=== PATIENT | male | born 1950 | race Caucasian/White ===

== ENCOUNTER → 2017-09-22 13:01 | Outpatient (CLI) | payer BC, SELFPAY ==
--- NOTE | 2017-09-22 13:07 | DI.RAD.S_ITS ---
PROCEDURE: XR CHEST 2V INDICATIONS: short of breath TECHNIQUE: 2 views of the chest were acquired. COMPARISON: None. FINDINGS: Surgical changes and devices: None. Lungs and pleura: No pleural effusions or pneumothorax. Lungs are abnormal with increased radiodensity across the upper anterior chest on the lateral view, suggestive of a mass lesion in that area. Mediastinum: Mediastinal contours are abnormal with bulky adenopathy in the hilar regions bilaterally greater on the left than the right, increasing the radiodensity in that area and expanding the mediastinal contours. Lung volumes are large, no definite additional mass lesions found. No effusion seen. Heart size is normal. Bones and chest wall: No suspicious bony abnormalities. Soft tissues appear unremarkable. IMPRESSION: Malignant appearing mass and adenopathy involving the mediastinum predominantly in the perihilar area but also extending into the anterior upper lungs on the frontal and lateral projections. Malignancy is the presumed cause. Contrast-enhanced chest CT is recommended. Large lung volumes, COPD is presumed. There likely has been a long-standing smoking history. These findings were discussed in detail personally with the ordering health care provider. Given the certainty of underlying malignancy it may be warranted to obtain a full staging CT of the chest abdomen and pelvis which will also assist in guiding localization for biopsy. Dictated by: Shin Echeverria M.D. on 09/22/2017 at 13:47 Approved by: Shin Echeverria M.D. on 09/22/2017 at 13:57
[2017-09-22 13:31] LABS: Add Manual Diff / Slide Review NO; Basophils Percent Auto 0.2 % (0-2); Hematocrit 40.2 % (41-53); Hemoglobin 13.7 g/dL (13.5-17.5); Mean Corpuscular HGB Conc 34.2 % (30-36); Mean Corpuscular Hemoglobin 31.1 PG (26-34); Neutrophils Absolute Auto 3500 /uL (3000-5900); Neutrophils Percent Auto 65.8 % (50-75); Platelet Count 218 X10^3/uL (150-400); Red Blood Cell Count 4.42 X10^6/uL (4.5-5.9); Red Cell Distribution Width 15.3 % (11.6-14.8); White Blood Cell Count 5.4 X10^3/uL (4.5-11.0)
[2017-09-22 13:34] LABS: Alanine Aminotransferase 27 IU/L (21-72); Albumin 4.2 g/dL (3.5-5.0); Albumin Globulin Ratio 1.6 (1.0-2.8); Alkaline Phosphatase 61 U/L (38-126); Aspartate Aminotransferase 35 IU/L (17-59); BUN Creatinine Ratio 21.3 (6-22); Bilirubin Total 0.7 mg/dL (0.2-1.3); Blood Urea Nitrogen 17 mg/dL (9-20); Calcium 8.8 mg/dL (8.4-10.2); Carbon Dioxide 27 mmol/L (22-32); Chloride 104 mmol/L (98-107); Estimated Glomerular Filt Rate > 60.0 mL/min (>60); Globulin 2.7 g/dL (1.7-4.1); Glucose 89 mg/dL (80-110); HEMOLYSIS < 15 (0-50); Potassium 4.2 mmol/L (3.4-5.1); Sodium 140 mmol/L (137-145); Total Protein 6.9 g/dL (6.3-8.2)
[2017-09-22 13:35] LABS: Alanine Aminotransferase 32 IU/L (21-72); Albumin 4.1 g/dL (3.5-5.0); Albumin Globulin Ratio 1.5 (1.0-2.8); Alkaline Phosphatase 58 U/L (38-126); Aspartate Aminotransferase 38 IU/L (17-59); Bilirubin Total 0.7 mg/dL (0.2-1.3); Bilirubin Unconjugated 0.4 mg/dL (0.0-1.1); Globulin 2.8 g/dL (1.7-4.1); HEMOLYSIS 21 (0-50); Lipase 89 U/L (23-300); Total Protein 6.9 g/dL (6.3-8.2)
[2017-09-22 14:59] LABS: TSH w/ Reflex to FT4 0.32 uIU/mL (0.47-4.68)
[2017-09-22 15:31] LABS: Free T4, Direct Thyroxine 1.26 ng/dL (0.78-2.19)
[2017-09-26 15:30] LABS: Cancer (Carbohydrate) Ag 19-9 29 U/mL (< 34)
== END ==
PROVIDERS: Visit Provider Physician Assistant
DX: R63.4 Abnormal weight loss (principal); R06.02 Shortness of breath
CPT/HCPCS: 71046; 80053; 80076; 83690; 84439; 84443; 85025; 86301

== ENCOUNTER → 2017-09-25 07:59 | Outpatient (CLI) | payer BC, SELFPAY ==
--- NOTE | 2017-09-25 | DI.CT.S_ITS ---
PROCEDURE: CT CHEST W CON INDICATIONS: MASS IN CHEST TECHNIQUE: After the administration of intravenous contrast, 5 mm thick sections acquired from the pulmonary apices to the posterior costophrenic angles. 7 mm thick coronal and sagittal MIP reformats were acquired. For radiation dose reduction, the following was used: automated exposure control, adjustment of mA and/or kV according to patient size. COMPARISON: [facility], , XR CHEST 2V, 09/22/2017, 12:46. FINDINGS: Image quality: Excellent. Lungs and pleura: No acute air space opacities. No pleural effusions or pneumothorax. Central and peripheral airways are patent and normal in caliber. Mediastinum: A large soft tissue mass containing peripheral calcification and probable areas of necrosis is present in the superior mediastinum anteriorly. The mass is approximately 6 cm AP by 10 cm transverse. There is apparent tumor extension into the superior vena cava with tumor thrombus approximately 9.5 cm craniocaudal. Heart size is normal. No pericardial effusion. No hilar adenopathy by size criteria. Thoracic aorta and central pulmonary arteries are normal in size. Esophagus is normal in caliber. No hiatal hernia. Bones and chest wall: No suspicious bony lesions. No vertebral body compression fractures. No axillary or supraclavicular adenopathy by size criteria. Thyroid gland contains a solid 12 mm nodule in the posterior, inferior pole of the right lobe.. Abdomen: Visualized upper abdominal solid organs appear normal. Upper abdominal bowel loops are normal in caliber. Lobulated hypodensity in the anterior left lobe of liver is reidentified. IMPRESSION: 1. 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 The differential includes malignant thymoma, teratoma and thyroid cancer as well as lymphoma. 2. There is an apparent solid, vascular nodule in the right lobe of thyroid posteriorly. Thyroid ultrasound recommended for further evaluation. 3. No hilar adenopathy or pulmonary lesions. No pleural effusions. Central airway is not compromised. Dictated by: Kevin Wall M.D. on 09/25/2017 at 13:43 Approved by: Kevin Wall M.D. on 09/25/2017 at 13:57
--- NOTE | 2017-09-25 08:02 | DI.CT.S_ITS ---
PROCEDURE: CT ABDOMEN PELVIS W CON INDICATIONS: Mass on chest x ray. TECHNIQUE: After the administration of oral and intravenous contrast, 5 mm thick sections acquired from the diaphragms to the symphysis. 5 mm thick coronal and sagittal reformats were performed. For radiation dose reduction, the following was used: automated exposure control, adjustment of mA and/or kV according to patient size. COMPARISON: [facility], CR, XR CHEST 2V, 09/22/2017, 12:46. FINDINGS: Image quality: Excellent. ABDOMEN: Lung bases: Lung bases are clear. There are small bilateral pleural effusions, and determining. Heart size is normal. Distal esophagus appears normal. The suspected mass lesion in the superior mediastinum is not included on this exam. Solid organs: Liver is normal in size and enhancement. There is a 14 mm slightly lobulated subcapsular hypodensity in the left lobe of liver, series 2/images 15 and 16, internal attenuation 15. This is indeterminant but likely hepatic cyst or hemangioma. Gallbladder appears normal. Biliary system is non-dilated. Pancreas enhances normally. Spleen is normal in size and enhancement. No adrenal nodules. Kidneys are normal in size and enhancement, without hydronephrosis. There is a 2 mm nonobstructing calculus in the lower pole collecting system of the left kidney. Peritoneum and bowel: Stomach, small bowel, and colon loops are normal in caliber and wall thickness. Sigmoid diverticulosis without diverticulitis. No free fluid or air. Nodes and vessels: No retroperitoneal or mesenteric adenopathy. Aorta and inferior vena cava are normal in caliber. Miscellaneous: Small fat filled umbilical hernia. PELVIS: Genitourinary: Bladder wall thickness is normal. Prostate measures 3.8 x 5.3 cm. Miscellaneous: No inguinal hernias or adenopathy. Bones: No suspicious bony lesions. Disc spaces appear maintained however posterior annular bulging is evident at L3-4 and L4-5 No vertebral body compression fractures. Status post total left hip arthroplasty. IMPRESSION: 1. Small bilateral pleural effusions are indeterminant. Contrast enhanced CT chest is recommended as previously advised. 2. No evidence of adrenal nodules, lymphadenopathy or other evidence of primary or secondary malignancy. Small subcapsular defect in the left lobe liver anteriorly is nonspecific. 3. Left nephrolithiasis. 4. Colonic diverticulosis without diverticulitis. 5. Mild prostate enlargement. Dictated by: Kevin Wall M.D. on 09/25/2017 at 10:00 Approved by: Kevin Wall M.D. on 09/25/2017 at 10:21
== END ==
PROVIDERS: PCP Family Medicine; Visit Provider Physician Assistant
DX: R22.2 Localized swelling, mass and lump, trunk (principal); E04.1 Nontoxic single thyroid nodule; J90 Pleural effusion, not elsewhere classified; N20.0 Calculus of kidney; K57.90 Diverticulosis of intestine, part unspecified, without perforation or abscess without bleeding; N40.0 Benign prostatic hyperplasia without lower urinary tract symptoms
CPT/HCPCS: 71260; 74177; Q9967

== ENCOUNTER → 2017-09-26 10:53 | Outpatient (CLI) | payer SELFPAY ==
[2017-09-26 14:12] LABS: Lactate Dehydrogenase 596 U/L (313-618)
[2017-09-26 14:32] LABS: HCG Quantitative /Beta subunit < 2.39 mIU/mL (<2.39)
[2017-09-28 14:26] LABS: Alpha Fetoprotein 2.4 ng/mL (< 6.1)
[2017-09-30 12:53] LABS: Acetylcholine receptor antibod 16
== END ==
PROVIDERS: PCP Family Medicine; Visit Provider Physician Assistant
DX: R22.2 Localized swelling, mass and lump, trunk (principal)
CPT/HCPCS: 36415; 82105; 83519; 83615; 84702

== ENCOUNTER → 2017-09-27 13:40 | Outpatient (CLI) | payer SELFPAY ==
--- NOTE | 2017-09-27 13:42 | DI.US.S_ITS ---
PROCEDURE: US THYROID INDICATIONS: THYROID NODULE ON CT TECHNIQUE: Real-time scanning was performed of the thyroid gland, with image documentation. COMPARISON: None. FINDINGS: Right: Thyroid lobe measures 6.9 x 2.8 x 2.2 cm, and is homogeneous in echotexture. Left: Thyroid lobe measures 5.6 x 2.3 x 1.8 cm, and is homogenous in echotexture. Isthmus: 5.3 mm thick. Nodule number: 1 Location: left superior lobe Size: 1.1 x 0.6 x 0.7 cm. Composition: solid Echogenicity: hypoechogenicty Shape: wider than tall. Margins: smooth Echogenic foci: none Total points: 4 ACR TI-RADS category: 4 Nodule number: 2 Location: left midlobe Size: 0.9 x 0.4 x 0.6 cm. Composition: predominately cystic Echogenicity: hypoechoic Shape: wider than tall. Margins: smooth Echogenic foci: none Total points: 3 ACR TI-RADS category: 3 Nodule number: 3 Location: right inferior Size: 1.8 x 1.3 x 1.4 cm. Composition: solid Echogenicity: hypoechogencity Shape: wider than tall. Margins: smooth Echogenic foci: none Total points: 4 ACR TI-RADS category: 4 IMPRESSION: 1. TIRADS 4 lesions as above. Lesion #1 requires no further followup due to size. Lesion #2 recommends FNA due to size. ACR TI-RADS definitions and recommendations: TI-RADS 1 (benign): 0 points. FNA not needed. TI-RADS 2 (not suspicious): 2 points. FNA not needed. TI-RADS 3 (mildly suspicious): 3 points. * FNA if 2.5 cm or larger, follow up if 1.5 cm or larger (at 1, 3, and 5 years). TI-RADS 4 (moderately suspicious): 4-6 points. * FNA if 1.5 cm or larger, follow up if 1 cm or larger (at 1, 2, 3, and 5 years). TI-RADS 5 (highly suspicious): 7 points or more. * FNA if 1 cm or larger, follow up if 0.5 cm or larger (every year for 5 years). Dictated by: Ella Jose M.D. on 09/27/2017 at 15:06 Approved by: Ella Jose M.D. on 09/27/2017 at 15:18
== END ==
PROVIDERS: PCP Family Medicine; Visit Provider Physician Assistant
DX: E04.2 Nontoxic multinodular goiter (principal)
CPT/HCPCS: 76536

== ENCOUNTER 2017-09-29 10:03 | Inpatient (IN) | payer MEDICARE, BC, SELFPAY ==
[2017-09-29] VITALS (18 sets, daily range): BP systolic 120–152; BP diastolic 68–93; PULSE 64–82; RESP 6–25; TEMP 36.2–37.2; O2SAT 90–100; BMI 26.2
--- NOTE | 2017-09-29 | PATH_ITS ---
[facility] Accession Number: [id number] . 01 Material submitted: . PORTION OF THE SIGMOID COLON . 02 Diagnosis: Portion of Sigmoid Colon, Resection: Segment of colon with diverticulosis, transmural abscess and serositis, consistent with diverticulitis. Negative for dysplasia or malignancy. MRV/10/04/2017 . 02 Electronically signed: . Taras Lugo MD, PhD, Pathologist NPI- [id number] . 01 Gross description: . Received in formalin, labeled portion of sigmoid colon, is an unoriented opened segment of colon (length-11.3 cm, resection margin #1 diameter-1.5 cm; resection margin #2 diameter-1.8 cm) with attached mesentery (up to 4.2 cm in depth). The resection margins are stapled. The serosa is peck smooth and shiny. The mucosa is peck with compact distorted folds containing diffuse diverticula. No nodules or masses are identified. The resection margins are inked black. Section code: (A1) resection margin #1, longitudinally sectioned, sales representative graphic art; (A2) resection margin #2, longitudinally sectioned, sales representative graphic art; (A3-A8) colon segment, serially sectioned, sales representative graphic art. ([id number]) /[facility] . 02 Pathologist provided ICD-10: K57.80 . 02 CPT . 429251 Performed at: 01 [facility] [address] [place] [address], [place], [place] [id number] MD Michael Leslie MD Phone: [phone] Performed at: 02 [facility] [address] [place], [place] [id number] MD Philipp Avila MD Phone: [phone]
--- NOTE | 2017-09-29 10:23 | DI.RAD.S_ITS ---
PROCEDURE: XR CHEST 1V INDICATIONS: chest pain TECHNIQUE: One view of the chest was acquired. COMPARISON: [facility], CT, CT ABDOMEN PELVIS W CON, 09/25/2017, 9:31. [facility], CT, CT CHEST W CON, 09/25/2017, 12:12. [facility], CR, XR CHEST 2V, 09/22/2017, 12:46. FINDINGS: Surgical changes and devices: None. Lungs and pleura: The mild bibasilar airspace disease has developed in the interim. No large effusion or pneumothorax is evident. Incidental note is made of pneumoperitoneum under the hemidiaphragms.. Mediastinum: Mediastinal contours appear normal. Heart size is normal. There is a prominent mediastinal mass. Bones and chest wall: No suspicious bony lesions. Overlying soft tissues appear unremarkable. IMPRESSION: 1. There appears to be free air underlying the diaphragms (left greater than right). A CT of the abdomen and pelvis is recommended. 2. Mediastinal mass is unchanged. 3. Bibasilar airspace disease is new, most suggestive of atelectasis. However, superimposed pneumonia is difficult to exclude. Note: Findings were discussed with Dr. Street 1102 hours (PST) on 09/29/17. Dictated by: Geo Patterson M.D. on 09/29/2017 at 9:57 Approved by: Geo Patterson M.D. on 09/29/2017 at 10:18
[2017-09-29 10:42] LABS: Add Manual Diff / Slide Review NO; Basophils Percent Auto 0.2 % (0-2); Hematocrit 40.3 % (41-53); Hemoglobin 13.8 g/dL (13.5-17.5); Lymphocytes Percent Auto 4.2 % (25-40); Mean Corpuscular HGB Conc 34.2 % (30-36); Mean Corpuscular Hemoglobin 31.5 PG (26-34); Monocytes Percent Auto 7.8 % (3-14); Neutrophils Absolute Auto 9500 /uL (3000-5900); Neutrophils Percent Auto 87.8 % (50-75); Platelet Count 244 X10^3/uL (150-400); Red Blood Cell Count 4.38 X10^6/uL (4.5-5.9); Red Cell Distribution Width 15.2 % (11.6-14.8); White Blood Cell Count 10.9 X10^3/uL (4.5-11.0)
[2017-09-29 10:48] LABS: Alanine Aminotransferase 27 IU/L (21-72); Albumin 4.1 g/dL (3.5-5.0); Albumin Globulin Ratio 1.4 (1.0-2.8); Alkaline Phosphatase 51 U/L (38-126); Aspartate Aminotransferase 28 IU/L (17-59); BUN Creatinine Ratio 21.1 (6-22); Blood Urea Nitrogen 19 mg/dL (9-20); Calcium 9.5 mg/dL (8.4-10.2); Carbon Dioxide 26 mmol/L (22-32); Chloride 105 mmol/L (98-107); Creatine Kinase 34 U/L (55-170); Estimated Glomerular Filt Rate > 60.0 mL/min (>60); Globulin 2.9 g/dL (1.7-4.1); Glucose 129 mg/dL (80-110); Lipase 37 U/L (23-300); Potassium 4.5 mmol/L (3.4-5.1); Sodium 139 mmol/L (137-145)
[2017-09-29 10:58] LABS: HEMOLYSIS 76 (0-50)
[2017-09-29 10:59] LABS: Troponin I < 0.012 ng/mL (0.01-0.034)
[2017-09-29] MEDS: HYDROMORPHONE 0.5 MG INJ 1 MG IV (11:05)
[2017-09-29] MEDS: SODIUM CHLORIDE 0.9% 1,000 ML 1000 ML IV (11:21)
[2017-09-29] MEDS: PIPERACILLIN-TAZO 4.5 GM/100 ML FROZ.PIGGY IV (11:22)
--- NOTE | 2017-09-29 11:29 | DI.CT.S_ITS ---
PROCEDURE: CT CHEST ABD PEL W CON INDICATIONS: free air on CXR TECHNIQUE: After the administration of intravenous contrast, 5 mm thick sections acquired from the lung apices to the symphysis. 5 mm coronal and sagittal reformats were performed, with additional 7 mm MIP reformats through the lungs. For radiation dose reduction, the following was used: automated exposure control, adjustment of mA and/or kV according to patient size. COMPARISON: [facility], CR, XR CHEST 1V, 09/29/2017, 10:40. [facility], CT, CT CHEST W CON, 09/25/2017, 12:12. [facility], CT, CT ABDOMEN PELVIS W CON, 09/25/2017, 9:31. FINDINGS: Image quality: Excellent. CHEST: Lungs and pleura: No effusions. Dependent changes are present at the bases bilaterally. Mediastinum: Heart size is normal. No pericardial effusion. As identified on the 09/25/17 exam, there is a heterogeneously enhancing mass within the anterior mediastinum appearing to extend into the superior vena cava. The latter demonstrates no luminal opacification and is unchanged in appearance. Thoracic aorta and central pulmonary arteries are normal in size. Esophagus is normal in caliber. No hiatal hernia. Chest wall: No axillary or supraclavicular adenopathy by size criteria. Thyroid gland demonstrates a 12 mm nodular focus within the inferior right lobe, unchanged.. ABDOMEN: Solid organs: Liver is normal in size. Low attenuation focus within the left lobe is unchanged. Gallbladder demonstrates minimal appearance of dependent increased density without wall thickening. There is interval development of mild pneumobilia. Pancreas enhances normally. Spleen is normal in size and enhancement. No adrenal nodules. Kidneys demonstrate normal size and enhancement, without hydronephrosis. Peritoneum and bowel: There is a dilated fluid-filled appearance of small bowel loops. Free air is identified below the hemidiaphragms. There are multiple foci of free air identified within the abdominal mesenteric fat, predominately in the anterior superior abdomen. These are particularly prominent adjacent to the stomach and bowel loops within this region. Dependent fluid is present within the pelvis. Significant colonic diverticula are present. The descending and sigmoid colon have a mildly thickened appearance which has not significantly changed. There is a minimal appearance of haziness within the mesenteric fat adjacent to the colon of the left lower quadrant best seen on series 2 image 113. While there is free air within this region, it is minimal compared to the above described regions. Nodes and vessels: No retroperitoneal or mesenteric adenopathy by size criteria. Aorta and inferior vena cava are normal in size. Miscellaneous: No ventral hernias. PELVIS: Genitourinary: Bladder wall thickness is normal. Miscellaneous: No inguinal hernias or adenopathy. Bones: No suspicious bony lesions. No vertebral body compression fractures. Marked femoral arthroplasty is present. IMPRESSION: 1. Free air within the abdomen/pelvis is identified with most prominent areas of air within the mesenteric fat noted between the posterior margins of the stomach and adjacent transverse colon. There is no definitive fluid identified within this region. Findings could be related to a perforated diverticulum given significant extent of diverticulosis. However, other visceral areas of perforation cannot be excluded. 2. Partial small bowel obstruction. 3. Mild dependent pelvic fluid. 4. 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 5. Bibasilar dependent changes likely atelectasis. 6. Minimal to mild appearance of mesenteric fat stranding adjacent to the descending colon within the left lower quadrant as above. This could represent a small focus of diverticulitis. It is noted that free air within this region is much less in comparison to the upper abdomen. The above findings were discussed with Dr. Roman Street on 09/29/17 at 11:51 AM. Dictated by: Ella Jose M.D. on 09/29/2017 at 11:42 Approved by: Ella Jose M.D. on 09/29/2017 at 11:58
[2017-09-29 12:20] LABS: Lactate (Lactic Acid) 0.8 mmol/L (0.7-2.1)
--- NOTE | 2017-09-29 13:07 | ED.CHESTPAIN ---
HPI - Chest Pain General Chief Complaint: Chest Pain Stated Complaint: Chest Pain History of Present Illness HPI narrative: HPI 67-year-old male presents for evaluation of sharp midline chest discomfort that is worsened with deep inspiration has been present for three fourths of the day and occurred after moving furniture; diagnosed 09/22 with a mediastinal mass, otherwise in good health. Patient denies fevers, chills, cough, 3 of DVT or PE, history of cardiovascular disease. Recently moved from [place], has not yet established primary care. M/S/F/SocHx notable for: please see HPI; remainder reviewed with patient and in chart. ROS: Negative constitutional, eye, cardiovascular, pulmonary, GI, , MSK, skin, neurologic, psychiatric, endocrine unless noted in the HPI. Exam Gen: pleasant, not an extremis, appears moderately uncomfortable. HEENT: NC, AT, PEERL, EOMI. Resp: Clear to auscultation bilaterally, normal work of breathing, no accessory muscle usage. Card: Regular rate and rhythm with no murmurs, rubs, or gallops, extremities warm and well perfused. GI: N mild epigastric tenderness to palpation, otherwise nontender to palpation throughout all quadrants, no focal tenderness at McBurney's point, negative Lockhart's sign, non-distended, no rebound or guarding. : No suprapubic tenderness to palpation. MSK: No visible deformities, strength and tone without visually appreciable deficit. Skin: Normal color with no visible lesions. Neuro: AO x 3, no facial asymmetry, vision and hearing WNL. Psych: Mood and affect appropriate. Labs / Imaging: EKG: SR 70 bpm, RBBB, no ST segment elevations or depressions. CXR: free air. Mediastinal widening. Radiologist read pending. WBC 10.9, Hb 13.8, Na 139, K 4.5 total bilirubin 1.0, AST 28, ALT 27, lipase 37, troponin <0.012 CT Chest / Abd / Pelvis: 1. Free air within the abdomen/pelvis is identified with most prominent areas of air within the mesenteric fat noted between the posterior margins of the stomach and adjacent transverse colon. There is no definitive fluid identified within this region. Findings could be related to a perforated diverticulum given significant extent of diverticulosis. However, other visceral areas of perforation cannot be excluded. 2. Partial small bowel obstruction. 3. Mild dependent pelvic fluid. 4. 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 5. Bibasilar dependent changes likely atelectasis. 6. Minimal to mild appearance of mesenteric fat stranding adjacent to the descending colon within the left lower quadrant as above. This could represent a small focus of diverticulitis. It is noted that free air within this region is much less in comparison to the upper abdomen. MDM Previous chart, nursing note, labs, imaging, and vitals reviewed. A: 67-year-old male presents for evaluation of sharp midline chest discomfort that is worsened with deep inspiration has been present for three fourths of the day and occurred after moving furniture; diagnosed 09/22 with a mediastinal mass, otherwise in good health. Evaluation: chest x-ray with free air, CT abdomen pelvis with partial obstruction and free air, location uncertain. Surgery consulted. Patient taken to or for further intervention. 1 mg hydromorphone given for pain control. Chest x-ray with free air, 1 L normal saline, Zosyn, lactic ordered. Communicated with radiology technicians that expedited imaging needs to be obtained. Imaging obtained, notable for free air and a partial SBO, etiology uncertain, surgical consultation obtained. Impression: intrabdominal free air, partial SBO (please reference below for remainder of encounter information) Related Data Home Medications Medication Instructions Recorded Confirmed eszopiclone PO 09/22/17 09/22/17 lorazepam PO 09/22/17 09/22/17 Allergies Allergy/AdvReac Type Severity Reaction Status Date / Time birch Allergy Unknown Verified 09/22/17 12:14 ragweed pollen Allergy Unknown Verified 09/22/17 12:14 [facility] Social History Smoking Status: Unknown if ever smoked Exam Initial Vital Signs Initial Vital Signs: Vital Signs Temperature 97.3 F L 09/29/17 10:14 Pulse Rate 69 09/29/17 10:14 Respiratory Rate 18 09/29/17 10:14 Blood Pressure 150/86 H 09/29/17 10:14 Pulse Oximetry 96 09/29/17 10:14 Course Orders Ordered: ED Orders 09/29/17 09:55 Complete Blood Count AUTO DIFF Stat Comprehensive Metabolic Panel Stat Lipase Stat Troponin & CK Cardiac Panel Stat 09/29/17 10:23 EKG-12 Lead Stat 09/29/17 11:29 CT chest abd pel w con Stat 09/29/17 12:06 Lactate (Lactic Acid) Stat Sodium Chloride (Normal Saline 0.9%) 1,000 mls @ 150 mls/hr IV CONT DELORIS Last Admin: 09/29/17 10:52 Dose: Discontinued Medications Aspirin (Aspirin Chew) 324 mg PO NOW ONE Stop: 09/29/17 10:24 Last Admin: 09/29/17 10:47 Dose: Hydromorphone HCl (Dilaudid) 1 mg IV NOW ONE Stop: 09/29/17 10:55 Last Admin: 09/29/17 11:05 Dose: 1 mg Sodium Chloride (Normal Saline 0.9%) 1,000 mls @ 1,000 mls/hr IV BOLUS ONE Stop: 09/29/17 12:01 Last Admin: 09/29/17 11:21 Dose: 1,000 mls/hr Piperacillin/Tazobactam/Dextrose (Zosyn) 4.5 gm in 100 mls @ 200 mls/hr IV NOW ONE Stop: 09/29/17 11:31 Last Infusion: 09/29/17 12:25 Dose: 0 mls/hr Admin: 09/29/17 11:22 Dose: 200 mls/hr Vital Signs - 8 hr 09/29/17 10:14 09/29/17 10:16 09/29/17 10:54 Temperature 97.3 F L 97.3 F L Pulse Rate 69 76 72 Respiratory Rate 18 19 18 Blood Pressure 150/86 H Blood Pressure [Right Arm] 150/86 H 129/76 H Pulse Oximetry 96 94 95 09/29/17 11:00 09/29/17 11:30 09/29/17 12:00 Temperature Pulse Rate 69 72 65 Respiratory Rate 19 12 12 Blood Pressure Blood Pressure [Right Arm] 132/72 H 140/75 H 143/81 H Pulse Oximetry 96 92 92 09/29/17 12:30 Temperature Pulse Rate 68 Respiratory Rate 14 Blood Pressure Blood Pressure [Right Arm] 121/88 H Pulse Oximetry 90 L MDM - Chest Pain Lab Data Result diagrams: 09/29/17 09:55 09/29/17 09:55 Lab Results 09/29/17 09/29/17 09/29/17 Range/Units 09:55 09:55 12:06 WBC 10.9 (4.5-11.0) X10^3/uL RBC 4.38 L (4.5-5.9) X10^6/uL Hgb 13.8 (13.5-17.5) g/dL Hct 40.3 L (41-53) % MCV 92.0 (80-100) fL MCH 31.5 (26-34) PG MCHC 34.2 (30-36) % RDW 15.2 H (11.6-14.8) % Plt Count 244 (150-400) X10^3/uL Neut % (Auto) 87.8 H (50-75) % Lymph % (Auto) 4.2 L (25-40) % [place] % (Auto) 7.8 (3-14) % Eos % (Auto) 0.0 L (2-4) % Baso % (Auto) 0.2 (0-2) % Neut # (Auto) 9500 H (1808-3910) /uL Sodium 139 (137-145) mmol/L Potassium 4.5 (3.4-5.1) mmol/L Chloride 105 (98-107) mmol/L Carbon Dioxide 26 (22-32) mmol/L BUN 19 (9-20) mg/dL Creatinine 0.90 (0.66-1.25) mg/dL Estimated GFR > 60.0 (>60) mL/min BUN/Creatinine Ratio 21.1 (6-22) Glucose 129 H (80-110) mg/dL Lactate 0.8 (0.7-2.1) mmol/L Calcium 9.5 (8.4-10.2) mg/dL Total Bilirubin 1.0 (0.2-1.3) mg/dL AST 28 (17-59) IU/L ALT 27 (21-72) IU/L Alkaline Phosphatase 51 (38-126) U/L Total Creatine Kinase 34 L (55-170) U/L Troponin I < 0.012 (0.01-0.034) ng/mL Total Protein 7.0 (6.3-8.2) g/dL Albumin 4.1 (3.5-5.0) g/dL Globulin 2.9 (1.7-4.1) g/dL Albumin/Globulin Ratio 1.4 (1.0-2.8) Lipase 37 D (23-300) U/L Discharge Plan Departure Prescriptions: No Action eszopiclone PO RF: 0 lorazepam PO RF: 0
[2017-09-29] MEDS: LACTATED RINGERS 1,000 ML 21 ML IV ×2 (13:50→15:13)
--- NOTE | 2017-09-29 13:51 | P.HP_ITS ---
History of Present Illness Date Patient Seen: 09/29/17 Time Patient Seen: 13:40 Chief complaint: Chest Pain Narrative: 67-year-old male who presented to the urgent care center approximately 1 week ago with intermittent chest wall pain. 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 No pulmonary masses. Patient states on further history that he had been feeling relatively poorly over the last several months. In fact, he has been anorexic most days with very little oral intake. He has lost at least 20 lb unintentionally over the last several months. No fevers or chills or night sweats. However, he has had significant difficulty with sleep for which he is now taking medication. He has had no issues with abdominal pain. In fact, his current complaint to bring him to the emergency department today is bilateral thoracic pain radiating into the shoulders. He has noticed no recent change in bowel habits although his last bowel movement was somewhat firm. Denies any dysuria or hematuria. No nausea or vomiting until this morning. Patient History Medical History Diverticulosis (Acute) Insomnia (Acute) Intra-abdominal free air of unknown etiology (Acute) Mediastinal mass (Acute) Surgical History History of appendectomy (Acute) History of colonoscopy (Acute) Family & Social History Family History: Reviewed 09/29/17 by Azael Flynn MD Safety & Behavioral: Feels Safe in Current Yes Environment Tobacco & Substance use: Smoking Status Unknown if ever smoked alcohol intake frequency 0-2 drinks per day Substance Use Type does not use Meds Home Medications Medication Instructions Recorded Confirmed Type eszopiclone PO 09/22/17 09/22/17 History lorazepam PO 09/22/17 09/22/17 History eszopiclone [Lunesta] 1 mg PO BEDTIME 09/29/17 09/29/17 History fluticasone [Flonase Allergy 1 spray INTRANASAL DAILY 09/29/17 09/29/17 History Relief] Allergies Allergy/AdvReac Type Severity Reaction Status Date / Time birch Allergy Unknown Verified 09/29/17 13:46 ragweed pollen Allergy Unknown Verified 09/29/17 13:46 Review of Systems Review of Systems All systems reviewed & are unremarkable except as noted in HPI and below Exam Vital Signs (past 8 hours): - 09/29/17 10:14 09/29/17 10:16 09/29/17 10:54 Temperature 97.3 F L 97.3 F L Pulse Rate 69 76 72 Respiratory Rate 18 19 18 Blood Pressure 150/86 H Blood Pressure [Right Arm] 150/86 H 129/76 H Pulse Oximetry 96 94 95 09/29/17 11:00 09/29/17 11:30 09/29/17 12:00 Temperature Pulse Rate 69 72 65 Respiratory Rate 19 12 12 Blood Pressure Blood Pressure [Right Arm] 132/72 H 140/75 H 143/81 H Pulse Oximetry 96 92 92 09/29/17 12:30 09/29/17 13:00 Temperature Pulse Rate 68 69 Respiratory Rate 14 11 L Blood Pressure Blood Pressure [Right Arm] 121/88 H 141/80 H Pulse Oximetry 90 L 93 Oxygen Delivery Method Room Air Narrative Exam Narrative: Middle aged gentleman sitting comfortably in bed in no acute distress but he is nauseated. He is having dry heaves at the time of my visit. His is at the bedside. He is alert oriented x3 however. No fevers or tachycardia in the emergency department. Sclera nonicteric Neck is supple Chest clear auscultation with regular rate and rhythm Abdomen is soft and nondistended. He is not tympanitic. He is diffusely mildly tender but actually has no guarding or rebound. Well-healed right lower quadrant scar. Extremities show no clubbing, cyanosis, or edema Objective Labs Result Diagrams: 09/29/17 09:55 09/29/17 09:55 Labs: Laboratory Results - last 24 hr 09/29/17 09/29/17 09/29/17 09:55 09:55 12:06 WBC 10.9 RBC 4.38 L Hgb 13.8 Hct 40.3 L MCV 92.0 MCH 31.5 MCHC 34.2 RDW 15.2 H Plt Count 244 Neut % (Auto) 87.8 H Lymph % (Auto) 4.2 L [place] % (Auto) 7.8 Eos % (Auto) 0.0 L Baso % (Auto) 0.2 Neut # (Auto) 9500 H Sodium 139 Potassium 4.5 Chloride 105 Carbon Dioxide 26 BUN 19 Creatinine 0.90 Estimated GFR > 60.0 BUN/Creatinine Ratio 21.1 Glucose 129 H Lactate 0.8 Calcium 9.5 Total Bilirubin 1.0 AST 28 ALT 27 Alkaline Phosphatase 51 Total Creatine Kinase 34 L Troponin I < 0.012 Total Protein 7.0 Albumin 4.1 Globulin 2.9 Albumin/Globulin Ratio 1.4 Lipase 37 D I have personally reviewed his CT scan dated September 25, [address] as his CT scan done today and chest x-ray done today. All films are reviewed with the staff radiologist. Findings today show massive free air under the diaphragm bilaterally. Small amount of free fluid in the pelvis. No significant inflammatory changes but he has diffusely dilated small bowel throughout the abdomen. No clear obstructive point however. Liver is without masses. No significant lymphadenopathy. Mediastinal mass is confirmed as above. Assessment & Plan Plan: Assessment/Plan Narrative: 67-year-old male with significant free intraperitoneal air of unclear etiology consistent with perforated viscus. I discussed the nature of the patient's acute emergent problem with him and his . He understands that he may have a perforation anywhere from the stomach to the rectum. He requires emergent laparotomy and exploration. He understands that I am uncertain as to what will be found at the time of surgery but does findings will mandate the appropriate procedure. He may require resection or even ostomy of some sort. We also discussed the possibility of drains or enteric tubes. He may require prolonged intubation after surgery. I will plan ICU admission. We discussed the significant life-threatening nature of perforated viscus. I am uncertain if the perforation is related to an underlying malignancy, such as lymphoma, especially given the mediastinal mass recently visualized. I did not recommend any alternatives to surgery such as observation since I explained to him clearly that observation only would most likely result in sepsis and . Risks of surgery other than those above include anesthesia, aspiration, bleeding , need for transfusion, pain, scar, poor wound healing, infection, abscess, cardiac event, blood clot, respiratory failure, liver injury, renal injury, bowel injury, colon injury, ureter injury, bladder injury, need for ostomy, and need for further major abdominal surgery were all explained in detail. All questions were answered to his satisfaction, and he voiced understanding. Consent was placed on the chart. We will proceed emergently as above. Orders were written.
[2017-09-29] MEDS: FAMOTIDINE 20 MG/50 ML PIGGYBACK 200 MG IV (13:55)
[2017-09-29] MEDS: CEFAZOLIN 2 GM/100 ML FROZ.PIGGY IV (14:07)
[2017-09-29] MEDS: metroNIDAZOLE 500 MG/100 ML PIGGYBACK 100 MG IV ×2 (14:25→22:18)
--- NOTE | 2017-09-29 14:44 | SUR.OPER ---
Supine on padded OR bed, head on pillow, arms secured on padded arm boards at <90 degrees abduction, legs uncrossed, safety belt at thigh, tape over blanket over lower legs.
[2017-09-29] MEDS: ONDANSETRON 4 MG/2 ML INJ IV (15:11)
--- NOTE | 2017-09-29 18:56 | DI.RAD.S_ITS ---
PROCEDURE: XR CHEST 1V INDICATIONS: intubated, tube placement TECHNIQUE: One view of the chest was acquired. COMPARISON: [facility], CR, XR CHEST 1V, 09/29/2017, 10:40. FINDINGS: Surgical changes and devices: There's been interval placement of an endotracheal tube with distal tip approximately 4.3 cm superior to the latricia. Nasogastric tube is present with distal tip projecting below the left hemidiaphragm. Lungs and pleura: No pleural effusions or pneumothorax. Dependent changes within the lung bases are noted, slightly more prominent. Appearance of free air below the hemidiaphragms is less prominent. Mediastinum: Mediastinal contours appear normal. Heart size is normal. Bones and chest wall: No suspicious bony lesions. Overlying soft tissues appear unremarkable. IMPRESSION: 1. Support lines as above. 2. Less prominent appearance of free air. 3. Dependent changes within the lungs slightly more prominent on the left when compared to prior exam. This could represent worsening atelectasis or developing pneumonia. Dictated by: Ella Jose M.D. on 09/29/2017 at 20:21 Approved by: Ella Jose M.D. on 09/29/2017 at 20:22
--- NOTE | 2017-09-29 18:56 | PM.OP.1 ---
Operative Date/Time/Diagnoses Date of procedure: 09/29/17 Time of procedure: 18:56 Pre-op diagnosis: Perforated viscus with free intraperitoneal air Post-op diagnosis: other (Perforated sigmoid diverticulitis) Procedure & Clinicians Procedure: 1. Exploratory laparotomy 2. Partial sigmoid colectomy 3. Diverting descending end colostomy 4. Mobilization of the splenic flexure 5. Esophagogastroscopy with placement of nasogastric tube endoscopically Same procedure as scheduled: Yes Indications: 67-year-old male who presented the emergency department with progressive pain and nausea. Examination and evaluation including radiographic studies demonstrated free intraperitoneal air. He was recommended to undergo emergency laparotomy with presumptive diagnosis of perforated viscus. He also understood that there were multiple potential indicated procedures based on findings. He was agreeable to necessary procedures. Surgeon: Azael Flynn Click Yes if Unassisted: Yes Anesthesia Type: General Operative Notes Findings: 1. Kell pus within the pelvis 2. Significant inflammatory response in the sigmoid colon consistent with perforated diverticulitis. Specimen was opened on the back table which confirmed a perforated diverticulum. 3. Very high splenic flexure posterior to the spleen just below the insertion of the diaphragm 4. Distended stomach at the time of initial exploration with inability to the past nasogastric tube. Patient clearly required nasogastric tube so endoscopic placement was necessary. 5. Normal left ureter in normal anatomic position 6. Grossly normal but mildly dilated small bowel from the ligament of Treitz to the terminal ileum 7. Adhesions in the right lower quadrant consistent with prior appendectomy 8. Grossly normal spleen 9. No palpable liver abnormalities or masses 10. Normal duodenum and stomach without evidence of perforation or inflammation 11. Normal residual colon with few scattered diverticula 12. Viable and well perfused colostomy in left abdominal wall at conclusion of the case Closure Type: primary Specimen(s): other (Segment of sigmoid colon) Estimated Blood Loss (mL): 200 Blood products transfused: none Procedure in detail: After obtaining informed consent the patient was brought to the operating room placed supine on the table. After satisfactory induction of anesthesia the abdomen was prepped and draped in usual sterile fashion after inserting a Lawler catheter in the urinary bladder. A SCOAP time-out was performed per standard protocol. Vertical midline incision was created from just above the umbilicus to the inferior midline. Bovie was used to achieve hemostasis and carried the dissection down to the rectus fascia which was divided in the midline. Underlying peritoneum near the umbilicus was secured between hemostats and entered under direct visualization sharply with Metzenbaum scissors. Surgeon's finger was inserted in the remaining portion of the peritoneum and fascia were opened along the midline for the length of the incision using the Bovie. Findings are as above. Bookwalter retractor was inserted to provide exposure. Fluid cultures were sent from the kell pus in the pelvis. Fluid was then suction from the abdomen and pelvis. Small bowel was eviscerated and examined. Findings again are as above. Attempts at nasogastric tube placement per the anesthesiology service were unsuccessful on multiple occasions throughout the case. We therefore determined that endoscopic placement of the nasogastric tube would be necessary. There was some suspicion that is mediastinal mass might be causing some esophageal compression thereby inhibiting the passage of the tube. After fully visualizing exploring the abdomen findings were consistent with perforated sigmoid diverticulitis. I therefore stapled across the bowel above and below the perforation on grossly normal noninflamed colon. The rectosigmoid stump was marked with 2 individual 2 0 Prolene sutures on the corners for future identification at the time of colostomy reversal in the future. Specimen was liberated by dividing the mesentery between Samara clamps and securing the vessels with 2 0 silk ties and 3 0 silk suture ligatures. Specimen was opened on the back table and a clear perforation to a diverticulum at the inflammatory phlegmon was clearly noted. Specimen was sent for permanent section. Gowns and gloves were changed. Entire descending colon and splenic flexure including the distal transverse colon were completely mobilized along the peritoneal reflection to prepare the colon for future colostomy reversal. Great care was taken to avoid injury to the left kidney in the left ureter. The ureter was clearly identified prior to the mobilization of the colon. Ureter was again identified and noted to be completely intact following the mobilization maneuvers. Residual colon was quite viable without evidence of any other perforation or abnormalities. Spleen was intact. Stomach was not injured but remained distended. Because we were unsure if we were going to be able to place a nasogastric tube at this point which would necessitate placement of a Jessie gastrostomy I broke sterility to perform esophagogastroscopy and endoscopic placement of the nasogastric tube. The gastroscope was inserted over the tongue through the bite block where the upper esophageal sphincter was identified. Scope was advanced easily into the esophagus and under direct visualization of the esophageal lumen the scope was advanced into the stomach which insufflated with air. I suctioned air and bilious fluid from the stomach without difficulty. There was no evidence of any esophageal stricture other abnormalities including mucosal lesions as I slowly withdrew the scope and meticulously examined the esophagus. Nasogastric tube was then inserted back through the nose and into the oropharynx at the level of the upper esophageal sphincter where it was readily identified with the endoscope. Tube was secured with a snare and then meticulously guided through the upper esophageal sphincter into the esophageal lumen. At this point we released the nasogastric tube from the snare and the snare was withdrawn. Nasogastric tube was then advanced easily under direct visualization with the endoscope. Tube was placed into the stomach. Gastroscope was withdrawn and this portion the procedure was terminated. I then scrubbed once again in the usual sterile fashion and replaced my sterile gown and gloves. Nasogastric tube was noted to be in good position within the body of the stomach without any significant redundancy. Tube was secured to the nose at that time. Abdomen was then irrigated with copious amounts of warm sterile saline solution. At least 3 L was utilized. Hemostasis was verified. There was no gross residual pus. Bowel and omentum were replaced in their usual anatomic position. Dayn clamps were used to secure the fascia bilaterally along the incision. Another clamp was used to secure the skin in the left abdominal wall where a circular incision was created with a 10. Scalpel blade. Bovie was used to create hemostasis and resect a portion of the subcutaneous fat down to the rectus fascia. Fascia was divided in a cruciate fashion along with the peritoneum which easily admitted 2 of the surgeon's fingers. The descending colon with all of its redundancy following mobilization of the splenic flexure was then easily exteriorized through the abdominal wall defect. Colon was noted to be quite viable and well perfused. Colon was secured outside of the abdominal wall with an Allis clamp along the staple line. Incision was then closed with 2 individual 1 running Prolene sutures tied in the midline. Subcutaneous tissue was irrigated with copious amount of sterile saline solution and noted to be hemostatic. Skin was closed with hugh. Sterile dressing was applied. Colostomy was then matured in a standard fashion using interrupted 3 0 Vicryl suture along the skin edge. There was excellent perfusion and nice height to the ostomy at the completion of the case. Temporary ostomy appliance was applied. Patient was left intubated and taken to the ICU in critical condition but stable having experienced no complications intraoperatively. Complications: none Condition: critical Disposition: ICU Plan for aftercare: 1. Patient to be intubated at least overnight in the ICU for critical care and resuscitation
--- NOTE | 2017-09-29 19:12 | SUR.PHASEI ---
late entry: pt brought to icu directly from or 3. felicia from [facility] CALLED AND TOLD OF NEEDED VENT. PT MONITORED AND TRANSFERRED TO ICU VIA BED. NGT TO LIS HOOKED TO SUCTION, NO OUTPUT, DRESSING TO ABDOMEN C/D/I. L ABDOMEN WITH BEEFY RED, WET COLOSTOMY. VSS, PT SQUEEZED MY R HAND WHEN ASKED. PT LEFT IN STABLE CONDIITON UNDER THE CARE OF ANTONELLA LUNDBERG. SCD'S ON BED LOCKED.
[2017-09-29] MEDS: PROPOFOL 1,000 MG/10 ML VIAL 10.2 MG IV (19:15)
[2017-09-29] MEDS: HYDROMORPHONE 2 MG INJ 1 MG IV (19:20)
[2017-09-29 19:59] LABS: PCO2 ABG 43.9 mmHg (35-45); PO2 ABG 115 mmHg (80-105); pH ABG 7.31 (7.35-7.45)
[2017-09-29 20:00] LABS: Fractionated Inspired Oxygen 40; HCO3 ABG 22 mmol/L (23-27); Oxygen Saturation ABG 98 % (95-100); TCO2 ABG 24 mmol/L (23-27)
[2017-09-29 20:08] LABS: Hematocrit 39.9 % (41-53); Hemoglobin 13.5 g/dL (13.5-17.5)
[2017-09-29] MEDS: PIPERACILLIN-TAZO 3.375 GM/50 ML FROZ.PIGGY IV (21:00)
[2017-09-29] MEDS: LACTATED RINGERS 1,000 ML 125 ML IV (21:00)
[2017-09-29] MEDS: ENOXAPARIN 40 MG/0.4 ML SYRINGE SUBCUT (21:00)
[2017-09-29] MEDS: PANTOPRAZOLE 40 MG VIAL IV (21:01)
--- NOTE | 2017-09-29 21:17 | PC.NURSE ---
1899 - Patient brought over from PACU in bed by nursing staff. Patient sedated on ventilator. Respiratory therapy, PACU nurse, and anesthesiologist at bedside. 2114 - Patient repositioned. Opened eyes and looked at nurse, then closed eyes again. Patient able to shake head yes and no appropriately to questions. Shook head no when asked about pain. Shook head yes when asked if he knew what was going on. Able to wiggle feet and squeeze hands when asked to. Remains on propofol gtt per protocol.
[2017-09-30] VITALS (20 sets, daily range): BP systolic 114–147; BP diastolic 58–77; PULSE 52–71; RESP 8–20; TEMP 36.1–37.4; O2SAT 95–98
[2017-09-30] MEDS: PROPOFOL 1,000 MG/10 ML VIAL 32 MG IV (02:58)
[2017-09-30] MEDS: PIPERACILLIN-TAZO 3.375 GM/50 ML FROZ.PIGGY IV ×3 (02:59→19:41)
[2017-09-30] MEDS: HYDROMORPHONE 2 MG INJ 1 MG IV ×2 (03:00→09:17)
[2017-09-30 05:31] LABS: Add Manual Diff / Slide Review NO; Basophils Percent Auto 0.2 % (0-2); Hematocrit 37.3 % (41-53); Hemoglobin 12.5 g/dL (13.5-17.5); Lymphocytes Percent Auto 3.9 % (25-40); Mean Corpuscular HGB Conc 33.6 % (30-36); Mean Corpuscular Hemoglobin 31.1 PG (26-34); Mean Corpuscular Volume 92.3 fL (80-100); Monocytes Percent Auto 8.3 % (3-14); Neutrophils Absolute Auto 8800 /uL (3000-5900); Neutrophils Percent Auto 87.6 % (50-75); Platelet Count 207 X10^3/uL (150-400); Red Blood Cell Count 4.04 X10^6/uL (4.5-5.9); Red Cell Distribution Width 15.6 % (11.6-14.8)
[2017-09-30 05:41] LABS: Alanine Aminotransferase 32 IU/L (21-72); Albumin 3.1 g/dL (3.5-5.0); Albumin Globulin Ratio 1.2 (1.0-2.8); Alkaline Phosphatase 46 U/L (38-126); Aspartate Aminotransferase 20 IU/L (17-59); Bilirubin Total 0.4 mg/dL (0.2-1.3); Blood Urea Nitrogen 18 mg/dL (9-20); Calcium 8.1 mg/dL (8.4-10.2); Carbon Dioxide 25 mmol/L (22-32); Chloride 107 mmol/L (98-107); Estimated Glomerular Filt Rate > 60.0 mL/min (>60); Globulin 2.5 g/dL (1.7-4.1); Glucose 134 mg/dL (80-110); HEMOLYSIS 15 (0-50); Potassium 4.6 mmol/L (3.4-5.1); Sodium 140 mmol/L (137-145); Total Protein 5.6 g/dL (6.3-8.2)
[2017-09-30] MEDS: LACTATED RINGERS 1,000 ML 125 ML IV (06:10)
[2017-09-30] MEDS: metroNIDAZOLE 500 MG/100 ML PIGGYBACK 100 MG IV ×3 (06:17→22:20)
[2017-09-30] MEDS: PANTOPRAZOLE 40 MG VIAL IV (09:20)
--- NOTE | 2017-09-30 11:02 | PM.PN.1 ---
Subjective Date Patient Seen: 09/30/17 Time Patient Seen: 09:02 Interval history: Patient remains intubated but he is alert and able to answer questions with nodding of his head. He denies significant discomfort at the moment. Exam Vital Signs (past 8 hours): - 09/30/17 04:15 09/30/17 04:19 09/30/17 04:37 Temperature 99.3 F 99.3 F Pulse Rate 62 Respiratory Rate 13 Blood Pressure 114/66 Pulse Oximetry 97 97 09/30/17 06:16 09/30/17 06:32 09/30/17 07:23 Temperature 99 F Pulse Rate 67 59 L Respiratory Rate 13 11 L Blood Pressure 117/68 120/73 Pulse Oximetry 97 98 98 09/30/17 08:00 09/30/17 09:04 09/30/17 10:01 Temperature Pulse Rate 67 Respiratory Rate 8 L Blood Pressure 134/70 H Pulse Oximetry 98 96 97 Oxygen Delivery Method Mechanical Ventilation Oxygen Flow Rate 30 Narrative Exam Narrative: Patient no acute distress. He is breathing comfortably on minimal ventilatory settings. Saturations are in the 98% range. He has had no fevers overnight. No tachycardia. Blood pressure is normal. Urine output has been adequate Sedation is now been off for approximately 1 hr Neck is supple Chest clear to auscultation bilaterally Abdomen is soft and minimally distended. Dressing is clean, dry, and intact. Colostomy is pink and viable with no output in the appliance. He is appropriately tender to palpation. Extremities show no clubbing, cyanosis, or edema Objective Labs Result Diagrams: 09/30/17 04:40 09/30/17 04:40 Labs: Laboratory Results - last 24 hr 09/29/17 09/29/17 09/29/17 12:06 14:00 18:25 WBC RBC Hgb Hct MCV MCH MCHC RDW Plt Count Neut % (Auto) Lymph % (Auto) [place] % (Auto) Eos % (Auto) Baso % (Auto) Neut # (Auto) ABG pH ABG pCO2 ABG pO2 ABG HCO3 ABG Total CO2 ABG O2 Saturation ABG Base Excess FiO2 Sodium Potassium Chloride Carbon Dioxide BUN Creatinine Estimated GFR BUN/Creatinine Ratio Glucose Lactate 0.8 Calcium Total Bilirubin AST ALT Alkaline Phosphatase Total Protein Albumin Globulin Albumin/Globulin Ratio Nasal Screen MRSA (PCR) Negative for mrsa Blood Type O Negative Antibody Screen Negative 09/29/17 09/29/17 09/30/17 19:29 19:57 04:40 WBC 10.0 RBC 4.04 L Hgb 13.5 12.5 L Hct 39.9 L 37.3 L MCV 92.3 MCH 31.1 MCHC 33.6 RDW 15.6 H Plt Count 207 Neut % (Auto) 87.6 H Lymph % (Auto) 3.9 L [place] % (Auto) 8.3 Eos % (Auto) 0.0 L Baso % (Auto) 0.2 Neut # (Auto) 8800 H ABG pH 7.31 L ABG pCO2 43.9 ABG pO2 115 H ABG HCO3 22 L ABG Total CO2 24 ABG O2 Saturation 98 ABG Base Excess -4.0 L FiO2 40 Sodium Potassium Chloride Carbon Dioxide BUN Creatinine Estimated GFR BUN/Creatinine Ratio Glucose Lactate Calcium Total Bilirubin AST ALT Alkaline Phosphatase Total Protein Albumin Globulin Albumin/Globulin Ratio Nasal Screen MRSA (PCR) Blood Type Antibody Screen 09/30/17 04:40 WBC RBC Hgb Hct MCV MCH MCHC RDW Plt Count Neut % (Auto) Lymph % (Auto) [place] % (Auto) Eos % (Auto) Baso % (Auto) Neut # (Auto) ABG pH ABG pCO2 ABG pO2 ABG HCO3 ABG Total CO2 ABG O2 Saturation ABG Base Excess FiO2 Sodium 140 Potassium 4.6 Chloride 107 Carbon Dioxide 25 BUN 18 Creatinine 0.90 Estimated GFR > 60.0 BUN/Creatinine Ratio 20.0 Glucose 134 H Lactate Calcium 8.1 L Total Bilirubin 0.4 AST 20 ALT 32 Alkaline Phosphatase 46 Total Protein 5.6 L Albumin 3.1 L Globulin 2.5 Albumin/Globulin Ratio 1.2 Nasal Screen MRSA (PCR) Blood Type Antibody Screen Assessment & Plan Plan: Assessment/Plan Narrative: 67-year-old male postoperative day 1 from exploratory laparotomy with sigmoid colectomy and diverting colostomy for perforated diverticulitis who was left intubated due to significant airway manipulation and possible laryngeal edema. He is doing well currently and we will moved extubate him immediately. Continue nasogastric tube and Lawler catheter. Await bowel function. Convert to intravenous analgesia using Dilaudid [employer] BUSINESS A[employer]LYST. Continue antibiotics consisting of Zosyn and Flagyl. Await culture results which are still pending. DVT prophylaxis with Lovenox and sequential compression devices. May have a few ice chips but otherwise NPO until bowel function returns. Change dressing tomorrow or as needed today. Will consult ostomy nurse next week when she is available. is at the bedside for my entire visit as well as during his extubation. I will decrease his IV fluid rate but continue isotonic resuscitation. All questions were answered to her satisfaction, and she voiced understanding. Patient was successfully extubated without issue. Encourage aggressive cough and pulmonary toilet. Incentive spirometry also ordered. Continue current care otherwise. Orders written.
--- NOTE | 2017-09-30 13:41 | CM.DANOTE ---
Discharge Planning/Care Management CM Discharge Assessment Start: 09/30/17 13:39 Freq: Status: Active Protocol: Document 09/30/17 13:39 ITV (Rec: 09/30/17 13:41 ITV [id number]) Discharge Planning Assessment History Provided By Medical Record Has Patient been admitted in last 30 No days? Is this patient on Medicare? Yes Household Members spouse Review Status In Process Next Review Type Continued Stay Review
--- NOTE | 2017-09-30 13:42 | CM.DANOTE ---
Addendum entered by Nicol Garza LPN 09/30/17 14:19: Checked in with pt as planned. He was lying quietly, eyes closed, NG to suction in place, dark material in tubing. Room white board updated with CM DCP contact info. Will follow as noted. Original Note: Discharge Planning/Care Management DCP: assessment: Case received, EMR reviewed and discussed case in Interdisc team rounds. Pt is a 67 year old male who admitted yesterday to care of surgeon: Dr. Flynn. Payer: [place] and [facility] PCP: listed as Dr. Crystal. Pt was taken to surgery for exploratory laparotomy: partial colectomy: new diverting colostomy: NG tube in place. PACU to ICU on ventilator support. Dr. Flynn did extubate pt this afternoon. P: check in with pt and his for introduction of CM/DCP team/role and follow as POC unfolds to assist with d/c issues and options. CM Discharge Assessment Start: 09/30/17 13:39 Freq: Status: Active Protocol: Document 09/30/17 13:39 ITV (Rec: 09/30/17 13:41 ITV [id number]) Discharge Planning Assessment History Provided By Medical Record Has Patient been admitted in last 30 No days? Is this patient on Medicare? Yes Household Members spouse Review Status In Process Next Review Type Continued Stay Review Document 09/30/17 13:42 ITV (Rec: 09/30/17 13:42 ITV [id number]) Discharge Planning Assessment History Provided By Medical Record Has Patient been admitted in last 30 No days? Is this patient on Medicare? Yes Household Members spouse Review Status In Process Next Review Type Continued Stay Review Document 09/30/17 13:42 ITV (Rec: 09/30/17 13:42 ITV [id number]) Discharge Planning Assessment History Provided By Medical Record Has Patient been admitted in last 30 No days? Is this patient on Medicare? Yes Household Members spouse Review Status In Process Next Review Type Continued Stay Review
--- NOTE | 2017-09-30 14:37 | PC.NURSE ---
Day Shift Note Pt intubated and sedated at start of shift, awakened easily and able to answer all questions by nodding/shaking head. Sedation turned off and CPAP trial done at 0900. Tolerated well and patient extubated by Senthil HERCULES at [address] Flynn at bedside. Patient on 2L NC with sats 97%. ETCO2 37-40. Lungs clear bilaterally, speech clear and strong cough noted. Dilaudid OFFICE SUPPORT SPECIALIST set up for pain control, pt educated on use and acknowledged understanding. Reports pain to midline incision well controlled on OFFICE SUPPORT SPECIALIST. Dressing is C/D/I. Stoma is beefy red with sanguinous output to colostomy. No BTs. NG tube to LIS. Lawler in place draining clear gogo urine. Call light within reach.
[2017-09-30] MEDS: HYDROMORPHONE PCA 6 MG/30 ML PCA.VIAL IV ×2 (14:46→22:21)
[2017-09-30] MEDS: ONDANSETRON 4 MG/2 ML INJ IV (14:58)
--- NOTE | 2017-09-30 17:27 | PC.NURSE ---
Patient c/o seeing colors, and papers in bed that are not present. o2 sats normal- 97- etco2 38. hr in the 60's. denies pain. alert and oreinted x 3 and aware of reason for hospitalization/ surgery. Reviewed medications administered- none noted with this side effect- informed patient and about review done. Did review that patient had surgery/ sedation last night on vent/ pain medications with and patient. Upon questioning says he started feeling this way earlier today when I got cleaned up in bed. says patient has not slept well for several weeks and simon days prior to admission. Room darkened, decreased stimulation, closed the door and patient given a cool wet cloth to place over his eyes. Updated Dr. Flynn about patient's complaints-no changes in meds at this time. Will continue to monitor closely.
[2017-09-30] MEDS: LACTATED RINGERS 1,000 ML 100 ML IV (17:41)
--- NOTE | 2017-09-30 21:38 | PC.NURSE ---
Patient had an extended nap after decreasing stimulation- woke up without previous sensations - but did say he was very tired and fatigued- compared to earlier today. Reassured this was normal after his situation- emergent abdominal surgery. No further nausea. Colostomy stoma beef red with minimal dark bloody drainage.
[2017-09-30] MEDS: ENOXAPARIN 40 MG/0.4 ML SYRINGE SUBCUT (22:20)
[2017-10-01] VITALS (10 sets, daily range): BP systolic 136–146; BP diastolic 70–94; PULSE 57–72; RESP 10–18; TEMP 36.9–37.2; O2SAT 94–97
[2017-10-01] MEDS: PIPERACILLIN-TAZO 3.375 GM/50 ML FROZ.PIGGY IV ×3 (02:32→20:46)
[2017-10-01] MEDS: ONDANSETRON 4 MG/2 ML INJ IV (05:35)
[2017-10-01] MEDS: LACTATED RINGERS 1,000 ML 100 ML IV ×2 (05:36→18:23)
[2017-10-01] MEDS: metroNIDAZOLE 500 MG/100 ML PIGGYBACK 100 MG IV ×3 (05:36→21:17)
--- NOTE | 2017-10-01 06:29 | P.PN_ITS ---
Subjective Date Patient Seen: 10/01/17 Time Patient Seen: 06:23 Interval history: Had difficulty with his chronic insomnia last evening. He feels extremely exhausted due to lack of sleep. No longer having vivid dreams or any hallucinations which he experience briefly yesterday afternoon following extubation. Mild nausea this morning treated with Zofran. Currently not nauseated. Denies any subjective fever or chills. No chest pain or shortness of breath. Postoperative pain is otherwise quite well controlled with ROLL COATING MACHINE OPERATOR. Exam Vital Signs (past 8 hours): - 10/01/17 00:00 10/01/17 00:46 10/01/17 02:50 Temperature 98.9 F Pulse Rate 72 Respiratory Rate 18 Blood Pressure 146/78 H Pulse Oximetry 95 97 96 10/01/17 04:23 10/01/17 04:37 Temperature 98.7 F Pulse Rate 71 Respiratory Rate 10 L Blood Pressure 136/76 H Pulse Oximetry 96 96 Oxygen Delivery Method Nasal Cannula Oxygen Flow Rate 1 Narrative Exam Narrative: Patient resting comfortably in bed currently in no acute distress. Alert oriented x3. Normal conversation. Neck is supple Chest clear to auscultation bilaterally with regular rate and rhythm. No murmurs Abdomen is soft and minimally distended. He is not tympanitic. Incision is clean, dry, and intact. Colostomy is somewhat edematous but red and perfused. No output in the appliance. No air. He is appropriately tender to palpation with no guarding or rebound Extremities show no clubbing, cyanosis, or edema Objective Labs Result Diagrams: 09/30/17 04:40 09/30/17 04:40 Labs: No new laboratory radiographic studies for review this morning Assessment & Plan Plan: Assessment/Plan Narrative: 67-year-old male now postoperative day 2 from emergent laparotomy with sigmoid colectomy and diverting colostomy secondary to perforated diverticulitis who is overall doing well. His insomnia will be an ongoing issue. We will order his usual sleep aid beginning this evening at bedtime. Transfer from the ICU to the regular surgical floor. Discontinue his Lawler today. Consult physical therapy for mobility and ambulation. Continue IV fluids and ROLL COATING MACHINE OPERATOR. Await bowel function. He may have a significant prolonged postoperative ileus due to the nature of his disease, peritonitis, and bowel manipulation at surgery. Nasogastric tube will remain in place until such time he has evidence of bowel function. Because the tube was very difficult to place intraoperatively and required endoscopic assistance for such we will be very conservative with its removal. Of note for the record, the gastric distention seen at the time of surgery was normal part of his disease process secondary to peritonitis and ileus. The gastric distention itself was not pathologic in any way. I discussed this with him as well. Continue Zosyn and Flagyl secondary to pelvic abscess and peritonitis. Awaiting culture results. Gram stain showed mixed angelique as anticipated. All questions were answered to his satisfaction, and he voiced understanding. He requested that I call his so that she would delay her visit to later this afternoon thereby allowing him to rest a little longer. I spoke with her via telephone this morning at his request and she voiced understanding. Transfer orders from the ICU to the acute care unit were entered as well.
[2017-10-01] MEDS: PANTOPRAZOLE 40 MG VIAL IV (10:09)
--- NOTE | 2017-10-01 10:35 | PT.IIE ---
Current Diagnoses Diverticulitis of large intestine with perforation and abscess without bleeding (09/29/17) Surgery Performed Operation Date: 09/29/17 14:30 Actual Procedures p Exploratory Laparotomy GEN, Partial sigmoid colon colectomy, diverting in colostomy - Azael Flynn MD s Esophagogastroduodenoscopy with placement of gastric nasal tube - Azael Flynn MD Surgical History (Last Reviewed 09/29/17 @ 13:44 by Azael Flynn MD) History of appendectomy (Acute) History of colonoscopy (Acute) Medical History (Last Reviewed 09/29/17 @ 13:44 by Azael Flynn MD) Diverticulosis (Acute) Insomnia (Acute) Intra-abdominal free air of unknown etiology (Acute) Mediastinal mass (Acute) Physical Therapy Inpatient Evaluation/Re-Eval M1 PT/OT-IP Prior Functional Status Start: 10/01/17 11:08 Freq: Status: Active Protocol: Document 10/01/17 10:35 [facility] (Rec: 10/01/17 11:19 [facility] [id number]) Medical Review Prior Functional Status Medical History Reviewed Yes Communication WNL Mobility and Gait indep. community ambulator without device Activities of Daily Living and IADL's indep. I/ADLs. Social History Household Members spouse Living Arrangements House Number of Floors (Floors) One Floor Number of Stairs To Enter/Railing? 3 small step ups to get into front door, no rails Home Environment Standard Height Toilet Walk in Shower Tub/Shower Employment Status Retired Additional Social History Comment Moved to [facility] 3 wks ago with from [place] . Pt had emergent exploratory laparotomy with sigmoid colectomy and diverted colostomy. Extubated 09/30/17 M2 PT-IP Current Condition Start: 10/01/17 11:08 Freq: Status: Active Protocol: Document 10/01/17 10:35 RCC (Rec: 10/01/17 11:19 RCC [id number]) Physical Therapy Current Condition Current Condition Evaluation Date 10/01/17 Treatment Diagnosis ex. lap. 09/21/17, impaired mobility and weakness Onset Date 09/30/17 Precautions Abdominal Surgery Precautions Log Roll Lifting Restrictions Gait Belt above Incisional Area M3 PT-IP Subjective Start: 10/01/17 11:08 Freq: Status: Active Protocol: Document 10/01/17 10:35 [facility] (Rec: 10/01/17 11:19 [facility] [id number]) Subjective Physical Therapy Visit Type Type Initial Evaluation Visit Start Time 10:00 Visit Stop Time 10:35 Total Visit Minutes 35 Notes NG tube, IV, catheter; pt taken off O2 and at 96% prior to mobility. Number of PHYTOCHEMISTRY PROFESSOR Visits 0 Physical Therapy Visit Comments Patient Comments Pt notes that he does not have too much pain, more so he feels poorly due to anesthesia . M4 PT-IP Mobility and Gait Start: 10/01/17 11:08 Freq: Status: Active Protocol: Document 10/01/17 10:35 RCC (Rec: 10/01/17 11:19 [facility] [id number]) PT-Bed Mobility Assessment Rolling Type of Rolling Log Rolling Roll to Right Level of Assist Moderate Assistance Supine to Sit Supine to Sit Moderate Assistance 1 Person Assistance Scooting Scooting to Edge of Bed Contact Guard Assistance PT-Transfer Assessment Sit to and From Stand Sit to and from Stand Minimal Assistance 1 Person Assistance Use of Upper Extremities Equipment Transfer Assistive Device Gait Belt Front Wheeled Walker Transfers Transfer Destination Chair Transfer Technique Stand Step Pivot Transfer Ability Level of Assist Standby Assistance 1 Person Assistance Gait Assessment Gait Gait Assistance Required: Standby Assistance Distance (Feet) (feet) 40 Assistive Devices Assistive Device Gait Belt Front Wheeled Walker Gait Deviations General Gait Pattern Decreased Stride Length Decreased Feet Clearance Flexed Trunk Factors Limiting Gait Function Factors Limiting Gait Function Decreased Activity Tolerance Decreased Strength Pain PT-Balance Assessment Sitting Balance and Reactions Static Sitting Balance Ability Normal Dynamic Sitting Balance Ability Normal Standing Balance and Reactions Static Standing Balance Ability Good Dynamic Standing Balance Ability Fair Device Used FWW M5 PT-IP Objective Assessments Start: 10/01/17 11:08 Freq: Status: Active Protocol: Document 10/01/17 10:35 RCC (Rec: 10/01/17 11:19 [facility] [id number]) Orientation Orientation/Cognition Level of Alertness Alert Language Function Ability No Deficits Noted Memory Description No Deficits Noted Strength Comments Strength Comments not tested due to surgery. Coordination Assessment Gross Coordination Gross Coordination WNL Sensation Assessment Sensation Gross Sensation WNL M6 PT-IP Treatment Start: 10/01/17 11:08 Freq: Status: Active Protocol: Document 10/01/17 10:35 RCC (Rec: 10/01/17 11:19 [facility] [id number]) Physical Therapy Treatment Education Education Provided Precautions Safety M7 PT-IP Assessment and Plan Start: 10/01/17 11:08 Freq: Status: Active Protocol: Document 10/01/17 10:35 [facility] (Rec: 10/01/17 11:19 [facility] [id number]) PT Summary Assessment and Plan Potential Rehabilitation Potential Good Status of Condition at Evaluation Evolving Summary Impairments Pain Strength Bed Mobility Transfers Gait Activity Tolerance Assessment Summary POD #2 exploratory laparotomy. Pt with slow movement, but tolerated standing and ambulation with SBA. He utilized a FWW today due to his weakness and first time being OOB, but anticipate he may be able to trial gait without a walker as he progresses. Expect pt to be able to d/c home when medically stable if he continues to progress with his mobility. Goals Bed Mobility Goal Independent Transfer Goal Independent Gait Goal Standby Assistance Gait Distance 150 Other Goals 3 step ups with CGA and no rails Days to Meet Goals 4 Frequency of Treatment Frequency Of Treatment Once a Day Treatment Plan Physical Therapy Treatment Plan Bed Mobility Training Transfer Training Gait Training Therapeutic Exercise Post Op Education Discharge Planning Hot or Cold Pack Neuromuscular Re-ed Recommendations To Nursing Amount of Assist Needed 1 Person Assist Discharge Recommendations PT Discharge Recommendations Home with Assistance
--- NOTE | 2017-10-01 13:29 | PC.NURSE ---
Day Shift/Transfer Pt transferred to room 208 at 1325. All belongings with patient including electronic tablet, cell phone, zinc furnace charger, glasses, clothing, and backpack. Report given to Lavonne BERMAN.
[2017-10-01] MEDS: HYDROMORPHONE PCA 6 MG/30 ML PCA.VIAL IV ×2 (14:39→21:21)
--- NOTE | 2017-10-01 15:24 | PC.NURSE ---
Addendum entered by Lavonne Cuenca R.N. 10/01/17 15:27: Note continued: Pt reports pain as minimal and has family here to see him. Incision stapled and open to air, no drainage, sl bruising. Pt reports no concerns at this time. Cont w/poc. Original Note: Post-op: Recieved from ICU, report from Blanca BERMAN. Pt is oriented at this time. (Had some possible hallucinations this am) Room set up and instructed in call light. NGT placed to lis. IVF going per orders and has chief controller, minimal amts used.
[2017-10-01] MEDS: ZOLPIDEM 5 MG TABLET 10 MG PO (21:17)
[2017-10-01] MEDS: ENOXAPARIN 40 MG/0.4 ML SYRINGE SUBCUT (21:18)
[2017-10-02 01:26] VITALS: BP 144/85; PULSE 68; RESP 12; TEMP 36.8; O2SAT 92
--- NOTE | 2017-10-02 01:32 | PC.NURSE ---
Patient is alert and oriented. Breath sounds CTA with RA sat of 92%. HR irregular with rate of 68. Denies nausea. NG to medium intermittent suction with bile colored liquid in cannister. BT present and abdomen is soft. Ostomy with beefy red stoma and small amount red liquid in bag. Abdominal incision is PE ELECTRICAL ENGINEER with intact hugh, well approximated and without redness or drainage. Voiding per urinal and denies any dysuria, frequency, urgency or incontinence. Able to turn self in bed. Denies pain except from NG tube and has CENTER MACHINE OPERATOR to use as needed. Remains NPO. Refusing SCD's even after reinforcement of purpose; states he can't sleep with them on so reminded to be ankle waving/moving legs when awake and patient verbalizes understanding. Fall risk score is moderate but bed alarm not currently in use as is rooming in. Denies any weakness when he has been up during days.
[2017-10-02] MEDS: PIPERACILLIN-TAZO 3.375 GM/50 ML FROZ.PIGGY IV (02:53)
[2017-10-02] MEDS: HYDROMORPHONE PCA 6 MG/30 ML PCA.VIAL IV ×3 (05:39→21:10)
[2017-10-02] MEDS: metroNIDAZOLE 500 MG/100 ML PIGGYBACK 100 MG IV ×3 (05:39→21:09)
[2017-10-02] MEDS: LACTATED RINGERS 1,000 ML 100 ML IV (05:41)
[2017-10-02 06:01] VITALS: BP 150/77; PULSE 82; RESP 14; TEMP 36.2; O2SAT 96
[2017-10-02 08:05] VITALS: BP 147/77; PULSE 68; RESP 18; TEMP 37; O2SAT 93
[2017-10-02] MEDS: PANTOPRAZOLE 40 MG VIAL IV (08:31)
--- NOTE | 2017-10-02 10:26 | PM.PN.1 ---
Subjective Date Patient Seen: 10/02/17 Time Patient Seen: 10:26 Interval history: Patient denies any nausea. Has noticed some flatus into the appliance via the colostomy. No stool as yet. Pain is minimal and otherwise well controlled. Sleep remains relatively problematic but he was unable to effectively swallow the Ambien yesterday. Denies chest pain or shortness of breath. No dysuria or retention with spontaneous urination. Denies any subjective fever or chills. Exam Vital Signs (past 8 hours): - 10/02/17 06:01 10/02/17 08:05 Temperature 97.1 F L 98.6 F Pulse Rate 82 68 Respiratory Rate 14 18 Blood Pressure 150/77 H 147/77 H Pulse Oximetry 96 93 Oxygen Delivery Method Room Air Oxygen Flow Rate 0 Narrative Exam Narrative: Well-nourished well-developed male sitting comfortably in bed in no acute distress. is at the bedside. Alert orient x3 Sclera nonicteric Neck is supple without significant jugular distension Chest clear to auscultation bilaterally with regular rate and rhythm. Abdomen shows few hypoactive bowel sounds throughout but otherwise soft and minimally distended. He is not tympanitic. Incision is clean, dry, and intact. Colostomy is pink and viable with air in the appliance. No stool. He is appropriately tender to palpation with no guarding or rebound. There is no erythema or ecchymoses of the abdominal wall. Extremities show no clubbing or cyanosis. He does continue to have edema of bilateral upper extremities stable since yesterday. Objective Labs Result Diagrams: 09/30/17 04:40 09/30/17 04:40 Labs: No new laboratory or radiographic studies for review Assessment & Plan Plan: Assessment/Plan Narrative: 67-year-old male postoperative day 3 from emergent laparotomy with partial sigmoid colectomy and diverting colostomy due to perforated diverticulitis and pelvic abscess who is overall doing quite well. He is actually experiencing return of some bowel function earlier than anticipated. Nevertheless, we will continue the nasogastric tube and await more consistent bowel function before discontinuing it, especially since it required endoscopic placement. He may have ice chips but otherwise NPO. Continue ACADEMIC AFFAIRS VICE PRESIDENT. Changed to maintenance IV fluids today and discontinue lactated Ringer's. Ambulate aggressively with physical therapy. Continue pulmonary toilet including incentive spirometry. Consult has been initiated for the ostomy nurse. We will also initiate referral to Dr. Slater at [facility] for cardiothoracic surgical evaluation when appropriate for the known mediastinal mass. Repeat CBC and basic metabolic panel tomorrow. He and his had multiple questions about the technical details of his operation. I discussed these with him at length, and answered all of their questions to their satisfaction. Orders were written.
--- NOTE | 2017-10-02 10:30 | PT.IPTN ---
Current Diagnoses Diverticulitis of large intestine with perforation and abscess without bleeding (09/29/17) Surgery Performed Operation Date: 09/29/17 14:30 Actual Procedures p Exploratory Laparotomy GEN, Partial sigmoid colon colectomy, diverting in colostomy - Azael Flynn MD s Esophagogastroduodenoscopy with placement of gastric nasal tube - Azael Flynn MD Physical Therapy Treatment Note M2 PT-IP Current Condition Start: 10/01/17 11:08 Freq: Status: Active Protocol: Document 10/01/17 10:35 [facility] (Rec: 10/01/17 11:19 [facility] [id number]) Physical Therapy Current Condition Current Condition Evaluation Date 10/01/17 Treatment Diagnosis ex. lap. 09/21/17, impaired mobility and weakness Onset Date 09/30/17 Precautions Abdominal Surgery Precautions Log Roll Lifting Restrictions Gait Belt above Incisional Area M3 PT-IP Subjective Start: 10/01/17 11:08 Freq: Status: Active Protocol: Document 10/02/17 10:07 [facility] (Rec: 10/02/17 10:30 [facility] [id number]) Subjective Physical Therapy Visit Type Type Treatment Note Visit Start Time 10:07 Visit Stop Time 10:22 Total Visit Minutes 15 Number of GAS OR WATER METER INSTALLER Visits 1 Physical Therapy Visit Comments Patient Comments Pt eager to ambulate with therapy. M4 PT-IP Mobility and Gait Start: 10/01/17 11:08 Freq: Status: Active Protocol: Document 10/02/17 10:07 [facility] (Rec: 10/02/17 10:30 [facility] [id number]) PT-Bed Mobility Assessment Scooting Scooting to Edge of Bed Standby Assistance PT-Transfer Assessment Sit to and From Stand Sit to and from Stand Standby Assistance Equipment Transfer Assistive Device Gait Belt Front Wheeled Walker Transfers Transfer Destination Chair Transfer Technique after ambulation Transfer Ability Level of Assist Standby Assistance 1 Person Assistance Gait Assessment Gait Gait Assistance Required: Contact Guard Assist Distance (Feet) (feet) 200 Assistive Devices Assistive Device Gait Belt Front Wheeled Walker Gait Deviations General Gait Pattern Flexed Trunk Factors Limiting Gait Function Factors Limiting Gait Function Decreased Activity Tolerance Decreased Strength PT-Balance Assessment Sitting Balance and Reactions Static Sitting Balance Ability Normal Dynamic Sitting Balance Ability Normal Standing Balance and Reactions Static Standing Balance Ability Good Dynamic Standing Balance Ability Fair Device Used FWW M5 PT-IP Objective Assessments Start: 10/01/17 11:08 Freq: Status: Active Protocol: Document 10/01/17 10:35 [facility] (Rec: 10/01/17 11:19 [facility] [id number]) Orientation Orientation/Cognition Level of Alertness Alert Language Function Ability No Deficits Noted Memory Description No Deficits Noted Strength Comments Strength Comments not tested due to surgery. Coordination Assessment Gross Coordination Gross Coordination WNL Sensation Assessment Sensation Gross Sensation WNL M6 PT-IP Treatment Start: 10/01/17 11:08 Freq: Status: Active Protocol: Document 10/01/17 10:35 [facility] (Rec: 10/01/17 11:19 [facility] [id number]) Physical Therapy Treatment Education Education Provided Precautions Safety M7 PT-IP Assessment and Plan Start: 10/01/17 11:08 Freq: Status: Active Protocol: Document 10/02/17 10:07 [facility] (Rec: 10/02/17 10:30 [facility] [id number]) PT Summary Assessment and Plan Potential Rehabilitation Potential Good Status of Condition at Evaluation Evolving Summary Impairments Pain Strength Bed Mobility Transfers Gait Activity Tolerance Assessment Summary POD #3 exploratory laparotomy. Pt progressing well with all mobility. Pt increased ambulation to ~200ft with good frank but slight flexed trunk, assisted with IV Pole. Pt able to ambulate in llanos with nursing staff w/FWW. Goals Bed Mobility Goal Independent Transfer Goal Independent Gait Goal Standby Assistance Gait Distance 150 Other Goals 3 step ups with CGA and no rails Frequency of Treatment Frequency Of Treatment Once a Day Treatment Plan Physical Therapy Treatment Plan Bed Mobility Training Transfer Training Gait Training Therapeutic Exercise Post Op Education Discharge Planning Hot or Cold Pack Neuromuscular Re-ed Recommendations To Nursing Amount of Assist Needed 1 Person Assist Discharge Recommendations PT Discharge Recommendations Home with Assistance
[2017-10-02] MEDS: levoFLOXacin 750 MG/150 ML PIGGYBACK 100 MG IV (11:27)
[2017-10-02] MEDS: DEXTROSE 5%-0.45NS W/KCL 40MEQ 1,000 ML 84 MEQ IV (11:27)
[2017-10-02 12:00] VITALS: BP 155/93; PULSE 57; RESP 18; TEMP 36.8; O2SAT 94
--- NOTE | 2017-10-02 12:10 | CM.DPC ---
DCP Cont: Patient sleeping at this time. Checked in with nurse. Patient will be receiving a 10 day course of antibiotics. NG tube is still in place. Has been up working with physical therapy. P: DCP will continue to plan assess. Plan is to go home, but will be dependent upon improvement of condition. Barbara Duran RN/Product Test Engineer
[2017-10-02 16:00] VITALS: BP 140/83; PULSE 63; RESP 16; TEMP 36.9; O2SAT 96
[2017-10-02 20:00] VITALS: BP 152/98; PULSE 62; RESP 16; TEMP 36.8; O2SAT 96
[2017-10-02] MEDS: ENOXAPARIN 40 MG/0.4 ML SYRINGE SUBCUT (21:10)
[2017-10-03] VITALS: BP 137/75; PULSE 57; RESP 14; TEMP 36.6; O2SAT 97
[2017-10-03] MEDS: DEXTROSE 5%-0.45NS W/KCL 40MEQ 1,000 ML 84 MEQ IV ×2 (01:37→16:39)
[2017-10-03 05:30] VITALS: BP 152/90; PULSE 67; RESP 14; TEMP 36.6; O2SAT 97
[2017-10-03] MEDS: metroNIDAZOLE 500 MG/100 ML PIGGYBACK 100 MG IV ×3 (05:31→22:06)
[2017-10-03] MEDS: HYDROMORPHONE PCA 6 MG/30 ML PCA.VIAL IV ×3 (05:32→22:08)
[2017-10-03 07:15] VITALS: BP 137/78; PULSE 65; RESP 16; TEMP 36.9; O2SAT 96
[2017-10-03] MEDS: PANTOPRAZOLE 40 MG VIAL IV (09:00)
--- NOTE | 2017-10-03 10:38 | PT.IPTN ---
Current Diagnoses Diverticulitis of large intestine with perforation and abscess without bleeding (09/29/17) Surgery Performed Operation Date: 09/29/17 14:30 Actual Procedures p Exploratory Laparotomy GEN, Partial sigmoid colon colectomy, diverting in colostomy - Azael Flynn MD s Esophagogastroduodenoscopy with placement of gastric nasal tube - Azael Flynn MD Physical Therapy Treatment Note M2 PT-IP Current Condition Start: 10/01/17 11:08 Freq: Status: Active Protocol: Document 10/01/17 10:35 RCC (Rec: 10/01/17 11:19 RCC [id number]) Physical Therapy Current Condition Current Condition Evaluation Date 10/01/17 Treatment Diagnosis ex. lap. 09/21/17, impaired mobility and weakness Onset Date 09/30/17 Precautions Abdominal Surgery Precautions Log Roll Lifting Restrictions Gait Belt above Incisional Area M3 PT-IP Subjective Start: 10/01/17 11:08 Freq: Status: Active Protocol: Document 10/03/17 10:38 AB (Rec: 10/03/17 12:12 AB [email or web address]) Subjective Physical Therapy Visit Type Type Treatment Note Visit Start Time 10:38 Visit Stop Time 10:59 Total Visit Minutes 21 Number of SCHOOL TRAFFIC GUARD Visits 0 Physical Therapy Visit Comments Patient Comments pt agreeable to do therapy M4 PT-IP Mobility and Gait Start: 10/01/17 11:08 Freq: Status: Active Protocol: Document 10/03/17 10:38 AB (Rec: 10/03/17 12:12 AB [email or web address]) PT-Transfer Assessment Sit to and From Stand Sit to and from Stand Standby Assistance Equipment Transfer Assistive Device None Gait Belt Gait Assessment Gait Gait Assistance Required: Contact Guard Assist Distance (Feet) (feet) 200 Able to Maintain Weight Bearing Status Yes During Gait Assistive Devices Assistive Device None Gait Belt Orthotic/Prosthetic Devices or Brace: No Gait Deviations General Gait Pattern Antalgic Factors Limiting Gait Function Factors Limiting Gait Function Decreased Activity Tolerance Decreased Strength Poor Balance Poor Safety Awareness Comments Gait Comments assessed ambulation without AD and pt completed requiring CGA and cues. pt with (+) LOB during ambulation but able to recover with CGA and cues. educated pt to use FWW when ambulating with nursing or with spouse. Stair Climbing Assessment Evaluation Level of Assist On Stairs Contact Guard Assistance Devices Stair Climbing Assistive Devices None Left Railing Technique/Endurance Stair Climbing Direction Ascend and Descend Stair Climbing Technique Step Over Step Number of Steps Climbed 3 Query Text: Stair Climbing Set # Repetitions (reps) 2 Comments Stair Climbing Comments completed initially with 1 rail SBA and then completed ascending without rails SBA but has to use 1 rail with descending steps. M5 PT-IP Objective Assessments Start: 10/01/17 11:08 Freq: Status: Active Protocol: Document 10/01/17 10:35 RCC (Rec: 10/01/17 11:19 RCC [id number]) Orientation Orientation/Cognition Level of Alertness Alert Language Function Ability No Deficits Noted Memory Description No Deficits Noted Strength Comments Strength Comments not tested due to surgery. Coordination Assessment Gross Coordination Gross Coordination WNL Sensation Assessment Sensation Gross Sensation WNL M6 PT-IP Treatment Start: 10/01/17 11:08 Freq: Status: Active Protocol: Document 10/03/17 10:38 AB (Rec: 10/03/17 12:12 AB [email or web address]) Physical Therapy Treatment Education Education Provided Precautions Safety M7 PT-IP Assessment and Plan Start: 10/01/17 11:08 Freq: Status: Active Protocol: Document 10/03/17 10:38 AB (Rec: 10/03/17 12:12 AB [email or web address]) PT Summary Assessment and Plan Potential Rehabilitation Potential Good Summary Impairments Strength Balance Bed Mobility Transfers Gait Activity Tolerance Progress Towards Goals Slow Progress due to Medical Issues Assessment Summary pt requiring SBA to CGA with mobility and plans to go home with spouse to assist him. Goals Bed Mobility Goal Independent Transfer Goal Independent Gait Goal Standby Assistance Gait Distance 150 Other Goals 3 step ups with CGA and no rails Frequency of Treatment Frequency Of Treatment Once a Day Treatment Plan Physical Therapy Treatment Plan Bed Mobility Training Transfer Training Gait Training Therapeutic Exercise Post Op Education Discharge Planning Hot or Cold Pack Neuromuscular Re-ed Recommendations To Nursing Amount of Assist Needed 1 Person Assist Discharge Recommendations PT Discharge Recommendations Home with Assistance
[2017-10-03 11:00] VITALS: BP 143/75; PULSE 54; RESP 17; TEMP 36.7; O2SAT 97
--- NOTE | 2017-10-03 11:26 | PC.NURSE ---
0800 Clamped the NG tube per Dr Flynn. 1115 Pt up for ambulation in llanos with PT. Steady gait noted. Pt tolerating clamped NGT, denies nausea.
[2017-10-03] MEDS: levoFLOXacin 750 MG/150 ML PIGGYBACK 100 MG IV (11:45)
--- NOTE | 2017-10-03 11:49 | CM.DPC ---
DCP Cont: Met with patient and family in room. Discussed options upon discharge, when patient is ready. Stated that they may need some support regarding ostomy care, but do not feel that skilled is necessary. They would like to learn how to manage. Did discuss home health, and are interested in this idea DCP continue to follow patient, may pursue home health upon discharge. Barbara Duran RN/Experimental Assembler
[2017-10-03 13:51] VITALS: BMI 26.3
--- NOTE | 2017-10-03 14:32 | PC.NURSE ---
1200 Pt resing in bed, no residual noted from NGT. 1430 Pt has been oob to chair & up in llanos for ambulation. Denies pain,nausea. Air noted in the colostomy bag & scant amt dark brown drainage. low Midline incision intact. BUEs remain edematous, 2-3 +. Arms elevated on pillows. Swelling has decreased thruout this shift. SERVICE OFFICER used 0.2.
[2017-10-03 15:45] VITALS: BP 137/79; PULSE 60; RESP 17; TEMP 36.5; O2SAT 97
--- NOTE | 2017-10-03 18:29 | PM.PN.1 ---
Subjective Date Patient Seen: 10/03/17 Time Patient Seen: 18:29 Interval history: Denies nausea or vomiting. NG tube has been clamped since early this morning. No distention. Continues to pass flatus per ostomy. No stool as yet in the appliance. Reports normal bladder function with no feelings of retention. No dysuria or hematuria. Urine output is adequate. No subjective fever or chills. Denies any shortness of breath or dyspnea. Feels that his appetite is slowly returning. Exam Vital Signs (past 8 hours): - 10/03/17 11:00 10/03/17 15:45 Temperature 98.1 F 97.7 F Pulse Rate 54 L 60 Respiratory Rate 17 17 Blood Pressure 143/75 H 137/79 H Pulse Oximetry 97 97 Oxygen Delivery Method Room Air Oxygen Flow Rate 0 Narrative Exam Narrative: Well-nourished well-developed male sitting comfortably in bed in no acute distress. Alert oriented x3 Nasogastric tube is clamped. Residual was minimal at only a few cc. Neck is supple Chest clear to auscultation. Regular rate rhythm Abdomen is soft and nondistended. Wound has some ecchymoses but no hematoma. No drainage. No erythema. Colostomy is pink and viable with air in the appliance. No formed stool or liquid stool as yet. Old serosanguineous drainage remains present in the appliance. Abdomen is otherwise appropriately tender without guarding or rebound. Extremities show no clubbing or cyanosis. Left upper extremity edema is resolving. Continues to have some mild edema bilateral feet and right hand. Objective Labs Result Diagrams: 09/30/17 04:40 09/30/17 04:40 Labs: Phlebotomy was unable to draw labs today due to poor IV access. Assessment & Plan Plan: Assessment/Plan Narrative: 67-year-old male now postoperative day 4 from emergency laparotomy with sigmoid colectomy and diverting colostomy for perforated diverticulitis who is doing quite well. His postoperative ileus slowly resolving as anticipated. He has no evidence of significant infectious complications. Cultures are as previously documented. Continue Levaquin and Flagyl. I will discontinue the nasogastric tube is eating. A lower clear liquid diet but I will not advance the diet till such time he has more significant ostomy output. He may shower and ambulate as new. Still awaiting consultation from the ostomy nurse. We will resubmit for such. All questions answered to the patient's satisfaction, and he voiced understanding. Orders were written.
[2017-10-03 20:11] LABS: Add Manual Diff / Slide Review NO; Basophils Percent Auto 0.3 % (0-2); Hematocrit 35.6 % (41-53); Lymphocytes Percent Auto 15.1 % (25-40); Mean Corpuscular HGB Conc 33.6 % (30-36); Mean Corpuscular Hemoglobin 30.6 PG (26-34); Monocytes Percent Auto 14.8 % (3-14); Neutrophils Absolute Auto 3300 /uL (3000-5900); Neutrophils Percent Auto 69.8 % (50-75); Platelet Count 251 X10^3/uL (150-400); Red Blood Cell Count 3.91 X10^6/uL (4.5-5.9); Red Cell Distribution Width 14.6 % (11.6-14.8); White Blood Cell Count 4.7 X10^3/uL (4.5-11.0)
[2017-10-03 20:19] LABS: BUN Creatinine Ratio 22.9 (6-22); Blood Urea Nitrogen 16 mg/dL (9-20); Calcium 8.1 mg/dL (8.4-10.2); Carbon Dioxide 28 mmol/L (22-32); Chloride 105 mmol/L (98-107); Estimated Glomerular Filt Rate > 60.0 mL/min (>60); Glucose 101 mg/dL (80-110); HEMOLYSIS < 15 (0-50); Potassium 3.8 mmol/L (3.4-5.1); Sodium 139 mmol/L (137-145)
[2017-10-03 20:53] VITALS: BP 146/78; PULSE 53; RESP 16; TEMP 37.1; O2SAT 97
[2017-10-03] MEDS: ENOXAPARIN 40 MG/0.4 ML SYRINGE SUBCUT (22:06)
[2017-10-04] VITALS (7 sets, daily range): BP systolic 125–141; BP diastolic 74–86; PULSE 55–80; RESP 12–20; TEMP 36.8–37.1; O2SAT 95–99
[2017-10-04] MEDS: ZOLPIDEM 5 MG TABLET 10 MG PO ×2 (01:05→23:32)
[2017-10-04] MEDS: DEXTROSE 5%-0.45NS W/KCL 40MEQ 1,000 ML 84 MEQ IV (04:39)
[2017-10-04] MEDS: metroNIDAZOLE 500 MG/100 ML PIGGYBACK 100 MG IV ×3 (06:43→21:30)
[2017-10-04] MEDS: HYDROMORPHONE PCA 6 MG/30 ML PCA.VIAL IV (06:47)
--- NOTE | 2017-10-04 09:03 | PM.PN.1 ---
Subjective Date Patient Seen: 10/04/17 Time Patient Seen: 09:03 Interval history: Tolerating clear liquids without nausea or vomiting. Denies significant abdominal distention. No significant pain. Has used his EDUCATIONAL SPEECH LANGUAGE CLINICIAN only 1 since yesterday. Ambulating without difficulty. Showered this morning. Reports air in the stoma. He has actually learned how to relieve the air from the a stoma appliance without any issues. Denies dysuria or hematuria. No chest pain or shortness of breath. No subjective fever or chills. Exam Vital Signs (past 8 hours): - 10/04/17 05:13 10/04/17 07:30 Temperature 98.8 F 98.3 F Pulse Rate 80 55 L Respiratory Rate 16 16 Blood Pressure 138/74 H 128/79 H Pulse Oximetry 95 97 Oxygen Delivery Method Room Air Oxygen Flow Rate 0 Narrative Exam Narrative: Well-nourished well-developed male in no acute distress sitting comfortably in bedside chair this morning. Alert oriented x3 Chest clear to auscultation bilaterally with regular rate and rhythm Abdomen shows diffuse hypoactive bowel sounds. He is minimally distended. He is not tympanitic. Incision is clean, dry, and intact with some residual ecchymoses but no erythema or drainage. Stoma is pink and viable with air in the appliance. There is a small amount of old stool in the appliance this morning as well. Lower extremities show no clubbing cyanosis or edema. Upper extremity edema remained stable although it is subsiding on the left arm. Objective Labs Result Diagrams: 10/03/17 20:00 10/03/17 20:00 Labs: Laboratory Results - last 24 hr 10/03/17 10/03/17 20:00 20:00 WBC 4.7 RBC 3.91 L Hgb 12.0 L Hct 35.6 L MCV 91.0 MCH 30.6 MCHC 33.6 RDW 14.6 Plt Count 251 Neut % (Auto) 69.8 Lymph % (Auto) 15.1 L [place] % (Auto) 14.8 H Eos % (Auto) 0.0 L Baso % (Auto) 0.3 Neut # (Auto) 3300 Sodium 139 Potassium 3.8 Chloride 105 Carbon Dioxide 28 BUN 16 Creatinine 0.70 Estimated GFR > 60.0 BUN/Creatinine Ratio 22.9 H Glucose 101 Calcium 8.1 L Assessment & Plan Plan: Assessment/Plan Narrative: 67-year-old male postoperative day 5 from laparotomy with sigmoid colectomy and diverting colostomy secondary to perforated diverticulitis with slowly resolving ileus. We will maintain clear liquid diet until he has more significant ostomy output. However, we can saline lock the IV today and discontinue the EDUCATIONAL SPEECH LANGUAGE CLINICIAN. Convert oral analgesia. Continue IV antibiotics for pelvic abscess from which fluid culture showed E coli. He requires at least a 10 day course of antibiotics. He may continue to ambulate as tolerated. I personally consulted the ostomy nurse today and she will see him later this afternoon for education. We continued to initiate referral to Dr. Slater for cardiothoracic surgery evaluation once he has stabilized from the current operation. All questions were answered to his satisfaction, and he voiced understanding. Orders were written.
--- NOTE | 2017-10-04 09:06 | P.PN_ITS ---
Subjective Date Patient Seen: 10/04/17 Time Patient Seen: 09:03 Interval history: Tolerating clear liquids without nausea or vomiting. Denies significant abdominal distention. No significant pain. Has used his BREEDER HEN SERVICE TECHNICIAN only 1 since yesterday. Ambulating without difficulty. Showered this morning. Reports air in the stoma. He has actually learned how to relieve the air from the a stoma appliance without any issues. Denies dysuria or hematuria. No chest pain or shortness of breath. No subjective fever or chills. Exam Vital Signs (past 8 hours): - 10/04/17 05:13 10/04/17 07:30 Temperature 98.8 F 98.3 F Pulse Rate 80 55 L Respiratory Rate 16 16 Blood Pressure 138/74 H 128/79 H Pulse Oximetry 95 97 Oxygen Delivery Method Room Air Oxygen Flow Rate 0 Narrative Exam Narrative: Well-nourished well-developed male in no acute distress sitting comfortably in bedside chair this morning. Alert oriented x3 Chest clear to auscultation bilaterally with regular rate and rhythm Abdomen shows diffuse hypoactive bowel sounds. He is minimally distended. He is not tympanitic. Incision is clean, dry, and intact with some residual ecchymoses but no erythema or drainage. Stoma is pink and viable with air in the appliance. There is a small amount of old stool in the appliance this morning as well. Lower extremities show no clubbing cyanosis or edema. Upper extremity edema remained stable although it is subsiding on the left arm. Objective Labs Result Diagrams: 10/03/17 20:00 10/03/17 20:00 Labs: Laboratory Results - last 24 hr 10/03/17 10/03/17 20:00 20:00 WBC 4.7 RBC 3.91 L Hgb 12.0 L Hct 35.6 L MCV 91.0 MCH 30.6 MCHC 33.6 RDW 14.6 Plt Count 251 Neut % (Auto) 69.8 Lymph % (Auto) 15.[address] [place] % (Auto) 14.8 H Eos % (Auto) 0.0 L Baso % (Auto) 0.3 Neut # (Auto) 3300 Sodium 139 Potassium 3.8 Chloride 105 Carbon Dioxide 28 BUN 16 Creatinine 0.70 Estimated GFR > 60.0 BUN/Creatinine Ratio 22.9 H Glucose 101 Calcium 8.1 L Assessment & Plan Plan: Assessment/Plan Narrative: 67-year-old male postoperative day 5 from laparotomy with sigmoid colectomy and diverting colostomy secondary to perforated diverticulitis with slowly resolving ileus. We will maintain clear liquid diet until he has more significant ostomy output. However, we can saline lock the IV today and discontinue the BREEDER HEN SERVICE TECHNICIAN. Convert oral analgesia. Continue IV antibiotics for pelvic abscess from which fluid culture showed E coli. He requires at least a 10 day course of antibiotics. He may continue to ambulate as tolerated. I personally consulted the ostomy nurse today and she will see him later this afternoon for education. We continued to initiate referral to Dr. Slater for cardiothoracic surgery evaluation once he has stabilized from the current operation. All questions were answered to his satisfaction, and he voiced understanding. Orders were written.
[2017-10-04] MEDS: DOCUSATE 100 MG CAPSULE PO ×2 (11:21→21:09)
[2017-10-04] MEDS: PANTOPRAZOLE 40 MG TABLET PO (11:36)
[2017-10-04] MEDS: levoFLOXacin 750 MG/150 ML PIGGYBACK 100 MG IV (11:42)
--- NOTE | 2017-10-04 15:16 | PT.IPTN ---
Current Diagnoses Diverticulitis of large intestine with perforation and abscess without bleeding (09/29/17) Surgery Performed Operation Date: 09/29/17 14:30 Actual Procedures p Exploratory Laparotomy GEN, Partial sigmoid colon colectomy, diverting in colostomy - Azael Flynn MD s Esophagogastroduodenoscopy with placement of gastric nasal tube - Azael Flynn MD Physical Therapy Treatment Note M2 PT-IP Current Condition Start: 10/01/17 11:08 Freq: Status: Active Protocol: Document 10/01/17 10:35 RCC (Rec: 10/01/17 11:19 RCC [id number]) Physical Therapy Current Condition Current Condition Evaluation Date 10/01/17 Treatment Diagnosis ex. lap. 09/21/17, impaired mobility and weakness Onset Date 09/30/17 Precautions Abdominal Surgery Precautions Log Roll Lifting Restrictions Gait Belt above Incisional Area M3 PT-IP Subjective Start: 10/01/17 11:08 Freq: Status: Active Protocol: Document 10/04/17 15:10 GGD (Rec: 10/04/17 15:15 GGD [email or web address]) Subjective Physical Therapy Visit Type Type Treatment Note Visit Start Time 14:50 Visit Stop Time 15:10 Total Visit Minutes 20 Number of CARD CLEANER Visits 1 Physical Therapy Visit Comments Patient Comments Pt ready to walk. M4 PT-IP Mobility and Gait Start: 10/01/17 11:08 Freq: Status: Active Protocol: Document 10/04/17 15:10 GGD (Rec: 10/04/17 15:15 GGD [email or web address]) PT-Bed Mobility Assessment Rolling Type of Rolling Log Rolling Roll to Right Level of Assist Moderate Assistance Supine to Sit Supine to Sit Independent Scooting Scooting to Edge of Bed Contact Guard Assistance PT-Transfer Assessment Sit to and From Stand Sit to and from Stand Standby Assistance Equipment Transfer Assistive Device None Gait Belt Gait Assessment Gait Gait Assistance Required: Standby Assistance Distance (Feet) (feet) 200 Assistive Devices Assistive Device None Gait Belt Orthotic/Prosthetic Devices or Brace: No Factors Limiting Gait Function Factors Limiting Gait Function Decreased Activity Tolerance Pain M5 PT-IP Objective Assessments Start: 10/01/17 11:08 Freq: Status: Active Protocol: Document 10/01/17 10:35 RCC (Rec: 10/01/17 11:19 RCC [id number]) Orientation Orientation/Cognition Level of Alertness Alert Language Function Ability No Deficits Noted Memory Description No Deficits Noted Strength Comments Strength Comments not tested due to surgery. Coordination Assessment Gross Coordination Gross Coordination WNL Sensation Assessment Sensation Gross Sensation WNL M6 PT-IP Treatment Start: 10/01/17 11:08 Freq: Status: Active Protocol: Document 10/04/17 15:10 GGD (Rec: 10/04/17 15:15 GGD [email or web address]) Physical Therapy Treatment Education Education Provided Precautions Safety M7 PT-IP Assessment and Plan Start: 10/01/17 11:08 Freq: Status: Active Protocol: Document 10/04/17 15:10 GGD (Rec: 10/04/17 15:15 GGD [email or web address]) PT Summary Assessment and Plan Summary Assessment Summary Pt need cues for full log roll . He had no LOB with gait and need SBA. Frequency of Treatment Frequency Of Treatment Discharge Recommendations To Nursing Amount of Assist Needed 1 Person Assist Discharge Recommendations PT Discharge Recommendations Home with Assistance
--- NOTE | 2017-10-04 18:57 | PC.NURSE ---
Pt and spouse independently ambulatory in hallway. Returned to room and up in recliner. Delmi Lopes in with pt and pt's spouse changing appliance.
--- NOTE | 2017-10-04 19:26 | PC.NURSE ---
Ostomy Nurse Consult Note Met with Boyd and his . We reviewed pouching systems: one piece and two piece, filter, non-filter. We reviewed cut to fit and moldable. We also reviewed the Crusting Technique and ostomy accessories. I reviewed colostomy anatomy and then I had him and his practice cutting and molding a wafer and applying it to the ostomy model. They practiced on the model and did well. Boyd helped remove his appliance. His had was too swollen to help applied his appliance. We reviewed the [facility] New Ostomy guide book and the [facility] new colostomy guide book. The stoma is edematous, moist, deep red. There was a small amount of liquid stool less than 25cc. The sutures are visible and intact. The willie-stomal skin is intact. The stoma measures 40mm and is budded about 1 1/2 inches from the skin level. I cleaned the stoma and peristomal skin and [facility] a flat two [facility] with a clear, non-filter pouch. The mid-line hugh are intact without drainage, yet there is bruising. 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 They just moved her from [facility]. They have a lot to digest with a lot of stressful changes in their near future. I would recommend Home Health RN to be involved with his discharge care. I will follow up with Mr. Velazquez at [facility] when he visits Dr. Flynn for his post-op visit.
[2017-10-04] MEDS: ENOXAPARIN 40 MG/0.4 ML SYRINGE SUBCUT (21:08)
[2017-10-04] MEDS: SENNOSIDES 8.6 MG TABLET PO (21:09)
--- NOTE | 2017-10-04 23:48 | PC.NURSE ---
Addendum entered by No Saenz R.N. 10/05/17 07:03: Patient had what appears to be about 300-400cc dark brown/green loose stool emptied from colostomy bag. Original Note: Addendum entered by No Saenz R.N. 10/05/17 05:50: Eyes closed each time hourly patient checks done but patient states he did not sleep well. Had only taken 5mg of Ambien at start of shift and was informed he could ask for the other 5mg later but chose not to do so. States he has had quite a bit of flatus in colostomy bag and burped it himself. Denies pain. Original Note: Patient is alert and oriented. Breath sounds CTA with RA sat of 97%. HRR. Denies nausea. BT hypoactive but states he is passing flatus. Has new colostomy with beefy red stoma and small amount semi-formed brown stool in bag; patient states he feels comfortable with teaching he has received and feels able to do own cares on discharge. Denies dysuria, frequency, urgency or incontinence and is using urinal or getting up to bathroom. Independent with mobility and is steady on feet. Denies pain. Noted to have edema/bruising bilateral UE. Midline incision is well approximated with intact hugh; no drainage or redness but some bruising present to left of incision. Fall risk score is moderate and patient reminded to call for assist since taking Ambien for sleep; verbalizes agreement/understanding.
[2017-10-05 04:40] VITALS: BP 134/84; PULSE 68; RESP 16; TEMP 37.1; O2SAT 95
[2017-10-05] MEDS: metroNIDAZOLE 500 MG/100 ML PIGGYBACK 100 MG IV ×2 (05:41→14:16)
[2017-10-05] MEDS: PANTOPRAZOLE 40 MG TABLET PO (05:41)
[2017-10-05] MEDS: SODIUM CHLORIDE 0.9% FLUSH 10 ML IV ×3 (05:42→14:17)
[2017-10-05 08:00] VITALS: BP 136/75; PULSE 68; RESP 16; TEMP 36.7; O2SAT 96
--- NOTE | 2017-10-05 08:25 | CM.DPC ---
[facility] referral faxed per Nicol
--- NOTE | 2017-10-05 08:44 | PM.PN.1 ---
Subjective Date Patient Seen: 10/05/17 Time Patient Seen: 08:44 Interval history: Patient denies any significant pain. No shortness of breath. Continues to have upper extremity edema. No dysphagia or odynophagia. No facial edema. No change in voice. Tolerating clear liquid diet yesterday without any difficulty. No nausea or vomiting. He was seen by the ostomy nurse last evening, but he is not completely comfortable yet with stoma care. Exam Vital Signs (past 8 hours): - 10/05/17 04:40 Temperature 98.7 F Pulse Rate 68 Respiratory Rate 16 Blood Pressure 134/84 H Pulse Oximetry 95 Oxygen Delivery Method Room Air Oxygen Flow Rate 0 Narrative Exam Narrative: Well-nourished well-developed male sitting comfortably in bed in no acute distress. Alert oriented x3. Chest clear to auscultation bilaterally. Regular rate and rhythm Abdomen is soft, nondistended, minimally tender. No guarding or rebound. Incision is clean, dry, and intact without erythema or drainage. Minimal ecchymoses remain at the inferior aspect of the wound. Colostomy is pink and viable with copious stool and air in the appliance this morning. Objective Labs Result Diagrams: 10/03/17 20:00 10/03/17 20:00 Labs: No new laboratory or radiographic studies for review Assessment & Plan Plan: Assessment/Plan Narrative: 67-year-old male now postoperative day 6 from sigmoid colectomy with diverting colostomy for perforated diverticulitis who continues to recover nicely. He has had return of bowel function. We will therefore advanced him to a regular diet. Continue with Ensure supplementation due to moderate protein calorie malnutrition. Continue with ostomy teaching. He may shower and ambulate ad new. I have discussed the case with discharge coordinators who will make arrangements for home visiting nurse possibly to assist with ostomy care. He may be stable for discharge later this afternoon if he tolerates a regular diet and home nursing can be instituted. He had numerous questions which I answered to his satisfaction. I am waiting a return phone call from Dr. 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 I discussed this with the patient as well as his pathology report which showed diverticulitis only. Orders were written. We will proceed as above.
[2017-10-05] MEDS: DOCUSATE 100 MG CAPSULE PO (09:12)
[2017-10-05] MEDS: levoFLOXacin 750 MG/150 ML PIGGYBACK 100 MG IV (10:56)
--- NOTE | 2017-10-05 11:31 | CM.DPC ---
Addendum entered by Nicol Garza LPN 10/06/17 10:31: Spoke with Dr. Flynn yesterday mid afternoon. He explained the change in plan for transfer to and pt did go as planned. Updated Isha at [facility] at that time re the change in d/c dispo. Original Note: DCP: continued: Case received and spoke with Dr. Flynn this morning re POC. He confirmed that pt was nearing readiness for d/c. His t rail turner Delmi Lopes worked with pt last evening for the first time and recommends RN followup. Delmi will also see pt in clinic/[facility] to follow up on the colostomy management process. Met then with pt to discuss. He says he is expecting to go home later today if he tolerates the diet well. Dr. Flynn will be back in the afternoon. He says he is glad to receive RN assist with ostomy care. choice list: [facility] only agency which goes to [facility]. Referral: Isha/[facility]:accepts. Can see pt tomorrow if he does d/c today as expected. Otherwise Monday. Face to Face paperwork: ready for Dr. Flynn's signature. Per his request is place on red folder/chart. Will get it faxed to Isha once Dr. Flynn signs it. P: home/spouse support/she will drive him home. HH as stated.
[2017-10-05 12:00] VITALS: BP 110/57; PULSE 83; RESP 16; TEMP 36.9; O2SAT 96
[2017-10-05] MEDS: SODIUM CHLORIDE 0.9% 250 ML 21 ML IV (14:38)
--- NOTE | 2017-10-05 15:53 | PC.NURSE ---
PT TO BE TRANS TO [facility]. REPORT GIVEN TO ANTONELLA ABDALLA. PT MADE AWARE OF TRANS, NOTIFIED BY MD. HAND-OFF REPORT GIVEN TO PRITI SAMSON RN.
[2017-10-05 16:04] VITALS: BP 144/69; PULSE 67; RESP 16; TEMP 36.8; O2SAT 97
--- NOTE | 2017-10-05 16:30 | PM.DS.1 ---
History of Present Illness Date Patient Seen: 10/05/17 Time Patient Seen: 16:30 Chief complaint: Chest Pain Narrative: 67-year-old male who presented to the urgent care center approximately 1 week ago with intermittent chest wall pain. 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 No pulmonary masses. Patient states on further history that he had been feeling relatively poorly over the last several months. In fact, he has been anorexic most days with very little oral intake. He has lost at least 20 lb unintentionally over the last several months. No fevers or chills or night sweats. However, he has had significant difficulty with sleep for which he is now taking medication. He has had no issues with abdominal pain. In fact, his current complaint to bring him to the emergency department today is bilateral thoracic pain radiating into the shoulders. He has noticed no recent change in bowel habits although his last bowel movement was somewhat firm. Denies any dysuria or hematuria. No nausea or vomiting until this morning. Discharge Providers Date of admission: 09/29/17 13:36 Primary care physician: Kymberly Crystal DO Consults: 09/29/17 13:44 Consult to Discharge Planning Routine Comment: 09/29/17 18:56 Consult to Dietitian, Adult Routine Comment: Reason For Exam: Patient on Ventilator and NPO 10/01/17 07:28 Consult to Physical Therapy Evaluate & Treat Comment: assist with mobility and ambulation Physician Instructions: Evaluate and Treat 10/02/17 10:23 Consult to Ostomy Specialist Routine Comment: new colostomy for perforated diverticulitis Consulting Provider: 10/05/17 11:15 Consult to Home Health Routine Comment: new colostomy management/teach Reason For Exam: home health RN/ Discharge provider: Azael Flynn MD Summary Discharge Diagnosis: 1. Perforated sigmoid colon diverticulitis 2. 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 Upper extremity edema secondary to superior vena cava compression 6. Chronic insomnia 7. Seasonal allergies 8. History colonoscopy 9. Colonic diverticulosis 10. History of appendectomy 11. Exploratory laparotomy with partial sigmoid colectomy September 29, 2017 12. 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 Mobilization of splenic flexure September 29, 2017 14. Esophagogastroscopy with placement of nasogastric tube endoscopically September 29, 2017 Hospital Course: Patient was seen in the emergency department with abdominal pain, distention, nausea, and vomiting. Examination and evaluation were consistent with acute peritonitis. Free air was confirmed on imaging. He was taken urgently to the operating room for laparotomy where he was found to have perforated diverticulitis with pelvic abscess. He underwent [place] procedure without difficulty. Postoperatively he was admitted to the intensive care unit overnight for observation. He was maintained on intravenous antibiotics. Fluid cultures from the abscess showed E coli resistant to Zosyn but sensitive to Levaquin and Flagyl. He was maintained on these antibiotics after surgery. He has now completed a 7 day course and has no evidence of infectious complications or other issues with recurrent abscess. He was transferred to the regular surgical floor by postoperative day 2. He remained afebrile and hemodynamically stable otherwise throughout his entire hospitalization. Nasogastric tube and Lawler catheter were discontinued any had a ventral resolution of his ileus with return of spontaneous bowel function via the colostomy. He was seen by the enterostomal therapist for educational purposes. Wound is healing nicely. He is ambulating without difficulty unassisted. Tolerating a regular diet at discharge. He did have upper extremity edema consistent with superior vena cava compression. Cardiothoracic surgery consultation was obtained from [facility]. Upon review of his chest images the surgeons at that institution felt there was some urgency to obtaining a diagnosis and potentially proceeding with treatment for the mass. At their request he is now being transferred to [facility] where he will be managed as an inpatient at their facility. He is stable from a general surgical standpoint following his abdominal operation. I reviewed all the above with the patient and his in detail. They were agreeable with the transfer to the outlying institution for ongoing evaluation of the mediastinal mass. Status at Discharge Cognitive/behavioral status at discharge: Alert orient x3 Functional status at discharge: independent ambulation Overall status at discharge: patient is progressing back to baseline Time Spent with Patient Greater than 30 minutes Exam Vital Signs (past 8 hours): - 10/05/17 12:00 10/05/17 16:04 Temperature 98.4 F 98.3 F Pulse Rate 83 67 Respiratory Rate 16 16 Blood Pressure 110/57 L 144/69 H Pulse Oximetry 96 97 Oxygen Delivery Method Room Air Oxygen Flow Rate 0 Narrative Exam Narrative: Well-nourished well-developed male in no acute distress. He is resting comfortably in bed. is at the bedside. He is alert oriented x3. Sclera nonicteric Neck is supple without lymphadenopathy. No facial edema. Chest is clear to auscultation bilaterally with regular rate and rhythm. No flank tenderness He has +2 upper extremity edema, especially on the right side. Abdomen is soft and nondistended. He has active bowel sounds. Wound is clean, dry, and intact with some ecchymosis at the inferior aspect of the incision. No hematoma or seroma. No wound drainage. No erythema. Colostomy is pink and viable with normal stool in the appliance. Flatus is in the appliance as well. Objective Labs Result Diagrams: 10/03/17 20:00 10/03/17 20:00 Labs: No new radiographic studies for review since admission Discharge Plan Discharge Plan Patient Disposition: [facility] Other facility: [facility] Under care of provider: Rupinder Discharge comment: Transferred to above facility for cardiothoracic surgery services not available at this institution Discharge Med Rec/Prescriptions Discharge Orders: Discharge (Order); Ordered 10/05/17 Ordered By: Azael Flynn Discharge Health Status Brief summary of current health status: Patient afebrile and hemodynamically stable. He has recovered nicely from a emergency abdominal surgery. Current issue remains superior vena cava compression by mediastinal tumor. Multidrug resistant organism: No MDRO Provider Discharge Instructions Diet: Diet as Tolerated Liquid consistency: Normal/Thin Food texture: Regular Diet comment: May have nutritional supplements such as Ensure daily and as desired Activity: No heavy lifting more than 20 lb for 3 more weeks May ride in vehicle No driving while taking opioid pain medication May walk as much as desired May climb stairs Keep head of bed elevated at 30?? all times Cold/Heat Therapy: May apply ice pack to incision as needed for comfort Oxygen: None Other treatments: Colostomy care as instructed per enterostomal therapist Wound Care Report to your healthcare provider any signs of infection, such as:: chills, fever, increased pain and unusual drainage Discharge Data Primary Care Provider: Kymberly Crystal Attending Provider: Azael Flynn Admit Date/Time: 09/29/17 13:36
--- NOTE | 2017-10-05 17:44 | PC.NURSE ---
Dr. Flynn enters pt's room and speaks with spouse and pt. Per Dr. Flynn's directive pt to transfer to [facility]. Paperwork completed by Dr. Flynn. Pt denies pain, denies nausea. Scant amount liquid brown stool in colostomy bag. Awaiting bed availability per Connie from . Pt's spouse is present, supportive and involved in pt's care.
--- NOTE | 2017-10-05 18:58 | PC.NURSE ---
Pt discharged via [facility] ambulance as per Dr. Flynn. Pt alert, awake and in stable condition, denying pain. All personal belongings accounted for. Pt's spouse has pt's other belongings that will go with with spouse to [facility]. Paperwork provided to ambulance crew.
== END 2017-10-05 18:50 | disposition short-term general hospital (02) | DRG 330 ==
LOC: ED 13:08 → ICU 13:36 → AC 10-01 13:32
PROVIDERS: Admitting Provider Surgery; Emergency Provider Emergency Medicine; PCP Family Medicine; Visit Provider Surgery
PROC: 0DBN0ZZ Excision of Sigmoid Colon, Open Approach (ICD-10-PCS; CPT 49000; principal; 2017-09-29 14:30)
PROC: 0DJ08ZZ Inspection of Upper Intestinal Tract, Via Natural or Artificial Opening Endoscopic (ICD-10-PCS; CPT 43235; 2017-09-29 14:30)
DX: K57.20 Diverticulitis of large intestine with perforation and abscess without bleeding (principal); K56.7 Ileus, unspecified; I87.1 Compression of vein; E44.0 Moderate protein-calorie malnutrition; G47.00 Insomnia, unspecified; R22.2 Localized swelling, mass and lump, trunk; Z68.26 Body mass index [BMI] 26.0-26.9, adult; B96.20 Unspecified Escherichia coli [E. coli] as the cause of diseases classified elsewhere; Z16.11 Resistance to penicillins; D49.89 Neoplasm of unspecified behavior of other specified sites
CPT/HCPCS: 36415; 36591; 36600; 43246; 44139; 44140; 71045; 71260; 74177; 76536; 80048; 80053; 81003; 82105; 82550; 82553; 82805; 83519; 83605; 83615; 83690; 84484; 84702; 85014; 85018; 85025; 86850; 86900; 86901; 87070; 87075; 87077; 87102; 87186; 87205; 87797; 88307; 93005; 93041; 94003; 94770; 94799; 96365; 96375; 97116; 97162; 99223; 99284; 99285; C9113; J0330; J0690; J1100; J1170; J1650; J1956; J2405; J2543; J2704; J3010; Q9967

== ENCOUNTER 2017-10-14 20:26 | Inpatient (IN) | payer MEDICARE, BC, SELFPAY ==
[2017-10-13 08:56] VITALS: PULSE 65; RESP 13; O2SAT 96; BMI 26.2
[2017-10-14 20:38] VITALS: BP 148/88; PULSE 88; RESP 14; TEMP 36.9; O2SAT 98; BMI 24.0
[2017-10-14 21:14] LABS: Add Manual Diff / Slide Review NO; Basophils Percent Auto 0.2 % (0-2); Hematocrit 37.9 % (41-53); Hemoglobin 12.7 g/dL (13.5-17.5); Lymphocytes Percent Auto 13.8 % (25-40); Mean Corpuscular HGB Conc 33.6 % (30-36); Mean Corpuscular Hemoglobin 30.7 PG (26-34); Mean Corpuscular Volume 91.4 fL (80-100); Monocytes Percent Auto 13.5 % (3-14); Neutrophils Absolute Auto 4300 /uL (3000-5900); Neutrophils Percent Auto 72.5 % (50-75); Platelet Count 291 X10^3/uL (150-400); Red Blood Cell Count 4.14 X10^6/uL (4.5-5.9); Red Cell Distribution Width 15.7 % (11.6-14.8); White Blood Cell Count 5.9 X10^3/uL (4.5-11.0)
[2017-10-14 21:27] LABS: INR 1.3 (0.9-1.3); Prothrombin Time 13.7 SECONDS (10.1-12.7)
[2017-10-14 21:29] LABS: PTT Partial Thromboplastin Tim 45 SECONDS (26.4-36.2)
[2017-10-14 21:31] LABS: Alanine Aminotransferase 56 IU/L (21-72); Albumin 3.4 g/dL (3.5-5.0); Albumin Globulin Ratio 1.4 (1.0-2.8); Alkaline Phosphatase 42 U/L (38-126); Aspartate Aminotransferase 42 IU/L (17-59); Bilirubin Total 0.4 mg/dL (0.2-1.3); Blood Urea Nitrogen 14 mg/dL (9-20); Calcium 8.5 mg/dL (8.4-10.2); Carbon Dioxide 28 mmol/L (22-32); Chloride 102 mmol/L (98-107); Estimated Glomerular Filt Rate > 60.0 mL/min (>60); Globulin 2.4 g/dL (1.7-4.1); Glucose 107 mg/dL (80-110); HEMOLYSIS 15 (0-50); Lipase 265 U/L (23-300); Sodium 137 mmol/L (137-145); Total Protein 5.8 g/dL (6.3-8.2)
--- NOTE | 2017-10-14 22:01 | ED.ABDPAIN ---
HPI - Abdominal Pain General Chief Complaint: Abdominal Pain Stated Complaint: ABD PAIN HAVENT PASSED GAS Time Seen by Provider: 10/14/17 22:01 Source: patient Mode of arrival: ambulatory History of Present Illness HPI narrative: The patient presented here 09/29/2017 with abdominal pain. Free air was noted. He was operated on that day, with the probable diagnosis of a ruptured diverticulitis. He underwent a partial sigmoid colectomy with diverting descending end colostomy. Prior to this event he had been diagnosed with a retrosternal mass. Since discharge from the hospital he has been seen at [facility]. 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 Today he developed abdominal pain. The abdominal pain is generalized, and has increased throughout the course of the day. He has had stool through the colostomy today, he has had no nausea vomiting. He denies fever. He has no back pain. He denies chest pain or dyspnea. He has no urinary symptoms. Related Data Home Medications Medication Instructions Recorded Confirmed eszopiclone [Lunesta] 1 mg PO BEDTIME 09/29/17 09/29/17 fluticasone [Flonase Allergy 1 spray INTRANASAL DAILY 09/29/17 09/29/17 Relief] Allergies Allergy/AdvReac Type Severity Reaction Status Date / Time birch Allergy Unknown Verified 10/14/17 20:42 ragweed pollen Allergy Unknown Verified 10/14/17 20:42 Review of Systems Review of Systems All systems reviewed & are unremarkable except as noted in HPI and below Constitutional Denies chills, Denies fever(s), Denies lethargy and Denies weakness Eyes Denies change in vision ENT Ears, Nose, Mouth, and Throat: Denies sore throat Cardiovascular Denies chest pain, Denies irregular heart rhythm, Denies lightheadedness, Denies palpitations, Denies dyspnea, Denies dyspnea on exertion and Denies orthopnea Respiratory Denies cough, Denies dyspnea, Denies dyspnea on exertion and Denies wheezing Gastrointestinal Gastrointestinal: Reports abdominal pain, Denies change in stool character, Denies dyspepsia, Denies diarrhea and Denies vomiting Genitourinary Reports other ( No symptoms.) Musculoskeletal Reports other ( No back pain.) Integumentary/Breasts Denies erythema, Denies rash and Denies wounds Neurologic Denies confusion and Denies weakness Psychiatric Denies confusion Endocrine Denies palpitations Allergic/Immunologic Denies wheezing [facility] Medical History Perforated viscus (Acute) Thymoma (Acute) Diverticulosis (Chronic) Elevated PSA (Chronic ~1999) Hearing loss (Chronic) Hepatitis (Chronic ~1971) Insomnia (Chronic) Intra-abdominal free air of unknown etiology (Chronic) Kidney stones (Chronic ~1989) Mediastinal mass (Chronic) Thyroid cancer (Chronic ~2017) Tinnitus (Chronic ~1999) Vision disorder (Chronic) Surgical History H/O colectomy (Acute) Anesthesia (Resolved) Broken arm (Resolved ~1983) History of appendectomy (Resolved ~1979) History of colonoscopy (Resolved) History of hip replacement (Resolved ~1991) History of knee surgery (Resolved ~1959) Family History Father History of emphysema Mother Congestive heart failure Brother Pancreatic cancer Social History household members: spouse Smoking Status: Never smoker Exam Initial Vital Signs Initial Vital Signs: Vital Signs Temperature 98.5 F 10/14/17 20:38 Pulse Rate 88 10/14/17 20:38 Respiratory Rate 14 10/14/17 20:38 Blood Pressure 148/88 H 10/14/17 20:38 Pulse Oximetry 98 10/14/17 20:38 Const General: cooperative and well developed Nutritional Appearance: well nourished Orientation: alert, awake, oriented x3 and not confused Eyes Conjunctivae: conjunctivae normal Chest Chest: normal inspection of the chest Resp Effort & Inspection: normal respiratory effort, able to speak in complete sentences, no respiratory distress and no use of accessory muscles Auscultation: clear to auscultation bilaterally, no rales, no rhonchi and no wheezes Cardio Rate: regular rate Rhythm: regular rhythm Heart Sounds: no click, no gallops, no murmurs and no rubs Pulses: normal peripheral pulses GI Inspection: other ( abdomen shows generalized tenderness. There is no distension. He has a small amount of stool in the colostomy bag. Bowel sounds are absent.) Back/Spine/Pelvis Back: No CVA tenderness Skin General: no rashes or lesions noted, No jaundice and No petechiae Neuro General: alert, oriented x3, gait normal and no focal motor deficits Speech: speech normal Extrem General: full ROM, no clubbing, cyanosis or edema, no pedal edema and no calf tenderness Course Orders Ordered: ED Orders 10/14/17 20:50 Complete Blood Count AUTO DIFF Stat Comprehensive Metabolic Panel Stat Lipase Stat Partial Thromboplastin Time Stat Prothrombin Time INR Stat 10/14/17 22:02 CT abdomen pelvis w con Stat Sodium Chloride (Normal Saline 0.9%) 1,000 mls @ 150 mls/hr IV CONT DELORIS Last Admin: 10/14/17 22:12 Dose: 150 mls/hr Discontinued Medications Hydromorphone HCl (Dilaudid) 1 mg IV Q15M [facility] Stop: 10/14/17 22:31 Last Admin: 10/15/17 00:34 Dose: 1 mg Admin: 10/14/17 22:12 Dose: 1 mg Morphine Sulfate (Morphine) 4 mg IV NOW ONE Stop: 10/15/17 00:13 Ondansetron HCl (Zofran) 4 mg IV NOW ONE Stop: 10/14/17 22:15 Last Admin: 10/14/17 22:19 Dose: 4 mg Vital Signs - 8 hr 10/14/17 20:38 Temperature 98.5 F Pulse Rate 88 Respiratory Rate 14 Blood Pressure 148/88 H Pulse Oximetry 98 MDM - Abdominal Pain Medical Records Attestation: I reviewed the patient's medical records. Lab Data Attestation: I reviewed the patient's lab results. Result diagrams: 10/14/17 20:50 10/14/17 20:50 Lab Results 10/14/17 10/14/17 10/14/17 Range/Units 20:50 20:50 20:50 WBC 5.9 (4.5-11.0) X10^3/uL RBC 4.14 L (4.5-5.9) X10^6/uL Hgb 12.7 L (13.5-17.5) g/dL Hct 37.9 L (41-53) % MCV 91.4 (80-100) fL MCH 30.7 (26-34) PG MCHC 33.6 (30-36) % RDW 15.7 H (11.6-14.8) % Plt Count 291 (150-400) X10^3/uL Neut % (Auto) 72.5 (50-75) % Lymph % (Auto) 13.8 L (25-40) % Grainger % (Auto) 13.5 (3-14) % Eos % (Auto) 0.0 L (2-4) % Baso % (Auto) 0.2 (0-2) % Neut # (Auto) 4300 (7368-2097) /uL PT 13.7 H (10.1-12.7) SECONDS INR 1.3 (0.9-1.3) APTT 45 H (26.4-36.2) SECONDS Sodium 137 (137-145) mmol/L Potassium 4.0 (3.4-5.1) mmol/L Chloride 102 (98-107) mmol/L Carbon Dioxide 28 (22-32) mmol/L BUN 14 (9-20) mg/dL Creatinine 0.70 (0.66-1.25) mg/dL Estimated GFR > 60.0 (>60) mL/min BUN/Creatinine Ratio 20.0 (6-22) Glucose 107 (80-110) mg/dL Calcium 8.5 (8.4-10.2) mg/dL Total Bilirubin 0.4 (0.2-1.3) mg/dL AST 42 (17-59) IU/L ALT 56 (21-72) IU/L Alkaline Phosphatase 42 (38-126) U/L Total Protein 5.8 L (6.3-8.2) g/dL Albumin 3.4 L (3.5-5.0) g/dL Globulin 2.4 (1.7-4.1) g/dL Albumin/Globulin Ratio 1.4 (1.0-2.8) Lipase 265 (23-300) U/L Imaging Data CT scan - abdomen: Radiologist's impression: Partial small-bowel obstruction MDM Narrative Medical decision making narrative: An NG put will be placed. I discussed the case with Dr. Huddleston, on-call surgery. He will be admitted for management of a small-bowel obstruction. Discharge Plan Departure Patient Disposition: Admitted As Inpatient Clinical Impression: Partial obstruction of small intestine Prescriptions: No Action fluticasone [Flonase Allergy Relief] 50 mcg/actuation Candia,Suspension 1 spray INTRANASAL DAILY RF: 0 eszopiclone [Lunesta] 1 mg Tablet 1 mg PO BEDTIME RF: 0
--- NOTE | 2017-10-14 22:02 | DI.CT.S_ITS ---
PROCEDURE: CT ABDOMEN PELVIS W CON INDICATIONS: Post op. Abd pain. R/O obstruction TECHNIQUE: After the administration of intravenous contrast, 5 mm thick sections acquired from the diaphragm to the symphysis. 5 mm coronal and sagittal reformats were acquired. For radiation dose reduction, the following was used: automated exposure control, adjustment of mA and/or kV according to patient size. COMPARISON: [facility], CT, CT ABDOMEN PELVIS W CON, 09/25/2017, 9:31. FINDINGS: Image quality: Excellent. ABDOMEN: Lung bases: Lung bases are clear except for mild posterior linear scarring or atelectasis. Heart size is normal. Solid organs: Liver is normal in size and enhancement. There is a small simple left lateral hepatic segment cyst incidentally noted Gallbladder appears normal. Biliary system is non dilated. Pancreas enhances normally. Spleen is normal in size and enhancement. No adrenal nodules. Kidneys demonstrate normal size and enhancement, without hydronephrosis. Peritoneum and bowel: Small bowel loops demonstrate normal wall thickness and caliber superiorly and appear slightly dilated inferiorly. There is a point of transition from dilatation of small bowel to relatively collapsed small bowel at the left lower quadrant, near the anterior superior iliac spine, were centered on series 2 image 57 there is a rounded radiodensity measuring slightly above water at 14.3 Hounsfield units, and beyond this point the small bowel appears relatively collapsed extending anteriorly. No free fluid or air. Nodes and vessels: No retroperitoneal or mesenteric adenopathy by size criteria. Aorta and inferior vena cava are normal in size. Miscellaneous: No ventral hernias. PELVIS: Genitourinary: Bladder wall thickness is normal. Miscellaneous: No inguinal hernias or adenopathy. A left lower quadrant colostomy is present, without operative complication. Prior partial sigmoid resection. Contrast is present within the residual rectum and posterior sigmoid. Bones: No suspicious bony lesions. No vertebral body compression fractures. IMPRESSION: Partial small bowel obstruction centered at the left lower quadrant, mild in overall severity. The point of transition appears located within the small bowel in the left lower quadrant, where a near water density rounded structure can be seen within the lumen of the small bowel measuring approximately 14.3 Hounsfield units and 2.2 cm in diameter. Etiology is uncertain, this could represent a low density mass or unusual manifestation of intraluminal cystic structure. Depending on the clinical status followup by small bowel follow-through examination may be warranted. Note: These findings are concordant with the preliminary interpretation, however the possibility of an intraluminal small bowel cyst or low density mass was not discussed initially. Dictated by: Shin Echeverria M.D. on 10/15/2017 at 11:40 Approved by: Shin Echeverria M.D. on 10/15/2017 at 11:46
[2017-10-14] MEDS: HYDROMORPHONE 1 MG INJ IV (22:12)
[2017-10-14] MEDS: SODIUM CHLORIDE 0.9% 1,000 ML 150 ML IV (22:12)
[2017-10-14] MEDS: ONDANSETRON 4 MG/2 ML INJ IV (22:19)
[2017-10-15] MEDS: HYDROMORPHONE 1 MG INJ IV (00:34)
[2017-10-15 01:41] VITALS: BP 128/70; PULSE 66; RESP 18; O2SAT 95
[2017-10-15 02:00] VITALS: BP 141/90; PULSE 70; RESP 16; TEMP 36.1; O2SAT 95
[2017-10-15] MEDS: ONDANSETRON 4 MG/2 ML INJ IV (02:00)
[2017-10-15] MEDS: SODIUM CHLORIDE 0.9% 1,000 ML 150 ML IV ×2 (02:01→11:33)
[2017-10-15 02:12] VITALS: BMI 24.0
[2017-10-15 05:00] VITALS: BP 139/80; PULSE 65; RESP 16; TEMP 36.6; O2SAT 100
[2017-10-15] MEDS: HYDROMORPHONE PCA 6 MG/30 ML PCA.VIAL IV ×2 (05:08→13:58)
--- NOTE | 2017-10-15 08:34 | CM.DANOTE ---
DCP: Case received, EMR reviewed and met with patient. Introduced self and role. DCP template completed with information currently available. Patient is a 67 year old male who admitted early this morning to the care of the hospitalist team. PCP: Dr. Crystal. Payer: confirmed: Medicare/BCBS Out of [facility] Patient carries a diagnosis of partial obstruction of small intestine. Came in with abdominal pain. Has an ostomy as well. Lives at home with his , had been at [facility] yesterday, when the symptoms started. P: DCP will continue to assess. Patient's goal is to go home. Has support of . Barbara Duran, RN/Charger Operator
[2017-10-15 10:18] VITALS: BP 134/78; PULSE 59; RESP 18; TEMP 36.6; O2SAT 99
[2017-10-15] MEDS: ENOXAPARIN 80 MG/0.8 ML SYRINGE SUBCUT (11:31)
--- NOTE | 2017-10-15 12:47 | PC.NURSE ---
DAY SHIFT NOTE 10/15/17 1245 Patient doing well, reports passing gas. Patient and are frustrated that no MD has seen patient since being admitted to the Acute Care. Dr. Huddleston stated via phone that she was en route at 1100 and at 1245 no MD has arrived at this time. Dr. Huddleston did order patient's lovenox as requested by this RN and patient. No acute distress at this time.
--- NOTE | 2017-10-15 13:44 | PM.HP.1 ---
History of Present Illness Date Patient Seen: 10/15/17 Time Patient Seen: 13:44 Chief complaint: ABD PAIN HAVENT PASSED GAS Narrative: Very pleasant 67-year-old band who has recently undergone an exploratory laparotomy with partial bowel resection and colostomy with Dr. 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 He reports that fairly acutely last evening he began having severe abdominal pain. He has not had this kind of pain before. The pain lasted a couple of hours. The patient took a Tylenol and when that did not help, he boarded the [employer] and came over with his to the emergency department. He was seen and evaluated by Dr. Newell and found to have CT evidence of a partial small bowel obstruction. He was admitted for supportive care. Overnight he has started passing copious flatus through his ostomy bag. This is something that was lacking prior to admission. He reports that his pain has disappeared and he feels quite normal now. He is very anxious for discharge. Patient History Medical History Perforated viscus (Acute) Thymoma (Acute) Diverticulosis (Chronic) Elevated PSA (Chronic ~1999) Hearing loss (Chronic) Hepatitis (Chronic ~1971) Insomnia (Chronic) Intra-abdominal free air of unknown etiology (Chronic) Kidney stones (Chronic ~1989) Mediastinal mass (Chronic) Thyroid cancer (Chronic ~2017) Tinnitus (Chronic ~1999) Vision disorder (Chronic) Surgical History H/O colectomy (Acute) Anesthesia (Resolved) Broken arm (Resolved ~1983) History of appendectomy (Resolved ~1979) History of colonoscopy (Resolved) History of hip replacement (Resolved ~1991) History of knee surgery (Resolved ~1959) Family & Social History Family History: Reviewed 10/15/17 by Neisha Huddleston MD Social History: household members spouse Prior Living Arrangements House Safety & Behavioral: Feels Safe in Current Yes Environment Been Physically Hurt or No Threatened By a Person Suicidal Ideation Description None Suicide Plan Description No Plan Tobacco & Substance use: Smoking Status Never smoker alcohol intake former alcohol intake frequency 0-2 drinks per day Substance Use Type does not use Meds Home Medications Medication Instructions Recorded Confirmed Type enoxaparin 80 mg SUB-Q Q12HR 10/15/17 10/15/17 History oxycodone-acetaminophen 1 tab PO Q4-6H PRN #5 tab MDD 4 10/15/17 Rx Allergies Allergy/AdvReac Type Severity Reaction Status Date / Time birch Allergy Unknown Verified 10/14/17 20:42 ragweed pollen Allergy Unknown Verified 10/14/17 20:42 Review of Systems Review of Systems All systems reviewed & are unremarkable except as noted in HPI and below Exam Vital Signs (past 8 hours): - 10/15/17 10:18 Temperature 97.9 F Pulse Rate 59 L Respiratory Rate 18 Blood Pressure 134/78 H Pulse Oximetry 99 Oxygen Delivery Method Room Air Narrative Exam Narrative: Kayla gentleman who appears younger than his stated age. He is accompanied by his . HEENT: Normocephalic and atraumatic pupils are equal round reactive to light accommodation with anicteric sclera. Lungs: Clear bilaterally Heart: Regular rate and rhythm Abdomen: Soft, active bowel sounds. Ostomy is functioning with much gas in the bag. Abdomen is without evidence of infection. Extremities: Warm and well perfused Objective Labs Result Diagrams: 10/14/17 20:50 10/14/17 20:50 Labs: Laboratory Results - last 24 hr 10/14/17 10/14/17 10/14/17 20:50 20:50 20:50 WBC 5.9 RBC 4.14 L Hgb 12.7 L Hct 37.9 L MCV 91.4 MCH 30.7 MCHC 33.6 RDW 15.7 H Plt Count 291 Neut % (Auto) 72.5 Lymph % (Auto) 13.8 L [place] % (Auto) 13.5 Eos % (Auto) 0.0 L Baso % (Auto) 0.2 Neut # (Auto) 4300 PT 13.7 H INR 1.3 APTT 45 H Sodium 137 Potassium 4.0 Chloride 102 Carbon Dioxide 28 BUN 14 Creatinine 0.70 Estimated GFR > 60.0 BUN/Creatinine Ratio 20.0 Glucose 107 Calcium 8.5 Total Bilirubin 0.4 AST 42 ALT 56 Alkaline Phosphatase 42 Total Protein 5.8 L Albumin 3.4 L Globulin 2.4 Albumin/Globulin Ratio 1.[address] [place] [id number] Scan Report Signed Patient: Boyd Velazquez MR#: [id number] : 1950 Acct:[id number] Age/Sex: 67 / M Date of Service: 10/14/17 Loc: 229-1 Accession Number: [id number] Procedure: CT abdomen pelvis w con Ordering Provider: Boyd Newell M.D. PROCEDURE: CT ABDOMEN PELVIS W CON INDICATIONS: Post op. Abd pain. R/O obstruction TECHNIQUE: After the administration of intravenous contrast, 5 mm thick sections acquired from the diaphragm to the symphysis. 5 mm coronal and sagittal reformats were acquired. For radiation dose reduction, the following was used: automated exposure control, adjustment of mA and/or kV according to patient size. COMPARISON: [facility], CT, CT ABDOMEN PELVIS W CON, 09/25/2017, 9:31. FINDINGS: Image quality: Excellent. ABDOMEN: Lung bases: Lung bases are clear except for mild posterior linear scarring or atelectasis. Heart size is normal. Solid organs: Liver is normal in size and enhancement. There is a small simple left lateral hepatic segment cyst incidentally noted Gallbladder appears normal. Biliary system is non dilated. Pancreas enhances normally. Spleen is normal in size and enhancement. No adrenal nodules. Kidneys demonstrate normal size and enhancement, without hydronephrosis. Peritoneum and bowel: Small bowel loops demonstrate normal wall thickness and caliber superiorly and appear slightly dilated inferiorly. There is a point of transition from dilatation of small bowel to relatively collapsed small bowel at the left lower quadrant, near the anterior superior iliac spine, were centered on series 2 image 57 there is a rounded radiodensity measuring slightly above water at 14.3 Hounsfield units, and beyond this point the small bowel appears relatively collapsed extending anteriorly. No free fluid or air. Nodes and vessels: No retroperitoneal or mesenteric adenopathy by size criteria. Aorta and inferior vena cava are normal in size. Miscellaneous: No ventral hernias. PELVIS: Genitourinary: Bladder wall thickness is normal. Miscellaneous: No inguinal hernias or adenopathy. A left lower quadrant colostomy is present, without operative complication. Prior partial sigmoid resection. Contrast is present within the residual rectum and posterior sigmoid. Bones: No suspicious bony lesions. No vertebral body compression fractures. IMPRESSION: Partial small bowel obstruction centered at the left lower quadrant, mild in overall severity. The point of transition appears located within the small bowel in the left lower quadrant, where a near water density rounded structure can be seen within the lumen of the small bowel measuring approximately 14.3 Hounsfield units and 2.2 cm in diameter. Etiology is uncertain, this could represent a low density mass or unusual manifestation of intraluminal cystic structure. Depending on the clinical status followup by small bowel follow-through examination may be warranted. Note: These findings are concordant with the preliminary interpretation, however the possibility of an intraluminal small bowel cyst or low density mass was not discussed initially. Dictated by: Shin Echeverria M.D. on 10/15/2017 at 11:40 Approved by: Shin Echeverria M.D. on 10/15/2017 at 11:46 Assessment & Plan Plan: Assessment/Plan Narrative: Very pleasant gentleman who is about 2 weeks out from a exploratory laparotomy with partial bowel resection for perforated diverticulitis. This bowel obstruction appears to be caused by something that was ingested and not by abdominal adhesive disease. Fortunately, it has resolved overnight. I have asked Mr. Velazquez to to avoid heavy foods today. He should stick to soups and light meals and avoid bulky foods until we are certain this has completely passed. His reports she has lots of insure and lots of soup at home and she will take good care of him. He has an appointment to follow up with Dr. Flynn on Monday and he will keep that appointment.
--- NOTE | 2017-10-15 13:48 | P.HP_ITS ---
History of Present Illness Date Patient Seen: 10/15/17 Time Patient Seen: 13:44 Chief complaint: ABD PAIN HAVENT PASSED GAS Narrative: Very pleasant 67-year-old band who has recently undergone an exploratory laparotomy with partial bowel resection and colostomy with Dr. 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 He reports that fairly acutely last evening he began having severe abdominal pain. He has not had this kind of pain before. The pain lasted a couple of hours. The patient took a Tylenol and when that did not help, he boarded the [employer] and came over with his to the emergency department. He was seen and evaluated by Dr. Newell and found to have CT evidence of a partial small bowel obstruction. He was admitted for supportive care. Overnight he has started passing copious flatus through his ostomy bag. This is something that was lacking prior to admission. He reports that his pain has disappeared and he feels quite normal now. He is very anxious for discharge. Patient History Medical History Perforated viscus (Acute) Thymoma (Acute) Diverticulosis (Chronic) Elevated PSA (Chronic ~1999) Hearing loss (Chronic) Hepatitis (Chronic ~1971) Insomnia (Chronic) Intra-abdominal free air of unknown etiology (Chronic) Kidney stones (Chronic ~1989) Mediastinal mass (Chronic) Thyroid cancer (Chronic ~2017) Tinnitus (Chronic ~1999) Vision disorder (Chronic) Surgical History H/O colectomy (Acute) Anesthesia (Resolved) Broken arm (Resolved ~1983) History of appendectomy (Resolved ~1979) History of colonoscopy (Resolved) History of hip replacement (Resolved ~1991) History of knee surgery (Resolved ~1959) Family & Social History Family History: Reviewed 10/15/17 by Neisha Huddleston MD Social History: household members spouse Prior Living Arrangements House Safety & Behavioral: Feels Safe in Current Yes Environment Been Physically Hurt or No Threatened By a Person Suicidal Ideation Description None Suicide Plan Description No Plan Tobacco & Substance use: Smoking Status Never smoker alcohol intake former alcohol intake frequency 0-2 drinks per day Substance Use Type does not use Meds Home Medications Medication Instructions Recorded Confirmed Type enoxaparin 80 mg SUB-Q Q12HR 10/15/17 10/15/17 History oxycodone-acetaminophen 1 tab PO Q4-6H PRN #5 tab MDD 4 10/15/17 Rx Allergies Allergy/AdvReac Type Severity Reaction Status Date / Time birch Allergy Unknown Verified 10/14/17 20:42 ragweed pollen Allergy Unknown Verified 10/14/17 20:42 Review of Systems Review of Systems All systems reviewed & are unremarkable except as noted in HPI and below Exam Vital Signs (past 8 hours): - 10/15/17 10:18 Temperature 97.9 F Pulse Rate 59 L Respiratory Rate 18 Blood Pressure 134/78 H Pulse Oximetry 99 Oxygen Delivery Method Room Air Narrative Exam Narrative: Kayla gentleman who appears younger than his stated age. He is accompanied by his . HEENT: Normocephalic and atraumatic pupils are equal round reactive to light accommodation with anicteric sclera. Lungs: Clear bilaterally Heart: Regular rate and rhythm Abdomen: Soft, active bowel sounds. Ostomy is functioning with much gas in the bag. Abdomen is without evidence of infection. Extremities: Warm and well perfused Objective Labs Result Diagrams: 10/14/17 20:50 10/14/17 20:50 Labs: Laboratory Results - last 24 hr 10/14/17 10/14/17 10/14/17 20:50 20:50 20:50 WBC 5.9 RBC 4.14 L Hgb 12.7 L Hct 37.9 L MCV 91.4 MCH 30.7 MCHC 33.6 RDW 15.7 H Plt Count 291 Neut % (Auto) 72.5 Lymph % (Auto) 13.8 L [place] % (Auto) 13.5 Eos % (Auto) 0.0 L Baso % (Auto) 0.2 Neut # (Auto) 4300 PT 13.7 H INR 1.3 APTT 45 H Sodium 137 Potassium 4.0 Chloride 102 Carbon Dioxide 28 BUN 14 Creatinine 0.70 Estimated GFR > 60.0 BUN/Creatinine Ratio 20.0 Glucose 107 Calcium 8.5 Total Bilirubin 0.4 AST 42 ALT 56 Alkaline Phosphatase 42 Total Protein 5.8 L Albumin 3.4 L Globulin 2.4 Albumin/Globulin Ratio 1.[address] [place] [id number] [address] Scan Report Signed Patient: Boyd Velazquez MR#: [id number] : 1950 Acct:[id number] Age/Sex: 67 / M Date of Service: 10/14/17 Loc: 229-1 Accession Number: [id number] Procedure: CT abdomen pelvis w con Ordering Provider: Boyd Newell M.D. PROCEDURE: CT ABDOMEN PELVIS W CON INDICATIONS: Post op. Abd pain. R/O obstruction TECHNIQUE: After the administration of intravenous contrast, 5 mm thick sections acquired from the diaphragm to the symphysis. 5 mm coronal and sagittal reformats were acquired. For radiation dose reduction, the following was used: automated exposure control, adjustment of mA and/or kV according to patient size. COMPARISON: [facility], CT, CT ABDOMEN PELVIS W CON, 09/25/2017, 9:31. FINDINGS: Image quality: Excellent. ABDOMEN: Lung bases: Lung bases are clear except for mild posterior linear scarring or atelectasis. Heart size is normal. Solid organs: Liver is normal in size and enhancement. There is a small simple left lateral hepatic segment cyst incidentally noted Gallbladder appears normal. Biliary system is non dilated. Pancreas enhances normally. Spleen is normal in size and enhancement. No adrenal nodules. Kidneys demonstrate normal size and enhancement, without hydronephrosis. Peritoneum and bowel: Small bowel loops demonstrate normal wall thickness and caliber superiorly and appear slightly dilated inferiorly. There is a point of transition from dilatation of small bowel to relatively collapsed small bowel at the left lower quadrant, near the anterior superior iliac spine, were centered on series 2 image 57 there is a rounded radiodensity measuring slightly above water at 14.3 Hounsfield units, and beyond this point the small bowel appears relatively collapsed extending anteriorly. No free fluid or air. Nodes and vessels: No retroperitoneal or mesenteric adenopathy by size criteria. Aorta and inferior vena cava are normal in size. Miscellaneous: No ventral hernias. PELVIS: Genitourinary: Bladder wall thickness is normal. Miscellaneous: No inguinal hernias or adenopathy. A left lower quadrant colostomy is present, without operative complication. Prior partial sigmoid resection. Contrast is present within the residual rectum and posterior sigmoid. Bones: No suspicious bony lesions. No vertebral body compression fractures. IMPRESSION: Partial small bowel obstruction centered at the left lower quadrant , mild in overall severity. The point of transition appears located within the small bowel in the left lower quadrant, where a near water density rounded structure can be seen within the lumen of the small bowel measuring approximately 14.3 Hounsfield units and 2.2 cm in diameter. Etiology is uncertain, this could represent a low density mass or unusual manifestation of intraluminal cystic structure. Depending on the clinical status followup by small bowel follow-through examination may be warranted. Note: These findings are concordant with the preliminary interpretation, however the possibility of an intraluminal small bowel cyst or low density mass was not discussed initially. Dictated by: Shin Echeverria M.D. on 10/15/2017 at 11:40 Approved by: Shin Echeverria M.D. on 10/15/2017 at 11:46 Assessment & Plan Plan: Assessment/Plan Narrative: Very pleasant gentleman who is about 2 weeks out from a exploratory laparotomy with partial bowel resection for perforated diverticulitis. This bowel obstruction appears to be caused by something that was ingested and not by abdominal adhesive disease. Fortunately, it has resolved overnight. I have asked Mr. Velazquez to to avoid heavy foods today. He should stick to soups and light meals and avoid bulky foods until we are certain this has completely passed. His reports she has lots of insure and lots of soup at home and she will take good care of him. He has an appointment to follow up with Dr. Flynn on Monday and he will keep that appointment.
--- NOTE | 2017-10-15 13:50 | PM.DS.1 ---
History of Present Illness Chief complaint: ABD PAIN HAVENT PASSED GAS Narrative: Very pleasant 67-year-old band who has recently undergone an exploratory laparotomy with partial bowel resection and colostomy with Dr. 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 He reports that fairly acutely last evening he began having severe abdominal pain. He has not had this kind of pain before. The pain lasted a couple of hours. The patient took a Tylenol and when that did not help, he boarded the [employer] and came over with his to the emergency department. He was seen and evaluated by Dr. Newell and found to have CT evidence of a partial small bowel obstruction. He was admitted for supportive care. Overnight he has started passing copious flatus through his ostomy bag. This is something that was lacking prior to admission. He reports that his pain has disappeared and he feels quite normal now. He is very anxious for discharge. Discharge Providers Date of admission: 10/15/17 01:18 Primary care physician: Kymberly Crystal DO Discharge provider: Neisha Huddleston MD Summary Discharge Diagnosis: Partial small bowel obstruction Hospital Course: The patient was admitted overnight and his symptoms resolved spontaneously. This morning he is passing flatus and is anxious for discharge. He denies any discomfort at all. Status at Discharge Cognitive/behavioral status at discharge: Normal Functional status at discharge: independent ambulation Overall status at discharge: patient is progressing back to baseline Time Spent with Patient Less than 30 minutes Exam Vital Signs (past 8 hours): - 10/15/17 10:18 Temperature 97.9 F Pulse Rate 59 L Respiratory Rate 18 Blood Pressure 134/78 H Pulse Oximetry 99 Oxygen Delivery Method Room Air Objective Labs Result Diagrams: 10/14/17 20:50 10/14/17 20:50 Labs: Laboratory Results - last 24 hr 10/14/17 10/14/17 10/14/17 20:50 20:50 20:50 WBC 5.9 RBC 4.14 L Hgb 12.7 L Hct 37.9 L MCV 91.4 MCH 30.7 MCHC 33.6 RDW 15.7 H Plt Count 291 Neut % (Auto) 72.5 Lymph % (Auto) 13.8 L [place] % (Auto) 13.5 Eos % (Auto) 0.0 L Baso % (Auto) 0.2 Neut # (Auto) 4300 PT 13.7 H INR 1.3 APTT 45 H Sodium 137 Potassium 4.0 Chloride 102 Carbon Dioxide 28 BUN 14 Creatinine 0.70 Estimated GFR > 60.0 BUN/Creatinine Ratio 20.0 Glucose 107 Calcium 8.5 Total Bilirubin 0.4 AST 42 ALT 56 Alkaline Phosphatase 42 Total Protein 5.8 L Albumin 3.4 L Globulin 2.4 Albumin/Globulin Ratio 1.4 Lipase 265 Discharge Plan Discharge Plan Patient Disposition: Home, Self-Care Provider Discharge Instructions Diet: Diet as Tolerated Activity: As per previous order Wound Care Report to your healthcare provider any signs of infection, such as:: chills, fever, night sweats, increased pain and unusual drainage Discharge Data Primary Care Provider: Kymberly Crystal Attending Provider: Neisha Huddleston Admit Date/Time: 10/15/17 01:18
--- NOTE | 2017-10-15 14:12 | PC.NURSE ---
DISCHARGE NOTE: Patient discharged home this shift by Dr. Huddleston. Discharge instructions and prescriptions reviewed with patient and spouse. No questions about discharge voiced and verbal understanding of discharge instructions received. Patient asked to walk out to car for discharge. Patient and spouse escorted to car by AFTER SCHOOL PROGRAM DIRECTOR.
--- NOTE | 2017-10-15 14:12 | CM.DPC ---
DCP Cont: Patient will be discharged home, per Dr. Huddleston. present. Will be following up with oncology. P: Discharge home today. Barbara Duran RN/Keno Writer / Runner
== END 2017-10-15 14:15 | disposition home or self-care (01) | DRG 389 ==
LOC: ED 10-15 00:58 → AC 10-15 01:19
PROVIDERS: Admitting Provider Surgery; Emergency Provider Emergency Medicine; PCP Family Medicine; Visit Provider Surgery
DX: K56.609 Unspecified intestinal obstruction, unspecified as to partial versus complete obstruction (principal); K57.92 Diverticulitis of intestine, part unspecified, without perforation or abscess without bleeding; C37 Malignant neoplasm of thymus; Z43.3 Encounter for attention to colostomy; Z98.890 Other specified postprocedural states
CPT/HCPCS: 36591; 74177; 80053; 83690; 85025; 85610; 85730; 96361; 96365; 96374; 96375; 96376; 99283; 99285; J1170; J1650; J2405; Q9967

== ENCOUNTER 2017-12-02 19:10 | Inpatient (IN) | payer MEDICARE, BC, SELFPAY ==
[2017-10-13 08:56] VITALS: PULSE 65; RESP 13; O2SAT 96
[2017-12-02 19:16] VITALS: BP 107/73; PULSE 80; RESP 16; TEMP 36.8; O2SAT 99
--- NOTE | 2017-12-02 20:03 | DI.CT.S_ITS ---
PROCEDURE: CT ABDOMEN PELVIS W CON INDICATIONS: pain, hx perf and cancer TECHNIQUE: After the administration of intravenous contrast, 5 mm thick sections acquired from the diaphragm to the symphysis. 5 mm coronal and sagittal reformats were acquired. For radiation dose reduction, the following was used: automated exposure control, adjustment of mA and/or kV according to patient size. COMPARISON: [facility], CT, CT ABDOMEN PELVIS W CON, 10/14/2017, 23:12. [facility], CT, CT CHEST ABD PEL W CON, 09/29/2017, 11:22. FINDINGS: Image quality: Excellent. ABDOMEN: Lung bases: Small bilateral pleural effusions are seen, with associated overlying atelectasis. The heart size is normal. Precardiac fluid can be seen. Solid organs: Liver is normal in size and enhancement. A simple appearing cyst is again seen along the anterior aspect of the left liver. Gallbladder wall is not thickened. Biliary system is non dilated. Pancreas enhances normally. Spleen is normal in size and enhancement. No adrenal nodules. Kidneys demonstrate normal size and enhancement, without hydronephrosis. Peritoneum and bowel: The proximal small bowel loops are dilated and measure up to 3.3 cm. The distal small bowel loops are decompressed. There is a transition point in seen on series 2 image 56 and on series 5 image 33 within the left inferior abdomen. No significant colonic abnormality is seen. A left lower quadrant colostomy can be seen. Diverticulosis is seen, without findings of active diverticulitis. Nodes and vessels: No retroperitoneal or mesenteric adenopathy by size criteria. Aorta and inferior vena cava are normal in size. Miscellaneous: No ventral hernias. Subcutaneous gas is seen within the intra-abdominal wall. Please correlate with location injection. PELVIS: Genitourinary: Bladder wall thickness is normal. Miscellaneous: No inguinal hernias or adenopathy. Bones: No suspicious bony lesions. No vertebral body compression fractures. A left prosthetic hip can be seen. Mild dextroconvex scoliotic curvature is seen. Age-appropriate bony degenerative changes are seen. IMPRESSION: Small bowel obstruction, with a transition point identified within the left inferior abdomen. Small bilateral pleural effusions are seen. Fluid is seen within the precardiac space. Please correlate with recent surgery. Incidental note is made of: Simple appearing cyst within the anterior liver Left lower quadrant colostomy Diverticulosis is seen, without findings of active diverticulitis. Dextroconvex scoliotic curvature Left prosthetic hip Dictated by: Javier Cohn M.D. on 12/02/2017 at 21:21 Approved by: Javier Cohn M.D. on 12/02/2017 at 21:29
[2017-12-02] MEDS: SODIUM CHLORIDE 0.9% 1,000 ML 150 ML IV (20:44)
[2017-12-02] MEDS: ONDANSETRON 4 MG/2 ML INJ IV (20:44)
[2017-12-02] MEDS: HYDROMORPHONE 1 MG INJ 0.5 MG IV (20:44)
[2017-12-02 20:49] LABS: Hematocrit 25.9 % (41-53); Mean Corpuscular HGB Conc 34.5 % (30-36); Mean Corpuscular Hemoglobin 31.3 PG (26-34); Mean Corpuscular Volume 90.6 fL (80-100); Platelet Count 122 X10^3/uL (150-400); Red Blood Cell Count 2.86 X10^6/uL (4.5-5.9); Red Cell Distribution Width 13.8 % (11.6-14.8)
[2017-12-02 20:50] LABS: Alanine Aminotransferase 31 IU/L (21-72); Albumin Globulin Ratio 1.5 (1.0-2.8); Alkaline Phosphatase 70 U/L (38-126); Aspartate Aminotransferase 17 IU/L (17-59); Bilirubin Total 0.5 mg/dL (0.2-1.3); Blood Urea Nitrogen 16 mg/dL (9-20); Calcium 9.5 mg/dL (8.4-10.2); Carbon Dioxide 29 mmol/L (22-32); Chloride 103 mmol/L (98-107); Estimated Glomerular Filt Rate > 60.0 mL/min (>60); Globulin 2.6 g/dL (1.7-4.1); Glucose 123 mg/dL (80-110); HEMOLYSIS < 15 (0-50); Lipase 37 U/L (23-300); Potassium 4.1 mmol/L (3.4-5.1); Sodium 142 mmol/L (137-145); Total Protein 6.6 g/dL (6.3-8.2)
[2017-12-02 20:51] LABS: Lactate (Lactic Acid) 1.3 mmol/L (0.7-2.1)
[2017-12-02 20:52] VITALS: BP 142/81; PULSE 75; RESP 12; O2SAT 93
[2017-12-02 20:56] LABS: Add Manual Diff / Slide Review YES; White Blood Cell Count 1.2 X10^3/uL (4.5-11.0)
--- NOTE | 2017-12-02 21:27 | PC.NURSE ---
pt reports pain returning and asking form more pain medication. provider notified, verbal order received.
--- NOTE | 2017-12-02 21:29 | ED_ITS ---
HPI - Abdominal Pain General Chief Complaint: Abdominal Pain Stated Complaint: ABD PAIN Time Seen by Provider: 12/02/17 19:41 Source: patient and old records reviewed Mode of arrival: ambulatory Limitations: no limitations History of Present Illness HPI narrative: Patient is a 67-year-old male who presents with abdominal pain. 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 In September he had a bowel perforation and now has a colostomy. He says today he has intense abdominal pain and nausea. He has no vomiting he does have stool in his colostomy. He has had significant decreased oral intake today. He does take narcotics at home for pain in the have not been helping. He said he finished his chemotherapy 2 weeks ago. He denies any fever. MD complaint: abdominal pain Related Data Home Medications Medication Instructions Recorded Confirmed enoxaparin 80 mg SUB-Q Q12HR 10/15/17 10/18/17 Previous Rx's Medication Instructions Recorded oxycodone-acetaminophen 1 tab PO Q4-6H PRN #5 tab MDD 4 10/15/17 Allergies Allergy/AdvReac Type Severity Reaction Status Date / Time birch Allergy Unknown Verified 10/14/17 20:42 ragweed pollen Allergy Unknown Verified 10/14/17 20:42 Review of Systems Review of Systems All systems reviewed & are unremarkable except as noted in HPI and below Constitutional Denies chills, Denies fever(s), Denies lethargy and Denies weakness Cardiovascular Denies chest pain, Denies irregular heart rhythm, Denies lightheadedness, Denies palpitations, Denies dyspnea, Denies dyspnea on exertion and Denies orthopnea Respiratory Denies cough, Denies dyspnea, Denies dyspnea on exertion and Denies wheezing Gastrointestinal Gastrointestinal: Reports as per HPI, Reports abdominal pain, Denies change in bowel habits, Reports cramping, Denies diarrhea, Reports nausea and Denies vomiting Musculoskeletal Denies back pain, Denies muscle weakness, Denies numbness and Denies tingling Integumentary/Breasts Denies pruritus, Denies erythema, Denies rash and Denies wounds Neurologic Denies numbness, Denies tingling and Denies weakness Endocrine Denies palpitations Allergic/Immunologic Denies wheezing [facility] Medical History Small bowel obstruction due to postoperative adhesions (Acute) Perforated viscus (Acute) Thymoma (Acute) Diverticulosis (Chronic) Elevated PSA (Chronic ~1999) Hearing loss (Chronic) Hepatitis (Chronic ~1971) Insomnia (Chronic) Intra-abdominal free air of unknown etiology (Chronic) Kidney stones (Chronic ~1989) Mediastinal mass (Chronic) Thyroid cancer (Chronic ~2017) Tinnitus (Chronic ~1999) Vision disorder (Chronic) Surgical History H/O colectomy (Acute) Anesthesia (Resolved) Broken arm (Resolved ~1983) History of appendectomy (Resolved ~1979) History of colonoscopy (Resolved) History of hip replacement (Resolved ~1991) History of knee surgery (Resolved ~1959) Family History: Reviewed 12/03/17 by Azael Flynn MD Social History household members: spouse Smoking Status: Never smoker alcohol intake: current Exam Initial Vital Signs Initial Vital Signs: Vital Signs Temperature 98.2 F 12/02/17 19:16 Pulse Rate 80 12/02/17 19:16 Respiratory Rate 16 12/02/17 19:16 Blood Pressure 107/73 12/02/17 19:16 Pulse Oximetry 99 12/02/17 19:16 GENERAL: Alert and oriented x3 no acute distress thin male HEENT: Head atraumatic,EOMI, pupils reactive, face symmetric, neck is supple CARDIOVASCULAR: Regular rate and rhythm without murmurs, rubs or gallops. RESPIRATORY: Breath sounds equal bilaterally, no wheezes rales or rhonchi. ABDOMEN: Soft, mildly tender no distension no guarding or rebound. Colostomy has nonbloody stool stoma appears pink. Scar noted. EXTREMITIES: Normal range of motion, no clubbing or edema. Neurovascularly intact NEUROLOGICAL: Alert and oriented x4.Normal gait and speech. Cranial nerves II through XII grossly intact. SKIN: Warm, dry, no laceration, no petechiae, no rashes or lesions. Course Orders Ordered: ED Orders 12/02/17 20:03 CT abdomen pelvis w con Stat 12/02/17 20:30 Complete Blood Count AUTO DIFF Stat Comprehensive Metabolic Panel Stat Lactate (Lactic Acid) Stat Lipase Stat 12/02/17 23:17 Chest [XR chest 1V] Stat 12/02/17 23:21 Blood Culture Stat 12/02/17 23:49 Education, smoking cessation ONGOING 12/02/17 23:55 Consult to Discharge Planning Routine 12/03/17 XR abdomen 3V Routine 12/03/17 01:17 Consult to Dietitian, Adult Routine 12/03/17 06:00 Basic Metabolic Panel Routine Complete Blood Count AUTO DIFF Routine Procalcitonin Routine Type and Screen Routine Acetaminophen (Tylenol) 650 mg [place] Q6HR PRN PRN Reason: As Needed for Fever/Mild Pain Benzocaine (Cepacol Lozenge) 1 each PO Q1HR PRN PRN Reason: Sore Throat Diphenhydramine HCl (Benadryl) 50 mg IV Q6HR PRN PRN Reason: Itching Enoxaparin Sodium (Lovenox) 80 mg SUBCUT BID DELORIS Hydromorphone HCl (Dilaudid) 1 mg IV Q3H PRN PRN Reason: Pain, Severe (7-10) Last Admin: 12/03/17 01:21 Dose: 1 mg Sodium Chloride (Normal Saline 0.9%) 1,000 mls @ 150 mls/hr IV CONT DELORIS Last Infusion: 12/03/17 00:26 Dose: 0 mls/hr Admin: 12/02/17 20:44 Dose: 150 mls/hr Fluconazole (Diflucan) 400 mg in 200 mls @ 100 mls/hr IV Q24H DELORIS Last Admin: 12/03/17 01:21 Dose: 100 mls/hr Imipenem/Cilastatin Sodium 500 (mg/ Sodium Chloride) 100 mls @ 200 mls/hr IV Q6H DELORIS Sodium Chloride (Normal Saline 0.9%) 1,000 mls @ 150 mls/hr IV CONT DELORIS Last Admin: 12/03/17 01:22 Dose: 150 mls/hr Lorazepam (Ativan) 1 mg IV Q4HR PRN PRN Reason: Insomnia Ondansetron HCl (Zofran) 4 mg IV Q4HR DELORIS Last Admin: 12/03/17 01:22 Dose: 4 mg Pantoprazole Sodium (Protonix) 40 mg IV DAILY DELORIS Discontinued Medications Hydromorphone HCl (Dilaudid) 0.5 mg IV NOW ONE Stop: 12/02/17 20:03 Last Admin: 12/02/17 20:44 Dose: 0.5 mg Hydromorphone HCl (Dilaudid) 1 mg IV NOW ONE Stop: 12/02/17 21:02 Last Admin: 12/02/17 22:31 Dose: 1 mg Influenza Virus Vaccine (Flu Vaccine) 0.5 ml IM .ONCE ONE Stop: 12/03/17 01:18 Ondansetron HCl (Zofran) 4 mg IV NOW ONE Stop: 12/02/17 20:03 Last Admin: 12/02/17 20:44 Dose: 4 mg Vital Signs - 8 hr 12/02/17 19:16 12/02/17 20:52 12/02/17 22:22 Temperature 98.2 F Pulse Rate 80 75 99 H Respiratory Rate 16 12 14 Blood Pressure 107/73 Blood Pressure [Left Arm] 142/81 H 123/83 Pulse Oximetry 99 93 97 12/02/17 23:00 Temperature Pulse Rate 90 Respiratory Rate 16 Blood Pressure Blood Pressure [Left Arm] 159/84 H Pulse Oximetry 96 MDM - Abdominal Pain Lab Data Result diagrams: 12/02/17 20:30 12/02/17 20:30 Lab Results 12/02/17 12/02/17 12/02/17 Range/Units 20:30 20:30 20:30 WBC 1.2 L* (4.5-11.0) X10^3/uL RBC 2.86 L (4.5-5.9) X10^6/uL Hgb 9.0 L (13.5-17.5) g/dL Hct 25.9 L (41-53) % MCV 90.6 (80-100) fL MCH 31.3 (26-34) PG MCHC 34.5 (30-36) % RDW 13.8 (11.6-14.8) % Plt Count 122 L (150-400) X10^3/uL Neut % (Auto) Not Reportable Lymph % (Auto) Not Reportable [place] % (Auto) Not Reportable Eos % (Auto) Not Reportable Baso % (Auto) Not Reportable Total Counted 100 Seg Neutrophils % 63.0 (38-70) % Lymphocytes % (Manual) 21.0 L (25-45) % Monocytes % (Manual) 16.0 H (2-11) % Neutrophils # (Manual) 756 L (0259-5588) /uL RBC Morphology Normal morphology Sodium 142 (137-145) mmol/L Potassium 4.1 (3.4-5.1) mmol/L Chloride 103 (98-107) mmol/L Carbon Dioxide 29 (22-32) mmol/L BUN 16 (9-20) mg/dL Creatinine 0.80 (0.66-1.25) mg/dL Estimated GFR > 60.0 (>60) mL/min BUN/Creatinine Ratio 20.0 (6-22) Glucose 123 H (80-110) mg/dL Lactate 1.3 (0.7-2.1) mmol/L Calcium 9.5 (8.4-10.2) mg/dL Total Bilirubin 0.5 (0.2-1.3) mg/dL AST 17 (17-59) IU/L ALT 31 (21-72) IU/L Alkaline Phosphatase 70 (38-126) U/L Total Protein 6.6 (6.3-8.2) g/dL Albumin 4.0 (3.5-5.0) g/dL Globulin 2.6 (1.7-4.1) g/dL Albumin/Globulin Ratio 1.5 (1.0-2.8) Lipase 37 (23-300) U/L Imaging Data CT scan - abdomen: Radiologist's impression: PROCEDURE: CT ABDOMEN PELVIS W CON INDICATIONS: pain, hx perf and cancer TECHNIQUE: After the administration of intravenous contrast, 5 mm thick sections acquired from the diaphragm to the symphysis. 5 mm coronal and sagittal reformats were acquired. For radiation dose reduction, the following was used: automated exposure control, adjustment of mA and/or kV according to patient size. COMPARISON: [facility], CT, CT ABDOMEN PELVIS W CON, 10/14/2017, 23:12. [facility], CT, CT CHEST ABD PEL W CON, 09/29/2017, 11:22. FINDINGS: Image quality: Excellent. ABDOMEN: Lung bases: Small bilateral pleural effusions are seen, with associated overlying atelectasis. The heart size is normal. Precardiac fluid can be seen. Solid organs: Liver is normal in size and enhancement. A simple appearing cyst is again seen along the anterior aspect of the left liver. Gallbladder wall is not thickened. Biliary system is non dilated. Pancreas enhances normally. Spleen is normal in size and enhancement. No adrenal nodules. Kidneys demonstrate normal size and enhancement, without hydronephrosis. Peritoneum and bowel: The proximal small bowel loops are dilated and measure up to 3.3 cm. The distal small bowel loops are decompressed. There is a transition point in seen on series 2 image 56 and on series 5 image 33 within the left inferior abdomen. No significant colonic abnormality is seen. A left lower quadrant colostomy can be seen. Diverticulosis is seen, without findings of active diverticulitis. Nodes and vessels: No retroperitoneal or mesenteric adenopathy by size criteria. Aorta and inferior vena cava are normal in size. Miscellaneous: No ventral hernias. Subcutaneous gas is seen within the intra- abdominal wall. Please correlate with location injection. PELVIS: Genitourinary: Bladder wall thickness is normal. Miscellaneous: No inguinal hernias or adenopathy. Bones: No suspicious bony lesions. No vertebral body compression fractures. A left prosthetic hip can be seen. Mild dextroconvex scoliotic curvature is seen. Age-appropriate bony degenerative changes are seen. IMPRESSION: Small bowel obstruction, with a transition point identified within the left inferior abdomen. Small bilateral pleural effusions are seen. Fluid is seen within the precardiac space. Please correlate with recent surgery. Incidental note is made of: Simple appearing cyst within the anterior liver Left lower quadrant colostomy Diverticulosis is seen, without findings of active diverticulitis. Dextroconvex scoliotic curvature Left prosthetic hip Dictated by: Javier Cohn M.D. on 12/02/2017 at 21:21 MDM Narrative Medical decision making narrative: The patient is neutropenic but he is not febrile and has a normal lactic acid. Pain is a little bit better after Dilaudid he is also feeling less nauseated after Zofran. Dr. Flynn notified of CT result and patient. He will be in the ED to see the patient shortly. Patient is admitted to Dr. Flynn NG tube placed by Dr. Flynn in the ED Discharge Plan Departure Patient Disposition: Admitted As Inpatient Clinical Impression: Small bowel obstruction Discharge Date/Time: 12/03/17 00:28 Interventions: ED Discharge Assessment Last Done: 12/03/17 00:26 Admit Date/Time: 12/02/17 22:55 Admit Provider: Azael Flynn
[2017-12-02 21:33] LABS: Neutrophils Absolute Manual 756 /uL (3000-5900); Total Cells Counted 100
[2017-12-02 21:34] LABS: RBC Morphology Normal Morphology
[2017-12-02 22:22] VITALS: BP 123/83; PULSE 99; RESP 14; O2SAT 97
[2017-12-02] MEDS: HYDROMORPHONE 1 MG INJ IV (22:31)
[2017-12-02 23:00] VITALS: BP 159/84; PULSE 90; RESP 16; O2SAT 96
--- NOTE | 2017-12-02 23:17 | DI.RAD.S_ITS ---
PROCEDURE: XR CHEST 1V INDICATIONS: NG tube placement TECHNIQUE: One view of the chest was acquired. COMPARISON: , CR, XR CHEST 1 VIEW, 11/24/2017, 8:09. [facility], CR, XR CHEST 1V, 09/29/2017, 19:01. FINDINGS: Surgical changes and devices: NG tube projects across the GE junction with tip in the gastric fundus. Lungs and pleura: No pleural effusions or pneumothorax. Lungs are clear. Mediastinum: Mediastinal widening is stable compared to 11/24/2017. Heart size is normal. Bones and chest wall: No suspicious bony lesions. Overlying soft tissues appear unremarkable. IMPRESSION: NG tube projects across the GE junction. Dictated by: Lorraine Leahy MD, PhD on 12/03/2017 at 10:46 Approved by: Lorraine Leahy MD, PhD on 12/03/2017 at 10:47
--- NOTE | 2017-12-02 23:44 | PC.NURSE ---
Pt Viry called and given an update per pt and request.
[2017-12-03] VITALS (7 sets, daily range): BP systolic 120–148; BP diastolic 59–85; PULSE 73–92; RESP 14–18; TEMP 36.2–36.8; O2SAT 95–99; BMI 23.3
--- NOTE | 2017-12-03 | DI.RAD.S_ITS ---
PROCEDURE: XR ABDOMEN 3V INDICATIONS: SBO TECHNIQUE: One view chest and two views of the abdomen were acquired. COMPARISON: [facility], CT, CT ABDOMEN PELVIS W CON, 12/02/2017, 20:54. FINDINGS: Surgical changes and devices: None. Chest: Lungs are clear. Heart size is normal. No pleural effusions. No pneumoperitoneum. Abdomen: Multiple dilated loops of small bowel are noted. Loops of small bowel are dilated up to 4 cm. Multiple air-fluid levels are noted several which a differential height. No suspicious calcifications. Visualized solid organ contours appear normal. Bones: No suspicious bony lesions. IMPRESSION: Multiple dilated loops of small bowel and small bowel air-fluid levels with different white compatible small bowel obstruction. Dictated by: Lorraine Leahy MD, PhD on 12/03/2017 at 10:50 Approved by: Lorraine Leahy MD, PhD on 12/03/2017 at 10:51
--- NOTE | 2017-12-03 00:08 | PM.HP.1 ---
History of Present Illness Date Patient Seen: 12/02/17 Time Patient Seen: 23:00 Chief complaint: ABD PAIN Narrative: 67-year-old male well known to me from recent admission September 2017 at which time he was found to have perforated diverticulitis necessitating emergent laparotomy with partial sigmoid colectomy, mobilization of the splenic flexure, drainage of pelvic abscess, formation of descending end colostomy, and endoscopic placement of nasogastric tube who also has been diagnosed with aggressive thymoma for which he is currently receiving radiation therapy and concurrent chemotherapy presenting this evening to the emergency department with abdominal pain. States that the pain began this morning of acute onset. He was otherwise in his normal state of health at that time having just received chemotherapy approximately 2 weeks ago. His next scheduled radiation oncology visit is 2 days from now. He has been tolerating his adjuvant therapy without significant difficulty other than an episode of neutropenia for which he was placed on antibiotics and received Neupogen. He has otherwise been tolerating a normal diet without any issues. No dysphagia or odynophagia. No chest pain or shortness of breath. No productive cough. Unfortunately his left upper extremity PICC line was removed due to venous thrombosis complications. 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 He has had no bleeding complications. He reports that his colostomy was functioning normally up until this morning with daily flatus and formed stool output. No recent melena, hematochezia, or bright red blood per rectum. No diarrhea. Early this morning he began to notice progressive diffuse crampy abdominal pain with associated nausea but no vomiting. He became progressively anorexic and has not really eaten much today. Colostomy output then became essentially nothing earlier this afternoon. Pain progressed and he presented to the emergency department. He does feel subjectively distended. He had similar symptoms within 1-2 weeks after being discharged from the hospital early in October 2017. Findings were consistent with partial small bowel obstruction at that time, but the etiology appear to be a phytobezoar within the small bowel that subsequently resolved in less than 24 hr. He has had no problem since until today as above. Otherwise he denies dysuria or hematuria. Denies any subjective fever or chills. Patient History Medical History Small bowel obstruction due to postoperative adhesions (Acute) Perforated viscus (Acute) Thymoma (Acute) Diverticulosis (Chronic) Elevated PSA (Chronic ~1999) Hearing loss (Chronic) Hepatitis (Chronic ~1971) Insomnia (Chronic) Intra-abdominal free air of unknown etiology (Chronic) Kidney stones (Chronic ~1989) Mediastinal mass (Chronic) Thyroid cancer (Chronic ~2017) Tinnitus (Chronic ~1999) Vision disorder (Chronic) Surgical History H/O colectomy (Acute) Anesthesia (Resolved) Broken arm (Resolved ~1983) History of appendectomy (Resolved ~1979) History of colonoscopy (Resolved) History of hip replacement (Resolved ~1991) History of knee surgery (Resolved ~1959) Family & Social History Family History: Reviewed 12/03/17 by Azael Flynn MD Social History: household members spouse Safety & Behavioral: Feels Safe in Current Yes Environment Tobacco & Substance use: Smoking Status Never smoker alcohol intake former alcohol intake frequency 0-2 drinks per day Substance Use Type does not use Meds Home Medications Medication Instructions Recorded Confirmed Type enoxaparin 80 mg SUB-Q Q12HR 10/15/17 10/18/17 History oxycodone-acetaminophen 1 tab PO Q4-6H PRN #5 tab MDD 4 10/15/17 10/18/17 Rx Allergies Allergy/AdvReac Type Severity Reaction Status Date / Time birch Allergy Unknown Verified 10/14/17 20:42 ragweed pollen Allergy Unknown Verified 10/14/17 20:42 Review of Systems Constitutional Constitutional: Reports anorexia (As per HPI), Reports difficulty sleeping (Chronic insomnia), Denies fever(s), Denies night sweats and Reports weakness (Secondary to chemotherapy) Eyes Eyes: Denies change in vision, Denies itchy eyes and Denies loss of vision ENT Ears, Nose, Mouth, and Throat: No change in voice, No difficulty swallowing, No dizziness, No pain with swallowing and No throat swelling Cardiovascular Cardiovascular: Denies chest pain, Denies chest pain at rest, Denies chest pain with activity, Denies rapid, pounding, or irregular heartbeat and Denies shortness of breath Respiratory Respiratory: Denies cough, Denies dyspnea and Denies wheezing Gastrointestinal Gastrointestinal: Reports as per HPI, Denies dysphagia and Denies odynophagia Genitourinary Genitourinary: Reports as per HPI Musculoskeletal Musculoskeletal: Denies arthralgias and Denies stiffness Integumentary/Breasts Skin/Breast: Denies change in pigmentation and Denies jaundice Neurologic Neurologic: Denies dizziness, Denies loss of vision and Reports weakness (Secondary to chemotherapy) Psychiatric Psychiatric: Denies anxiety and Denies depression Endocrine Endocrine: Denies polydipsia and Denies palpitations Hematologic/Lymphatic Hematologic/Lymphatic: Reports easy bruising (Secondary to Lovenox) and Denies lymphadenopathy Allergic/Immunologic Allergic/Immunologic: Denies itchy eyes, Denies throat swelling and Denies wheezing Exam Vital Signs (past 8 hours): - 12/02/17 19:16 12/02/17 20:52 12/02/17 22:22 Temperature 98.2 F Pulse Rate 80 75 99 H Respiratory Rate 16 12 14 Blood Pressure 107/73 Blood Pressure [Left Arm] 142/81 H 123/83 Pulse Oximetry 99 93 97 12/02/17 23:00 Temperature Pulse Rate 90 Respiratory Rate 16 Blood Pressure Blood Pressure [Left Arm] 159/84 H Pulse Oximetry 96 Oxygen Delivery Method Room Air Narrative Exam Narrative: Well-nourished well-developed thin male in no acute distress lying on the gurney. However he does appear acutely ill. He is vomiting into a basin at the time of my visit. He has alopecia secondary to chemotherapy. Sclera nonicteric Neck is supple without lymphadenopathy. Trachea is midline Chest is clear to auscultation bilaterally without crackles or wheezes. Regular rate and rhythm. No murmurs. Abdomen is soft but distended. He is minimally tympanitic however. He is tender diffusely throughout the abdomen but mostly in the central portion near the umbilicus. No guarding or rebound tenderness however. I appreciate no incisional hernias. His surgical scars otherwise well healed. He does have some induration and ecchymoses consistent with Lovenox injections in the right lateral abdomen. No erythema or evidence of cellulitis. Extremities show no clubbing or cyanosis. His upper extremities show no significant edema currently. No facial edema. Objective Labs Result Diagrams: 12/02/17 20:30 12/02/17 20:30 Labs: Laboratory Results - last 24 hr 12/02/17 12/02/17 12/02/17 20:30 20:30 20:30 WBC 1.2 L* RBC 2.86 L Hgb 9.0 L Hct 25.9 L MCV 90.6 MCH 31.3 MCHC 34.5 RDW 13.8 Plt Count 122 L Neut % (Auto) Not Reportable Lymph % (Auto) Not Reportable [place] % (Auto) Not Reportable Eos % (Auto) Not Reportable Baso % (Auto) Not Reportable Total Counted 100 Seg Neutrophils % 63.0 Lymphocytes % (Manual) 21.0 L Monocytes % (Manual) 16.0 H Neutrophils # (Manual) 756 L RBC Morphology Normal morphology Sodium 142 Potassium 4.1 Chloride 103 Carbon Dioxide 29 BUN 16 Creatinine 0.80 Estimated GFR > 60.0 BUN/Creatinine Ratio 20.0 Glucose 123 H Lactate 1.3 Calcium 9.5 Total Bilirubin 0.5 AST 17 ALT 31 Alkaline Phosphatase 70 Total Protein 6.6 Albumin 4.0 Globulin 2.6 Albumin/Globulin Ratio 1.5 Lipase 37 I have personally reviewed his CT scan of the abdomen and pelvis done in the emergency department this evening. I have compared the study to that done on approximately October 12, 2017. Findings are consistent with multiple dilated loops of small bowel this evening with air-fluid levels and a markedly dilated stomach. No free air. Colostomy is without any peristomal hernias. No solid organ abnormalities. Diverticulosis is present without evidence of inflammation. A transition point in the distal small bowel near the pelvis in the left lower quadrant is appreciated. Small pleural effusions are noted along with a small amount of free fluid in the pelvis. Assessment & Plan Plan: Assessment/Plan Narrative: 67-year-old male with small-bowel obstruction likely secondary to postoperative adhesions approximately 2 months after emergency laparotomy as above. Fortunately has no evidence of acute abdomen or ischemic bowel at this time. Nevertheless he is neutropenic with an absolute neutrophil count of approximately 760. We will therefore place him on neutropenia precautions, begin Primaxin and Diflucan, and follow his CBC. If this does not improve with an ANC above 1000 that he may require Neupogen. I will discuss this with the medical oncology service under those circumstances. Obviously his chemotherapy and radiation therapy will be suspended currently until he improves. Hopefully we can manage his obstruction non operatively. His risk of complications with any type of operation at this time, especially emergency laparotomy, is extremely high. I discussed this with him. I personally placed an 18 [place] nasogastric tube via the left naris without difficulty in the emergency department this evening. He tolerated the procedure well. Postprocedure x-ray showed the tube to be in good position within the stomach. Approximately 450 cc of bile tinged gastric contents were immediately suctioned from his stomach after the patient had already vomited several times. He will be maintained NPO except ice chips. I will continue his therapeutic Lovenox at this time since the risk of bleeding is minimal compared to the risk of thromboembolic events in this high risk patient. If he requires emergent surgery the Lovenox can be held and the risk of intraoperative bleeding is not overwhelming. Repeat laboratory and radiographic studies ordered for tomorrow. All questions were answered to his satisfaction, and he voiced understanding. Orders were written.
[2017-12-03] MEDS: HYDROMORPHONE 1 MG INJ IV ×2 (01:21→09:29)
[2017-12-03] MEDS: FLUCONAZOLE 400 MG/200 ML PIGGYBACK 100 MG IV (01:21)
[2017-12-03] MEDS: ONDANSETRON 4 MG/2 ML INJ IV ×3 (01:22→08:19)
[2017-12-03] MEDS: SODIUM CHLORIDE 0.9% 1,000 ML 150 ML IV ×3 (01:22→18:12)
--- NOTE | 2017-12-03 01:55 | PC.ADMIT ---
[address] Admission Note:Pt admitted from the ER to rm 217. Pt able to transfer himself from the stretcher with minimal assist. having c/o nausea with dry heaves, NG that was placed in ER set up on LIS with small amount of clear output with light brown what appears to be undigested food. Medicated with IV Dilaudid for 6/10 pain to abdomen. COlostomy to mid abdomen that is putting our liquid brown stool, no flatus noted and hypo/faint BT's. IV antibiotics infusing. Pt oriented to room and call light. Bed alarm on and placed on Reverse Isolation per MD order. The patient,Boyd Velazquez,67 y/o, was given written information regarding hospital policies, unit procedures and contact persons. Patient's smoking status: Never smoker. Vital Signs - 8 hr 12/02/17 19:16 12/02/17 20:52 12/02/17 22:22 Temperature 98.2 F Pulse Rate 80 75 99 H Respiratory Rate 16 12 14 Blood Pressure 107/73 Blood Pressure [Left Arm] 142/81 H 123/83 Pulse Oximetry 99 93 97 12/02/17 23:00 12/03/17 00:40 Temperature 97.6 F Pulse Rate 90 77 Respiratory Rate 16 17 Blood Pressure 148/85 H Blood Pressure [Left Arm] 159/84 H Pulse Oximetry 96 95
[2017-12-03] MEDS: IMIPENEM/CILASTATIN 500 MG in SODIUM CHLORIDE 0.9% 100 ML 200 ML IV ×4 (03:40→20:40)
[2017-12-03 05:57] LABS: BUN Creatinine Ratio 25.7 (6-22); Blood Urea Nitrogen 18 mg/dL (9-20); Calcium 8.9 mg/dL (8.4-10.2); Carbon Dioxide 28 mmol/L (22-32); Chloride 107 mmol/L (98-107); Estimated Glomerular Filt Rate > 60.0 mL/min (>60); Glucose 138 mg/dL (80-110); HEMOLYSIS < 15 (0-50); Potassium 5.1 mmol/L (3.4-5.1); Sodium 141 mmol/L (137-145)
[2017-12-03 06:03] LABS: Hemoglobin 8.3 g/dL (13.5-17.5); Mean Corpuscular HGB Conc 34.6 % (30-36); Mean Corpuscular Volume 90.7 fL (80-100); Platelet Count 129 X10^3/uL (150-400); Red Blood Cell Count 2.64 X10^6/uL (4.5-5.9); Red Cell Distribution Width 13.5 % (11.6-14.8)
[2017-12-03 06:06] LABS: Mean Corpuscular Hemoglobin 31.4 PG (26-34)
[2017-12-03 06:07] LABS: Add Manual Diff / Slide Review YES; Hematocrit 23.9 % (41-53); White Blood Cell Count 1.5 X10^3/uL (4.5-11.0)
[2017-12-03 06:13] LABS: Procalcitonin < 0.05 ng/mL (<0.5)
[2017-12-03 06:22] LABS: Neutrophils Absolute Manual 990 /uL (3000-5900); Total Cells Counted 100
[2017-12-03 06:23] LABS: RBC Morphology Normal Morphology
[2017-12-03] MEDS: PANTOPRAZOLE 40 MG VIAL IV (08:19)
[2017-12-03] MEDS: ENOXAPARIN 80 MG/0.8 ML SYRINGE SUBCUT ×2 (08:19→20:39)
--- NOTE | 2017-12-03 12:58 | P.PN_ITS ---
Subjective Date Patient Seen: 12/03/17 Time Patient Seen: 12:44 Interval history: Patient denies any abdominal pain. He has had some intermittent nausea and regurgitation this morning. Reports non bilious fluid when he does vomit. Denies any subjective fever or chills. Continues to feel mildly subjectively distended but not significantly. Denies any output per colostomy. No dysuria or hematuria. Exam Vital Signs (past 8 hours): - 12/03/17 05:40 12/03/17 07:50 Temperature 97.6 F 97.8 F Pulse Rate 73 78 Respiratory Rate 17 14 Blood Pressure 126/59 L 120/73 Pulse Oximetry 98 99 Oxygen Delivery Method Room Air Narrative Exam Narrative: Patient resting comfortably in bed in no acute distress. Alert oriented x3 No fevers and no tachycardia since admission Blood pressure normal Sclera nonicteric Nasogastric tube remains in place. However, staff has placed a 3 way stopcock at the junction with the suction tubing as well as an anti-reflux valve in the blue port but the anti-reflux valve is inserted incorrectly. NG tube is therefore not functioning. I corrected these issues at the time of my exam and the tube appeared to be sumping appropriately. Output in the canister is relatively minimal unclear at this point. Not bilious. But again I am uncertain how long the tube was not functioning properly. Chest is clear to auscultation bilaterally with regular rate and rhythm. Abdomen remains mildly distended and tympanitic but soft. He is completely nontender to palpation. No guarding or rebound. Colostomy is pink and viable but has old stool in the appliance only. No output otherwise including flatus. No incisional hernias. Femoral pulses are easily palpable bilaterally without evidence of inguinal hernias or masses. Lower extremities show no clubbing, cyanosis, or edema. He has some left upper extremity edema consistent with known recent venous thrombosis related to PICC line. No facial edema. Objective Labs Result Diagrams: 12/03/17 04:56 12/03/17 04:56 Labs: Laboratory Results - last 24 hr 12/02/17 12/02/17 12/02/17 20:30 20:30 20:30 WBC 1.2 L* RBC 2.86 L Hgb 9.0 L Hct 25.9 L MCV 90.6 MCH 31.3 MCHC 34.5 RDW 13.8 Plt Count 122 L Neut % (Auto) Not Reportable Lymph % (Auto) Not Reportable [place] % (Auto) Not Reportable Eos % (Auto) Not Reportable Baso % (Auto) Not Reportable Total Counted 100 Seg Neutrophils % 63.0 Lymphocytes % (Manual) 21.0 L Monocytes % (Manual) 16.0 H Neutrophils # (Manual) 756 L RBC Morphology Normal morphology Sodium 142 Potassium 4.1 Chloride 103 Carbon Dioxide 29 BUN 16 Creatinine 0.80 Estimated GFR > 60.0 BUN/Creatinine Ratio 20.0 Glucose 123 H Lactate 1.3 Calcium 9.5 Total Bilirubin 0.5 AST 17 ALT 31 Alkaline Phosphatase 70 Total Protein 6.6 Albumin 4.0 Globulin 2.6 Albumin/Globulin Ratio 1.5 Lipase 37 Procalcitonin Blood Type Antibody Screen 12/03/17 12/03/17 12/03/17 04:56 04:56 04:56 WBC 1.5 L* RBC 2.64 L Hgb 8.3 L Hct 23.9 L MCV 90.7 MCH 31.4 MCHC 34.6 RDW 13.5 Plt Count 129 L Neut % (Auto) Not Reportable Lymph % (Auto) Not Reportable [place] % (Auto) Not Reportable Eos % (Auto) Not Reportable Baso % (Auto) Not Reportable Total Counted 100 Seg Neutrophils % 66.0 Lymphocytes % (Manual) 12.0 L Monocytes % (Manual) 22.0 H Neutrophils # (Manual) 990 L RBC Morphology Normal morphology Sodium 141 Potassium 5.1 Chloride 107 Carbon Dioxide 28 BUN 18 Creatinine 0.70 Estimated GFR > 60.0 BUN/Creatinine Ratio 25.7 H Glucose 138 H Lactate Calcium 8.9 Total Bilirubin AST ALT Alkaline Phosphatase Total Protein Albumin Globulin Albumin/Globulin Ratio Lipase Procalcitonin < 0.05 Blood Type Antibody Screen 12/03/17 04:56 WBC RBC Hgb Hct MCV MCH MCHC RDW Plt Count Neut % (Auto) Lymph % (Auto) [place] % (Auto) Eos % (Auto) Baso % (Auto) Total Counted Seg Neutrophils % Lymphocytes % (Manual) Monocytes % (Manual) Neutrophils # (Manual) RBC Morphology Sodium Potassium Chloride Carbon Dioxide BUN Creatinine Estimated GFR BUN/Creatinine Ratio Glucose Lactate Calcium Total Bilirubin AST ALT Alkaline Phosphatase Total Protein Albumin Globulin Albumin/Globulin Ratio Lipase Procalcitonin Blood Type O Negative Antibody Screen Negative Absolute neutrophil count is increasing but remains below 1000. Laboratory studies are otherwise unremarkable. Procalcitonin shows no evidence of significant acute inflammatory or infectious process. I have personally reviewed his acute abdominal series done this morning. He has persistent multiple dilated loops of small bowel with air-fluid levels throughout the entire abdomen consistent with significant small-bowel obstruction. No free air. Nasogastric tube is within the fundus of the stomach. Assessment & Plan Plan: Assessment/Plan Narrative: 67-year-old male with small-bowel obstruction likely secondary to adhesions 2 months after laparotomy and [place] procedure for perforated diverticulitis who otherwise remained stable currently. He has no evidence of mesenteric ischemia or significant infectious complications at this time. Obviously laparotomy at this point for small-bowel obstruction and lysis of adhesions would incur significant risk of complications, especially in light of neutropenia, anemia, and recent chemotherapy. I spent considerable time discussing this with him in detail today. I also discussed his case via telephone with Dr. Monae, who was on-call for the medical oncology service. In his opinion Neupogen is not indicated at this time. However, he agrees with continuation of imipenem and fluconazole. Patient remains on neutropenic precautions. Continue IV fluid resuscitation. At some point he may require PICC line insertion with initiation of TPN for nutritional support. He was being evaluated for central line placement per the Oncology service last week. I am uncertain as to the type of catheter being discussed but per the patient's description this appeared to be consistent with potential [place] or port device. 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 Recent ultrasound did show patency of the internal jugular veins, and a right internal jugular vein approach remains feasible. However, it would be unclear whether the catheter was passed through the superior vena cava secondary to recent radiation therapy and known tumor. A new PICC line, in my opinion, would only be possible with the right upper extremity approach since the left upper extremity recently had thrombotic complications from his previous PICC line. Again, I discussed this with the patient in detail. We will repeat his laboratory studies including lactate tomorrow. Repeat two view abdominal series as well. Continue nasogastric tube decompression with NPO except ice chips. Out of bed as tolerated. Ativan and Benadryl have been ordered for insomnia. Consider small bowel follow-through if he does not clinically improve in the next 24 hr or so. All questions were answered to his satisfaction, and he voiced understanding. Orders were written. Quality VTE Deep Vein Thrombosis/Pulmonary Embolism Present on Admission: No
--- NOTE | 2017-12-03 14:27 | CM.DANOTE ---
Discharge Planning/Care Management DCP: assessment: case received, EMR reviewed and met briefly this morning with pt and his Viry. (pt is under neutropenic precautions). Pt is a 67 year old male who admitted to care of surgeon: Dr. Flynn last night. Payer: Medicare and [facility] PCP: DR. Crystal/[facility]. Pt currently with dx of significant SBO. 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 Flynn's H&P. Dr. Flynn has conferred with oncologist/credit relationship manager: Dr. Monae re options for POC. Pt has NG to suction, is NPO and TPN is considered. Surgery has been discussed. Pt does have new colostomy as of the September surgery. P: DCP team will be following as POC unfolds to assist with d/c issues and options. At this point full POC is in process. CM Discharge Assessment Start: 12/03/17 14:25 Freq: Status: Active Protocol: Document 12/03/17 14:26 ITV (Rec: 12/03/17 14:27 ITV [id number]) Discharge Planning Assessment Advance Directives? Yes Advance Directives on File No History Provided By Patient Significant Other Medical Record Prior Living Arrangements House Household Members spouse Independent with ADL's Yes Is patient alert and oriented? Yes Whiteboard Updated in Patient Room with Yes name and ext. # of Inspector Water Pollution Control Review Status In Process Next Review Type Continued Stay Review
[2017-12-03] MEDS: BENZOCAINE/MENTHOL 1 LOZ PKT 1 EACH PO (15:44)
--- NOTE | 2017-12-03 15:48 | PC.NURSE ---
Pt is awake and states that he is having some nausea, given 4mg of iv zofran and helpful. Bt hypoactive x4. Pt has a colostomy that is putting out a few constipated marbles of stool. He is A&Ox3. NG tube putting out a milky colored drainage, he only had about 50-75cc out. Pt has a stop cock valve in the end of his NG tube, he is on LIS, turned suction on to high momentarily to make sure NG tube was emptying content, and with stop cock in place this is allowing drainage to pass through. Placed back on LIS. Pt also has a blue/white plug placed in the pigtail of the ng tube. Blue end should be plugged into pig tale and when did his rounds the Plug was with white side in tube. fixed this and NG tube is putting out drainage. PT is Given 1mg of iv dilaudid this am around 0830 and helpful for discomfort. Checked on him a few more times and he denies pain but states that he did not sleep well last night. Passed onto Keely shift, that pt has ativan or benadryl and this can be given to help pts insomnia. His L.arm is also swollen, Pt states that he has a blood clot and has been getting lovenox injections for the last 43 days. His iv to the r.ac is patent with NS infusing at 150cc/hr. Pts visited and has just left. Given [facility] phone number to check on pt.
--- NOTE | 2017-12-03 18:14 | PC.NURSE ---
Addendum entered by Yessi Moralez R.N. 12/03/17 22:15: This pt does not have incision with hugh. Old scar from previous surgery, and LUQ colostomy Original Note: 1630- Pt resting in bed watching TV, just left. A/O x3, LS clear 99% RA. reports some mild pain to left nare and left side of throat r/t NG tube, provided with cepacol throat lozenge. Midline incision well aproximated with hugh, THANIA, CDI. Ostomty to LUQ red beefy stoma, producing brown soft stool. RAC infusing NS @ 150. NG tube patent and draining tanish colored fluids, which are semi clear. Left arm with 2+ non-pitting edema r/t thrombosis from previous PICC line. Denies pain, SOB, and nausea at this time. Provided pt info on new orders for meds to help with insomnia. Using urinal in bed indep. Calf SCD's on, call light in reach.
[2017-12-03] MEDS: diphenhydrAMINE 50 MG/ML VIAL IV (22:23)
[2017-12-04] VITALS (7 sets, daily range): BP systolic 124–134; BP diastolic 66–77; PULSE 78–93; RESP 12–18; TEMP 36.8–37.3; O2SAT 95–98
--- NOTE | 2017-12-04 | DI.RAD.S_ITS ---
PROCEDURE: FL SMALL BOWEL FOLLOW THROUGH INDICATIONS: Small bowel obstruction. COMPARISON: None. FINDINGS: KUB: Preprocedural chemist physical film demonstrates a nonobstructive bowel gas pattern. Nasogastric tube tip and side-port project within the stomach. Postsurgical changes of prior left hip arthroplasty with acetabular repair screws noted. There are multilevel degenerative changes of the spine. Radiopaque stool noted within the rectum. Small bowel: There is normal transit time of barium through the small bowel. Small bowel loops are of normal caliber throughout. Mucosal folds are smooth and of normal thickness. No strictures, intraluminal masses, or extrinsic mass effects are noted. The terminal ileum is identified, and is normal in morphology. Imaged cecum appears distended. IMPRESSION: No radiographic evidence of small bowel obstruction. Dictated by: Antolin Murillo M.D. on 12/04/2017 at 16:17 Approved by: Antolin Murillo M.D. on 12/04/2017 at 16:24
--- NOTE | 2017-12-04 | DI.RAD.S_ITS ---
PROCEDURE: XR ABDOMEN MIN 2V INDICATIONS: SBO TECHNIQUE: 2 views of the abdomen were acquired. COMPARISON: [facility], CT, CT ABDOMEN PELVIS W CON, 12/02/2017, 20:54. [facility], CR, XR ABDOMEN 3V, 12/03/2017, 0:01. FINDINGS: Surgical changes and devices: Enteric tube is seen with the tip projecting in the stomach Bowel: No pneumoperitoneum. Dilated small bowel loops are present although improved since earlier same day. Soft tissues: No masses; visualized solid organ contours appear normal in size. No suspicious abdominal calcifications. Blunting of the costophrenic angles bilaterally as before Bones: No suspicious bony abnormalities. Left hip arthroplasty and screw fixation of the left acetabulum. IMPRESSION: Enteric tube with the tip projecting in the stomach. Improved appearance of dilated small bowel loops since earlier same day. Dictated by: Steve Bazzi M.D. on 12/04/2017 at 8:43 Approved by: Steve Bazzi M.D. on 12/04/2017 at 8:51
[2017-12-04] MEDS: FLUCONAZOLE 400 MG/200 ML PIGGYBACK 100 MG IV (00:51)
[2017-12-04] MEDS: SODIUM CHLORIDE 0.9% 1,000 ML 150 ML IV ×2 (03:00→10:48)
[2017-12-04] MEDS: IMIPENEM/CILASTATIN 500 MG in SODIUM CHLORIDE 0.9% 100 ML 200 ML IV ×4 (03:52→21:57)
[2017-12-04 07:41] LABS: Hematocrit 21.1 % (41-53); Hemoglobin 7.3 g/dL (13.5-17.5); Mean Corpuscular HGB Conc 34.6 % (30-36); Mean Corpuscular Hemoglobin 31.2 PG (26-34); Mean Corpuscular Volume 90.4 fL (80-100); Platelet Count 143 X10^3/uL (150-400); Red Blood Cell Count 2.33 X10^6/uL (4.5-5.9); Red Cell Distribution Width 13.7 % (11.6-14.8)
[2017-12-04 07:42] LABS: White Blood Cell Count 0.9 X10^3/uL (4.5-11.0)
[2017-12-04 07:43] LABS: Add Manual Diff / Slide Review YES
[2017-12-04 07:51] LABS: BUN Creatinine Ratio 24.3 (6-22); Blood Urea Nitrogen 17 mg/dL (9-20); Calcium 8.3 mg/dL (8.4-10.2); Carbon Dioxide 29 mmol/L (22-32); Chloride 107 mmol/L (98-107); Estimated Glomerular Filt Rate > 60.0 mL/min (>60); Glucose 94 mg/dL (80-110); HEMOLYSIS < 15 (0-50); Lactate (Lactic Acid) 0.9 mmol/L (0.7-2.1); Potassium 4.1 mmol/L (3.4-5.1); Sodium 141 mmol/L (137-145)
[2017-12-04 08:02] LABS: Neutrophils Absolute Manual 297 /uL (3000-5900); Total Cells Counted 100
[2017-12-04 08:03] LABS: Morphology Comment Normal Morphology
[2017-12-04] MEDS: ENOXAPARIN 80 MG/0.8 ML SYRINGE SUBCUT ×2 (08:44→21:56)
[2017-12-04] MEDS: PANTOPRAZOLE 40 MG VIAL IV (08:44)
[2017-12-04] MEDS: FILGRASTIM-SNDZ 480 MCG/0.8 ML SYRINGE SUBCUT (10:48)
--- NOTE | 2017-12-04 14:44 | PC.NURSE ---
day shift Pt denied pain this AM. NGT to LIS. down for small bowel follow through study today. Returned to floor and c/o nausea and pressure in abd. Reattached NGT to suction and no output came out. shortly after pt had brown liquid stool output from ostomy. ostomy is filling quickly and needing to be emptied frequently at end of shift.
--- NOTE | 2017-12-04 16:53 | PM.PN.1 ---
Subjective Date Patient Seen: 12/04/17 Time Patient Seen: 16:54 Interval history: Denies significant pain. No nausea or vomiting. Would really like to have the nasogastric tube discontinued secondary to discomfort. Does not feel subjectively distended today. No dysuria or hematuria. No subjective fever or chills. No chest pain or shortness of breath. At the time of my visit he has completed his small-bowel follow-through with findings as noted below. He has since filled his colostomy appliance approximately 3 times with soft and liquid stool. He is also passing flatus into the appliance. Exam Vital Signs (past 8 hours): - 12/04/17 12:46 Temperature 99.2 F Pulse Rate 92 H Respiratory Rate 17 Blood Pressure 126/66 Pulse Oximetry 97 Oxygen Delivery Method Room Air Oxygen Flow Rate 0 Narrative Exam Narrative: Well-nourished well-developed male in no acute distress sitting comfortably in the bed. Alert oriented x3. His is at the bedside for my entire visit. Maximal temperature is 99.2?. He is not tachycardic but heart rate is in the 90s. Blood pressure normal. Nasogastric tube output is bile tinged but otherwise relatively minimal at 100 - 150 cc per shift. Regular rate and rhythm Abdomen is soft and completely nondistended today. He has absolutely no tenderness. No masses. Incision is well healed. Colostomy is pink and viable with flatus and kell stool in the appliance currently. Extremities show no clubbing, cyanosis, or edema Objective Labs Result Diagrams: 12/04/17 07:20 12/04/17 07:20 Labs: Laboratory Results - last 24 hr 12/04/17 12/04/17 12/04/17 07:20 07:20 07:20 WBC 0.9 L* RBC 2.33 L Hgb 7.3 L Hct 21.1 L MCV 90.4 MCH 31.2 MCHC 34.6 RDW 13.7 Plt Count 143 L Neut % (Auto) Not Reportable Lymph % (Auto) Not Reportable [place] % (Auto) Not Reportable Eos % (Auto) Not Reportable Baso % (Auto) Not Reportable Total Counted 100 Seg Neutrophils % 33.0 L Lymphocytes % (Manual) 51.0 H D Atypical Lymphs % 8.0 H Monocytes % (Manual) 8.0 Neutrophils # (Manual) 297 L Differential Comment Normal morphology RBC Morphology Not Reportable Sodium 141 Potassium 4.1 Chloride 107 Carbon Dioxide 29 BUN 17 Creatinine 0.70 Estimated GFR > 60.0 BUN/Creatinine Ratio 24.3 H Glucose 94 Lactate 0.9 Calcium 8.3 L Absolute neutrophil count has dropped precipitously but procalcitonin and lactate levels are normal. Hemoglobin is low but he is asymptomatic. I have personally reviewed his plain x-rays done of the abdomen this morning as well as a small-bowel follow-through that I ordered thereafter. He had some residual dilated loops of small bowel in the left upper quadrant which have since abated. No free air. The Gastrografin contrast traversed from the stomach to the right colon in approximately 45-50 minutes. No dilated loops of bowel or other abnormalities were noted on the small-bowel follow-through at that time which was just completed prior to my visit. Assessment & Plan Plan: Assessment/Plan Narrative: 67-year-old male with resolving small bowel obstruction likely secondary to adhesions from recent surgery. We will clamp the nasogastric tube. Slow IV fluids. Continue NPO except ice chips status currently. His major issue at the moment is neutropenia. I discussed the issue with Dr. Monae in Medical Oncology yesterday and again this morning. Official consultation was obtained, and he kindly began Neupogen and will manage the neutropenia this admission. At the moment the patient has no indications for surgery, and I am hopeful that he will not require surgical intervention for the bowel obstruction which appears to be resolving nicely. If he continues to have colostomy output and tolerates a nasogastric tube clamping we will remove it tomorrow and allow clear liquids. Continue Primaxin and Diflucan until ANC is at an acceptable level. I discussed all the above with the patient and his in detail. Patient voiced understanding. Questions were answered to their satisfaction. Orders were written. Quality VTE Deep Vein Thrombosis/Pulmonary Embolism Present on Admission: No
[2017-12-04] MEDS: SODIUM CHLORIDE 0.9% 1,000 ML 100 ML IV (17:00)
[2017-12-04] MEDS: HYDROMORPHONE 1 MG INJ IV (20:21)
[2017-12-05] VITALS (8 sets, daily range): BP systolic 98–138; BP diastolic 51–76; PULSE 80–92; RESP 16–20; TEMP 36.8–37.2; O2SAT 95–99
[2017-12-05] MEDS: SODIUM CHLORIDE 0.9% 1,000 ML 100 ML IV ×2 (00:06→22:31)
[2017-12-05] MEDS: diphenhydrAMINE 50 MG/ML VIAL IV ×2 (00:07→23:46)
[2017-12-05] MEDS: FLUCONAZOLE 400 MG/200 ML PIGGYBACK 200 MG IV (00:07)
[2017-12-05] MEDS: LORazepam 2 MG/ML SYRINGE 1 MG IV (00:17)
[2017-12-05] MEDS: IMIPENEM/CILASTATIN 500 MG in SODIUM CHLORIDE 0.9% 100 ML 200 ML IV ×4 (04:50→21:29)
[2017-12-05 06:11] LABS: BUN Creatinine Ratio 28.6 (6-22); Blood Urea Nitrogen 20 mg/dL (9-20); Calcium 8.5 mg/dL (8.4-10.2); Carbon Dioxide 26 mmol/L (22-32); Chloride 111 mmol/L (98-107); Estimated Glomerular Filt Rate > 60.0 mL/min (>60); Glucose 80 mg/dL (80-110); HEMOLYSIS < 15 (0-50); Potassium 3.8 mmol/L (3.4-5.1); Sodium 147 mmol/L (137-145)
[2017-12-05 06:13] LABS: Hemoglobin 7.2 g/dL (13.5-17.5); Mean Corpuscular HGB Conc 34.9 % (30-36); Mean Corpuscular Hemoglobin 31.3 PG (26-34); Mean Corpuscular Volume 89.7 fL (80-100); Platelet Count 157 X10^3/uL (150-400); Red Blood Cell Count 2.31 X10^6/uL (4.5-5.9); Red Cell Distribution Width 13.8 % (11.6-14.8); White Blood Cell Count 2.8 X10^3/uL (4.5-11.0)
[2017-12-05 06:18] LABS: Add Manual Diff / Slide Review YES
[2017-12-05 06:22] LABS: Hematocrit 20.7 % (41-53)
[2017-12-05 06:46] LABS: Neutrophils Absolute Manual 1932 /uL (3000-5900); Total Cells Counted 100
[2017-12-05 06:47] LABS: RBC Morphology Normal Morphology
[2017-12-05] MEDS: ENOXAPARIN 80 MG/0.8 ML SYRINGE SUBCUT ×2 (09:56→21:22)
[2017-12-05] MEDS: FILGRASTIM-SNDZ 480 MCG/0.8 ML SYRINGE SUBCUT (09:56)
[2017-12-05] MEDS: PANTOPRAZOLE 40 MG VIAL IV (09:56)
--- NOTE | 2017-12-05 14:15 | P.PN_ITS ---
Subjective Date Patient Seen: 12/05/17 Time Patient Seen: 14:11 Interval history: Denies pain. No nausea or vomiting. He has tolerated a nasogastric tube being clamped throughout the day. No dysuria or hematuria. Continues to have flatus and semi formed stool in the ostomy appliance. Wishes to have something to drink. Exam Vital Signs (past 8 hours): - 12/05/17 07:55 12/05/17 09:10 12/05/17 12:05 Temperature 98.4 F 99.0 F Pulse Rate 92 H 80 Respiratory Rate 18 18 Blood Pressure 138/74 106/64 Pulse Oximetry 97 97 97 Oxygen Delivery Method Room Air Oxygen Flow Rate 0 Narrative Exam Narrative: Patient is sitting comfortably in bed in no acute distress. Alert oriented x3. Patient seen with attending nurse Nasogastric tube is clamped. There has been no significant output since yesterday. I removed the nasogastric tube without difficulty. Patient tolerated this well. Regular rate and rhythm Continues to have baseline trace edema bilateral upper extremities but no significant change since admission Extremities are perfused Abdomen soft, nondistended, nontender, no masses. Colostomy is pink and viable with stool and flatus in the appliance Objective Labs Result Diagrams: 12/05/17 05:40 12/05/17 05:40 Labs: Laboratory Results - last 24 hr 12/05/17 12/05/17 05:40 05:40 WBC 2.8 L D RBC 2.31 L Hgb 7.2 L Hct 20.7 L* MCV 89.7 MCH 31.3 MCHC 34.9 RDW 13.8 Plt Count 157 Neut % (Auto) Not Reportable Lymph % (Auto) Not Reportable [place] % (Auto) Not Reportable Eos % (Auto) Not Reportable Baso % (Auto) Not Reportable Total Counted 100 Seg Neutrophils % 41.0 Band Neutrophils % 28.0 H Lymphocytes % (Manual) 8.0 L Monocytes % (Manual) 23.0 H Neutrophils # (Manual) 1932 L RBC Morphology Normal morphology Sodium 147 H Potassium 3.8 Chloride 111 H Carbon Dioxide 26 BUN 20 Creatinine 0.70 Estimated GFR > 60.0 BUN/Creatinine Ratio 28.6 H Glucose 80 Calcium 8.5 Assessment & Plan Plan: Assessment/Plan Narrative: 67-year-old male with apparently resolved partial small bowel obstruction. I suspect instruction was secondary to adhesions but has now released spontaneously. He is having normal ostomy output. Will allow him clear liquid diet following removal of the nasogastric tube today. He may be out of bed and ambulate as tolerated. Decrease IV fluid rate. If he does well with clear liquids then we will advance him to a regular diet for breakfast tomorrow. If he can tolerate a regular diet tomorrow then discharged home in the afternoon. He will then resume his oncology appointments thereafter per both the radiation oncology and medical oncology services. He had multiple questions for me regarding the pathophysiology of bowel obstructions which I reviewed with him in detail. Questions were answered to his satisfaction. He voiced understanding. Orders were written. Quality VTE Deep Vein Thrombosis/Pulmonary Embolism Present on Admission: No
--- NOTE | 2017-12-05 15:39 | PC.NURSE ---
day shift pt denied pain this shift. no nausea. tolerated NGT clamped. Removed by MD. started on clear liquids, tolerated without issue. ostomy changed, liquid brown seedy output from ostomy. hourly rounding provided, call light within reach.
[2017-12-05] MEDS: FLUCONAZOLE 400 MG/200 ML PIGGYBACK 100 MG IV (23:46)
[2017-12-06] VITALS: O2SAT 96
[2017-12-06] MEDS: IMIPENEM/CILASTATIN 500 MG in SODIUM CHLORIDE 0.9% 100 ML 200 ML IV ×2 (05:26→10:29)
[2017-12-06 05:30] VITALS: BP 121/66; PULSE 74; RESP 16; TEMP 36.7; O2SAT 97
[2017-12-06 08:15] VITALS: O2SAT 94
[2017-12-06] MEDS: ENOXAPARIN 80 MG/0.8 ML SYRINGE SUBCUT (08:24)
[2017-12-06] MEDS: PANTOPRAZOLE 40 MG VIAL IV (08:24)
[2017-12-06] MEDS: FILGRASTIM-SNDZ 480 MCG/0.8 ML SYRINGE SUBCUT (08:24)
[2017-12-06 08:35] VITALS: BP 102/63; PULSE 77; RESP 14; TEMP 36.7; O2SAT 94
--- NOTE | 2017-12-06 09:00 | CM.DPC ---
Clinicals faxed to Viry Camarena
[2017-12-06 11:28] VITALS: BMI 23.4
--- NOTE | 2017-12-06 12:26 | PC.NURSE ---
Discharge PIV removed prior to d/c. Pt states he is taking all belongings with him. Has f/u apts with oncology and radiation oncology as previously scheduled. d/c instructions provided to pt and notified to contact MD with any questions or concerns. pt left in w/c with [employer] escort and .
--- NOTE | 2017-12-06 13:05 | P.DS_ITS ---
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 States that the pain began this morning of acute onset. He was otherwise in his normal state of health at that time having just received chemotherapy approximately 2 weeks ago. His next scheduled radiation oncology visit is 2 days from now. He has been tolerating his adjuvant therapy without significant difficulty other than an episode of neutropenia for which he was placed on antibiotics and received Neupogen. He has otherwise been tolerating a normal diet without any issues. No dysphagia or odynophagia. No chest pain or shortness of breath. No productive cough. Unfortunately his left upper extremity PICC line was removed due to venous thrombosis complications. 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 He has had no bleeding complications. He reports that his colostomy was functioning normally up until this morning with daily flatus and formed stool output. No recent melena, hematochezia, or bright red blood per rectum. No diarrhea. Early this morning he began to notice progressive diffuse crampy abdominal pain with associated nausea but no vomiting. He became progressively anorexic and has not really eaten much today. Colostomy output then became essentially nothing earlier this afternoon. Pain progressed and he presented to the emergency department. He does feel subjectively distended. He had similar symptoms within 1-2 weeks after being discharged from the hospital early in October 2017. Findings were consistent with partial small bowel obstruction at that time, but the etiology appear to be a phytobezoar within the small bowel that subsequently resolved in less than 24 hr. He has had no problem since until today as above. Otherwise he denies dysuria or hematuria. Denies any subjective fever or chills. Discharge Providers Date of admission: 12/02/17 22:55 Primary care physician: Kymberly Crystal DO Consults: 12/02/17 23:55 Consult to Discharge Planning Routine Comment: 12/03/17 01:17 Consult to Dietitian, Adult Routine Comment: Reason For Exam: Weight loss 12/04/17 10:04 Consult to Physician Routine Comment: Consulting Provider: Ca Monae Reason for consultation: neutropenia Has provider been notified: Yes Discharge provider: Azael Flynn MD Summary Discharge Diagnosis: Small bowel obstruction due to postoperative adhesions ( Acute) Neutropenia, resolved Anemia related to chemotherapy Perforated viscus (Acute) Thymoma (Acute) Diverticulosis (Chronic) Elevated PSA (Chronic ~1999) Hearing loss (Chronic) Hepatitis (Chronic ~1971) Insomnia (Chronic) Intra-abdominal free air of unknown etiology (Chronic) Kidney stones (Chronic ~1989) Mediastinal mass (Chronic) Thyroid cancer (Chronic ~2017) Tinnitus (Chronic ~1999) Vision disorder (Chronic) H/O colectomy (Acute) Anesthesia (Resolved) Broken arm (Resolved ~1983) History of appendectomy (Resolved ~1979) History of colonoscopy (Resolved) History of hip replacement (Resolved ~1991) History of knee surgery (Resolved ~1959) Hospital Course: 67-year-old male 2 months status post laparotomy with partial sigmoid colectomy and diverting colostomy secondary to perforated diverticulitis who is currently receiving concurrent radiation and chemotherapy for invasive thymoma and presented the emergency department with partial small bowel obstruction. He was admitted for IV fluid resuscitation, bowel rest, and NG tube decompression. He was found to be significantly neutropenic as well. He was placed on appropriate contact precautions. Empiric therapy with Primaxin and Diflucan were begun. However, his neutropenia never resolved and medical oncology consultation was obtained. Patient was begun on Neupogen with good result. At the time of discharge his ANC is greater than 1000. He therefore does not require outpatient antibiotic therapy. Obviously, his radiation and chemotherapy were interrupted for his hospital stay. He was maintained on his usual anticoagulation with Lovenox due to SVC invasion as well as history of thrombosis. He had eventual return of normal bowel and bladder function with normal colostomy output following a small-bowel follow- through study which showed complete resolution of the obstruction. He was advanced from clear liquids to regular diet by the time of discharge which he is tolerating well after his nasogastric tube had been removed. He is ambulating without difficulty. He has remained afebrile throughout his entire stay. Because of resolution of the bowel obstruction he is discharged home. He will resume his chemotherapy and radiation therapy for thymoma as scheduled. He will follow up in the surgery clinic as previously scheduled also. However , he understands to call or return sooner if he has any recurrent issues with fever, chills, nausea, vomiting, abdominal distension, lack of colostomy output , recurrent abdominal pain or other concerns. Status at Discharge Cognitive/behavioral status at discharge: Alert oriented x3 Functional status at discharge: independent ambulation Overall status at discharge: patient is progressing back to baseline Time Spent with Patient Less than 30 minutes Exam Vital Signs (past 8 hours): - 12/06/17 05:30 12/06/17 08:15 12/06/17 08:35 Temperature 98.1 F 98.1 F Pulse Rate 74 77 Respiratory Rate 16 14 Blood Pressure 121/66 102/63 Pulse Oximetry 97 94 94 Oxygen Delivery Method Room Air Oxygen Flow Rate 0 Narrative Exam Narrative: Thin male in no acute distress lying comfortably in bed. Alert oriented x3. Good spirits today. Sclera nonicteric Neck is supple Chest clear to auscultation bilaterally. No wheezes. Mild residual upper extremity edema, left greater than right, consistent with his known prior history of thrombosis related to PICC line. Moves all extremities equally and symmetrically Abdomen soft, nondistended, nontender, no masses. Midline scar is well healed. Colostomy is pink and viable with normal stool output including flatus. Extremities show no clubbing or cyanosis Objective Labs Result Diagrams: 12/05/17 05:40 12/05/17 05:40 Labs: Radiographic studies including small-bowel follow-through are as above Discharge Plan Discharge Plan Patient Disposition: Home Discharge comment: Follow up with Radiation Oncology and Medical Oncology as scheduled Discharge Med Rec/Prescriptions Prescriptions: Continue enoxaparin 80 mg/0.8 mL syringe 80 mg Sub-Q Q12HR RF: 0 oxycodone-acetaminophen 5-300 mg tablet 1 tab PO Q4-6H MDD 4 PRN (Reason: pain) Qty: 5 RF: 0 Follow up/Referrals: Azael Flynn MD [Physician] - As previously scheduled Provider Discharge Instructions Diet: Diet as Tolerated Diet comment: Avoid fibrous vegetables Activity: As tolerated No restrictions from surgical perspective Skin/Wound/Dressing Care Report to your healthcare provider any signs of infection, such as:: chills, fever and increased pain Dressing: Not applicable Routine colostomy care Visit Report/Discharge Packet Instructions: Low-Fiber/Low-Residue Diet, DI for Small Bowel Obstruction Visit Report Forms: Stroke Signs & Symptoms Discharge Data Primary Care Provider: Kymberly Crystal Attending Provider: Azael Flynn Admit Date/Time: 12/02/17 22:55 Quality VTE Deep Vein Thrombosis/Pulmonary Embolism Present on Admission: No
--- NOTE | 2017-12-06 13:41 | CM.DPC ---
DCP: continued: Case again received and d/c to home order just now noted. Pt has left for home already. [facility] has been seeing pt prior to this admission. Resume orders are now obtained. [facility] will fax this as well as the d/c summary to [facility].
== END 2017-12-06 13:00 | disposition home or self-care (01) | DRG 389 ==
LOC: ED 19:41 → AC 22:56
PROVIDERS: Admitting Provider Surgery; Emergency Provider Emergency Medicine; PCP Family Medicine; Visit Provider Surgery
DX: K56.50 Intestinal adhesions [bands], unspecified as to partial versus complete obstruction (principal); C37 Malignant neoplasm of thymus; C79.89 Secondary malignant neoplasm of other specified sites; D70.9 Neutropenia, unspecified; D64.81 Anemia due to antineoplastic chemotherapy; T45.1X5A Adverse effect of antineoplastic and immunosuppressive drugs, initial encounter; Z87.891 Personal history of nicotine dependence; Z93.3 Colostomy status
CPT/HCPCS: 36415; 36591; 71045; 74019; 74021; 74177; 74250; 80048; 80053; 83605; 83690; 84145; 85025; 86850; 86900; 86901; 87040; 96361; 96374; 96375; 96376; 99222; 99231; 99238; 99283; 99285; C9113; J0743; J1170; J1200; J1450; J1650; J2060; J2405; Q5101; Q9967

== ENCOUNTER 2018-04-16 12:32 | Inpatient (IN) | payer MEDICARE, BC, SELFPAY ==
[2017-10-13 08:56] VITALS: PULSE 65; RESP 13; O2SAT 96
[2017-12-03 00:49] VITALS: BMI 23.3
[2018-04-16] VITALS (11 sets, daily range): BP systolic 112–158; BP diastolic 67–88; PULSE 62–78; RESP 10–18; TEMP 36.7–37.3; O2SAT 90–98; BMI 24.4; BMI 24.9
--- NOTE | 2018-04-16 12:46 | ED.BACK ---
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 He reports he has had lower back pain over the past several months. He denies any trauma to the lower back. Reports exacerbation of his lower back last night. He states that he had back pain that he tried to walk to the restroom to loosen up his lower back pain he sat on the toilet and had a syncopal episode. He does not think that he had any head injury. He denies any trauma to the lower back. He denies any loss of bladder control. Increased pain with motion of the lower back. He denies any numbness into his lower extremities. He has not had chemotherapy in the last 6-8 weeks. His platelets have been running low and his H&H has been running low as well. He is currently followed by Oncology at [facility]. Related Data Home Medications Medication Instructions Recorded Confirmed enoxaparin 80 mg SUB-Q Q12HR 10/15/17 04/16/18 Airborne Vitamin 1 tab PO DAILY 04/16/18 04/16/18 dexamethasone 4 mg PO DAILY 04/16/18 04/16/18 hydrocodone-acetaminophen 1 tab PO Q4H PRN 04/16/18 04/16/18 oxycodone-acetaminophen 1 tab PO Q4H PRN 04/16/18 04/16/18 Allergies Allergy/AdvReac Type Severity Reaction Status Date / Time birch Allergy Unknown Verified 04/16/18 13:01 ragweed pollen Allergy Unknown Verified 04/16/18 13:01 Review of Systems <VERITO Velez - Last Filed: 04/16/18 21:50> Constitutional Denies chills, Denies fever(s), Denies lethargy and Denies weakness Eyes Denies change in vision, Denies eye discharge, Denies irritation and Denies loss of vision ENT Ears, Nose, Mouth, and Throat: Denies change in voice, Denies neck pain and Denies sore throat Cardiovascular Denies chest pain, Reports syncope, Denies irregular heart rhythm, Denies lightheadedness, Denies palpitations, Denies dyspnea, Denies dyspnea on exertion and Denies orthopnea Respiratory Denies cough, Denies dyspnea, Denies dyspnea on exertion and Denies wheezing Gastrointestinal Gastrointestinal: Denies abdominal pain, Denies change in bowel habits, Denies diarrhea, Denies nausea and Denies vomiting Genitourinary Denies hematuria, Denies flank pain, Denies urinary incontinence and Denies urinary urgency Musculoskeletal Denies neck pain Comments: Lower back pain Integumentary/Breasts Denies pruritus, Denies erythema, Denies rash and Denies wounds Neurologic Denies confusion, Reports syncope, Denies loss of vision and Denies weakness Psychiatric Denies anxiety, Denies confusion, Denies depression, Denies homicidal ideation and Denies suicidal ideation Endocrine Denies palpitations Hematologic/Lymphatic Denies easy bruising Allergic/Immunologic Denies wheezing PFSH <VERITO Velez - Last Filed: 04/16/18 21:50> Medical History Perforated viscus (Acute) Small bowel obstruction due to postoperative adhesions (Acute) Thymoma (Acute) Diverticulosis (Chronic) Elevated PSA (Chronic ~1999) Hearing loss (Chronic) Hepatitis (Chronic ~1971) Insomnia (Chronic) Intra-abdominal free air of unknown etiology (Chronic) Kidney stones (Chronic ~1989) Mediastinal mass (Chronic) Thyroid cancer (Chronic ~2017) Tinnitus (Chronic ~1999) Vision disorder (Chronic) Surgical History H/O colectomy (Acute) Anesthesia (Resolved) Broken arm (Resolved ~1983) History of appendectomy (Resolved ~1979) History of colonoscopy (Resolved) History of hip replacement (Resolved ~1991) History of knee surgery (Resolved ~1959) Family History Father History of emphysema Mother Congestive heart failure Brother Pancreatic cancer Social History household members: spouse Smoking Status: Never smoker alcohol intake: current Family History Father History of emphysema Mother Congestive heart failure Brother Pancreatic cancer Social History household members: spouse Smoking Status: Never smoker alcohol intake: current Exam <VERITO Velez - Last Filed: 04/16/18 21:50> Initial Vital Signs Initial Vital Signs: Vital Signs Temperature 98.9 F 04/16/18 12:36 Pulse Rate 78 04/16/18 12:36 Respiratory Rate 18 04/16/18 12:36 Blood Pressure 142/80 H 04/16/18 12:36 Pulse Oximetry 95 04/16/18 12:36 Const General: cooperative and well developed Nutritional Appearance: well nourished Orientation: alert, awake, oriented x3 and not confused HENMT Mouth: oral mucosae normal, oropharynx normal and moist mucous membranes Eyes Conjunctivae: conjunctivae normal Sclera: sclerae normal Pupils: PERRL EOM: EOM intact bilaterally Chest Chest: normal inspection of the chest Cardio Rate: regular rate Rhythm: regular rhythm Heart Sounds: no click, no gallops, no murmurs and no rubs Pulses: normal peripheral pulses GI Inspection: non-distended Palpation: soft, no hepatosplenomegaly, No guarding, No pulsatile mass and No tender Auscultation: normal bowel sounds Back/Spine/Pelvis Thoracic/Lumbar Spine: paraspinal tenderness Sacroiliac Joints: nontender Skin General: no rashes or lesions noted, No jaundice and No petechiae Neuro General: alert, oriented x3, gait normal and no focal motor deficits Speech: speech normal <Dominick Moreno DO - Last Filed: 04/19/18 07:06> Initial Vital Signs Initial Vital Signs: Vital Signs Temperature 98.9 F 04/16/18 12:36 Pulse Rate 78 04/16/18 12:36 Respiratory Rate 18 04/16/18 12:36 Blood Pressure 142/80 H 04/16/18 12:36 Pulse Oximetry 95 04/16/18 12:36 Course <VERITO Velez - Last Filed: 04/16/18 21:50> Orders Ordered: ED Orders 04/19/18 05:00 CBC [Complete Blood Count AUTO DIFF] Routine Type and Screen Routine Acetaminophen (Tylenol) 650 mg PO Q6HR PRN PRN Reason: As Needed for Fever/Mild Pain Al Hydrox/Mg Hydrox/Simethicone (Maalox Plus) 30 ml PO Q6HR PRN PRN Reason: Dyspepsia Bisacodyl (Dulcolax) 10 mg [place] DAILY PRN PRN Reason: Constipation Calcium Carbonate (Tums) 1,000 mg PO Q4HR PRN PRN Reason: Dyspepsia Last Admin: 04/17/18 10:52 Dose: 1,000 mg Cyclobenzaprine HCl (Flexeril) 10 mg PO Q8H PRN PRN Reason: Spasms Dexamethasone (Decadron) 4 mg PO DAILY [facility] Last Admin: 04/18/18 09:09 Dose: 4 mg Admin: 04/17/18 09:06 Dose: 4 mg Docusate Sodium (Colace) 100 mg PO BID [facility] Last Admin: 04/18/18 20:21 Dose: 100 mg Admin: 04/18/18 09:10 Dose: 100 mg Admin: 04/17/18 21:08 Dose: 100 mg Admin: 04/17/18 09:06 Dose: 100 mg Heparin Sodium (Porcine) (Heparin (Cl/Picc/Mid-Line)) 10 unit IV BID [facility] Last Admin: 04/18/18 20:23 Dose: 10 unit Admin: 04/18/18 09:18 Dose: 10 unit Admin: 04/17/18 21:09 Dose: 10 unit Admin: 04/17/18 09:09 Dose: 10 unit Admin: 04/17/18 02:35 Dose: 10 unit Sodium Chloride (Normal Saline 0.45%) 1,000 mls @ 50 mls/hr IV CONT [facility] Last Admin: 04/18/18 22:18 Dose: 50 mls/hr Infusion: 04/18/18 21:03 Dose: 50 mls/hr Admin: 04/18/18 01:03 Dose: 50 mls/hr Infusion: 04/17/18 18:51 Dose: 50 mls/hr Admin: 04/16/18 22:51 Dose: 50 mls/hr Lidocaine (Lidoderm) 1 each TOP DAILY [facility] Last Admin: 04/18/18 20:21 Dose: 1 each Naloxone HCl (Narcan) 0.2 mg IV Q2MIN PRN PRN Reason: Opiate Reversal Ondansetron HCl (Zofran) 4 mg IV Q8HR PRN PRN Reason: Nausea And Vomiting Last Admin: 04/17/18 06:27 Dose: 4 mg Oxycodone HCl (Percolone) 10 mg PO Q3HR PRN PRN Reason: Pain, Severe (7-10) Oxycodone HCl (Percolone) 7.5 mg PO Q3HR PRN PRN Reason: Pain, Moderate (4-6) Last Admin: 04/19/18 05:21 Dose: 7.5 mg Admin: 04/18/18 22:25 Dose: 7.5 mg Admin: 04/18/18 18:43 Dose: 7.5 mg Pantoprazole Sodium (Protonix) 20 mg PO 0600 [facility] Last Admin: 04/19/18 05:28 Dose: 20 mg Admin: 04/18/18 09:13 Dose: Not Given Admin: 04/17/18 06:27 Dose: 20 mg Polyethylene Glycol (Miralax) 17 gm PO DAILY PRN PRN Reason: Constipation Discontinued Medications Furosemide (Lasix) 20 mg IV BID [facility] Last Admin: 04/17/18 01:41 Dose: Not Given Hydromorphone HCl (Dilaudid) 1 mg IV NOW ONE Stop: 04/16/18 13:16 Last Admin: 04/16/18 13:36 Dose: 1 mg Hydromorphone HCl (Dilaudid) 1 mg IV NOW ONE Stop: 04/16/18 19:49 Last Admin: 04/16/18 20:17 Dose: 1 mg Hydromorphone HCl (Dilaudid) 1 mg IV NOW ONE Stop: 04/16/18 22:30 Last Admin: 04/16/18 22:48 Dose: 1 mg Sodium Chloride (Normal Saline 0.9%) 1,000 mls @ 1,000 mls/hr IV BOLUS ONE Stop: 04/16/18 13:54 Last Infusion: 04/16/18 14:59 Dose: 0 mls/hr Admin: 04/16/18 13:07 Dose: 1,000 mls/hr Lorazepam (Ativan) 1 mg IV NOW ONE Stop: 04/16/18 15:29 Last Admin: 04/16/18 15:47 Dose: 1 mg Ondansetron HCl (Zofran) 4 mg IV NOW ONE Stop: 04/16/18 20:03 Last Admin: 04/16/18 20:17 Dose: 4 mg Oxycodone HCl (Oxycontin) 20 mg PO Q8HR [facility] Last Admin: 04/18/18 09:12 Dose: Not Given Admin: 04/17/18 21:09 Dose: Not Given Admin: 04/17/18 14:46 Dose: 20 mg Admin: 04/17/18 06:28 Dose: 20 mg Admin: 04/16/18 22:54 Dose: 20 mg Oxycodone HCl (Percolone) 5 mg PO Q8H PRN PRN Reason: Breakthrough Pain Last Admin: 04/17/18 02:46 Dose: 5 mg Oxycodone HCl (Percolone) 10 mg PO Q3HR PRN PRN Reason: Pain, Severe (7-10) Last Admin: 04/18/18 10:26 Dose: 10 mg Oxycodone HCl (Percolone) 7.5 mg PO Q3HR PRN PRN Reason: Pain, Moderate (4-6) Vital Signs - 8 hr 04/19/18 00:14 04/19/18 00:27 04/19/18 05:25 Temperature 97.9 F 98.1 F Pulse Rate 72 63 Respiratory Rate 16 16 Blood Pressure 133/78 117/68 Pulse Oximetry 98 93 <Dominick Moreno DO - Last Filed: 04/19/18 07:06> Orders Ordered: ED Orders 04/19/18 05:00 CBC [Complete Blood Count AUTO DIFF] Routine Type and Screen Routine Acetaminophen (Tylenol) 650 mg PO Q6HR PRN PRN Reason: As Needed for Fever/Mild Pain Al Hydrox/Mg Hydrox/Simethicone (Maalox Plus) 30 ml PO Q6HR PRN PRN Reason: Dyspepsia Bisacodyl (Dulcolax) 10 mg [place] DAILY PRN PRN Reason: Constipation Calcium Carbonate (Tums) 1,000 mg PO Q4HR PRN PRN Reason: Dyspepsia Last Admin: 04/17/18 10:52 Dose: 1,000 mg Cyclobenzaprine HCl (Flexeril) 10 mg PO Q8H PRN PRN Reason: Spasms Dexamethasone (Decadron) 4 mg PO DAILY [facility] Last Admin: 04/18/18 09:09 Dose: 4 mg Admin: 04/17/18 09:06 Dose: 4 mg Docusate Sodium (Colace) 100 mg PO BID [facility] Last Admin: 04/18/18 20:21 Dose: 100 mg Admin: 04/18/18 09:10 Dose: 100 mg Admin: 04/17/18 21:08 Dose: 100 mg Admin: 04/17/18 09:06 Dose: 100 mg Heparin Sodium (Porcine) (Heparin (Cl/Picc/Mid-Line)) 10 unit IV BID [facility] Last Admin: 04/18/18 20:23 Dose: 10 unit Admin: 04/18/18 09:18 Dose: 10 unit Admin: 04/17/18 21:09 Dose: 10 unit Admin: 04/17/18 09:09 Dose: 10 unit Admin: 04/17/18 02:35 Dose: 10 unit Sodium Chloride (Normal Saline 0.45%) 1,000 mls @ 50 mls/hr IV CONT [facility] Last Admin: 04/18/18 22:18 Dose: 50 mls/hr Infusion: 04/18/18 21:03 Dose: 50 mls/hr Admin: 04/18/18 01:03 Dose: 50 mls/hr Infusion: 04/17/18 18:51 Dose: 50 mls/hr Admin: 04/16/18 22:51 Dose: 50 mls/hr Lidocaine (Lidoderm) 1 each TOP DAILY [facility] Last Admin: 04/18/18 20:21 Dose: 1 each Naloxone HCl (Narcan) 0.2 mg IV Q2MIN PRN PRN Reason: Opiate Reversal Ondansetron HCl (Zofran) 4 mg IV Q8HR PRN PRN Reason: Nausea And Vomiting Last Admin: 04/17/18 06:27 Dose: 4 mg Oxycodone HCl (Percolone) 10 mg PO Q3HR PRN PRN Reason: Pain, Severe (7-10) Oxycodone HCl (Percolone) 7.5 mg PO Q3HR PRN PRN Reason: Pain, Moderate (4-6) Last Admin: 04/19/18 05:21 Dose: 7.5 mg Admin: 04/18/18 22:25 Dose: 7.5 mg Admin: 04/18/18 18:43 Dose: 7.5 mg Pantoprazole Sodium (Protonix) 20 mg PO 0600 [facility] Last Admin: 04/19/18 05:28 Dose: 20 mg Admin: 04/18/18 09:13 Dose: Not Given Admin: 04/17/18 06:27 Dose: 20 mg Polyethylene Glycol (Miralax) 17 gm PO DAILY PRN PRN Reason: Constipation Discontinued Medications Furosemide (Lasix) 20 mg IV BID [facility] Last Admin: 04/17/18 01:41 Dose: Not Given Hydromorphone HCl (Dilaudid) 1 mg IV NOW ONE Stop: 04/16/18 13:16 Last Admin: 04/16/18 13:36 Dose: 1 mg Hydromorphone HCl (Dilaudid) 1 mg IV NOW ONE Stop: 04/16/18 19:49 Last Admin: 04/16/18 20:17 Dose: 1 mg Hydromorphone HCl (Dilaudid) 1 mg IV NOW ONE Stop: 04/16/18 22:30 Last Admin: 04/16/18 22:48 Dose: 1 mg Sodium Chloride (Normal Saline 0.9%) 1,000 mls @ 1,000 mls/hr IV BOLUS ONE Stop: 04/16/18 13:54 Last Infusion: 04/16/18 14:59 Dose: 0 mls/hr Admin: 04/16/18 13:07 Dose: 1,000 mls/hr Lorazepam (Ativan) 1 mg IV NOW ONE Stop: 04/16/18 15:29 Last Admin: 04/16/18 15:47 Dose: 1 mg Ondansetron HCl (Zofran) 4 mg IV NOW ONE Stop: 04/16/18 20:03 Last Admin: 04/16/18 20:17 Dose: 4 mg Oxycodone HCl (Oxycontin) 20 mg PO Q8HR [facility] Last Admin: 04/18/18 09:12 Dose: Not Given Admin: 04/17/18 21:09 Dose: Not Given Admin: 04/17/18 14:46 Dose: 20 mg Admin: 04/17/18 06:28 Dose: 20 mg Admin: 04/16/18 22:54 Dose: 20 mg Oxycodone HCl (Percolone) 5 mg PO Q8H PRN PRN Reason: Breakthrough Pain Last Admin: 04/17/18 02:46 Dose: 5 mg Oxycodone HCl (Percolone) 10 mg PO Q3HR PRN PRN Reason: Pain, Severe (7-10) Last Admin: 04/18/18 10:26 Dose: 10 mg Oxycodone HCl (Percolone) 7.5 mg PO Q3HR PRN PRN Reason: Pain, Moderate (4-6) Vital Signs - 8 hr 04/19/18 00:14 04/19/18 00:27 04/19/18 05:25 Temperature 97.9 F 98.1 F Pulse Rate 72 63 Respiratory Rate 16 16 Blood Pressure 133/78 117/68 Pulse Oximetry 98 93 MDM - Back Pain/Injury <VERITO Velez - Last Filed: 04/16/18 21:50> Lab Data Result diagrams: 04/19/18 05:00 04/18/18 08:40 Lab Results 04/16/18 04/16/18 04/17/18 Range/Units 12:25 13:58 06:00 WBC 7.0 (4.5-11.0) X10^3/uL RBC 2.78 L (4.5-5.9) X10^6/uL Hgb 8.4 L (13.5-17.5) g/dL Hct 24.4 L (41-53) % MCV 87.8 (80-100) fL MCH 30.1 (26-34) PG MCHC 34.3 (30-36) % RDW 14.0 (11.6-14.8) % Plt Count 25 L* (150-400) X10^3/uL Neut % (Auto) 83.9 H (50-75) % Lymph % (Auto) 6.6 L (25-40) % [place] % (Auto) 9.3 (3-14) % Eos % (Auto) 0.0 L (2-4) % Baso % (Auto) 0.2 (0-2) % Neut # (Auto) 5900 (9732-7163) /uL Lymph # (Auto) 500 L (7467-9873) /uL [place] # (Auto) 600 (0-900) /uL Eos # (Auto) 0 (0-450) /uL Baso # (Auto) 0 (0-100) /uL Platelet Estimate Decreased on smear RBC Morphology Normal morphology Sodium 139 137 (137-145) mmol/L Potassium 3.4 4.2 (3.4-5.1) mmol/L Chloride 103 103 (98-107) mmol/L Carbon Dioxide 25 27 (22-32) mmol/L BUN 21 H 21 H (9-20) mg/dL Creatinine 0.80 0.70 (0.66-1.25) mg/dL Estimated GFR > 60.0 > 60.0 (>60) mL/min BUN/Creatinine Ratio 26.3 H 30.0 H (6-22) Glucose 112 H 109 (80-110) mg/dL Calcium 9.2 8.9 (8.4-10.2) mg/dL Total Bilirubin 0.4 (0.2-1.3) mg/dL AST 15 L (17-59) IU/L ALT 40 (21-72) IU/L Alkaline Phosphatase 81 (38-126) U/L Total Creatine Kinase 25 L (55-170) U/L CK-MB (CK-2) TNP CK-MB (CK-2) Rel Index TNP Troponin I < 0.012 (0.01-0.034) ng/mL Total Protein 6.4 (6.3-8.2) g/dL Albumin 3.9 (3.5-5.0) g/dL Globulin 2.5 (1.7-4.1) g/dL Albumin/Globulin Ratio 1.6 (1.0-2.8) Blood Type 04/17/18 04/18/18 04/18/18 Range/Units 06:00 08:40 08:40 WBC 5.3 5.9 (4.5-11.0) X10^3/uL RBC 2.63 L 2.81 L (4.5-5.9) X10^6/uL Hgb 7.9 L 8.3 L (13.5-17.5) g/dL Hct 23.1 L 24.4 L (41-53) % MCV 88.0 86.8 (80-100) fL MCH 30.1 29.7 (26-34) PG MCHC 34.2 34.2 (30-36) % RDW 14.1 13.9 (11.6-14.8) % Plt Count 17 L* 22 L* (150-400) X10^3/uL Neut % (Auto) 84.2 H 84.5 H (50-75) % Lymph % (Auto) 6.6 L 6.1 L (25-40) % [place] % (Auto) 9.1 8.8 (3-14) % Eos % (Auto) 0.0 L 0.1 L (2-4) % Baso % (Auto) 0.1 0.5 (0-2) % Neut # (Auto) 4400 5000 (9023-2847) /uL Lymph # (Auto) 300 L 400 L (1594-8173) /uL [place] # (Auto) 500 500 (0-900) /uL Eos # (Auto) 0 0 (0-450) /uL Baso # (Auto) 0 0 (0-100) /uL Platelet Estimate Decreased on smear Decreased on smear RBC Morphology Normal morphology See below Sodium 137 (137-145) mmol/L Potassium 3.9 (3.4-5.1) mmol/L Chloride 102 (98-107) mmol/L Carbon Dioxide 26 (22-32) mmol/L BUN 22 H (9-20) mg/dL Creatinine 0.80 (0.66-1.25) mg/dL Estimated GFR > 60.0 (>60) mL/min BUN/Creatinine Ratio 27.5 H (6-22) Glucose 119 H (80-110) mg/dL Calcium 9.6 (8.4-10.2) mg/dL Total Bilirubin (0.2-1.3) mg/dL AST (17-59) IU/L ALT (21-72) IU/L Alkaline Phosphatase (38-126) U/L Total Creatine Kinase (55-170) U/L CK-MB (CK-2) CK-MB (CK-2) Rel Index Troponin I (0.01-0.034) ng/mL Total Protein (6.3-8.2) g/dL Albumin (3.5-5.0) g/dL Globulin (1.7-4.1) g/dL Albumin/Globulin Ratio (1.0-2.8) Blood Type 04/19/18 04/19/18 Range/Units 05:00 05:00 WBC 4.1 L (4.5-11.0) X10^3/uL RBC 2.43 L (4.5-5.9) X10^6/uL Hgb 7.3 L (13.5-17.5) g/dL Hct 21.2 L (41-53) % MCV 87.2 (80-100) fL MCH 29.8 (26-34) PG MCHC 34.2 (30-36) % RDW 13.6 (11.6-14.8) % Plt Count 15 L* (150-400) X10^3/uL Neut % (Auto) 76.9 H (50-75) % Lymph % (Auto) 11.6 L (25-40) % [place] % (Auto) 11.5 (3-14) % Eos % (Auto) 0.0 L (2-4) % Baso % (Auto) 0.0 (0-2) % Neut # (Auto) 3200 (2653-8881) /uL Lymph # (Auto) 500 L (7224-5691) /uL [place] # (Auto) 500 (0-900) /uL Eos # (Auto) 0 (0-450) /uL Baso # (Auto) 0 (0-100) /uL Platelet Estimate RBC Morphology Sodium (137-145) mmol/L Potassium (3.4-5.1) mmol/L Chloride (98-107) mmol/L Carbon Dioxide (22-32) mmol/L BUN (9-20) mg/dL Creatinine (0.66-1.25) mg/dL Estimated GFR (>60) mL/min BUN/Creatinine Ratio (6-22) Glucose (80-110) mg/dL Calcium (8.4-10.2) mg/dL Total Bilirubin (0.2-1.3) mg/dL AST (17-59) IU/L ALT (21-72) IU/L Alkaline Phosphatase (38-126) U/L Total Creatine Kinase (55-170) U/L CK-MB (CK-2) CK-MB (CK-2) Rel Index Troponin I (0.01-0.034) ng/mL Total Protein (6.3-8.2) g/dL Albumin (3.5-5.0) g/dL Globulin (1.7-4.1) g/dL Albumin/Globulin Ratio (1.0-2.8) Blood Type O Negative ECG Data Interpretation: EKG shows normal sinus rhythm with no ST elevation or depression. No ectopy. Ventricular rate is 67. Pr interval 32847. QRS duration 150. QTC 419. MDM Narrative Medical decision making narrative: EKG shows sinus rhythm with no ST elevation or depression. No ectopy. CT of the head was obtained was negative for any acute findings. CT of the lower spine was obtained and shows subacute compression fracture to T12 and L1 no other acute findings. CBC shows anemia of H&H of 8.4 and 24.4 which is up from his last values. Platelets return back at 25. CMP was unremarkable. Cardiac enzymes were negative. Patient refused to have chest x-ray completed. Discussed case with Dr. Coker his oncologist who states that his platelet count has been low recently and not sure why. He recommends follow-up with Oncology here in the next couple of days for re-evaluation. He was given Dilaudid and Ativan for his discomfort. Patient did express concern about going home with the pain lady is in at this timeframe. Discussed case with hospitalist who does not feel that he meets admission criteria. Patient is informed to use his pain medications and Ativan as prescribed to help with his discomfort. Suspect that his pain is due to compression fractures. After clearance by Oncology may be suitable to refer him to Orthopedics for further evaluation. For any worsening symptoms return to the emergency room. Syncope most likely due to vasovagal response due to the back pain. Addendum patient was not able to get out of bed without significant help from nursing and youth accommodation support worker. Three person lift did not go well to get patient into wheelchair and to the vehicle. We discussed case with hospitalist who accepted patient for observation for pain control <Dominick Moreno DO - Last Filed: 04/19/18 07:06> Lab Data Lab Results 04/16/18 04/16/18 04/17/18 Range/Units 12:25 13:58 06:00 WBC 7.0 (4.5-11.0) X10^3/uL RBC 2.78 L (4.5-5.9) X10^6/uL Hgb 8.4 L (13.5-17.5) g/dL Hct 24.4 L (41-53) % MCV 87.8 (80-100) fL MCH 30.1 (26-34) PG MCHC 34.3 (30-36) % RDW 14.0 (11.6-14.8) % Plt Count 25 L* (150-400) X10^3/uL Neut % (Auto) 83.9 H (50-75) % Lymph % (Auto) 6.6 L (25-40) % [place] % (Auto) 9.3 (3-14) % Eos % (Auto) 0.0 L (2-4) % Baso % (Auto) 0.2 (0-2) % Neut # (Auto) 5900 (6210-5540) /uL Lymph # (Auto) 500 L (6860-9522) /uL [place] # (Auto) 600 (0-900) /uL Eos # (Auto) 0 (0-450) /uL Baso # (Auto) 0 (0-100) /uL Platelet Estimate Decreased on smear RBC Morphology Normal morphology Sodium 139 137 (137-145) mmol/L Potassium 3.4 4.2 (3.4-5.1) mmol/L Chloride 103 103 (98-107) mmol/L Carbon Dioxide 25 27 (22-32) mmol/L BUN 21 H 21 H (9-20) mg/dL Creatinine 0.80 0.70 (0.66-1.25) mg/dL Estimated GFR > 60.0 > 60.0 (>60) mL/min BUN/Creatinine Ratio 26.3 H 30.0 H (6-22) Glucose 112 H 109 (80-110) mg/dL Calcium 9.2 8.9 (8.4-10.2) mg/dL Total Bilirubin 0.4 (0.2-1.3) mg/dL AST 15 L (17-59) IU/L ALT 40 (21-72) IU/L Alkaline Phosphatase 81 (38-126) U/L Total Creatine Kinase 25 L (55-170) U/L CK-MB (CK-2) TNP CK-MB (CK-2) Rel Index TNP Troponin I < 0.012 (0.01-0.034) ng/mL Total Protein 6.4 (6.3-8.2) g/dL Albumin 3.9 (3.5-5.0) g/dL Globulin 2.5 (1.7-4.1) g/dL Albumin/Globulin Ratio 1.6 (1.0-2.8) Blood Type 04/17/18 04/18/18 04/18/18 Range/Units 06:00 08:40 08:40 WBC 5.3 5.9 (4.5-11.0) X10^3/uL RBC 2.63 L 2.81 L (4.5-5.9) X10^6/uL Hgb 7.9 L 8.3 L (13.5-17.5) g/dL Hct 23.1 L 24.4 L (41-53) % MCV 88.0 86.8 (80-100) fL MCH 30.1 29.7 (26-34) PG MCHC 34.2 34.2 (30-36) % RDW 14.1 13.9 (11.6-14.8) % Plt Count 17 L* 22 L* (150-400) X10^3/uL Neut % (Auto) 84.2 H 84.5 H (50-75) % Lymph % (Auto) 6.6 L 6.1 L (25-40) % [place] % (Auto) 9.1 8.8 (3-14) % Eos % (Auto) 0.0 L 0.1 L (2-4) % Baso % (Auto) 0.1 0.5 (0-2) % Neut # (Auto) 4400 5000 (0798-8763) /uL Lymph # (Auto) 300 L 400 L (6475-9962) /uL [place] # (Auto) 500 500 (0-900) /uL Eos # (Auto) 0 0 (0-450) /uL Baso # (Auto) 0 0 (0-100) /uL Platelet Estimate Decreased on smear Decreased on smear RBC Morphology Normal morphology See below Sodium 137 (137-145) mmol/L Potassium 3.9 (3.4-5.1) mmol/L Chloride 102 (98-107) mmol/L Carbon Dioxide 26 (22-32) mmol/L BUN 22 H (9-20) mg/dL Creatinine 0.80 (0.66-1.25) mg/dL Estimated GFR > 60.0 (>60) mL/min BUN/Creatinine Ratio 27.5 H (6-22) Glucose 119 H (80-110) mg/dL Calcium 9.6 (8.4-10.2) mg/dL Total Bilirubin (0.2-1.3) mg/dL AST (17-59) IU/L ALT (21-72) IU/L Alkaline Phosphatase (38-126) U/L Total Creatine Kinase (55-170) U/L CK-MB (CK-2) CK-MB (CK-2) Rel Index Troponin I (0.01-0.034) ng/mL Total Protein (6.3-8.2) g/dL Albumin (3.5-5.0) g/dL Globulin (1.7-4.1) g/dL Albumin/Globulin Ratio (1.0-2.8) Blood Type 04/19/18 04/19/18 Range/Units 05:00 05:00 WBC 4.1 L (4.5-11.0) X10^3/uL RBC 2.43 L (4.5-5.9) X10^6/uL Hgb 7.3 L (13.5-17.5) g/dL Hct 21.2 L (41-53) % MCV 87.2 (80-100) fL MCH 29.8 (26-34) PG MCHC 34.2 (30-36) % RDW 13.6 (11.6-14.8) % Plt Count 15 L* (150-400) X10^3/uL Neut % (Auto) 76.9 H (50-75) % Lymph % (Auto) 11.6 L (25-40) % [place] % (Auto) 11.5 (3-14) % Eos % (Auto) 0.0 L (2-4) % Baso % (Auto) 0.0 (0-2) % Neut # (Auto) 3200 (0506-8867) /uL Lymph # (Auto) 500 L (0965-0103) /uL [place] # (Auto) 500 (0-900) /uL Eos # (Auto) 0 (0-450) /uL Baso # (Auto) 0 (0-100) /uL Platelet Estimate RBC Morphology Sodium (137-145) mmol/L Potassium (3.4-5.1) mmol/L Chloride (98-107) mmol/L Carbon Dioxide (22-32) mmol/L BUN (9-20) mg/dL Creatinine (0.66-1.25) mg/dL Estimated GFR (>60) mL/min BUN/Creatinine Ratio (6-22) Glucose (80-110) mg/dL Calcium (8.4-10.2) mg/dL Total Bilirubin (0.2-1.3) mg/dL AST (17-59) IU/L ALT (21-72) IU/L Alkaline Phosphatase (38-126) U/L Total Creatine Kinase (55-170) U/L CK-MB (CK-2) CK-MB (CK-2) Rel Index Troponin I (0.01-0.034) ng/mL Total Protein (6.3-8.2) g/dL Albumin (3.5-5.0) g/dL Globulin (1.7-4.1) g/dL Albumin/Globulin Ratio (1.0-2.8) Blood Type O Negative Discharge Plan Departure Patient Disposition: Admitted As Inpatient Clinical Impression: Syncope, vasovagal Compression fracture of lumbar vertebra Qualifiers: Encounter type: initial encounter Lumbar vertebra fracture level: L1 Fracture type: closed Qualified Code(s): S32.010A - Wedge compression fracture of first lumbar vertebra, initial encounter for closed fracture Discharge Date/Time: 04/16/18 21:56 Interventions: ED Discharge Assessment Last Done: 04/16/18 17:27 Admit Date/Time: 04/17/18 13:01 Admit Provider: Pilo Melissa <Dominick Moreno DO - Last Filed: 04/19/18 07:06> Cosign ED Attending Danielleature Attestation: I was available for consultation during this patient's emergency department encounter
--- NOTE | 2018-04-16 13:03 | DI.CT.S_ITS ---
PROCEDURE: CT HEAD/BRAIN WO CON INDICATIONS: Syncopal episode TECHNIQUE: Noncontrast 4.5 mm thick angled axial sections acquired from the foramen magnum to the vertex, with coronal and sagittal reformats. For radiation dose reduction, the following was used: automated exposure control, adjustment of mA and/or kV according to patient size. COMPARISON: None. FINDINGS: Image quality: Excellent. CSF spaces: Basal cisterns are patent. No extra-axial fluid collections. The ventricles are symmetric in size and shape. Brain: No intracranial bleeds or masses. There is cerebral volume loss for age, with resultant ventricular and sulcal prominence. There are periventricular and deep white matter chronic small vessel ischemic changes. There is intracranial internal carotid artery atherosclerosis. Skull and face: Calvarium and visualized facial bones appear intact, without suspicious lesions. Sinuses: Visualized sinuses and mastoids are clear. IMPRESSION: No acute intracranial process Dictated by: Steve Bazzi M.D. on 04/16/2018 at 14:00 Approved by: Steve Bazzi M.D. on 04/16/2018 at 14:02
--- NOTE | 2018-04-16 13:03 | DI.CT.S_ITS ---
PROCEDURE: CT LUMBAR SPINE WO CON INDICATIONS: Lumbar pain history of thymoma TECHNIQUE: Noncontrast 3 mm thick sections acquired from the T12 level to the sacrum. Sagittal and coronal reformats were constructed. For radiation dose reduction, the following was used: automated exposure control. COMPARISON: [facility], CT, CT ABDOMEN PELVIS W CON, 12/02/2017, 20:54. FINDINGS: Image quality: Excellent. Bones: There is normal bony alignment. Subacute appearing T12 and acute appearing L1 vertebral body compression fractures are noted. T12 compression fracture results in approximately 50% loss of normal vertebral body height. The L1 compression fracture results in approximately 30% loss of normal vertebral body height. No retropulsed fragments or kyphosis associated with the T12 or L1 compression fractures. No suspicious lytic or blastic bony lesions. Bones are diffusely osteopenic. Mild multilevel degenerative changes are noted. Mild L4-L5 and L5-S1 facet arthropathy. No pars defects. Buckle fracture of the right iliac bone is stable in appearance compared to 12/02/18. Postsurgical changes noted in the left hip which are unchanged compared to prior CT scan are visualized. Soft tissues: No retroperitoneal masses or hematomas. Visualized aorta is normal in caliber. IMPRESSION: 1. Subacute appearing T12 an acute appearing L1 compression fractures. 2. Multilevel degenerative disc disease and facet arthropathy. Dictated by: Lorraine Leahy MD, PhD on 04/16/2018 at 14:03 Approved by: Lorraine Leahy MD, PhD on 04/16/2018 at 14:16
[2018-04-16] MEDS: SODIUM CHLORIDE 0.9% 1,000 ML 1000 ML IV (13:07)
[2018-04-16] MEDS: HYDROMORPHONE 1 MG INJ IV (13:36)
[2018-04-16 13:39] LABS: Alanine Aminotransferase 40 IU/L (21-72); Albumin 3.9 g/dL (3.5-5.0); Albumin Globulin Ratio 1.6 (1.0-2.8); Alkaline Phosphatase 81 U/L (38-126); Aspartate Aminotransferase 15 IU/L (17-59); BUN Creatinine Ratio 26.3 (6-22); Bilirubin Total 0.4 mg/dL (0.2-1.3); Blood Urea Nitrogen 21 mg/dL (9-20); Calcium 9.2 mg/dL (8.4-10.2); Carbon Dioxide 25 mmol/L (22-32); Chloride 103 mmol/L (98-107); Creatine Kinase 25 U/L (55-170); Estimated Glomerular Filt Rate > 60.0 mL/min (>60); Globulin 2.5 g/dL (1.7-4.1); Glucose 112 mg/dL (80-110); HEMOLYSIS < 15 (0-50); Potassium 3.4 mmol/L (3.4-5.1); Sodium 139 mmol/L (137-145); Total Protein 6.4 g/dL (6.3-8.2)
[2018-04-16 13:55] LABS: Troponin I < 0.012 ng/mL (0.01-0.034)
[2018-04-16 14:06] LABS: Add Manual Diff / Slide Review NO; Basophils Absolute Auto 0 /uL (0-100); Basophils Percent Auto 0.2 % (0-2); Eosinophils Absolute Auto 0 /uL (0-450); Hematocrit 24.4 % (41-53); Hemoglobin 8.4 g/dL (13.5-17.5); Lymphocytes Absolute Auto 500 /uL (1100-4500); Lymphocytes Percent Auto 6.6 % (25-40); Mean Corpuscular HGB Conc 34.3 % (30-36); Mean Corpuscular Hemoglobin 30.1 PG (26-34); Mean Corpuscular Volume 87.8 fL (80-100); Monocytes Absolute Auto 600 /uL (0-900); Monocytes Percent Auto 9.3 % (3-14); Neutrophils Absolute Auto 5900 /uL (1500-7000); Neutrophils Percent Auto 83.9 % (50-75); Red Blood Cell Count 2.78 X10^6/uL (4.5-5.9)
[2018-04-16 14:10] LABS: Platelet Count 25 X10^3/uL (150-400)
[2018-04-16 14:45] LABS: Platelet Estimate Decreased on smear; RBC Morphology Normal Morphology
--- NOTE | 2018-04-16 15:36 | ED_ITS ---
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 He reports he has had lower back pain over the past several months. He denies any trauma to the lower back. Reports exacerbation of his lower back last night. He states that he had back pain that he tried to walk to the restroom to loosen up his lower back pain he sat on the toilet and had a syncopal episode. He does not think that he had any head injury. He denies any trauma to the lower back. He denies any loss of bladder control. Increased pain with motion of the lower back. He denies any numbness into his lower extremities. He has not had chemotherapy in the last 6-8 weeks. His platelets have been running low and his H&H has been running low as well. He is currently followed by Oncology at [facility]. Related Data Home Medications Medication Instructions Recorded Confirmed enoxaparin 80 mg SUB-Q Q12HR 10/15/17 04/16/18 Airborne Vitamin 1 tab PO DAILY 04/16/18 04/16/18 dexamethasone 4 mg PO DAILY 04/16/18 04/16/18 hydrocodone-acetaminophen 1 tab PO Q4H PRN 04/16/18 04/16/18 oxycodone-acetaminophen 1 tab PO Q4H PRN 04/16/18 04/16/18 Allergies Allergy/AdvReac Type Severity Reaction Status Date / Time birch Allergy Unknown Verified 04/16/18 13:01 ragweed pollen Allergy Unknown Verified 04/16/18 13:01 Review of Systems <VERITO Velez - Last Filed: 04/16/18 21:50> Constitutional Denies chills, Denies fever(s), Denies lethargy and Denies weakness Eyes Denies change in vision, Denies eye discharge, Denies irritation and Denies loss of vision ENT Ears, Nose, Mouth, and Throat: Denies change in voice, Denies neck pain and Denies sore throat Cardiovascular Denies chest pain, Reports syncope, Denies irregular heart rhythm, Denies lightheadedness, Denies palpitations, Denies dyspnea, Denies dyspnea on exertion and Denies orthopnea Respiratory Denies cough, Denies dyspnea, Denies dyspnea on exertion and Denies wheezing Gastrointestinal Gastrointestinal: Denies abdominal pain, Denies change in bowel habits, Denies diarrhea, Denies nausea and Denies vomiting Genitourinary Denies hematuria, Denies flank pain, Denies urinary incontinence and Denies urinary urgency Musculoskeletal Denies neck pain Comments: Lower back pain Integumentary/Breasts Denies pruritus, Denies erythema, Denies rash and Denies wounds Neurologic Denies confusion, Reports syncope, Denies loss of vision and Denies weakness Psychiatric Denies anxiety, Denies confusion, Denies depression, Denies homicidal ideation and Denies suicidal ideation Endocrine Denies palpitations Hematologic/Lymphatic Denies easy bruising Allergic/Immunologic Denies wheezing PFSH <VERITO Velez - Last Filed: 04/16/18 21:50> Medical History Perforated viscus (Acute) Small bowel obstruction due to postoperative adhesions (Acute) Thymoma (Acute) Diverticulosis (Chronic) Elevated PSA (Chronic ~1999) Hearing loss (Chronic) Hepatitis (Chronic ~1971) Insomnia (Chronic) Intra-abdominal free air of unknown etiology (Chronic) Kidney stones (Chronic ~1989) Mediastinal mass (Chronic) Thyroid cancer (Chronic ~2017) Tinnitus (Chronic ~1999) Vision disorder (Chronic) Surgical History H/O colectomy (Acute) Anesthesia (Resolved) Broken arm (Resolved ~1983) History of appendectomy (Resolved ~1979) History of colonoscopy (Resolved) History of hip replacement (Resolved ~1991) History of knee surgery (Resolved ~1959) Family History Father History of emphysema Mother Congestive heart failure Brother Pancreatic cancer Social History household members: spouse Smoking Status: Never smoker alcohol intake: current Family History Father History of emphysema Mother Congestive heart failure Brother Pancreatic cancer Social History household members: spouse Smoking Status: Never smoker alcohol intake: current Exam <VERITO Velez - Last Filed: 04/16/18 21:50> Initial Vital Signs Initial Vital Signs: Vital Signs Temperature 98.9 F 04/16/18 12:36 Pulse Rate 78 04/16/18 12:36 Respiratory Rate 18 04/16/18 12:36 Blood Pressure 142/80 H 04/16/18 12:36 Pulse Oximetry 95 04/16/18 12:36 Const General: cooperative and well developed Nutritional Appearance: well nourished Orientation: alert, awake, oriented x3 and not confused HENMT Mouth: oral mucosae normal, oropharynx normal and moist mucous membranes Eyes Conjunctivae: conjunctivae normal Sclera: sclerae normal Pupils: PERRL EOM: EOM intact bilaterally Chest Chest: normal inspection of the chest Cardio Rate: regular rate Rhythm: regular rhythm Heart Sounds: no click, no gallops, no murmurs and no rubs Pulses: normal peripheral pulses GI Inspection: non-distended Palpation: soft, no hepatosplenomegaly, No guarding, No pulsatile mass and No tender Auscultation: normal bowel sounds Back/Spine/Pelvis Thoracic/Lumbar Spine: paraspinal tenderness Sacroiliac Joints: nontender Skin General: no rashes or lesions noted, No jaundice and No petechiae Neuro General: alert, oriented x3, gait normal and no focal motor deficits Speech: speech normal <Dominick Moreno DO - Last Filed: 04/19/18 07:06> Initial Vital Signs Initial Vital Signs: Vital Signs Temperature 98.9 F 04/16/18 12:36 Pulse Rate 78 04/16/18 12:36 Respiratory Rate 18 04/16/18 12:36 Blood Pressure 142/80 H 04/16/18 12:36 Pulse Oximetry 95 04/16/18 12:36 Course <VERITO Velez - Last Filed: 04/16/18 21:50> Orders Ordered: ED Orders 04/19/18 05:00 CBC [Complete Blood Count AUTO DIFF] Routine Type and Screen Routine Acetaminophen (Tylenol) 650 mg PO Q6HR PRN PRN Reason: As Needed for Fever/Mild Pain Al Hydrox/Mg Hydrox/Simethicone (Maalox Plus) 30 ml PO Q6HR PRN PRN Reason: Dyspepsia Bisacodyl (Dulcolax) 10 mg [place] DAILY PRN PRN Reason: Constipation Calcium Carbonate (Tums) 1,000 mg PO Q4HR PRN PRN Reason: Dyspepsia Last Admin: 04/17/18 10:52 Dose: 1,000 mg Cyclobenzaprine HCl (Flexeril) 10 mg PO Q8H PRN PRN Reason: Spasms Dexamethasone (Decadron) 4 mg PO DAILY [facility] Last Admin: 04/18/18 09:09 Dose: 4 mg Admin: 04/17/18 09:06 Dose: 4 mg Docusate Sodium (Colace) 100 mg PO BID [facility] Last Admin: 04/18/18 20:21 Dose: 100 mg Admin: 04/18/18 09:10 Dose: 100 mg Admin: 04/17/18 21:08 Dose: 100 mg Admin: 04/17/18 09:06 Dose: 100 mg Heparin Sodium (Porcine) (Heparin (Cl/Picc/Mid-Line)) 10 unit IV BID [facility] Last Admin: 04/18/18 20:23 Dose: 10 unit Admin: 04/18/18 09:18 Dose: 10 unit Admin: 04/17/18 21:09 Dose: 10 unit Admin: 04/17/18 09:09 Dose: 10 unit Admin: 04/17/18 02:35 Dose: 10 unit Sodium Chloride (Normal Saline 0.45%) 1,000 mls @ 50 mls/hr IV CONT [facility] Last Admin: 04/18/18 22:18 Dose: 50 mls/hr Infusion: 04/18/18 21:03 Dose: 50 mls/hr Admin: 04/18/18 01:03 Dose: 50 mls/hr Infusion: 04/17/18 18:51 Dose: 50 mls/hr Admin: 04/16/18 22:51 Dose: 50 mls/hr Lidocaine (Lidoderm) 1 each TOP DAILY [facility] Last Admin: 04/18/18 20:21 Dose: 1 each Naloxone HCl (Narcan) 0.2 mg IV Q2MIN PRN PRN Reason: Opiate Reversal Ondansetron HCl (Zofran) 4 mg IV Q8HR PRN PRN Reason: Nausea And Vomiting Last Admin: 04/17/18 06:27 Dose: 4 mg Oxycodone HCl (Percolone) 10 mg PO Q3HR PRN PRN Reason: Pain, Severe (7-10) Oxycodone HCl (Percolone) 7.5 mg PO Q3HR PRN PRN Reason: Pain, Moderate (4-6) Last Admin: 04/19/18 05:21 Dose: 7.5 mg Admin: 04/18/18 22:25 Dose: 7.5 mg Admin: 04/18/18 18:43 Dose: 7.5 mg Pantoprazole Sodium (Protonix) 20 mg PO 0600 [facility] Last Admin: 04/19/18 05:28 Dose: 20 mg Admin: 04/18/18 09:13 Dose: Not Given Admin: 04/17/18 06:27 Dose: 20 mg Polyethylene Glycol (Miralax) 17 gm PO DAILY PRN PRN Reason: Constipation Discontinued Medications Furosemide (Lasix) 20 mg IV BID [facility] Last Admin: 04/17/18 01:41 Dose: Not Given Hydromorphone HCl (Dilaudid) 1 mg IV NOW ONE Stop: 04/16/18 13:16 Last Admin: 04/16/18 13:36 Dose: 1 mg Hydromorphone HCl (Dilaudid) 1 mg IV NOW ONE Stop: 04/16/18 19:49 Last Admin: 04/16/18 20:17 Dose: 1 mg Hydromorphone HCl (Dilaudid) 1 mg IV NOW ONE Stop: 04/16/18 22:30 Last Admin: 04/16/18 22:48 Dose: 1 mg Sodium Chloride (Normal Saline 0.9%) 1,000 mls @ 1,000 mls/hr IV BOLUS ONE Stop: 04/16/18 13:54 Last Infusion: 04/16/18 14:59 Dose: 0 mls/hr Admin: 04/16/18 13:07 Dose: 1,000 mls/hr Lorazepam (Ativan) 1 mg IV NOW ONE Stop: 04/16/18 15:29 Last Admin: 04/16/18 15:47 Dose: 1 mg Ondansetron HCl (Zofran) 4 mg IV NOW ONE Stop: 04/16/18 20:03 Last Admin: 04/16/18 20:17 Dose: 4 mg Oxycodone HCl (Oxycontin) 20 mg PO Q8HR [facility] Last Admin: 04/18/18 09:12 Dose: Not Given Admin: 04/17/18 21:09 Dose: Not Given Admin: 04/17/18 14:46 Dose: 20 mg Admin: 04/17/18 06:28 Dose: 20 mg Admin: 04/16/18 22:54 Dose: 20 mg Oxycodone HCl (Percolone) 5 mg PO Q8H PRN PRN Reason: Breakthrough Pain Last Admin: 04/17/18 02:46 Dose: 5 mg Oxycodone HCl (Percolone) 10 mg PO Q3HR PRN PRN Reason: Pain, Severe (7-10) Last Admin: 04/18/18 10:26 Dose: 10 mg Oxycodone HCl (Percolone) 7.5 mg PO Q3HR PRN PRN Reason: Pain, Moderate (4-6) Vital Signs - 8 hr 04/19/18 00:14 04/19/18 00:27 04/19/18 05:25 Temperature 97.9 F 98.1 F Pulse Rate 72 63 Respiratory Rate 16 16 Blood Pressure 133/78 117/68 Pulse Oximetry 98 93 <Dominick Moreno DO - Last Filed: 04/19/18 07:06> Orders Ordered: ED Orders 04/19/18 05:00 CBC [Complete Blood Count AUTO DIFF] Routine Type and Screen Routine Acetaminophen (Tylenol) 650 mg PO Q6HR PRN PRN Reason: As Needed for Fever/Mild Pain Al Hydrox/Mg Hydrox/Simethicone (Maalox Plus) 30 ml PO Q6HR PRN PRN Reason: Dyspepsia Bisacodyl (Dulcolax) 10 mg [place] DAILY PRN PRN Reason: Constipation Calcium Carbonate (Tums) 1,000 mg PO Q4HR PRN PRN Reason: Dyspepsia Last Admin: 04/17/18 10:52 Dose: 1,000 mg Cyclobenzaprine HCl (Flexeril) 10 mg PO Q8H PRN PRN Reason: Spasms Dexamethasone (Decadron) 4 mg PO DAILY [facility] Last Admin: 04/18/18 09:09 Dose: 4 mg Admin: 04/17/18 09:06 Dose: 4 mg Docusate Sodium (Colace) 100 mg PO BID [facility] Last Admin: 04/18/18 20:21 Dose: 100 mg Admin: 04/18/18 09:10 Dose: 100 mg Admin: 04/17/18 21:08 Dose: 100 mg Admin: 04/17/18 09:06 Dose: 100 mg Heparin Sodium (Porcine) (Heparin (Cl/Picc/Mid-Line)) 10 unit IV BID [facility] Last Admin: 04/18/18 20:23 Dose: 10 unit Admin: 04/18/18 09:18 Dose: 10 unit Admin: 04/17/18 21:09 Dose: 10 unit Admin: 04/17/18 09:09 Dose: 10 unit Admin: 04/17/18 02:35 Dose: 10 unit Sodium Chloride (Normal Saline 0.45%) 1,000 mls @ 50 mls/hr IV CONT [facility] Last Admin: 04/18/18 22:18 Dose: 50 mls/hr Infusion: 04/18/18 21:03 Dose: 50 mls/hr Admin: 04/18/18 01:03 Dose: 50 mls/hr Infusion: 04/17/18 18:51 Dose: 50 mls/hr Admin: 04/16/18 22:51 Dose: 50 mls/hr Lidocaine (Lidoderm) 1 each TOP DAILY [facility] Last Admin: 04/18/18 20:21 Dose: 1 each Naloxone HCl (Narcan) 0.2 mg IV Q2MIN PRN PRN Reason: Opiate Reversal Ondansetron HCl (Zofran) 4 mg IV Q8HR PRN PRN Reason: Nausea And Vomiting Last Admin: 04/17/18 06:27 Dose: 4 mg Oxycodone HCl (Percolone) 10 mg PO Q3HR PRN PRN Reason: Pain, Severe (7-10) Oxycodone HCl (Percolone) 7.5 mg PO Q3HR PRN PRN Reason: Pain, Moderate (4-6) Last Admin: 04/19/18 05:21 Dose: 7.5 mg Admin: 04/18/18 22:25 Dose: 7.5 mg Admin: 04/18/18 18:43 Dose: 7.5 mg Pantoprazole Sodium (Protonix) 20 mg PO 0600 [facility] Last Admin: 04/19/18 05:28 Dose: 20 mg Admin: 04/18/18 09:13 Dose: Not Given Admin: 04/17/18 06:27 Dose: 20 mg Polyethylene Glycol (Miralax) 17 gm PO DAILY PRN PRN Reason: Constipation Discontinued Medications Furosemide (Lasix) 20 mg IV BID [facility] Last Admin: 04/17/18 01:41 Dose: Not Given Hydromorphone HCl (Dilaudid) 1 mg IV NOW ONE Stop: 04/16/18 13:16 Last Admin: 04/16/18 13:36 Dose: 1 mg Hydromorphone HCl (Dilaudid) 1 mg IV NOW ONE Stop: 04/16/18 19:49 Last Admin: 04/16/18 20:17 Dose: 1 mg Hydromorphone HCl (Dilaudid) 1 mg IV NOW ONE Stop: 04/16/18 22:30 Last Admin: 04/16/18 22:48 Dose: 1 mg Sodium Chloride (Normal Saline 0.9%) 1,000 mls @ 1,000 mls/hr IV BOLUS ONE Stop: 04/16/18 13:54 Last Infusion: 04/16/18 14:59 Dose: 0 mls/hr Admin: 04/16/18 13:07 Dose: 1,000 mls/hr Lorazepam (Ativan) 1 mg IV NOW ONE Stop: 04/16/18 15:29 Last Admin: 04/16/18 15:47 Dose: 1 mg Ondansetron HCl (Zofran) 4 mg IV NOW ONE Stop: 04/16/18 20:03 Last Admin: 04/16/18 20:17 Dose: 4 mg Oxycodone HCl (Oxycontin) 20 mg PO Q8HR [facility] Last Admin: 04/18/18 09:12 Dose: Not Given Admin: 04/17/18 21:09 Dose: Not Given Admin: 04/17/18 14:46 Dose: 20 mg Admin: 04/17/18 06:28 Dose: 20 mg Admin: 04/16/18 22:54 Dose: 20 mg Oxycodone HCl (Percolone) 5 mg PO Q8H PRN PRN Reason: Breakthrough Pain Last Admin: 04/17/18 02:46 Dose: 5 mg Oxycodone HCl (Percolone) 10 mg PO Q3HR PRN PRN Reason: Pain, Severe (7-10) Last Admin: 04/18/18 10:26 Dose: 10 mg Oxycodone HCl (Percolone) 7.5 mg PO Q3HR PRN PRN Reason: Pain, Moderate (4-6) Vital Signs - 8 hr 04/19/18 00:14 04/19/18 00:27 04/19/18 05:25 Temperature 97.9 F 98.1 F Pulse Rate 72 63 Respiratory Rate 16 16 Blood Pressure 133/78 117/68 Pulse Oximetry 98 93 MDM - Back Pain/Injury <VERITO Velez - Last Filed: 04/16/18 21:50> Lab Data Result diagrams: 04/19/18 05:00 04/18/18 08:40 Lab Results 04/16/18 04/16/18 04/17/18 Range/Units 12:25 13:58 06:00 WBC 7.0 (4.5-11.0) X10^3/uL RBC 2.78 L (4.5-5.9) X10^6/uL Hgb 8.4 L (13.5-17.5) g/dL Hct 24.4 L (41-53) % MCV 87.8 (80-100) fL MCH 30.1 (26-34) PG MCHC 34.3 (30-36) % RDW 14.0 (11.6-14.8) % Plt Count 25 L* (150-400) X10^3/uL Neut % (Auto) 83.9 H (50-75) % Lymph % (Auto) 6.6 L (25-40) % [place] % (Auto) 9.3 (3-14) % Eos % (Auto) 0.0 L (2-4) % Baso % (Auto) 0.2 (0-2) % Neut # (Auto) 5900 (0591-2474) /uL Lymph # (Auto) 500 L (3621-7679) /uL [place] # (Auto) 600 (0-900) /uL Eos # (Auto) 0 (0-450) /uL Baso # (Auto) 0 (0-100) /uL Platelet Estimate Decreased on smear RBC Morphology Normal morphology Sodium 139 137 (137-145) mmol/L Potassium 3.4 4.2 (3.4-5.1) mmol/L Chloride 103 103 (98-107) mmol/L Carbon Dioxide 25 27 (22-32) mmol/L BUN 21 H 21 H (9-20) mg/dL Creatinine 0.80 0.70 (0.66-1.25) mg/dL Estimated GFR > 60.0 > 60.0 (>60) mL/min BUN/Creatinine Ratio 26.3 H 30.0 H (6-22) Glucose 112 H 109 (80-110) mg/dL Calcium 9.2 8.9 (8.4-10.2) mg/dL Total Bilirubin 0.4 (0.2-1.3) mg/dL AST 15 L (17-59) IU/L ALT 40 (21-72) IU/L Alkaline Phosphatase 81 (38-126) U/L Total Creatine Kinase 25 L (55-170) U/L CK-MB (CK-2) TNP CK-MB (CK-2) Rel Index TNP Troponin I < 0.012 (0.01-0.034) ng/mL Total Protein 6.4 (6.3-8.2) g/dL Albumin 3.9 (3.5-5.0) g/dL Globulin 2.5 (1.7-4.1) g/dL Albumin/Globulin Ratio 1.6 (1.0-2.8) Blood Type 04/17/18 04/18/18 04/18/18 Range/Units 06:00 08:40 08:40 WBC 5.3 5.9 (4.5-11.0) X10^3/uL RBC 2.63 L 2.81 L (4.5-5.9) X10^6/uL Hgb 7.9 L 8.3 L (13.5-17.5) g/dL Hct 23.1 L 24.4 L (41-53) % MCV 88.0 86.8 (80-100) fL MCH 30.1 29.7 (26-34) PG MCHC 34.2 34.2 (30-36) % RDW 14.1 13.9 (11.6-14.8) % Plt Count 17 L* 22 L* (150-400) X10^3/uL Neut % (Auto) 84.2 H 84.5 H (50-75) % Lymph % (Auto) 6.6 L 6.1 L (25-40) % [place] % (Auto) 9.1 8.8 (3-14) % Eos % (Auto) 0.0 L 0.1 L (2-4) % Baso % (Auto) 0.1 0.5 (0-2) % Neut # (Auto) 4400 5000 (8698-6886) /uL Lymph # (Auto) 300 L 400 L (3324-3107) /uL [place] # (Auto) 500 500 (0-900) /uL Eos # (Auto) 0 0 (0-450) /uL Baso # (Auto) 0 0 (0-100) /uL Platelet Estimate Decreased on smear Decreased on smear RBC Morphology Normal morphology See below Sodium 137 (137-145) mmol/L Potassium 3.9 (3.4-5.1) mmol/L Chloride 102 (98-107) mmol/L Carbon Dioxide 26 (22-32) mmol/L BUN 22 H (9-20) mg/dL Creatinine 0.80 (0.66-1.25) mg/dL Estimated GFR > 60.0 (>60) mL/min BUN/Creatinine Ratio 27.5 H (6-22) Glucose 119 H (80-110) mg/dL Calcium 9.6 (8.4-10.2) mg/dL Total Bilirubin (0.2-1.3) mg/dL AST (17-59) IU/L ALT (21-72) IU/L Alkaline Phosphatase (38-126) U/L Total Creatine Kinase (55-170) U/L CK-MB (CK-2) CK-MB (CK-2) Rel Index Troponin I (0.01-0.034) ng/mL Total Protein (6.3-8.2) g/dL Albumin (3.5-5.0) g/dL Globulin (1.7-4.1) g/dL Albumin/Globulin Ratio (1.0-2.8) Blood Type 04/19/18 04/19/18 Range/Units 05:00 05:00 WBC 4.1 L (4.5-11.0) X10^3/uL RBC 2.43 L (4.5-5.9) X10^6/uL Hgb 7.3 L (13.5-17.5) g/dL Hct 21.2 L (41-53) % MCV 87.2 (80-100) fL MCH 29.8 (26-34) PG MCHC 34.2 (30-36) % RDW 13.6 (11.6-14.8) % Plt Count 15 L* (150-400) X10^3/uL Neut % (Auto) 76.9 H (50-75) % Lymph % (Auto) 11.6 L (25-40) % [place] % (Auto) 11.5 (3-14) % Eos % (Auto) 0.0 L (2-4) % Baso % (Auto) 0.0 (0-2) % Neut # (Auto) 3200 (7762-4315) /uL Lymph # (Auto) 500 L (6820-7653) /uL [place] # (Auto) 500 (0-900) /uL Eos # (Auto) 0 (0-450) /uL Baso # (Auto) 0 (0-100) /uL Platelet Estimate RBC Morphology Sodium (137-145) mmol/L Potassium (3.4-5.1) mmol/L Chloride (98-107) mmol/L Carbon Dioxide (22-32) mmol/L BUN (9-20) mg/dL Creatinine (0.66-1.25) mg/dL Estimated GFR (>60) mL/min BUN/Creatinine Ratio (6-22) Glucose (80-110) mg/dL Calcium (8.4-10.2) mg/dL Total Bilirubin (0.2-1.3) mg/dL AST (17-59) IU/L ALT (21-72) IU/L Alkaline Phosphatase (38-126) U/L Total Creatine Kinase (55-170) U/L CK-MB (CK-2) CK-MB (CK-2) Rel Index Troponin I (0.01-0.034) ng/mL Total Protein (6.3-8.2) g/dL Albumin (3.5-5.0) g/dL Globulin (1.7-4.1) g/dL Albumin/Globulin Ratio (1.0-2.8) Blood Type O Negative ECG Data Interpretation: EKG shows normal sinus rhythm with no ST elevation or depression. No ectopy. Ventricular rate is 67. Pr interval 79640. QRS duration 150. QTC 419. MDM Narrative Medical decision making narrative: EKG shows sinus rhythm with no ST elevation or depression. No ectopy. CT of the head was obtained was negative for any acu te findings. CT of the lower spine was obtained and shows subacute compression fracture to T12 and L1 no other acute findings. CBC shows anemia of H&H of 8.4 and 24.4 which is up from his last values. Platelets return back at 25. CMP was unremarkable. Cardiac enzymes were negative. Patient refused to have chest x- ray completed. Discussed case with Dr. Coker his oncologist who states that his platelet count has been low recently and not sure why. He recommends follow-up with Oncology here in the next couple of days for re-evaluation. He was given Dilaudid and Ativan for his discomfort. Patient did express concern about going home with the pain lady is in at this timeframe. Discussed case with hospitalist who does not feel that he meets admission criteria. Patient is informed to use his pain medications and Ativan as prescribed to help with his discomfort. Suspect that his pain is due to compression fractures. After clearance by Oncology may be suitable to refer him to Orthopedics for further evaluation. For any worsening symptoms return to the emergency room. Syncope most likely due to vasovagal response due to the back pain. Addendum patient was not able to get out of bed without significant help from nursing and client support associate. Three person lift did not go well to get patient into wheelchair and to the vehicle. We discussed case with hospitalist who accepted patient for observation for pain control <Dominick Moreno DO - Last Filed: 04/19/18 07:06> Lab Data Lab Results 04/16/18 04/16/18 04/17/18 Range/Units 12:25 13:58 06:00 WBC 7.0 (4.5-11.0) X10^3/uL RBC 2.78 L (4.5-5.9) X10^6/uL Hgb 8.4 L (13.5-17.5) g/dL Hct 24.4 L (41-53) % MCV 87.8 (80-100) fL MCH 30.1 (26-34) PG MCHC 34.3 (30-36) % RDW 14.0 (11.6-14.8) % Plt Count 25 L* (150-400) X10^3/uL Neut % (Auto) 83.9 H (50-75) % Lymph % (Auto) 6.6 L (25-40) % [place] % (Auto) 9.3 (3-14) % Eos % (Auto) 0.0 L (2-4) % Baso % (Auto) 0.2 (0-2) % Neut # (Auto) 5900 (9564-6542) /uL Lymph # (Auto) 500 L (0879-5659) /uL [place] # (Auto) 600 (0-900) /uL Eos # (Auto) 0 (0-450) /uL Baso # (Auto) 0 (0-100) /uL Platelet Estimate Decreased on smear RBC Morphology Normal morphology Sodium 139 137 (137-145) mmol/L Potassium 3.4 4.2 (3.4-5.1) mmol/L Chloride 103 103 (98-107) mmol/L Carbon Dioxide 25 27 (22-32) mmol/L BUN 21 H 21 H (9-20) mg/dL Creatinine 0.80 0.70 (0.66-1.25) mg/dL Estimated GFR > 60.0 > 60.0 (>60) mL/min BUN/Creatinine Ratio 26.3 H 30.0 H (6-22) Glucose 112 H 109 (80-110) mg/dL Calcium 9.2 8.9 (8.4-10.2) mg/dL Total Bilirubin 0.4 (0.2-1.3) mg/dL AST 15 L (17-59) IU/L ALT 40 (21-72) IU/L Alkaline Phosphatase 81 (38-126) U/L Total Creatine Kinase 25 L (55-170) U/L CK-MB (CK-2) TNP CK-MB (CK-2) Rel Index TNP Troponin I < 0.012 (0.01-0.034) ng/mL Total Protein 6.4 (6.3-8.2) g/dL Albumin 3.9 (3.5-5.0) g/dL Globulin 2.5 (1.7-4.1) g/dL Albumin/Globulin Ratio 1.6 (1.0-2.8) Blood Type 04/17/18 04/18/18 04/18/18 Range/Units 06:00 08:40 08:40 WBC 5.3 5.9 (4.5-11.0) X10^3/uL RBC 2.63 L 2.81 L (4.5-5.9) X10^6/uL Hgb 7.9 L 8.3 L (13.5-17.5) g/dL Hct 23.1 L 24.4 L (41-53) % MCV 88.0 86.8 (80-100) fL MCH 30.1 29.7 (26-34) PG MCHC 34.2 34.2 (30-36) % RDW 14.1 13.9 (11.6-14.8) % Plt Count 17 L* 22 L* (150-400) X10^3/uL Neut % (Auto) 84.2 H 84.5 H (50-75) % Lymph % (Auto) 6.6 L 6.1 L (25-40) % [place] % (Auto) 9.1 8.8 (3-14) % Eos % (Auto) 0.0 L 0.1 L (2-4) % Baso % (Auto) 0.1 0.5 (0-2) % Neut # (Auto) 4400 5000 (4325-4182) /uL Lymph # (Auto) 300 L 400 L (6734-8829) /uL [place] # (Auto) 500 500 (0-900) /uL Eos # (Auto) 0 0 (0-450) /uL Baso # (Auto) 0 0 (0-100) /uL Platelet Estimate Decreased on smear Decreased on smear RBC Morphology Normal morphology See below Sodium 137 (137-145) mmol/L Potassium 3.9 (3.4-5.1) mmol/L Chloride 102 (98-107) mmol/L Carbon Dioxide 26 (22-32) mmol/L BUN 22 H (9-20) mg/dL Creatinine 0.80 (0.66-1.25) mg/dL Estimated GFR > 60.0 (>60) mL/min BUN/Creatinine Ratio 27.5 H (6-22) Glucose 119 H (80-110) mg/dL Calcium 9.6 (8.4-10.2) mg/dL Total Bilirubin (0.2-1.3) mg/dL AST (17-59) IU/L ALT (21-72) IU/L Alkaline Phosphatase (38-126) U/L Total Creatine Kinase (55-170) U/L CK-MB (CK-2) CK-MB (CK-2) Rel Index Troponin I (0.01-0.034) ng/mL Total Protein (6.3-8.2) g/dL Albumin (3.5-5.0) g/dL Globulin (1.7-4.1) g/dL Albumin/Globulin Ratio (1.0-2.8) Blood Type 04/19/18 04/19/18 Range/Units 05:00 05:00 WBC 4.1 L (4.5-11.0) X10^3/uL RBC 2.43 L (4.5-5.9) X10^6/uL Hgb 7.3 L (13.5-17.5) g/dL Hct 21.2 L (41-53) % MCV 87.2 (80-100) fL MCH 29.8 (26-34) PG MCHC 34.2 (30-36) % RDW 13.6 (11.6-14.8) % Plt Count 15 L* (150-400) X10^3/uL Neut % (Auto) 76.9 H (50-75) % Lymph % (Auto) 11.6 L (25-40) % [place] % (Auto) 11.5 (3-14) % Eos % (Auto) 0.0 L (2-4) % Baso % (Auto) 0.0 (0-2) % Neut # (Auto) 3200 (8924-3025) /uL Lymph # (Auto) 500 L (2219-3596) /uL [place] # (Auto) 500 (0-900) /uL Eos # (Auto) 0 (0-450) /uL Baso # (Auto) 0 (0-100) /uL Platelet Estimate RBC Morphology Sodium (137-145) mmol/L Potassium (3.4-5.1) mmol/L Chloride (98-107) mmol/L Carbon Dioxide (22-32) mmol/L BUN (9-20) mg/dL Creatinine (0.66-1.25) mg/dL Estimated GFR (>60) mL/min BUN/Creatinine Ratio (6-22) Glucose (80-110) mg/dL Calcium (8.4-10.2) mg/dL Total Bilirubin (0.2-1.3) mg/dL AST (17-59) IU/L ALT (21-72) IU/L Alkaline Phosphatase (38-126) U/L Total Creatine Kinase (55-170) U/L CK-MB (CK-2) CK-MB (CK-2) Rel Index Troponin I (0.01-0.034) ng/mL Total Protein (6.3-8.2) g/dL Albumin (3.5-5.0) g/dL Globulin (1.7-4.1) g/dL Albumin/Globulin Ratio (1.0-2.8) Blood Type O Negative Discharge Plan Departure Patient Disposition: Admitted As Inpatient Clinical Impression: Syncope, vasovagal Compression fracture of lumbar vertebra Qualifiers: Encounter type: initial encounter Lumbar vertebra fracture level: L1 Fracture type: closed Qualified Code(s): S32.010A - Wedge compression fracture of first lumbar vertebra, initial encounter for closed fracture Discharge Date/Time: 04/16/18 21:56 Interventions: ED Discharge Assessment Last Done: 04/16/18 17:27 Admit Date/Time: 04/17/18 13:01 Admit Provider: Pilo Melissa <Dominick Moreno DO - Last Filed: 04/19/18 07:06> Cosign ED Attending Coscelesteature Attestation: I was available for consultation during this patient's emergency department encounter
[2018-04-16] MEDS: LORazepam 2 MG/ML SYRINGE 1 MG IV (15:47)
--- NOTE | 2018-04-16 18:38 | PC.NURSE ---
Extensive 3 person assist to WC, not tolerated well, Notified Nadir Orozco NP. Pt has very little strength to his LE's to assist in transferring. Unable to lift legs to support in WC in a seated position. Pt placed back in stretcher.
[2018-04-16] MEDS: HYDROMORPHONE 0.5 MG INJ 1 MG IV ×2 (20:17→22:48)
[2018-04-16] MEDS: ONDANSETRON 4 MG/2 ML INJ IV (20:17)
[2018-04-16] MEDS: SODIUM CHLORIDE 0.45% 1,000 ML 50 ML IV (22:51)
[2018-04-16] MEDS: OXYCODONE ER 20 MG TAB PO (22:54)
[2018-04-17] VITALS (10 sets, daily range): BP systolic 116–136; BP diastolic 68–79; PULSE 62–77; RESP 15–18; TEMP 36.7–36.9; O2SAT 91–100
--- NOTE | 2018-04-17 01:17 | P.HP_ITS ---
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 Patient states that he got last night his stretches and sudden onset of increase pain felt stabbing spasm like. The patient is states he began feeling lightheaded experienced a syncopal episode next to the toilet. He was helped to the by his and did suffer injury. He reports that he woke lying on the floor and indicates that he was incontinent of urine. He states he took oxycodone that was prescribed for him 7.5/325 mg every 3 hr for 3 doses with no improvement pain. EMS was summoned is the patient was unable to get up floor to pain 9-10 out of 10. He denies other acute injury or prodrome and attributes his syncope pain. He denies fevers or chills, headaches or dizziness has no chest or shortness of breath he has had no nausea or vomiting however did become nauseated with pain medication. He denies weakness of extremities, numbness or tingling. In the ER the patient was evaluated for syncopal episode including a CT of the head which found no acute intracranial pathology, 12 lead EKG reviewed by myself which finds a sinus rhythm with a ventricular rate of 67, right bundle branch block and left anterior fascicular block. Patient also had a CT of the lumbar spine with findings of a old T12 compression fracture with approximately 50% loss of height and an acute appearing L1 fracture with approximately 30% loss of height, no surrounding fluid or hematoma, no spinal stenosis or retropulsed fragments. On lab work patient's CBC is notable for white count of 7.0, hemoglobin 8 and hematocrit of 24 with a platelet count of 25. A troponin was also evaluated and found to be less than 0.012. Patient was given Dilaudid 1 mg and Ativan for his pain. His oncologist Dr. Coker was contacted regarding patient's change in condition and concern over the platelet count. From the Oncology perspective the patient was safe to discharge home however the patient has uncontrollable pain and is unable to return home. Patient History Medical History Perforated viscus (Acute) Small bowel obstruction due to postoperative adhesions (Acute) Thymoma (Acute) Diverticulosis (Chronic) Elevated PSA (Chronic ~1999) Hearing loss (Chronic) Hepatitis (Chronic ~1971) Insomnia (Chronic) Intra-abdominal free air of unknown etiology (Chronic) Kidney stones (Chronic ~1989) Mediastinal mass (Chronic) Thyroid cancer (Chronic ~2017) Tinnitus (Chronic ~1999) Vision disorder (Chronic) Surgical History H/O colectomy (Acute) Anesthesia (Resolved) Broken arm (Resolved ~1983) History of appendectomy (Resolved ~1979) History of colonoscopy (Resolved) History of hip replacement (Resolved ~1991) History of knee surgery (Resolved ~1959) Family History Father History of emphysema Mother Congestive heart failure Brother Pancreatic cancer Social History household members: spouse Smoking Status: Never smoker alcohol intake: current Family & Social History Family History Father History of emphysema Mother Congestive heart failure Brother Pancreatic cancer Social History: household members spouse Tobacco & Substance use: Smoking Status Never smoker alcohol intake current alcohol intake frequency 0-2 drinks per day Substance Use Type does not use Comment: The patient has been for 28 years and lives in single family pending sale to [facility] level home with his on [facility]. Smoking history: None Alcohol consumption moderate alcohol consumption on a daily basis Substance abuse: No recreational pharmaceuticals or can avoid products Advanced directive: The patient wishes to be a DNR DNI. He designates his Viry, to be his surrogate decision maker. Meds Home Medications Medication Instructions Recorded Confirmed Type enoxaparin 80 mg SUB-Q Q12HR 10/15/17 04/16/18 History Airborne Vitamin 1 tab PO DAILY 04/16/18 04/16/18 History dexamethasone 4 mg PO DAILY 04/16/18 04/16/18 History hydrocodone-acetaminophen 1 tab PO Q4H PRN 04/16/18 04/16/18 History oxycodone-acetaminophen 1 tab PO Q4H PRN 04/16/18 04/16/18 History Allergies Allergy/AdvReac Type Severity Reaction Status Date / Time birch Allergy Unknown Verified 04/16/18 13:01 ragweed pollen Allergy Unknown Verified 04/16/18 13:01 Review of Systems Review of Systems Constitutional: Denies fevers, chills, sweats, fatigue, good appetite with stable weight Eyes: Positive for cataract extraction, floaters, wears glasses Denies visual changes, diplopia ENT: Positive for hearing loss, tinnitus, tonsillectomy is adult, Denies headaches, hearing changes, ear pain, no nasal congestion, rhinorrhea, no dysphagia, sore throat or dentalgia, no neck stiffness or pain Respiratory: Denies SOB, cough, exertional dyspnea, wheezing Cardiovascular: Denies chest pain, palpitations, orthostatic dizziness, edema Gastrointestinal: Positive for abdominal surgery, colostomy, nausea with IV pain med Denies abdominal pain, vomiting, no reflux or bloating, constipation or diarrhea, denies blood in stool. Genitourinary: denies penile discharge, no complains of frequency, burning or urgency, hematuria on voiding Musculoskeletal: Positive for chronic back pain, acute increase today, denies edema, myalgia or joint swelling. Integumentary: denies skin lesions, masses, rashes, hives, itching or hair loss Neurological: denies dizziness, confusion, numbness or tingling, speech difficulties or seizures Psychiatric: denies disturbances in thought, attentions or mood, denies substance abuse Endocrine: denies goiter, lethargy, abnormal sweating, and heat/cold intolerance. Heme/lymph: Positive for low platelet count, Denies lymphadenopathy, abnormal bleeding or bruising Exam Vital Signs (past 8 hours): - 04/16/18 16:13 04/16/18 16:58 04/16/18 17:30 Temperature Pulse Rate 73 72 78 Respiratory Rate 14 10 L 18 Blood Pressure Blood Pressure [Right Arm] 122/68 126/79 112/67 Pulse Oximetry 92 94 96 04/16/18 19:45 04/16/18 22:00 Temperature 99.2 F Pulse Rate 72 71 Respiratory Rate 18 18 Blood Pressure 132/85 Blood Pressure [Right Arm] 114/75 Pulse Oximetry 98 97 Oxygen Delivery Method Room Air Oxygen Flow Rate 2 Narrative Exam Narrative: General: Well developed, well nourished, in acute pain Skin: Warm, dry, pink, no rashes, no visible lesions HEENT: Normocephalic, PERRLA, EOMs intact without nystagmus, conjunctiva moist, sclera is anicteric, hearing grossly normal, no rhinorrhea, oropharynx is moist and pink without lesions or exudate, uvula midline, posterior pharynx without inflammation, no cervical lymphadenopathy Neck: Supple, no masses, no thyroid megaly, trachea midline, no carotid bruits or JVD, no supraclavicular lymphadenopathy Cardiac: Regular rate and rhythm, S1-S2, no murmur, no gallops or rubs, 2+ radial pulse, 1+ dorsalis pedis pulse, capillary refill is brisk, no edema Chest: Indwelling double lumen catheter right subclavian, symmetrical movement , no pain on AP and lateral compression breathing non labored, no cough present , BS equal bilateral without coarseness, crackles or wheezes Abdomen: Soft, colostomy with pink Wilson left lower quadrant draining around good stool, no epigastric or abdominal tenderness or guarding, no masses or organomegaly, no suprapubic pain, BS normal. Back: Pain on palpation T10-L4, palpable muscle spasms, unable to straight leg raise related pain Extremities: Dorsi plantar flexion bilateral feet are 5/5 and symmetrical, no synovial effusions or deformities, patient is nonambulatory Neuro: AAOx4, cranial nerves II-XII grossly intact, distal sensation intact to light touch, no paresthesias Psych: Flat affect, cooperative, thought linear, appropriate affect Objective Labs Result Diagrams: 04/16/18 13:58 04/16/18 12:25 Labs: Laboratory Results - last 24 hr 04/16/18 04/16/18 12:25 13:58 WBC 7.0 RBC 2.78 L Hgb 8.4 L Hct 24.4 L MCV 87.8 MCH 30.1 MCHC 34.3 RDW 14.0 Plt Count 25 L* Neut % (Auto) 83.9 H Lymph % (Auto) 6.6 L Parke % (Auto) 9.3 Eos % (Auto) 0.0 L Baso % (Auto) 0.2 Neut # (Auto) 5900 Lymph # (Auto) 500 L Parke # (Auto) 600 Eos # (Auto) 0 Baso # (Auto) 0 Platelet Estimate Decreased on smear RBC Morphology Normal morphology Sodium 139 Potassium 3.4 Chloride 103 Carbon Dioxide 25 BUN 21 H Creatinine 0.80 Estimated GFR > 60.0 BUN/Creatinine Ratio 26.3 H Glucose 112 H Calcium 9.2 Total Bilirubin 0.4 AST 15 L ALT 40 Alkaline Phosphatase 81 Total Creatine Kinase 25 L CK-MB (CK-2) TNP CK-MB (CK-2) Rel Index TNP Troponin I < 0.012 Total Protein 6.4 Albumin 3.9 Globulin 2.5 Albumin/Globulin Ratio 1.6 Assessment & Plan Plan: Assessment/Plan Narrative: This is a 67-year-old male patient who appears to have had a syncopal episode secondary to acute on chronic back pain and possible vagal reaction patient not sustain or other concomitant injury. 1. Syncopal episode, acute -head CT is clear with no significant findings -patient is hemodynamically stable and afebrile. He has no signs of dehydration although his BUN creatinine level is slightly elevated, will track BMP -patient reports trigger for his syncope has pain at 10/10. -the patient has had no previous recurring neurological symptoms -patient will be admitted on tele cardiac monitoring 2. Spinal compression fracture, acute on chronic -old T12 compression fracture with 50% height loss identified on CT -acute appearing L1 fracture with 30% height loss identified on CT -patient is unable to mobilize following 1 mg Dilaudid and Ativan for pain management -patient with muscular spasms on exam acute tenderness. -no orthopedic consult initiated by ER staff -will request orthopedic consult for evaluation -patient may benefit from back brace 3. Thymoma, chronic, active -patient is under the care of oncologist -completed chemotherapy at [facility] in February -the patient is taking dexamethasone 4 mg daily -hemoglobin of 8 and hematocrit of 24, platelet count 20 -no evidence of bleeding, no bleeding noted L1 compression fracture -will monitor CBC Patient is admitted the hospital following syncopal episode for monitoring as potentially high risk complication related to thrombocytopenia and bleeding at the fracture site and neurological complication. The patient is unable to return to his living environment due to incapacitation. Will control pain and the expected length of stay is less than 2 midnights. Time Spent With Patient Time with patient: 25 - 35 minutes Scores GCS Amalia coma scale eye opening: Spontaneous Nimco coma scale verbal response: Orientated Nimco coma scale motor response: Obey commands Nimco coma scale total score: 15
--- NOTE | 2018-04-17 02:01 | PC.NURSE ---
Addendum entered by Nick Meyer R.N. 04/17/18 02:58: Pt reported last chemo was received in February. Original Note: stitchdowns toe former Pt has ileostomy and a power PICC placed by [facility] where he is being treated for a tumor in his abdomen. Sleeping between care, asleep in room. Will continue to monitor for needs and safety.
[2018-04-17] MEDS: OXYCODONE IR 5 MG TABLET PO (02:46)
[2018-04-17] MEDS: PANTOPRAZOLE 20 MG TABLET PO (06:27)
[2018-04-17] MEDS: ONDANSETRON 4 MG/2 ML INJ IV (06:27)
[2018-04-17] MEDS: OXYCODONE ER 20 MG TAB PO ×2 (06:28→14:46)
[2018-04-17 06:50] LABS: Basophils Absolute Auto 0 /uL (0-100); Basophils Percent Auto 0.1 % (0-2); Eosinophils Absolute Auto 0 /uL (0-450); Hematocrit 23.1 % (41-53); Hemoglobin 7.9 g/dL (13.5-17.5); Lymphocytes Absolute Auto 300 /uL (1100-4500); Lymphocytes Percent Auto 6.6 % (25-40); Mean Corpuscular HGB Conc 34.2 % (30-36); Mean Corpuscular Hemoglobin 30.1 PG (26-34); Monocytes Absolute Auto 500 /uL (0-900); Monocytes Percent Auto 9.1 % (3-14); Neutrophils Absolute Auto 4400 /uL (1500-7000); Neutrophils Percent Auto 84.2 % (50-75); Red Blood Cell Count 2.63 X10^6/uL (4.5-5.9); Red Cell Distribution Width 14.1 % (11.6-14.8); White Blood Cell Count 5.3 X10^3/uL (4.5-11.0)
--- NOTE | 2018-04-17 06:53 | P.PN_ITS ---
Subjective Date Patient Seen: 04/17/18 Interval history: Boyd Velazquez is a 67-year-old male patient who appears to have had a syncopal episode secondary to acute on chronic back pain and possible vagal reaction patient not sustain or other concomitant injury. The patient is resting in bed comfortably. He endorses back pain that is a +2/ 10 which is ?pretty good?. His pain is controlled now with long-acting OxyContin 20 mg twice daily and oxycodone 5 mg every 8 hr for breakthrough pain. He reports that it is hard to quantify his pain into numbers and that a ? 1 would be nice?. Discussed expectations of pain and informed him that he will likely never be pain free. He reports that a +2-4/10 on a pain scale would be a tolerable level of pain for him. He denies headache, cough, shortness of breath, chest pain, abdominal pain, nausea, vomiting, fever, chills, dysuria, diarrhea or constipation. He is voiding without difficulty. He is up ambulating with physical therapy today. Exam Vital Signs (past 8 hours): - 04/16/18 23:45 04/17/18 06:06 Temperature 98.0 F 98.3 F Pulse Rate 68 77 Respiratory Rate 16 16 Blood Pressure 122/68 133/76 Pulse Oximetry 97 100 Oxygen Delivery Method Room Air Oxygen Flow Rate 2 Narrative Exam Narrative: General: Older gentleman lying in bed and in no acute distress, appears comfortable, well-developed, well-nourished, appropriately interactive. HEENT: Normocephalic, atraumatic. External ears without defect. Pupils equal, round, and reactive to light and accommodation. Anicteric sclerae, moist conjunctivae, and no lid lag. Oropharynx free of erythema and cobble stoning with moist mucosa. Neck: Supple with full range of motion. No jugular venous distension. No bruits. No lymphadenopathy or thyromegaly. Cardiovascular: Regular rate and rhythm without murmurs, rubs, or gallops appreciated Pulmonary: Clear to auscultation bilaterally without crackles, wheezes, or rhonchi. Normal respiratory effort with no use of accessory muscles. Abdomen: Bowel tones present. Soft, nontender, nondistended. No hepatosplenomegaly or masses appreciated. Extremities: No clubbing, cyanosis, or edema. Skin: Normal temperature, turgor, and texture; no rash, ulcers, or subcutaneous nodules appreciated. Neurological: Cranial nerves grossly intact. Normal muscle strength, tone, and bulk. Reflexes, coordination, and sensory function within normal limits. No known gait impairment. Psychiatric: Normal mood and affect. Alert and oriented to person, place, and time. Objective Labs Result Diagrams: 04/17/18 06:00 04/17/18 06:00 Labs: Laboratory Results - last 24 hr 04/16/18 04/16/18 12:25 13:58 WBC 7.0 RBC 2.78 L Hgb 8.4 L Hct 24.4 L MCV 87.8 MCH 30.1 MCHC 34.3 RDW 14.0 Plt Count 25 L* Neut % (Auto) 83.9 H Lymph % (Auto) 6.6 L Craven % (Auto) 9.3 Eos % (Auto) 0.0 L Baso % (Auto) 0.2 Neut # (Auto) 5900 Lymph # (Auto) 500 L Craven # (Auto) 600 Eos # (Auto) 0 Baso # (Auto) 0 Platelet Estimate Decreased on smear RBC Morphology Normal morphology Sodium 139 Potassium 3.4 Chloride 103 Carbon Dioxide 25 BUN 21 H Creatinine 0.80 Estimated GFR > 60.0 BUN/Creatinine Ratio 26.3 H Glucose 112 H Calcium 9.2 Total Bilirubin 0.4 AST 15 L ALT 40 Alkaline Phosphatase 81 Total Creatine Kinase 25 L CK-MB (CK-2) TNP CK-MB (CK-2) Rel Index TNP Troponin I < 0.012 Total Protein 6.4 Albumin 3.9 Globulin 2.5 Albumin/Globulin Ratio 1.6 Assessment & Plan Plan: Assessment/Plan Narrative: Boyd Velazquez is a 67-year-old male patient who appears to have had a syncopal episode secondary to acute on chronic back pain and possible vagal reaction patient not sustain or other concomitant injury. 1. Acute syncopal episode, not present on admission. Resolved. -Likely vasovagal in etiology as patient was going to the bathroom with +10/10 pain and syncopized. -CT brain without contrast did not demonstrate any acute intracranial abnormality. -Patient is hemodynamically stable and afebrile. He has no signs of dehydration although his BUN creatinine level is slightly elevated, will track BMP -No focal neurological deficits. -Continue to monitor closely on telemetry. 2. Acute pathological L1 compression fracture, present on admission. Active. -Old T12 compression fracture with 50% height loss identified on CT -Acute appearing L1 fracture with 30% height loss identified on CT. -Patient is unable to mobilize following 1 mg Dilaudid and Ativan for pain management. -ordered OxyContin 20 mg twice daily with oxycodone 5-325 every 8 hr for breakthrough pain. This regimen seems to be controlling his pain. -Ordered orthopedic consult for evaluation and treatment. We appreciate Ortho time and recommendations. 3. Thymoma, chronic, present on admission. Presumed stable. -Patient is under the care of oncologist and completed chemotherapy at [facility] in February. -Patient is taking dexamethasone 4 mg daily. -Hemoglobin of 8.4 and hematocrit of 24.4, platelet count 25. -No evidence of bleeding, no bleeding noted L1 compression fracture. -Monitor CBC daily. Disposition: Once the patient is ambulating and pain is controlled he will be discharged home with home health. Quality VTE Deep Vein Thrombosis/Pulmonary Embolism Present on Admission: No
[2018-04-17 06:55] LABS: Add Manual Diff / Slide Review SLIDE REVIEW; Platelet Count 17 X10^3/uL (150-400)
[2018-04-17 06:56] LABS: Blood Urea Nitrogen 21 mg/dL (9-20); Calcium 8.9 mg/dL (8.4-10.2); Carbon Dioxide 27 mmol/L (22-32); Chloride 103 mmol/L (98-107); Estimated Glomerular Filt Rate > 60.0 mL/min (>60); Glucose 109 mg/dL (80-110); HEMOLYSIS < 15 (0-50); Potassium 4.2 mmol/L (3.4-5.1); Sodium 137 mmol/L (137-145)
[2018-04-17 07:25] LABS: Platelet Estimate Decreased on smear; RBC Morphology Normal Morphology
--- NOTE | 2018-04-17 07:55 | P.CONS_ITS ---
History of Present Illness Date Patient Seen: 04/17/18 Time Patient Seen: 07:47 Chief complaint: Back Px Reason for consult: T12, L1 fx Requesting provider: Beth Mariel Frank Narrative: 67-year-old male with severe back pain. He has a history of a thymoma for the past 8 months and has been going through chemotherapy, last dosing was in February. Currently being maintained on dexamethasone. He was on the toilet early yesterday morning. He had loss of consciousness and does not really remember what happens but his reports she heard him moaning and he was leaned up against a wall while sitting on the toilet. She helped lower him down gently to the floor. He had severe pain afterwards. All sharp and stabbing across the low back. He denies any pain numbness or weakness going down the legs, except for some mild right anterior thigh numbness since his small bowel surgery last summer. In addition to his thymoma, he has significant thrombocytopenia with a platelet count down to 25, it was 37 a few weeks ago. He does routinely take Lovenox. [facility] Medical History Perforated viscus (Acute) Small bowel obstruction due to postoperative adhesions (Acute) Thymoma (Acute) Diverticulosis (Chronic) Elevated PSA (Chronic ~1999) Hearing loss (Chronic) Hepatitis (Chronic ~1971) Insomnia (Chronic) Intra-abdominal free air of unknown etiology (Chronic) Kidney stones (Chronic ~1989) Mediastinal mass (Chronic) Thyroid cancer (Chronic ~2017) Tinnitus (Chronic ~1999) Vision disorder (Chronic) Surgical History H/O colectomy (Acute) Anesthesia (Resolved) Broken arm (Resolved ~1983) History of appendectomy (Resolved ~1979) History of colonoscopy (Resolved) History of hip replacement (Resolved ~1991) History of knee surgery (Resolved ~1959) Family History Father History of emphysema Mother Congestive heart failure Brother Pancreatic cancer Social History household members: spouse Smoking Status: Never smoker alcohol intake: current Family History Father History of emphysema Mother Congestive heart failure Brother Pancreatic cancer Social History household members: spouse Smoking Status: Never smoker alcohol intake: current Meds Home Medications Medication Instructions Recorded Confirmed Type enoxaparin 80 mg SUB-Q Q12HR 10/15/17 04/16/18 History Airborne Vitamin 1 tab PO DAILY 04/16/18 04/16/18 History dexamethasone 4 mg PO DAILY 04/16/18 04/16/18 History hydrocodone-acetaminophen 1 tab PO Q4H PRN 04/16/18 04/16/18 History oxycodone-acetaminophen 1 tab PO Q4H PRN 04/16/18 04/16/18 History Allergies Allergy/AdvReac Type Severity Reaction Status Date / Time birch Allergy Unknown Verified 04/16/18 13:01 ragweed pollen Allergy Unknown Verified 04/16/18 13:01 Review of Systems Constitutional Constitutional: Denies chills and Denies fever(s) Cardiovascular Cardiovascular: Denies chest pain and Denies shortness of breath with activity Respiratory Respiratory: Denies dyspnea on exertion and Denies wheezing Gastrointestinal Gastrointestinal: Denies change in bowel habits Genitourinary Genitourinary: Denies difficulty urinating Hematologic/Lymphatic Hematologic/Lymphatic: Reports easy bleeding Allergic/Immunologic Allergic/Immunologic: Denies wheezing Exam Vital Signs (past 8 hours): - 04/17/18 06:06 Temperature 98.3 F Pulse Rate 77 Respiratory Rate 16 Blood Pressure 133/76 Pulse Oximetry 100 Oxygen Delivery Method Room Air Oxygen Flow Rate 2 Const Orientation: alert and oriented x3 Resp Auscultation: clear to auscultation bilaterally Cardio Heart Sounds: S1 normal and S2 normal Back/Spine/Pelvis Other: Mild tenderness in the midline at TL junction. More tenderness on the right mid lumbar paraspinals. 5/5 motor 2+ reflexes 1+ pulses negative straight leg raising both lower extremities. Objective Imaging CT lumbar spine: My impression: Subacute T12 fracture with minimal buckling of the posterior wall but no canal compromise. Acute L1 compression fracture no retropulsion. No hematoma or soft tissue expansion noted at the fractures. Labs Result Diagrams: 04/17/18 06:00 04/17/18 06:00 Labs: Laboratory Results - last 24 hr 0204/16/18 04/17/18 12:25 13:58 06:00 WBC 7.0 RBC 2.78 L Hgb 8.4 L Hct 24.4 L MCV 87.8 MCH 30.1 MCHC 34.3 RDW 14.0 Plt Count 25 L* Neut % (Auto) 83.9 H Lymph % (Auto) 6.6 L Franklin % (Auto) 9.3 Eos % (Auto) 0.0 L Baso % (Auto) 0.2 Neut # (Auto) 5900 Lymph # (Auto) 500 L Franklin # (Auto) 600 Eos # (Auto) 0 Baso # (Auto) 0 Platelet Estimate Decreased on smear RBC Morphology Normal morphology Sodium 139 137 Potassium 3.4 4.2 Chloride 103 103 Carbon Dioxide 25 27 BUN 21 H 21 H Creatinine 0.80 0.70 Estimated GFR > 60.0 > 60.0 BUN/Creatinine Ratio 26.3 H 30.0 H Glucose 112 H 109 Calcium 9.2 8.9 Total Bilirubin 0.4 AST 15 L ALT 40 Alkaline Phosphatase 81 Total Creatine Kinase 25 L CK-MB (CK-2) TNP CK-MB (CK-2) Rel Index TNP Troponin I < 0.012 Total Protein 6.4 Albumin 3.9 Globulin 2.5 Albumin/Globulin Ratio 1.6 04/17/18 06:00 WBC 5.3 RBC 2.63 L Hgb 7.9 L Hct 23.1 L MCV 88.0 MCH 30.1 MCHC 34.2 RDW 14.1 Plt Count 17 L* Neut % (Auto) 84.2 H Lymph % (Auto) 6.6 L Franklin % (Auto) 9.1 Eos % (Auto) 0.0 L Baso % (Auto) 0.1 Neut # (Auto) 4400 Lymph # (Auto) 300 L Franklin # (Auto) 500 Eos # (Auto) 0 Baso # (Auto) 0 Platelet Estimate Decreased on smear RBC Morphology Normal morphology Sodium Potassium Chloride Carbon Dioxide BUN Creatinine Estimated GFR BUN/Creatinine Ratio Glucose Calcium Total Bilirubin AST ALT Alkaline Phosphatase Total Creatine Kinase CK-MB (CK-2) CK-MB (CK-2) Rel Index Troponin I Total Protein Albumin Globulin Albumin/Globulin Ratio Assessment & Plan Plan: Assessment/Plan Narrative: Subacute T12 an acute L1 compression fracture. There does not appear to be metastatic involvement with mass or lesion at these fractures. I think this is most likely caused osteoporosis from his high steroid usage for his treatment for his thymoma. We discussed treatment options. I explained that most people used to require 1-2 days of inpatient pain medication and then are able to be discharged home once this calms down. Sometimes we used bracing, but statistically it has not been shown to make much of a difference. We discussed the possibility of a kyphoplasty if the pain were intractable and not getting any better, but with his low platelet count, I would not consider any interventional procedure. For now I would just recommend conservative pain management and mobilize with physical therapy as tolerated. Thrombocytopenia - defer to Oncology. Osteoporosis - long-term he needs to be on a bone density medication. I will defer this to Oncology for when they feel he is stable to start on 1 of the medications and which one would be best for his situation.
[2018-04-17] MEDS: DOCUSATE 100 MG CAPSULE PO ×2 (09:06→21:08)
[2018-04-17] MEDS: DEXAMETHASONE 4 MG TABLET PO (09:06)
--- NOTE | 2018-04-17 10:16 | PT.IIE ---
Surgical History (Last Reviewed 04/17/18 @ 07:50 by Cipriano Sood MD) H/O colectomy (Acute) Anesthesia (Resolved) Broken arm (Resolved ~1983) History of appendectomy (Resolved ~1979) History of colonoscopy (Resolved) History of hip replacement (Resolved ~1991) History of knee surgery (Resolved ~1959) Medical History (Last Reviewed 04/17/18 @ 07:50 by Cipriano Sood MD) Perforated viscus (Acute) Small bowel obstruction due to postoperative adhesions (Acute) Thymoma (Acute) Diverticulosis (Chronic) Elevated PSA (Chronic ~1999) Hearing loss (Chronic) Hepatitis (Chronic ~1971) Insomnia (Chronic) Intra-abdominal free air of unknown etiology (Chronic) Kidney stones (Chronic ~1989) Mediastinal mass (Chronic) Thyroid cancer (Chronic ~2017) Tinnitus (Chronic ~1999) Vision disorder (Chronic) Physical Therapy Inpatient Evaluation/Re-Eval M1 PT/OT-IP Prior Functional Status Start: 04/17/18 10:53 Freq: NEEDED Status: Active Protocol: Document 04/17/18 10:16 AB (Rec: 04/17/18 11:03 AB [id number]) Medical Review Prior Functional Status Medical History Reviewed Yes Communication able to make needs known Mobility and Gait stated that he is modified independent with all mobilities and ambulation without AD indoors but occasionally uses SPC depending on pain level; uses SPC for outdoor mobility Social History Household Members spouse Living Arrangements House Number of Floors (Floors) One Floor Number of Stairs To Enter/Railing? 3 steps to enter without rails Home Environment Standard Height Toilet Walk in Shower Home Equipment Straight Cane Hand Held Shower Grab Bars In Shower Employment Status Retired Additional Social History Comment prefers to do sponge bathing M2 PT-IP Current Condition Start: 04/17/18 10:53 Freq: NEEDED Status: Active Protocol: Document 04/17/18 10:16 AB (Rec: 04/17/18 11:03 AB [id number]) Physical Therapy Current Condition Current Condition Evaluation Date 04/17/18 Treatment Diagnosis T12, L1 compression fractures; syncope; difficulty in walking Onset Date 04/16/18 Precautions Lumbar Precautions Log Roll No Twisting Limit Bending Lifting Restriction of 10 lbs Other Precautions chest PICC line; L side colostomy bag M3 PT-IP Subjective Start: 04/17/18 10:53 Freq: NEEDED Status: Active Protocol: Document 04/17/18 10:16 AB (Rec: 04/17/18 11:03 AB [id number]) Subjective Physical Therapy Visit Type Type Initial Evaluation Visit Start Time 10:16 Visit Stop Time 10:50 Total Visit Minutes 34 Number of DIRECTOR CAMP Visits 0 Physical Therapy Visit Comments Patient Comments pt agreeable to do PT Therapy Pain Assessment Pain When Pain Assessed During Mobility Pain Present Pain Present Pain Reported Location Back Intensity 7 Scale Used Numeric (1 - 10) Pain Behaviors Guarding Pain Management Techniques Apply Cold Re-positioning Timing of Activity with Medications M4 PT-IP Mobility and Gait Start: 04/17/18 10:53 Freq: NEEDED Status: Active Protocol: Document 04/17/18 10:16 AB (Rec: 04/17/18 11:03 AB [id number]) PT-Bed Mobility Assessment Rolling Type of Rolling Log Rolling Level of Assist Maximal Assistance Supine to Sit Supine to Sit Maximum Assistance 2 Person Assistance PT-Transfer Assessment Sit to and From Stand Sit to and from Stand Maximum Assistance 2 Person Assistance Use of Upper Extremities Equipment Transfer Assistive Device Gait Belt Front Wheeled Walker Orthotic/Prosthetic Devices or Brace: No Transfers Transfer Destination Chair Transfer Technique pt ambulated to the chair using FWW Comments Mobility Comments required 2 attempts to complete supine to sit with c/ o increase back pain. Gait Assessment Gait Gait Assistance Required: Moderate Assistance Maximum Assistance 1 Person Assist Distance (Feet) 15 Able to Maintain Weight Bearing Status Yes During Gait Assistive Devices Assistive Device Gait Belt Front Wheeled Walker Orthotic/Prosthetic Devices or Brace: No Gait Deviations General Gait Pattern Antalgic Decreased Feet Clearance Lateral Trunk Lean Factors Limiting Gait Function Factors Limiting Gait Function Decreased Activity Tolerance Decreased Strength Limited Range of Motion Pain Poor Balance Comments Gait Comments pt with increase lateral trunk lean to the R during standing /ambulation PT-Balance Assessment Sitting Balance and Reactions Static Sitting Balance Ability Good Dynamic Sitting Balance Ability Fair Standing Balance and Reactions Static Standing Balance Ability Fair Dynamic Standing Balance Ability Poor Device Used FWW M5 PT-IP Objective Assessments Start: 04/17/18 10:53 Freq: NEEDED Status: Active Protocol: Document 04/17/18 10:16 AB (Rec: 04/17/18 11:03 AB [id number]) Orientation Orientation/Cognition Level of Alertness Alert Orientation Name Age Birthday Month Date Year Day of Week Place Situation Safety Awareness Decreased Safety Awareness Gross Range of Motion Lower Extremity ROM Assessment Within Functional Limits Strength Lower Extremity Strength Assessment Bilaterally Impaired Comments Strength Comments RLE: 4-/5 LLE 3+/5 Coordination Assessment Gross Coordination Gross Coordination WNL Muscle Tone Muscle Tone WNL Yes M6 PT-IP Treatment Start: 04/17/18 10:53 Freq: NEEDED Status: Active Protocol: Document 04/17/18 10:16 AB (Rec: 04/17/18 11:03 AB [id number]) Physical Therapy Treatment Education Education Provided Precautions Safety M7 PT-IP Assessment and Plan Start: 04/17/18 10:53 Freq: NEEDED Status: Active Protocol: Document 04/17/18 10:16 AB (Rec: 04/17/18 11:03 AB [id number]) PT Summary Assessment and Plan Potential Rehabilitation Potential Fair Status of Condition at Evaluation Evolving Summary Impairments Pain ROM Strength Balance Coordination Bed Mobility Transfers Gait Activity Tolerance Assessment Summary pt requiring 2 person assist with mobility and will require SNF rehab to improve strength and functional independence prior to going home. Goals Bed Mobility Goal Minimal Assistance Transfer Goal Minimal Assistance Front Wheeled Walker Gait Goal Minimal Assistance Front Wheel Walker Gait Distance 100 Days to Meet Goals 5 Frequency of Treatment Frequency Of Treatment Twice a Day Treatment Plan Physical Therapy Treatment Plan Bed Mobility Training Transfer Training Gait Training Therapeutic Exercise Balance Retraining Post Op Education Discharge Planning Hot or Cold Pack Neuromuscular Re-ed Coordination Retraining Manual Therapy Other Recommendations and Next Treatment ambulation Focus Recommendations To Nursing Amount of Assist Needed 2 Person Assist Discharge Recommendations PT Discharge Recommendations SNF Rehab Equipment Needed for Home Before FWW: if pt goes home Discharge
[2018-04-17] MEDS: CALCIUM CARBONATE 500 MG TAB 1000 MG PO (10:52)
--- NOTE | 2018-04-17 11:23 | OT.IP.EVAL ---
Past Medical History (Last Reviewed 04/17/18 @ 07:50 by Cipriano Sood MD) Perforated viscus (Acute) Small bowel obstruction due to postoperative adhesions (Acute) Thymoma (Acute) Diverticulosis (Chronic) Elevated PSA (Chronic ~1999) Hearing loss (Chronic) Hepatitis (Chronic ~1971) Insomnia (Chronic) Intra-abdominal free air of unknown etiology (Chronic) Kidney stones (Chronic ~1989) Mediastinal mass (Chronic) Thyroid cancer (Chronic ~2017) Tinnitus (Chronic ~1999) Vision disorder (Chronic) Surgical History (Last Reviewed 04/17/18 @ 07:50 by Cipriano Sood MD) H/O colectomy (Acute) Anesthesia (Resolved) Broken arm (Resolved ~1983) History of appendectomy (Resolved ~1979) History of colonoscopy (Resolved) History of hip replacement (Resolved ~1991) History of knee surgery (Resolved ~1959) Occupational Therapy Inpatient Evaluation/Re-Eval M1 PT/OT-IP Prior Functional Status Start: 04/17/18 10:53 Freq: NEEDED Status: Active Protocol: Document 04/17/18 11:23 AUSTYN (Rec: 04/17/18 17:10 PJ [id number]) Medical Review Prior Functional Status Medical History Reviewed Yes Diet/Fluid Consistency Regular Communication WNL Mobility and Gait Pt stated that he is modified independent with all mobilities and ambulation without AD indoors but occasionally uses SPC/walking stick depending on pain level; uses SPC for outdoor mobility Activities of Daily Living and IADL's Pt states assists with tying ankle boots, especially on L due to stiffness from L INDRA. Pt struggles to don sock on L foot with assisting at times. Prior Functional Level (Other details) does all IADLS/driving due to pt's cancer tx's that decrease his activity tolerance. Social History Household Members spouse Living Arrangements House Number of Floors (Floors) One Floor Number of Stairs To Enter/Railing? 3 stairs to enter with no rail . Home Environment Standard Height Toilet Walk in Shower Home Equipment Neck Band Operator Grab Bars In Shower Employment Status Retired Additional Social History Comment Pt has walking stick. M2 OT-IP Current Condition Start: 04/17/18 16:51 Freq: Status: Active Protocol: Document 04/17/18 11:23 AUSTYN (Rec: 04/17/18 17:10 PJ [id number]) Occupational Therapy Current Condition Current Condition Evaluation Date 04/17/18 Treatment Diagnosis decreased self care, mobility with DX: subacute T12 fx, acute L1 comp fx Diagnosis Onset Date 04/17/18 Post Operative Precautions Lumbar Precautions Log Roll No Twisting Limit Bending Lifting Restriction of 10 lbs Gait Belt above Incisional Area Other Precautions L ileostomy, central line chest for chemo M3 OT- IP Subjective and Pain Start: 04/17/18 16:51 Freq: Status: Active Protocol: Document 04/17/18 11:23 [facility] (Rec: 04/17/18 17:10 [facility] [id number]) OT- Subjective Occupational Therapy Visit Type Type Initial Evaluation Visit Start Time 10:40 Visit Stop Time 11:23 Total Visit Minutes 43 Notes Pt' s here for education this session re: adapted ADLS and bathroom safety equipt options. Occupational Therapy Visit Comments Patient Comments I am so tired. I haven't slept in 2 days. Patient/Caregiver Goals to control low back pain and be able to go home OT Pain Assessment Pain When Pain Assessed After Treatment Pain Present Pain Present Pain Reported Location Back Intensity 5 Scale Used Numeric (1 - 10) Description Aching Acute Pain Behaviors Facial Grimacing Guarding Management Techniques Apply Cold Distraction Timing of Activity with Medications M4 OT- IP ADL's Start: 04/17/18 16:51 Freq: Status: Active Protocol: Document 04/17/18 11:23 [facility] (Rec: 04/17/18 17:10 [facility] [id number]) OT [id number] General Evaluation Self-Feeding Ability Independent Comments OT Self-Feeding Comments poor appetite per pt OT ADL-Grooming Comments OT Grooming Comments to be assessed OT ADL-Oral Care Comments Oral Care Comments to be assessed OT ADL-Dressing General Eval Upper Body Dressing Ability Standby Assistance Lower Body Dressing Ability Maximum Assistance Areas Needing Assistance Underpants/Brief Pants/Shorts Socks Shoes Assistive Devices Dressing Assistive Devices Long Handled Shoe Horn [place]ck Band Operator Sock Aid Comments OT Dressing Comments Began education with pt and re: lower body dressing equipment within lumbar spine precautions. OT ADL-Toileting Comments OT Toileting Comments pt declined this session OT ADL-Bathing Bathing Type Bathing Type Sponge Bath General Evaluation Bathing Ability Minimal Assistance Devices Bathing Equipment Hand Held Shower Sprayer Comments OT Bathing Comments Pt prefers sponge bathing after ostomy bag change. He uses hand held shower hose to shower below chest to protect chest port. assists PRN. Recommend shower seat with back for safety and gave pt/ resource information M5 OT- IP IADL's Start: 04/17/18 16:51 Freq: Status: Active Protocol: Document 04/17/18 11:23 PJM (Rec: 04/17/18 17:10 [facility] [id number]) OT-Instrumental Activities of Daily Living Deficits IADL Deficits Identified Deficits Home Safety Awareness Awareness of Need for Assistance at Home Good Awareness Ability to Problem Solve Emergency Able to Problem Solve Situations Medication Management Medication Management No Deficits Identified Money Management Money Management No Deficits Identified Meal Preparation Meal Preparation Caregiver Provides Assist Meal Preparation Comments assists due to pt's low endurance Apparel Trimmings Sales Representative Apparel Trimmings Sales Representative Caregiver Provides Assist Apparel Trimmings Sales Representative Comments assists due to pt's low endurance Driving Driving Caregiver Provides Assist Driving Comments assists due to pt's low endurance M6 OT- IP Functional Cognition Start: 04/17/18 16:51 Freq: Status: Active Protocol: Document 04/17/18 11:23 PJM (Rec: 04/17/18 17:10 [facility] NR) Cognitive Factors Limiting Selfcare Function Cognitive Ability Level of Alertness Drowsy Patient Orientation Name Age Birthday Month Date Year Day of Week Place Situation Attention Span Ability Capable of Focused Attention Unable to Sustain Attention Ability to Follow Commands Able to Follow One Step Commands Memory Description No Deficits Noted Safety Awareness No Deficits Noted Problem Solving Ability No deficits Noted Cognitive Comments Cognitive Assessment Comments Pt drowsy and generally fatigued this session; dozing off at times. present for education and verbalizes understanding. OT- Vision and Hearing OT- Hearing Assessment OT- Hearing Assessment WFL OT- Vision Assessment Visual Acuity WFL Glasses All The Time M7 OT- IP Mobility and Balance Start: 04/17/18 16:51 Freq: Status: Active Protocol: Document 04/17/18 11:23 PJM (Rec: 04/17/18 17:10 [facility] NR) OT-Transfer Assessment Comments Mobility Comments Pt seen up in recliner just after P.T. session. See P.T. notes for details. Provided education to re: grab bar placement/height near toilet. OT- Gait Assessment Comments Gait Ability Comments See P.T. notes for details. OT- Balance Assessment Comments Other Balance Tests/Deviations/Treatment See P.T. notes for details. : M8 OT- IP Objective Assessments Start: 04/17/18 16:51 Freq: Status: Active Protocol: Document 04/17/18 11:23 PJM (Rec: 04/17/18 17:10 PJM [id number]) OT Gross Range of Motion Upper Extremity Range of Motion Assessment Within Functional Limits OT Strength Upper Extremity Strength Assessment Within Functional Limits OT- Coordination Assessment Comments Coordination Comments BUE WFL OT-Muscle Tone Assessment Muscle Tone WNL Yes OT Sensation Assessment Comments Summary Comments BUE WNL per pt Edema Edema Absent M9 OT- IP Assessment and Plan Start: 04/17/18 16:51 Freq: Status: Active Protocol: Document 04/17/18 11:23 PJM (Rec: 04/17/18 17:10 PJM [id number]) OT Summary Assessment and Plan Potential Rehabilitation Potential Good Analytic Complexity at Evaluation Low Summary OT Impairments Pain Balance Functional Mobility Grooming Dressing Toileting Bathing Toilet Transfers Shower Transfers Assessment Summary Pt seen for low complexity OT assessment and began education with pt/ re: lumbar spine precautions, body mechanics, posture, adapted ADL techniques for lower body dressing and bathroom safety equipment options. Pt drowsy, sleep deprived and mildly nauseous this session which limtied his participation. Pt will benefit from 1-2 additional OT sessions for further education re: adapted ADL techniques and to increase functional mobility and activity tolerance. Anticipate pt will be able to return home with 24 hr assist from capable supportive when medically stable and clears P.T. Goals Grooming Goal Standby Assistance Dressing Goal Standby Assistance Long Handled Shoe [place] Band Operator Sock Aid Toileting Goal Standby Assistance Bathing Goal Minimal Assistance Toilet Transfer Goal Standby Assistance Standard Toilet Grab Bars Shower Transfer Goal Standby Assistance Walk-in Shower Shower Chair Grab Bars Patient/Caregiver Education Goal Demonstrate Energy Conservation and Pacing Caregiver Independent Assisting Patient OT-Other Goals Pt/ verbalize and demonstrate understanding of lumbar spine precautions during ADLS. Days to Meet Goals 3 Frequency of Treatment Frequency Of Treatment Once a Day Treatment Plan OT Treatment Plan ADL Training Functional Mobility Patient/Family Education Discharge Planning Discharge Recommendations OT Discharge Recommendations Home with 24/7 Assist Home Health Other Discharge Recommendations OT/PT Home Equipment Needs shower seat with back, wall grab bar by toilet, sock aid
--- NOTE | 2018-04-17 15:10 | PT.IPTN ---
Physical Therapy Treatment Note M2 PT-IP Current Condition Start: 04/17/18 10:53 Freq: NEEDED Status: Active Protocol: Document 04/17/18 10:16 AB (Rec: 04/17/18 11:03 AB [id number]) Physical Therapy Current Condition Current Condition Evaluation Date 04/17/18 Treatment Diagnosis T12, L1 compression fractures; syncope; difficulty in walking Onset Date 04/16/18 Precautions Lumbar Precautions Log Roll No Twisting Limit Bending Lifting Restriction of 10 lbs Other Precautions chest PICC line; L side colostomy bag M3 PT-IP Subjective Start: 04/17/18 10:53 Freq: NEEDED Status: Active Protocol: Document 04/17/18 15:10 AB (Rec: 04/17/18 15:53 AB [id number]) Subjective Physical Therapy Visit Type Type Treatment Note Visit Start Time 15:10 Visit Stop Time 15:32 Total Visit Minutes 22 Number of ETL SOFTWARE ENGINEER Visits 0 Physical Therapy Visit Comments Patient Comments pt agreeable to do PT Therapy Pain Assessment Pain When Pain Assessed During Mobility Pain Present Pain Present Pain Reported Location Back Intensity 4 Scale Used Numeric (1 - 10) Pain Management Techniques Re-positioning Timing of Activity with Medications M4 PT-IP Mobility and Gait Start: 04/17/18 10:53 Freq: NEEDED Status: Active Protocol: Document 04/17/18 15:10 AB (Rec: 04/17/18 15:53 AB [id number]) PT-Bed Mobility Assessment Rolling Type of Rolling Log Rolling Level of Assist Minimal Assistance Supine to Sit Supine to Sit Maximum Assistance 1 Person Assistance Sit to Supine Sit to Supine Maximum Assistance 1 Person Assistance PT-Transfer Assessment Sit to and From Stand Sit to and from Stand Maximum Assistance 1 Person Assistance Use of Upper Extremities Gait Assessment Gait Gait Assistance Required: Minimum Assistance Moderate Assistance Distance (Feet) 50 Able to Maintain Weight Bearing Status Yes During Gait Assistive Devices Assistive Device Gait Belt Front Wheeled Walker Orthotic/Prosthetic Devices or Brace: No Factors Limiting Gait Function Factors Limiting Gait Function Decreased Activity Tolerance Decreased Strength Limited Range of Motion Pain Poor Balance Comments Gait Comments pt tends to have RLE cross over LLE during ambulation. M5 PT-IP Objective Assessments Start: 04/17/18 10:53 Freq: NEEDED Status: Active Protocol: Document 04/17/18 10:16 AB (Rec: 04/17/18 11:03 AB [id number]) Orientation Orientation/Cognition Level of Alertness Alert Orientation Name Age Birthday Month Date Year Day of Week Place Situation Safety Awareness Decreased Safety Awareness Gross Range of Motion Lower Extremity ROM Assessment Within Functional Limits Strength Lower Extremity Strength Assessment Bilaterally Impaired Comments Strength Comments RLE: 4-/5 LLE 3+/5 Coordination Assessment Gross Coordination Gross Coordination WNL Muscle Tone Muscle Tone WNL Yes M6 PT-IP Treatment Start: 04/17/18 10:53 Freq: NEEDED Status: Active Protocol: Document 04/17/18 15:10 AB (Rec: 04/17/18 15:53 AB [id number]) Physical Therapy Treatment Education Education Provided Precautions Safety M7 PT-IP Assessment and Plan Start: 04/17/18 10:53 Freq: NEEDED Status: Active Protocol: Document 04/17/18 15:10 AB (Rec: 04/17/18 15:53 AB [id number]) PT Summary Assessment and Plan Potential Rehabilitation Potential Fair Summary Impairments Pain ROM Strength Balance Cognition Bed Mobility Transfers Gait Activity Tolerance Progress Towards Goals Slow Progress due to Pain Assessment Summary pt requiring max A with mobility. d/c plan depending on progress but at this time will require SNF rehab. informed pt and spouse and wants to talk to employment evaluator/case manager regarding their options. caregiver training will be conducted when appropriate. Goals Bed Mobility Goal Minimal Assistance Transfer Goal Minimal Assistance Front Wheeled Walker Gait Goal Contact Guard Assistance Front Wheel Walker Gait Distance 100 Days to Meet Goals 5 Frequency of Treatment Frequency Of Treatment Twice a Day Treatment Plan Physical Therapy Treatment Plan Bed Mobility Training Transfer Training Gait Training Therapeutic Exercise Balance Retraining Post Op Education Discharge Planning Hot or Cold Pack Neuromuscular Re-ed Coordination Retraining Manual Therapy Recommendations To Nursing Amount of Assist Needed 2 Person Assist Discharge Recommendations PT Discharge Recommendations SNF Rehab Equipment Needed for Home Before FWW: if pt goes home Discharge
[2018-04-18 00:20] VITALS: BP 120/67; PULSE 66; RESP 17; TEMP 37; O2SAT 95
[2018-04-18] MEDS: SODIUM CHLORIDE 0.45% 1,000 ML 50 ML IV ×2 (01:03→22:18)
--- NOTE | 2018-04-18 02:51 | PC.NURSE ---
ASSUMED CARE OF PT AT 2330 04/17/18. PT SLEEPING DURING BEDSIDE HAND-OFF. ROOMING IN FOR THE NIGHT. PT AWAKENS FOR NURSING ASSESSMENT. DENIES PAIN OR DIZZINESS. IVF INFUSING PER ORDERS. PT VERBALIZED HE CAN REPOSITION INDEPENDENTLY AND WILL CALL FOR NEEDS. BED ALARM ON. CALL LIGHT WITHIN REACH.
[2018-04-18 03:47] VITALS: BP 127/55; PULSE 66; RESP 18; TEMP 36.6; O2SAT 95
--- NOTE | 2018-04-18 08:07 | PM.PN.1 ---
Subjective Date Patient Seen: 04/18/18 Time Patient Seen: 08:07 Interval history: He was doing better yesterday but of more sore this morning about 5/10. He is now off the OxyContin because it was bothering him and just taking regular oxycodone. All back pain. No leg pain numbness or tingling. Plan for today is to continue with mobilization with therapy. If we can get his pain under decent control then he hopes to go home this afternoon. He can follow up in my office in 1-2 weeks. Exam Vital Signs (past 8 hours): - 04/18/18 00:20 04/18/18 03:47 Temperature 98.6 F 97.9 F Pulse Rate 66 66 Respiratory Rate 17 18 Blood Pressure 120/67 127/55 L Pulse Oximetry 95 95 Oxygen Delivery Method Room Air Oxygen Flow Rate 0 Const Orientation: alert and oriented x3 Back/Spine/Pelvis Other: Tender lower lumbar paraspinals. 5/5 motor both lower extremity Objective Labs Result Diagrams: 04/17/18 06:00 04/17/18 06:00 Quality VTE Deep Vein Thrombosis/Pulmonary Embolism Present on Admission: No
[2018-04-18 08:20] VITALS: BP 102/55; PULSE 89; RESP 18; TEMP 36.6; O2SAT 93
[2018-04-18 08:58] LABS: Add Manual Diff / Slide Review NO; Basophils Absolute Auto 0 /uL (0-100); Basophils Percent Auto 0.5 % (0-2); Eosinophils Absolute Auto 0 /uL (0-450); Eosinophils Percent Auto 0.1 % (2-4); Hematocrit 24.4 % (41-53); Hemoglobin 8.3 g/dL (13.5-17.5); Lymphocytes Absolute Auto 400 /uL (1100-4500); Lymphocytes Percent Auto 6.1 % (25-40); Mean Corpuscular HGB Conc 34.2 % (30-36); Mean Corpuscular Hemoglobin 29.7 PG (26-34); Mean Corpuscular Volume 86.8 fL (80-100); Monocytes Absolute Auto 500 /uL (0-900); Monocytes Percent Auto 8.8 % (3-14); Neutrophils Absolute Auto 5000 /uL (1500-7000); Neutrophils Percent Auto 84.5 % (50-75); Red Blood Cell Count 2.81 X10^6/uL (4.5-5.9); Red Cell Distribution Width 13.9 % (11.6-14.8); White Blood Cell Count 5.9 X10^3/uL (4.5-11.0)
[2018-04-18] MEDS: DEXAMETHASONE 4 MG TABLET PO (09:09)
[2018-04-18] MEDS: DOCUSATE 100 MG CAPSULE PO ×2 (09:10→20:21)
[2018-04-18 09:13] LABS: Platelet Count 22 X10^3/uL (150-400)
[2018-04-18 09:14] LABS: Platelet Estimate Decreased on smear
[2018-04-18 09:25] LABS: BUN Creatinine Ratio 27.5 (6-22); Blood Urea Nitrogen 22 mg/dL (9-20); Calcium 9.6 mg/dL (8.4-10.2); Carbon Dioxide 26 mmol/L (22-32); Chloride 102 mmol/L (98-107); Estimated Glomerular Filt Rate > 60.0 mL/min (>60); Glucose 119 mg/dL (80-110); HEMOLYSIS 18 (0-50); Potassium 3.9 mmol/L (3.4-5.1); Sodium 137 mmol/L (137-145)
[2018-04-18] MEDS: OXYCODONE IR 5 MG TABLET 10 MG PO (10:26)
--- NOTE | 2018-04-18 11:01 | PT.IPTN ---
Current Diagnoses Other osteoporosis with current pathological fracture, vertebra(e), initial encounter for fracture (04/17/18) Physical Therapy Treatment Note M2 PT-IP Current Condition Start: 04/17/18 10:53 Freq: NEEDED Status: Active Protocol: Document 04/17/18 10:16 AB (Rec: 04/17/18 11:03 AB [id number]) Physical Therapy Current Condition Current Condition Evaluation Date 04/17/18 Treatment Diagnosis T12, L1 compression fractures; syncope; difficulty in walking Onset Date 04/16/18 Precautions Lumbar Precautions Log Roll No Twisting Limit Bending Lifting Restriction of 10 lbs Other Precautions chest PICC line; L side colostomy bag M3 PT-IP Subjective Start: 04/17/18 10:53 Freq: NEEDED Status: Active Protocol: Document 04/18/18 10:48 SA (Rec: 04/18/18 11:01 [email or web address]) Subjective Physical Therapy Visit Type Type Treatment Note Visit Start Time 10:15 Visit Stop Time 10:45 Total Visit Minutes 30 Number of DAIRY EQUIPMENT MECHANIC Visits 1 Physical Therapy Visit Comments Patient Comments Pt reports 8/10 pain but wants to get up and walk. Therapy Pain Assessment Pain When Pain Assessed During Mobility Pain Present Pain Present Pain Reported Location Back Intensity 8 Scale Used Numeric (1 - 10) Pain Management Techniques Apply Cold Modification of Treatment Re-positioning Timing of Activity with Medications M4 PT-IP Mobility and Gait Start: 04/17/18 10:53 Freq: NEEDED Status: Active Protocol: Document 04/18/18 10:48 SA (Rec: 04/18/18 11:01 [email or web address]) PT-Bed Mobility Assessment Rolling Type of Rolling Log Rolling Roll to Right Level of Assist Contact Guard Assistance Supine to Sit Supine to Sit Contact Guard Assistance 1 Person Assistance Sit to Supine Sit to Supine Contact Guard Assistance 1 Person Assistance Scooting Scooting to Edge of Bed Contact Guard Assistance PT-Transfer Assessment Sit to and From Stand Sit to and from Stand Minimal Assistance 1 Person Assistance Use of Upper Extremities Equipment Transfer Assistive Device Gait Belt Front Wheeled Walker Orthotic/Prosthetic Devices or Brace: No Transfers Transfer Destination Chair Transfer Technique Stand Step Pivot Transfer Ability Level of Assist Contact Guard Assistance Comments Mobility Comments Pt CGA with log roll technique , Mod verbal cues and slow controlled movement. Gait Assessment Gait Gait Assistance Required: Contact Guard Assist Distance (Feet) 150 Able to Maintain Weight Bearing Status Yes During Gait Assistive Devices Assistive Device Gait Belt Front Wheeled Walker Orthotic/Prosthetic Devices or Brace: No Gait Deviations General Gait Pattern Narrow Based Gait Factors Limiting Gait Function Factors Limiting Gait Function Decreased Activity Tolerance Decreased Strength Pain Comments Gait Comments Pt reports decrease in rib/ back pain with ambulation. Cues for pacing and PLB, pt uses FWW safely. HR 97-107 BPM and 02 sats 95% prior to ambualtion. Stair Climbing Assessment Comments Stair Climbing Comments Not assessed d/t elevated HR with gait. M5 PT-IP Objective Assessments Start: 04/17/18 10:53 Freq: NEEDED Status: Active Protocol: Document 04/17/18 10:16 AB (Rec: 04/17/18 11:03 AB [id number]) Orientation Orientation/Cognition Level of Alertness Alert Orientation Name Age Birthday Month Date Year Day of Week Place Situation Safety Awareness Decreased Safety Awareness Gross Range of Motion Lower Extremity ROM Assessment Within Functional Limits Strength Lower Extremity Strength Assessment Bilaterally Impaired Comments Strength Comments RLE: 4-/5 LLE 3+/5 Coordination Assessment Gross Coordination Gross Coordination WNL Muscle Tone Muscle Tone WNL Yes M6 PT-IP Treatment Start: 04/17/18 10:53 Freq: NEEDED Status: Active Protocol: Document 04/18/18 10:48 SA (Rec: 04/18/18 11:01 SA [id number]) Physical Therapy Treatment Education Education Provided Precautions Safety M7 PT-IP Assessment and Plan Start: 04/17/18 10:53 Freq: NEEDED Status: Active Protocol: Document 04/18/18 10:48 SA (Rec: 04/18/18 11:01 SA [email or web address]) PT Summary Assessment and Plan Summary Assessment Summary Pt demonstrated ability to get OOB with log roll technique requiring verbal cues and CGA, Stand pivot txs and ambulation with CGA and FWW. Pt had no LOB or c/o dizziness . HR did become elevated with ambulation. Nursing able get increased dose of pain medication for improved pain management by end of session but pt states mobilizing and position change helped decrease pain. Improved mobility overall today. Frequency of Treatment Frequency Of Treatment Twice a Day Recommendations To Nursing Amount of Assist Needed 1 Person Assist Discharge Recommendations PT Discharge Recommendations Home with / Assist SNF Rehab Equipment Needed for Home Before FWW: if pt goes home Discharge
--- NOTE | 2018-04-18 11:15 | OT.IP.TRT ---
Current Diagnoses Other osteoporosis with current pathological fracture, vertebra(e), initial encounter for fracture (04/17/18) Occupational Therapy Treatment Note M2 OT-IP Current Condition Start: 04/17/18 16:51 Freq: Status: Active Protocol: Document 04/17/18 11:23 PJM (Rec: 04/17/18 17:10 PJM [email or web address]) Occupational Therapy Current Condition Current Condition Evaluation Date 04/17/18 Treatment Diagnosis decreased self care, mobility with DX: subacute T12 fx, acute L1 comp fx Diagnosis Onset Date 04/17/18 Post Operative Precautions Lumbar Precautions Log Roll No Twisting Limit Bending Lifting Restriction of 10 lbs Gait Belt above Incisional Area Other Precautions L ileostomy, central line chest for chemo M3 OT- IP Subjective and Pain Start: 04/17/18 16:51 Freq: Status: Active Protocol: Document 04/18/18 11:15 PJM (Rec: 04/18/18 17:20 PJM [email or web address]) OT- Subjective Occupational Therapy Visit Type Type Treatment Note Visit Start Time 10:38 Visit Stop Time 11:15 Total Visit Minutes 37 Notes Pt's here for education this session. Occupational Therapy Visit Comments Patient Comments I feel better today and it was easier getting out of bed this morning. Patient/Caregiver Goals To go home today, or tomorrow if transfusion needed. OT Pain Assessment Pain When Pain Assessed After Treatment Pain Present Pain Present Pain Reported Location Back Intensity 6 Scale Used Numeric (1 - 10) Description Aching Acute M4 OT- IP ADL's Start: 04/17/18 16:51 Freq: Status: Active Protocol: Document 04/18/18 11:15 PJM (Rec: 04/18/18 17:20 PJ [email or web address]) OT [id number] General Evaluation Self-Feeding Ability Independent OT ADL-Grooming Comments OT Grooming Comments provided education re: body mechanics, pt declined up to sink this session as he just finished walk with P.T. OT ADL-Oral Care General Eval Areas of Assistance Brushing Teeth Comments Oral Care Comments provided education re: body mechanics, OT ADL-Dressing General Eval Upper Body Dressing Ability Standby Assistance Lower Body Dressing Ability Minimal Assistance Areas Needing Assistance Retrieving/Set-up of Clothing Underpants/Brief Socks Shoes Assistive Devices Dressing Assistive Devices Long Handled Shoe Horn Dairy Technologist Sock Aid Comments OT Dressing Comments Provided sock aid at pt request and pt able to don sock on L Foot with SBA after education. Pt able to doff sock with robot programmer independently. He has robot programmer and long shoe horn at home. will continue to assist with tying L boot. Note pt can don R sock and shoe without device but has residual L hip stiffness from old L INDRA in . Suggested slip on shoes to increase independence. OT ADL-Toileting General Evaluation Toileting Ability Independent Areas Needing Assistance Empty Catheter or Colostomy Comments OT Toileting Comments provided education re: body mechanics and alternative methods for emptying ostomy pouch as pt normally kneels in front of toilet to do this OT ADL-Bathing Comments OT Bathing Comments pt declined to shower here; recommend shower seat and will assist PRN with sponge bath using handheld shower hose below level of port in M6 OT- IP Functional Cognition Start: 04/17/18 16:51 Freq: Status: Active Protocol: Document 04/18/18 11:15 PJM (Rec: 04/18/18 17:20 PJM [email or web address]) Cognitive Factors Limiting Selfcare Function Cognitive Ability Level of Alertness Alert Patient Orientation Name Age Birthday Month Date Year Day of Week Place Situation Attention Span Ability Capable of Focused Attention Capable of Sustained Attention Ability to Follow Commands Able to Follow One Step Commands Able to Follow Multi-Step Commands Memory Description No Deficits Noted Safety Awareness No Deficits Noted Problem Solving Ability No deficits Noted Cognitive Comments Cognitive Assessment Comments Pt more alert today with affect bright. Pt laughing and joking this session. M9 OT- IP Assessment and Plan Start: 04/17/18 16:51 Freq: Status: Active Protocol: Document 04/18/18 11:15 PJM (Rec: 04/18/18 17:20 PJM [id number]) OT Summary Assessment and Plan Potential Rehabilitation Potential Good Summary OT Impairments Pain Progress Towards Goals Goals Met Assessment Summary Pt much improved today. He was alert and receptive to education re: posture, body mechanics, adapted self care techniques and car transfers within lumbar spine precautions. Supportive, capable will provide 24 hr assist at d/c PRN. All OT goals achieved for this admission. Anticipate pt will D/C home when medically stable and clears P.T. No further OT services needed. Frequency of Treatment Frequency Of Treatment Discharge Discharge Recommendations OT Discharge Recommendations Home with 03/10 Assist
[2018-04-18 12:26] VITALS: BP 100/57; PULSE 85; RESP 18; TEMP 36.6; O2SAT 95
--- NOTE | 2018-04-18 15:05 | PC.NURSE ---
Patient is refusing Colostomy care at this time. Visitors in room, is wanting care done when they leave. -Bryan HOBSON
[2018-04-18 16:26] VITALS: BP 101/70; PULSE 76; RESP 20; TEMP 36.6; O2SAT 96
--- NOTE | 2018-04-18 16:32 | PT.IPTN ---
Current Diagnoses Other osteoporosis with current pathological fracture, vertebra(e), initial encounter for fracture (04/17/18) Physical Therapy Treatment Note M2 PT-IP Current Condition Start: 04/17/18 10:53 Freq: NEEDED Status: Active Protocol: Document 04/17/18 10:16 AB (Rec: 04/17/18 11:03 AB [id number]) Physical Therapy Current Condition Current Condition Evaluation Date 04/17/18 Treatment Diagnosis T12, L1 compression fractures; syncope; difficulty in walking Onset Date 04/16/18 Precautions Lumbar Precautions Log Roll No Twisting Limit Bending Lifting Restriction of 10 lbs Other Precautions chest PICC line; L side colostomy bag M3 PT-IP Subjective Start: 04/17/18 10:53 Freq: NEEDED Status: Active Protocol: Document 04/18/18 16:18 SA (Rec: 04/18/18 16:32 SA [id number]) Subjective Physical Therapy Visit Type Type Treatment Note Visit Start Time 15:38 Visit Stop Time 16:10 Total Visit Minutes 32 Number of DRUG ABUSE PROGRAM COORDINATOR Visits 2 Physical Therapy Visit Comments Patient Comments Pt reports slightly less pain this afternoon, agreeable to walk after IV disconnected. Therapy Pain Assessment Pain When Pain Assessed During Mobility Pain Present Pain Present Pain Reported Location Back Intensity 6 Scale Used Numeric (1 - 10) Pain Management Techniques Apply Cold Modification of Treatment Re-positioning Timing of Activity with Medications M4 PT-IP Mobility and Gait Start: 04/17/18 10:53 Freq: NEEDED Status: Active Protocol: Document 04/18/18 16:18 SA (Rec: 04/18/18 16:32 SA [id number]) PT-Transfer Assessment Sit to and From Stand Sit to and from Stand Contact Guard Assistance 1 Person Assistance Use of Upper Extremities Equipment Transfer Assistive Device Gait Belt Front Wheeled Walker Orthotic/Prosthetic Devices or Brace: No Transfers Transfer Destination Chair Transfer Technique Stand Step Pivot Transfer Ability Level of Assist Contact Guard Assistance Comments Mobility Comments Pt sitting in chair, CGA for sit to stand to FWW. Stand pivot txs SBA-CGA with min cues. Gait Assessment Gait Gait Assistance Required: Contact Guard Assist Distance (Feet) 150 Able to Maintain Weight Bearing Status Yes During Gait Assistive Devices Assistive Device Gait Belt Straight Cane Front Wheeled Walker Orthotic/Prosthetic Devices or Brace: No Gait Deviations General Gait Pattern Narrow Based Gait Factors Limiting Gait Function Factors Limiting Gait Function Decreased Activity Tolerance Decreased Strength Pain Comments Gait Comments Pt completed short distance ambulaion in room with FWW and SBA. Longer walk in halls with his walking stick and CGA , cues for slowing pace to avoid rapid HR. Pt maintained HR 102-109 with ambulation. Stair Climbing Assessment Evaluation Level of Assist On Stairs Contact Guard Assistance Devices Stair Climbing Assistive Devices Straight Cane Technique/Endurance Stair Climbing Direction Ascend and Descend Stair Climbing Technique Step to Step Number of Steps Climbed 3 Query Text: Stair Climbing Set # Repetitions (reps) 2 Comments Stair Climbing Comments Pt used walking stick and no rails as he does not have rails at home, CGA provided with Mod cues for safety and pacing. M5 PT-IP Objective Assessments Start: 04/17/18 10:53 Freq: NEEDED Status: Active Protocol: Document 04/17/18 10:16 AB (Rec: 04/17/18 11:03 AB [id number]) Orientation Orientation/Cognition Level of Alertness Alert Orientation Name Age Birthday Month Date Year Day of Week Place Situation Safety Awareness Decreased Safety Awareness Gross Range of Motion Lower Extremity ROM Assessment Within Functional Limits Strength Lower Extremity Strength Assessment Bilaterally Impaired Comments Strength Comments RLE: 4-/5 LLE 3+/5 Coordination Assessment Gross Coordination Gross Coordination WNL Muscle Tone Muscle Tone WNL Yes M6 PT-IP Treatment Start: 04/17/18 10:53 Freq: NEEDED Status: Active Protocol: Document 04/18/18 16:18 SA (Rec: 04/18/18 16:32 [id number]) Physical Therapy Treatment Exercises Exercises Ankle Pumps Seated Knee Flexion/Extension Education Education Provided Precautions Safety Other Treatments Other Treatment Performed Education for safe activity progressions, pt demonstrates some impulsivity and needs cues for pacing and safety. M7 PT-IP Assessment and Plan Start: 04/17/18 10:53 Freq: NEEDED Status: Active Protocol: Document 04/18/18 16:18 SA (Rec: 04/18/18 16:32 [id number]) PT Summary Assessment and Plan Summary Assessment Summary Pt able to manage stairs safely with CGA x 1 person and use of walking stick. Cues for pacing and safety. Frequency of Treatment Frequency Of Treatment Twice a Day Recommendations To Nursing Amount of Assist Needed 1 Person Assist Discharge Recommendations PT Discharge Recommendations Home with 03/10 Assist SNF Rehab Equipment Needed for Home Before FWW: if pt goes home Discharge
--- NOTE | 2018-04-18 18:22 | PC.NURSE ---
Addendum entered by Keri Erickson R.N. 04/18/18 21:22: Tele showing NSR/BBB per ICU staff Original Note: Addendum entered by Keri Erickson R.N. 04/18/18 21:19: Pt watching TV. Denies discomfort. in to see, new orders received. Probable D/C tomorrow. Recheck labs in am. Call light w/in reach. Continue w/plan of care. Original Note: Addendum entered by Keri Erickson R.N. 04/18/18 19:07: Tele shows NSR/BBB per ICU staff. Original Note: Pt sitting in chair, Med w/ 7.5mg oxycodone for discomfort at this time. IV 1/2 NS infusing into te RAC via pump @ 50cc/hr w/on incidence. Call light w/in reach, in room.
[2018-04-18] MEDS: OXYCODONE IR 5 MG TABLET 7.5 MG PO ×2 (18:43→22:25)
[2018-04-18 19:04] VITALS: BP 106/67; PULSE 71; RESP 19; TEMP 36.6; O2SAT 98
[2018-04-18] MEDS: LIDOCAINE PATCH 1 EACH ADH..PATCH TOP (20:21)
--- NOTE | 2018-04-18 21:19 | P.PN_ITS ---
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 The patient is resting in bedside chair comfortably. He endorses back pain that is a +4/10 that is provoked by position and movement. He states that he does not want to take long-acting oxycodone as he feels it is too strong for him and he is nervous for impending nausea. I adjusted his oxycodone to 7.5-10 mg every 3 hr as needed for severe pain and added lidocaine patch. He continues to have an unrealistic expectation regarding pain and reports it is hard to quantify into numbers. He denies headache, cough, shortness of breath, chest pain, abdominal pain, nausea, vomiting, fever, chills, dysuria, diarrhea or constipation. He is voiding and eliminating without difficulty. He is up ambulating with physical therapy. Exam Vital Signs (past 8 hours): - 04/18/18 16:26 04/18/18 19:04 Temperature 97.9 F 97.9 F Pulse Rate 76 71 Respiratory Rate 20 19 Blood Pressure 101/70 106/67 Pulse Oximetry 96 98 Oxygen Delivery Method Room Air Oxygen Flow Rate 0 Narrative Exam Narrative: General: Older gentleman lying in bed and in no acute distress, appears comfortable, well-developed, well-nourished, appropriately interactive. HEENT: Normocephalic, atraumatic. External ears without defect. Pupils equal, round, and reactive to light. Anicteric sclerae, moist conjunctivae, and no lid lag. Neck: Supple with full range of motion. No lymphadenopathy or thyromegaly. Cardiovascular: Regular rate and rhythm without murmurs, rubs, or gallops appreciated Pulmonary: Clear to auscultation bilaterally without crackles, wheezes, or rhonchi. Normal respiratory effort with no use of accessory muscles. Abdomen: Bowel tones present. Soft, nontender, nondistended. No hepatosp lenomegaly or masses appreciated. Ostomy bag. Extremities: No clubbing, cyanosis, or edema. No palpable pain on spinal examination. Skin: Normal temperature, turgor, and texture; no rash, ulcers, or subcutaneous nodules appreciated. Neurological: Cranial nerves grossly intact. Psychiatric: Normal mood and affect. Alert and oriented to person, place, and time. Objective Labs Result Diagrams: 04/18/18 08:40 04/18/18 08:40 Labs: Laboratory Results - last 24 hr 04/18/18 04/18/18 08:40 08:40 WBC 5.9 RBC 2.81 L Hgb 8.3 L Hct 24.4 L MCV 86.8 MCH 29.7 MCHC 34.2 RDW 13.9 Plt Count 22 L* Neut % (Auto) 84.5 H Lymph % (Auto) 6.1 L [place] % (Auto) 8.8 Eos % (Auto) 0.1 L Baso % (Auto) 0.5 Neut # (Auto) 5000 Lymph # (Auto) 400 L [place] # (Auto) 500 Eos # (Auto) 0 Baso # (Auto) 0 Platelet Estimate Decreased on smear RBC Morphology See below Sodium 137 Potassium 3.9 Chloride 102 Carbon Dioxide 26 BUN 22 H Creatinine 0.80 Estimated GFR > 60.0 BUN/Creatinine Ratio 27.5 H Glucose 119 H Calcium 9.6 Assessment & Plan Assessment Narrative: Boyd Velazquez is a 67-year-old male patient with a past medical history sign ificant for thymoma status post chemotherapy, 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 1. Acute syncopal episode, not present on admission. Resolved. -Likely vasovagal in etiology as patient was going to the bathroom with +10/10 pain and syncopized. -CT brain without contrast did not demonstrate any acute intracranial abnormality. -Patient is hemodynamically stable and afebrile. -No focal neurological deficits. -Continue to monitor closely on telemetry. 2. Acute pathological L1 compression fracture, present on admission. Active. -Old T12 compression fracture with 50% height loss and acute appearing L1 fracture with 30% height loss identified on CT. -Patient is unable to mobilize following 1 mg Dilaudid and Ativan for pain management. -Discontinued OxyContin per patient's request. Continued oxycodone and increased to 7.5-10 mg every 3 hr as needed for moderate to severe pain. -Ordered orthopedic consult for evaluation and treatment. We appreciate O rthopedic surgeries time and recommendations. 3. Thymoma, chronic, present on admission. Presumed stable. -Patient is under the care of oncologist and completed chemotherapy at [facility] in February. -Patient is taking dexamethasone 4 mg daily. -Hemoglobin of 8.3 and hematocrit of 24.4, platelet count 22. -No evidence of bleeding, no bleeding noted L1 compression fracture. -Monitor CBC daily. -Discussed patient with his oncologist, Dr. Coker, who recommends prior to discharge transfusing 2 units PRBC and 6 pack of platelets to bridge him to his appointment next 04/26. Per Dr. 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 immune process for thrombocytopenia. Patient is not a surgical candidate- surgery would like him to undergo 2 more cycles of chemotherapy and he is unable to due to thrombocytopenia and unable to operate due to thrombocytopenia regardless. Disposition: Patient likely discharged tomorrow with [facility] if pain continues to be well controlled. Plan to transfuse 2 units PRBC and six-pack of platelets prior to leaving. Quality VTE Deep Vein Thrombosis/Pulmonary Embolism Present on Admission: No
[2018-04-19] VITALS (18 sets, daily range): BP systolic 96–133; BP diastolic 55–78; PULSE 60–76; RESP 16–20; TEMP 36.6–37.3; O2SAT 93–99
[2018-04-19] MEDS: OXYCODONE IR 5 MG TABLET 7.5 MG PO (05:21)
[2018-04-19] MEDS: PANTOPRAZOLE 20 MG TABLET PO (05:28)
[2018-04-19 05:47] LABS: Basophils Absolute Auto 0 /uL (0-100); Eosinophils Absolute Auto 0 /uL (0-450); Hematocrit 21.2 % (41-53); Hemoglobin 7.3 g/dL (13.5-17.5); Lymphocytes Absolute Auto 500 /uL (1100-4500); Lymphocytes Percent Auto 11.6 % (25-40); Mean Corpuscular HGB Conc 34.2 % (30-36); Mean Corpuscular Hemoglobin 29.8 PG (26-34); Mean Corpuscular Volume 87.2 fL (80-100); Monocytes Absolute Auto 500 /uL (0-900); Monocytes Percent Auto 11.5 % (3-14); Neutrophils Absolute Auto 3200 /uL (1500-7000); Neutrophils Percent Auto 76.9 % (50-75); Red Blood Cell Count 2.43 X10^6/uL (4.5-5.9); Red Cell Distribution Width 13.6 % (11.6-14.8); White Blood Cell Count 4.1 X10^3/uL (4.5-11.0)
[2018-04-19 06:03] LABS: Add Manual Diff / Slide Review SLIDE REVIEW; Platelet Count 15 X10^3/uL (150-400)
--- NOTE | 2018-04-19 06:08 | PC.NURSE ---
Pt. is forgetful but easily reoriented, VSS, lungs CTA with sats in the high 80's, voiding using the urinal independently. Only c/o is back pain with movement, medicated with Percolone 7.5 mg then pt. fell asleep. H&H this am is 7.3/21.2 and platelet count is 15, Digna Jackson informed.
--- NOTE | 2018-04-19 07:10 | PM.PN.1 ---
Subjective Date Patient Seen: 04/19/18 Time Patient Seen: 07:10 Interval history: His back was doing much better yesterday but this morning he moved and felt the sharp pain in the right lower back. This seems to be settling down. No leg radiation Exam Vital Signs (past 8 hours): - 04/19/18 00:14 04/19/18 00:27 04/19/18 05:25 Temperature 97.9 F 98.1 F Pulse Rate 72 63 Respiratory Rate 16 16 Blood Pressure 133/78 117/68 Pulse Oximetry 98 93 Oxygen Delivery Method Room Air Oxygen Flow Rate 0 Const Orientation: alert and oriented x3 Back/Spine/Pelvis Other: Tender right lower lumbars and gluteals Objective Labs Result Diagrams: 04/19/18 05:00 04/18/18 08:40 Labs: Laboratory Results - last 24 hr 04/18/18 04/18/18 04/19/18 08:40 08:40 05:00 WBC 5.9 4.1 L RBC 2.81 L 2.43 L Hgb 8.3 L 7.3 L Hct 24.4 L 21.2 L MCV 86.8 87.2 MCH 29.7 29.8 MCHC 34.2 34.2 RDW 13.9 13.6 Plt Count 22 L* 15 L* Neut % (Auto) 84.5 H 76.9 H Lymph % (Auto) 6.1 L 11.6 L [place] % (Auto) 8.8 11.5 Eos % (Auto) 0.1 L 0.0 L Baso % (Auto) 0.5 0.0 Neut # (Auto) 5000 3200 Lymph # (Auto) 400 L 500 L [place] # (Auto) 500 500 Eos # (Auto) 0 0 Baso # (Auto) 0 0 Platelet Estimate Decreased on smear RBC Morphology See below Sodium 137 Potassium 3.9 Chloride 102 Carbon Dioxide 26 BUN 22 H Creatinine 0.80 Estimated GFR > 60.0 BUN/Creatinine Ratio 27.5 H Glucose 119 H Calcium 9.6 Blood Type 04/19/18 05:00 WBC RBC Hgb Hct MCV MCH MCHC RDW Plt Count Neut % (Auto) Lymph % (Auto) [place] % (Auto) Eos % (Auto) Baso % (Auto) Neut # (Auto) Lymph # (Auto) [place] # (Auto) Eos # (Auto) Baso # (Auto) Platelet Estimate RBC Morphology Sodium Potassium Chloride Carbon Dioxide BUN Creatinine Estimated GFR BUN/Creatinine Ratio Glucose Calcium Blood Type O Negative Assessment & Plan Assessment Narrative: Stable from an orthopedic standpoint. With respect to his compression fracture I explained that he is going to have ups and Downs but for the most part this should be stabilizing and he should be fine to go home. With respect to his thrombocytopenia, his lab values are much lower today. They were discussing transfusion today which may delay his discharge. Quality VTE Deep Vein Thrombosis/Pulmonary Embolism Present on Admission: No
[2018-04-19 08:17] LABS: RBC Morphology Normal Morphology
[2018-04-19] MEDS: DEXAMETHASONE 4 MG TABLET PO (08:49)
[2018-04-19] MEDS: DOCUSATE 100 MG CAPSULE PO ×2 (08:49→20:25)
[2018-04-19] MEDS: LIDOCAINE PATCH 1 EACH ADH..PATCH TOP (08:50)
[2018-04-19] MEDS: OXYCODONE IR 10 MG TABLET PO ×3 (08:58→20:01)
--- NOTE | 2018-04-19 11:26 | PC.NURSE ---
Pt reports pain in back at 09/19. given 10m mg of oxycodone with some improvement. First unit of PRBC started at around 1100. Consent signed. Platelets are on the way from [place] with expected arrival of 1600 today. One 6 pack ordered.
--- NOTE | 2018-04-19 14:03 | CM.DPNOTE ---
Reviewed chart. According to Dr Parsons, pt receiving addtl. blood transfusion today but might be medically stable enough for DC Monday, home w/ HH. TC placed to [place] w/ [facility]; had to leave detailed message relaying above. This CONSERVATION EDUCATOR following closely for coordination of safe DCP. Possibly DC Monday. JW Discharge Planning/Care Management Advanced directive, confirm from FAMILY Start: 04/17/18 00:06 Freq: Q24H Status: Complete Protocol: Document 04/17/18 00:06 YAD (Rec: 04/17/18 08:46 YAD [id number]) Advance Directive, confirm on record Time 08:45 Person contacted Spouse Copy received No Document 04/17/18 01:38 YAD (Rec: 04/17/18 08:46 YAD [id number]) Advance Directive, confirm on record Time 08:45 Person contacted spouse Copy received No Time 08:46 Person contacted spouse Copy received No CM Discharge Assessment Start: 04/17/18 12:00 Freq: Status: Active Protocol: Document 04/17/18 12:01 KJS (Rec: 04/17/18 12:26 KJS [id number]) Discharge Planning Assessment Assigned Print Finishing Worker NICCI Moreno Advance Directives? Yes Advance Directives on File No History Provided By Patient Significant Other Medical Record Prior Living Arrangements House Household Members spouse Type of transporation used prior to Relies on Others admit Independent with ADL's Yes Is patient alert and oriented? Yes Caregiver for Another No Community Services used prior to Home Health Nurse admission: Comment Spouse planning to obtain/ borrow DME from either [facility] or [facility]. Patient/Family Preference Home with Home Health Barriers to Discharge Yes Comment Patient currently with a lot of pain. Not anticipated to discharge today. Discharge Plan Home Transportation Arrangement Spouse Referrals Initiated Home Health Additional Comment Patient and spouse would like services resumed through [facility] contact/[facility]#[phone]. If patient plan is home with home health Yes : Has signed face to face form been completed? Whiteboard Updated in Patient Room with Yes name and ext. # of Print Finishing Worker Comment Reviewed chart. Patient admitted to .. with acute chronic back pain and syncopal episode. Primary payor is 1) Medicare 2)BCBS. PCP is Dr. Crystal. Met with patient and spouse/ Viry at bedside explained CM/SW role. Patient somewhat uncomfortable during interview . Patient just seen by OT. Spouse reports that they reside on [facility]. Patient has been primarily I with all ADL's up until now. 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 Patient also recently had bowel resection with Dr. Flynn. Spouse reports that they were being seen prior to admit by [facility]. However, spouse believes that this was preparing to . Patient and spouse would like to continue with through [facility] for therapy and nursing. Prior to this event with pain spouse reports patient was doing quite well. Patient with PT[facility]OT orders at [facility] signed by Dr. Marie. CONSERVATION EDUCATOR placed call to Isha at [facility] with referral ph# . Left message awaiting call back. P: Anticipate home with when medically stable. Review Status In Process Please Provide Date Initial DC 04/17/18 Assessment Was Performed Next Review Type Continued Stay Review
--- NOTE | 2018-04-19 15:26 | PT.IPTN ---
Current Diagnoses Other osteoporosis with current pathological fracture, vertebra(e), initial encounter for fracture (04/17/18) Physical Therapy Treatment Note M2 PT-IP Current Condition Start: 04/17/18 10:53 Freq: NEEDED Status: Active Protocol: Document 04/17/18 10:16 AB (Rec: 04/17/18 11:03 AB [id number]) Physical Therapy Current Condition Current Condition Evaluation Date 04/17/18 Treatment Diagnosis T12, L1 compression fractures; syncope; difficulty in walking Onset Date 04/16/18 Precautions Lumbar Precautions Log Roll No Twisting Limit Bending Lifting Restriction of 10 lbs Other Precautions chest PICC line; L side colostomy bag M3 PT-IP Subjective Start: 04/17/18 10:53 Freq: NEEDED Status: Active Protocol: Document 04/19/18 15:23 SA (Rec: 04/19/18 15:26 SA [id number]) Subjective Physical Therapy Visit Type Notes Cont hold this afternoon, pt receiving blood transfusion. M4 PT-IP Mobility and Gait Start: 04/17/18 10:53 Freq: NEEDED Status: Active Protocol: Document 04/18/18 16:18 SA (Rec: 04/18/18 16:32 SA [id number]) PT-Transfer Assessment Sit to and From Stand Sit to and from Stand Contact Guard Assistance 1 Person Assistance Use of Upper Extremities Equipment Transfer Assistive Device Gait Belt Front Wheeled Walker Orthotic/Prosthetic Devices or Brace: No Transfers Transfer Destination Chair Transfer Technique Stand Step Pivot Transfer Ability Level of Assist Contact Guard Assistance Comments Mobility Comments Pt sitting in chair, CGA for sit to stand to FWW. Stand pivot txs SBA-CGA with min cues. Gait Assessment Gait Gait Assistance Required: Contact Guard Assist Distance (Feet) 150 Able to Maintain Weight Bearing Status Yes During Gait Assistive Devices Assistive Device Gait Belt Straight Cane Front Wheeled Walker Orthotic/Prosthetic Devices or Brace: No Gait Deviations General Gait Pattern Narrow Based Gait Factors Limiting Gait Function Factors Limiting Gait Function Decreased Activity Tolerance Decreased Strength Pain Comments Gait Comments Pt completed short distance ambulaion in room with FWW and SBA. Longer walk in halls with his walking stick and CGA , cues for slowing pace to avoid rapid HR. Pt maintained HR 102-109 with ambulation. Stair Climbing Assessment Evaluation Level of Assist On Stairs Contact Guard Assistance Devices Stair Climbing Assistive Devices Straight Cane Technique/Endurance Stair Climbing Direction Ascend and Descend Stair Climbing Technique Step to Step Number of Steps Climbed 3 Query Text: Stair Climbing Set # Repetitions (reps) 2 Comments Stair Climbing Comments Pt used walking stick and no rails as he does not have rails at home, CGA provided with Mod cues for safety and pacing. M5 PT-IP Objective Assessments Start: 04/17/18 10:53 Freq: NEEDED Status: Active Protocol: Document 04/17/18 10:16 AB (Rec: 04/17/18 11:03 AB [id number]) Orientation Orientation/Cognition Level of Alertness Alert Orientation Name Age Birthday Month Date Year Day of Week Place Situation Safety Awareness Decreased Safety Awareness Gross Range of Motion Lower Extremity ROM Assessment Within Functional Limits Strength Lower Extremity Strength Assessment Bilaterally Impaired Comments Strength Comments RLE: 4-/5 LLE 3+/5 Coordination Assessment Gross Coordination Gross Coordination WNL Muscle Tone Muscle Tone WNL Yes M6 PT-IP Treatment Start: 04/17/18 10:53 Freq: NEEDED Status: Active Protocol: Document 04/18/18 16:18 SA (Rec: 04/18/18 16:32 SA [id number]) Physical Therapy Treatment Exercises Exercises Ankle Pumps Seated Knee Flexion/Extension Education Education Provided Precautions Safety Other Treatments Other Treatment Performed Education for safe activity progressions, pt demonstrates some impulsivity and needs cues for pacing and safety. M7 PT-IP Assessment and Plan Start: 04/17/18 10:53 Freq: NEEDED Status: Active Protocol: Document 04/18/18 16:18 SA (Rec: 04/18/18 16:32 [id number]) PT Summary Assessment and Plan Summary Assessment Summary Pt able to manage stairs safely with CGA x 1 person and use of walking stick. Cues for pacing and safety. Frequency of Treatment Frequency Of Treatment Twice a Day Recommendations To Nursing Amount of Assist Needed 1 Person Assist Discharge Recommendations PT Discharge Recommendations Home with 03/10 Assist SNF Rehab Equipment Needed for Home Before FWW: if pt goes home Discharge
--- NOTE | 2018-04-19 18:07 | PM.PN.1 ---
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 Patient's back pain is currently controlled with 7.5 mg to 10 mg oxycodone as needed. Current pain level 2/10. Ambulating with PT. He is getting transfused for low hemoglobin and platelets. Exam Vital Signs (past 8 hours): - 04/19/18 10:49 04/19/18 11:00 04/19/18 11:11 Temperature 98.2 F 98.6 F 98.6 F Pulse Rate 65 70 70 Respiratory Rate 16 16 16 Blood Pressure 106/55 L 107/66 107/66 Pulse Oximetry 04/19/18 13:43 04/19/18 14:01 04/19/18 14:27 Temperature 99.1 F 99.0 F 99.0 F Pulse Rate 76 76 76 Respiratory Rate 16 16 16 Blood Pressure 96/59 L 96/59 L 96/59 L Pulse Oximetry 95 04/19/18 14:43 04/19/18 14:48 04/19/18 16:19 Temperature 98.6 F 98.6 F Pulse Rate 67 60 Respiratory Rate 16 19 Blood Pressure 116/71 110/64 120/72 Pulse Oximetry 98 04/19/18 17:46 Temperature 98.4 F Pulse Rate 64 Respiratory Rate 18 Blood Pressure 124/65 Pulse Oximetry 99 Oxygen Delivery Method Room Air Oxygen Flow Rate 0 Narrative Exam Narrative: General: Alert pleasant, sitting in chair, no acute distress Objective Labs Result Diagrams: 04/19/18 05:00 04/18/18 08:40 Labs: Laboratory Results - last 24 hr 04/19/18 04/19/18 05:00 05:00 WBC 4.1 L RBC 2.43 L Hgb 7.3 L Hct 21.2 L MCV 87.2 MCH 29.8 MCHC 34.2 RDW 13.6 Plt Count 15 L* Neut % (Auto) 76.9 H Lymph % (Auto) 11.6 L [place] % (Auto) 11.5 Eos % (Auto) 0.0 L Baso % (Auto) 0.0 Neut # (Auto) 3200 Lymph # (Auto) 500 L [place] # (Auto) 500 Eos # (Auto) 0 Baso # (Auto) 0 RBC Morphology Normal morphology Blood Type O Negative Antibody Screen Negative Crossmatch See Detail Assessment & Plan Plan: 1. Acute pathological L1 compression fracture, present on admission. Active. -Old T12 compression fracture with 50% height loss and acute appearing L1 fracture with 30% height loss identified on CT. -continue oxycodone 7.5-10 mg q.3 hours as needed. -consider anti resorptive therapy with bisphosphonate, patient will discuss with his oncologist or PCP 2. Acute vasovagal syncope. Resolved. -normal telemetry, discontinue 3. Thymoma -Patient is under the care of oncologist and completed chemotherapy at [facility] in February. -Patient is taking dexamethasone 4 mg daily. -Discussed patient with his oncologist, Dr. Coker, who recommends prior to discharge transfusing 2 units PRBC and 6 pack of platelets to bridge him to his appointment next 04/26. Per Dr. 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 immune process for thrombocytopenia. Patient is not a surgical candidate- surgery would like him to undergo 2 more cycles of chemotherapy and he is unable to due to thrombocytopenia and unable to operate due to thrombocytopenia regardless. 4. Anemia and thrombocytopenia -unclear etiology but continue dropping counts during this admission -hemoglobin 7.3, hematocrit 21.2, platelets 15. -transfuse 2 units PRBC and 1 unit platelets on 04/19/2018 -recheck CBC in a.m. Disposition: Patient with improving course from compression fracture and getting transfused. Likely discharge tomorrow, Monday. Quality VTE Deep Vein Thrombosis/Pulmonary Embolism Present on Admission: No
[2018-04-20 00:06] VITALS: O2SAT 96
[2018-04-20 05:00] VITALS: BP 136/76; PULSE 71; RESP 19; TEMP 37; O2SAT 97
[2018-04-20] MEDS: OXYCODONE IR 10 MG TABLET PO ×3 (05:20→08:26)
[2018-04-20] MEDS: PANTOPRAZOLE 20 MG TABLET PO (05:29)
[2018-04-20 06:27] LABS: Add Manual Diff / Slide Review NO; Basophils Absolute Auto 0 /uL (0-100); Basophils Percent Auto 0.3 % (0-2); Eosinophils Absolute Auto 100 /uL (0-450); Eosinophils Percent Auto 2.1 % (2-4); Hematocrit 25.4 % (41-53); Hemoglobin 8.9 g/dL (13.5-17.5); Lymphocytes Absolute Auto 700 /uL (1100-4500); Lymphocytes Percent Auto 14.9 % (25-40); Mean Corpuscular Hemoglobin 31.3 PG (26-34); Mean Corpuscular Volume 89.4 fL (80-100); Monocytes Absolute Auto 400 /uL (0-900); Monocytes Percent Auto 7.7 % (3-14); Neutrophils Absolute Auto 3600 /uL (1500-7000); Platelet Count 105 X10^3/uL (150-400); Red Blood Cell Count 2.84 X10^6/uL (4.5-5.9); Red Cell Distribution Width 12.8 % (11.6-14.8); White Blood Cell Count 4.7 X10^3/uL (4.5-11.0)
[2018-04-20 08:00] VITALS: O2SAT 98
[2018-04-20] MEDS: DOCUSATE 100 MG CAPSULE PO (08:26)
[2018-04-20] MEDS: DEXAMETHASONE 4 MG TABLET PO (08:26)
[2018-04-20] MEDS: LIDOCAINE PATCH 1 EACH ADH..PATCH TOP (08:28)
[2018-04-20 08:30] VITALS: BP 104/62; PULSE 70; RESP 16; TEMP 36.9; O2SAT 94
[2018-04-20 08:32] LABS: Add Manual Diff / Slide Review NO; Basophils Absolute Auto 0 /uL (0-100); Basophils Percent Auto 0.2 % (0-2); Eosinophils Absolute Auto 0 /uL (0-450); Hematocrit 28.7 % (41-53); Hemoglobin 10.3 g/dL (13.5-17.5); Lymphocytes Absolute Auto 600 /uL (1100-4500); Lymphocytes Percent Auto 13.3 % (25-40); Mean Corpuscular HGB Conc 35.7 % (30-36); Mean Corpuscular Hemoglobin 30.9 PG (26-34); Mean Corpuscular Volume 86.6 fL (80-100); Monocytes Absolute Auto 600 /uL (0-900); Monocytes Percent Auto 14.1 % (3-14); Neutrophils Absolute Auto 3300 /uL (1500-7000); Neutrophils Percent Auto 72.4 % (50-75); Red Blood Cell Count 3.32 X10^6/uL (4.5-5.9); Red Cell Distribution Width 13.8 % (11.6-14.8); White Blood Cell Count 4.6 X10^3/uL (4.5-11.0)
[2018-04-20 08:33] LABS: Platelet Count 46 X10^3/uL (150-400)
--- NOTE | 2018-04-20 08:59 | P.DS_ITS ---
History of Present Illness Chief complaint: Back Px Narrative: This is a 67-year-old male patient with history thymoma, small-bowel obstruction she is status post resection with colostomy chronic pain who presents to the ER with acute chronic back pain and syncopal episode. Patient states that he got last night his stretches and sudden onset of increase pain felt stabbing spasm like. The patient is states he began feeling lightheaded experienced a syncopal episode next to the toilet. He was helped to the by his and did suffer injury. He reports that he woke lying on the floor and indicates that he was incontinent of urine. He states he took oxycodone that was prescribed for him 7.5/325 mg every 3 hr for 3 doses with no improvement pain. EMS was summoned is the patient was unable to get up floor to pain 9-10 out of 10. He denies other acute injury or prodrome and attributes his syncope pain. He denies fevers or chills, headaches or dizziness has no chest or shortness of breath he has had no nausea or vomiting however did become nauseated with pain medication. He denies weakness of extremities, numbness or tingling. In the ER the patient was evaluated for syncopal episode including a CT of the head which found no acute intracranial pathology, 12 lead EKG reviewed by myself which finds a sinus rhythm with a ventricular rate of 67, right bundle branch block and left anterior fascicular block. Patient also had a CT of the lumbar spine with findings of a old T12 compression fracture with approximately 50% loss of height and an acute appearing L1 fracture with approximately 30% loss of height, no surrounding fluid or hematoma, no spinal stenosis or retropulsed fragments. On lab work patient's CBC is notable for white count of 7.0, hemoglobin 8 and hematocrit of 24 with a platelet count of 25. A troponin was also evaluated and found to be less than 0.012. Patient was given Dilaudid 1 mg and Ativan for his pain. His oncologist Dr. Coker was contacted regarding patient's change in condition and concern over the platelet count. From the Oncology perspective the patient was safe to discharge home however the patient has uncontrollable pain and is unable to return home. Discharge Providers Date of admission: 04/17/18 13:01 Primary care physician: Rachael Rockwell PA-C Consults: 04/16/18 22:38 Consult to Discharge Planning Routine Comment: Consult to Occupational Therapy Evaluate & Treat Comment: Old T-12 and new L-1 Compression fracture Physician Instructions: Evaluate and treat Consult to Physical Therapy Evaluate & Treat Comment: Old T-12 and new L-1 Compression fracture Physician Instructions: Evaluate and Treat 04/17/18 00:06 Consult to Dietitian, Adult Routine Comment: Reason For Exam: MNA score 04/17/18 02:24 Consult to Physician Routine Comment: Consulting Provider: Cipriano Sood Reason for consultation: Spinal compression fracture without neurological complication Has provider been notified: No 04/17/18 06:54 Consult to Orthopedic Surgery Routine Comment: Consulting Provider: Cipriano Sood Reason for consultation: Acute Compression Fracture L1 Has provider been notified: Yes Discharge provider: Dave Parsons MD Discharge Date: 04/20/18 Summary Discharge Diagnosis: 1. Acute pathological L1 compression fracture, osteoporosis related 2. Old pathological T12 compression fracture, osteoporosis related 3. Osteoporosis 4. Thymoma 5. Chronic anemia and thrombocytopenia, undetermined etiology 6. Vasovagal syncope Procedures: CT lumbar spine without contrast: PROCEDURE: CT LUMBAR SPINE WO CON INDICATIONS: Lumbar pain history of thymoma TECHNIQUE: Noncontrast 3 mm thick sections acquired from the T12 level to the sacrum. Sagittal and coronal reformats were constructed. For radiation dose reduction, the following was used: automated exposure control. COMPARISON: [facility], CT, CT ABDOMEN PELVIS W CON, 12/02/2017, 20:54. FINDINGS: Image quality: Excellent. Bones: There is normal bony alignment. Subacute appearing T12 and acute appearing L1 vertebral body compression fractures are noted. T12 compression fracture results in approximately 50% loss of normal vertebral body height. The L1 compression fracture results in approximately 30% loss of normal vertebral body height. No retropulsed fragments or kyphosis associated with the T12 or L1 compression fractures. No suspicious lytic or blastic bony lesions. Bones are diffusely osteopenic. Mild multilevel degenerative changes are noted. Mild L4-L5 and L5-S1 facet arthropathy. No pars defects. Buckle fracture of the right iliac bone is stable in appearance compared to 12/02/18. Postsurgical changes noted in the left hip which are unchanged compared to prior CT scan are visualized. Soft tissues: No retroperitoneal masses or hematomas. Visualized aorta is normal in caliber. IMPRESSION: 1. Subacute appearing T12 an acute appearing L1 compression fractures. 2. Multilevel degenerative disc disease and facet arthropathy. Dictated by: Lorraine Leahy MD, PhD on 04/16/2018 at 14:03 Approved by: Lorraine Leahy MD, PhD on 04/16/2018 at 14:16 Hospital Course: 1. Acute pathological L1 compression fracture, present on admission. Active. -Old T12 compression fracture with 50% height loss and acute appearing L1 fracture with 30% height loss identified on CT. -condition improved -continue oxycodone 10 mg q.6 hours as needed. -consider anti resorptive therapy with bisphosphonate, patient will discuss with his oncologist or PCP 2. Acute vasovagal syncope. Resolved. -normal telemetry, discontinue 3. Thymoma -Patient is under the care of oncologist and completed chemotherapy at [facility] in February. -Patient is taking dexamethasone 4 mg daily. -patient received 2 units PRBC and 1 unit platelets on 04/19/2018. Hemoglobin went up from 8.9 up to 10.3. Platelets went up from [address] Marie discussed patient with his oncologist, Dr. Coker, who [facility] units PRBC and 6 pack of platelets to bridge him to his appointment next 04/26. Per Dr. 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 immune process for thrombocytopenia. Patient is not a surgical candidate- surgery would like him to undergo 2 more cycles of chemotherapy and he is unable to due to thrombocytopenia and unable to operate due to thrombocytopenia regardless. 4. Anemia and thrombocytopenia -unclear etiology but continue dropping counts during this admission -hemoglobin 7.3, hematocrit 21.2, platelets 15. -transfuse 2 units PRBC and 1 unit platelets on 04/19/2018 -recheck CBC in a.m. Status at Discharge Functional status at discharge: independent ambulation Time Spent with Patient Greater than 30 minutes Exam Vital Signs (past 8 hours): - 04/20/18 05:00 Temperature 98.6 F Pulse Rate 71 Respiratory Rate 19 Blood Pressure 136/76 Pulse Oximetry 97 Oxygen Delivery Method Room Air Oxygen Flow Rate 0 Objective Labs Result Diagrams: 04/20/18 08:00 04/18/18 08:40 Labs: Laboratory Results - last 24 hr 04/19/18 04/19/18 04/20/18 05:00 05:00 06:15 WBC 4.1 L 4.7 RBC 2.43 L 2.84 L Hgb 7.3 L 8.9 L Hct 21.2 L 25.4 L MCV 87.2 89.4 MCH 29.8 31.3 MCHC 34.2 35.0 RDW 13.6 12.8 Plt Count 15 L* 105 L Neut % (Auto) 76.9 H 75.0 Lymph % (Auto) 11.6 L 14.9 L [place] % (Auto) 11.5 7.7 Eos % (Auto) 0.0 L 2.1 Baso % (Auto) 0.0 0.3 Neut # (Auto) 3200 3600 Lymph # (Auto) 500 L 700 L [place] # (Auto) 500 400 Eos # (Auto) 0 100 Baso # (Auto) 0 0 RBC Morphology Normal morphology Blood Type O Negative Antibody Screen Negative Crossmatch See Detail 04/20/18 08:00 WBC 4.6 RBC 3.32 L Hgb 10.3 L Hct 28.7 L MCV 86.6 MCH 30.9 MCHC 35.7 RDW 13.8 Plt Count 46 L Neut % (Auto) 72.4 Lymph % (Auto) 13.3 L [place] % (Auto) 14.1 H Eos % (Auto) 0.0 L Baso % (Auto) 0.2 Neut # (Auto) 3300 Lymph # (Auto) 600 L [place] # (Auto) 600 Eos # (Auto) 0 Baso # (Auto) 0 RBC Morphology Blood Type Antibody Screen Crossmatch Discharge Plan Discharge Plan Patient Disposition: Home Discharge Med Rec/Prescriptions Prescriptions: New oxycodone-acetaminophen [Percocet] 10-325 mg tablet 1 tab PO Q6H PRN (Reason: pain) Qty: 30 RF: 0 lidocaine 5 % adhesive patch,medicated 1 patch TOP DAILY Qty: 30 RF: 0 Continued enoxaparin 80 mg/0.8 mL syringe 80 mg Sub-Q Q12HR RF: 0 dexamethasone 4 mg tablet 4 mg PO DAILY RF: 0 Airborne Vitamin 1 tab PO DAILY RF: 0 Discontinued oxycodone-acetaminophen 7.5-325 mg tablet 1 tab PO Q4H PRN (Reason: Pain, Moderate) RF: 0 hydrocodone-acetaminophen 7.5-300 mg tablet 1 tab PO Q4H PRN (Reason: Pain, Moderate) RF: 0 Follow up/Referrals: Gama Coker MD [Physician] - Rachael Rockwell PA-C [Primary Care Provider] - Provider Discharge Instructions Diet: Diet as Tolerated Visit Report/Discharge Packet Instructions: DI for Syncope in Adults (Fainting), DI for Vertebral Fracture Discharge Data Primary Care Provider: Rachael Rockwell Attending Provider: Pilo Melissa Admit Date/Time: 04/17/18 13:01 Quality VTE Deep Vein Thrombosis/Pulmonary Embolism Present on Admission: No
--- NOTE | 2018-04-20 11:27 | PC.NURSE ---
Day Shift- Pt A&OX4, able to make his needs known. Pt's labs redrawn to verify as pt stated he did not have lab work drawn this morning. Lab draw from PICC right chest. Flushed with Heparin per protocol, flushes easily with brisk blood return. Dr. Bunnesh in to assess pt and aware of lab draw need. Verbal Order for CBC received. Pt's Monica at bedside to drive pt home upon discharge and attempting to get [id number] boat to [facility]. Reviewed discharge summary packet, pt states has appointment already made for Oncologist Dr. Coker on Apr 26 at 0900. Pt's already picked up prescription for Percocet , the Lidocaine patches are pending insurance authorization. Right chest PICC dressing changed per hospital policy and protocol as last dressing change was documented on dressing at 04/12. Dressing changed without difficulty. Pt left unit via wheelchair with BUSINESS DEVELOPMENT CONSULTANT and pt's at side at 1047. Pt left unit in no distress.
--- NOTE | 2018-04-20 13:51 | CM.DPNOTE ---
Addendum entered by NICCI Downing 04/20/18 14:06: Talked to Isha at [facility]. Pt will have HH f/u Monday or Monday d/t limited staffing availability. JW Original Note: DC Note: DC order for home done by Dr Parsons this morning. TC to [place]; spoke w/Guillermina who works primarily in [place]. She wasn't very familiar w/pt or the ppk needed to start his care. Alerted that pt had DC home today. Faxed signed F2F, HH order, face sheet and H+P/ DC Summary. TERE
== END 2018-04-20 10:47 | disposition home or self-care (01) | DRG 543 ==
LOC: ED 19:14 → AC 19:36
PROVIDERS: Internal Medicine; Nurse Practitioner Gerontology; Admitting Provider Nurse Practitioner Adult Health; Emergency Provider Nurse Practitioner Family; PCP Physician Assistant; Visit Provider Nurse Practitioner Adult Health
DX: M80.88XA Other osteoporosis with current pathological fracture, vertebra(e), initial encounter for fracture (principal); C37 Malignant neoplasm of thymus; D69.6 Thrombocytopenia, unspecified; M54.5 Low back pain; D64.9 Anemia, unspecified; R55 Syncope and collapse
CPT/HCPCS: 36415; 36430; 36591; 36592; 70450; 72131; 80048; 80053; 82550; 84484; 85025; 86850; 86900; 86901; 93005; 94762; 96361; 96374; 96375; 96376; 97116; 97162; 97165; 97530; 97535; 99284; 99285; G0378; P9016; J1170; J1642; J2060; J2405; J7050; P9035

== ENCOUNTER 2018-08-28 11:48 | Inpatient (IN) | payer MEDICARE, BC, SELFPAY ==
[2017-10-13 08:56] VITALS: PULSE 65; RESP 13; O2SAT 96
[2018-04-16 21:15] VITALS: BMI 24.9
[2018-08-28] VITALS (11 sets, daily range): BP systolic 115–145; BP diastolic 72–87; PULSE 66–79; RESP 10–19; TEMP 36.8–37.3; O2SAT 93–100; BMI 25.4
--- NOTE | 2018-08-28 12:11 | DI.RAD.S_ITS ---
PROCEDURE: XR ACUTE ABDOMEN SERIES INDICATIONS: Abdominal pain, feels like prior bowel perf TECHNIQUE: One view chest and two views of the abdomen were acquired. COMPARISON: None. FINDINGS: Surgical changes and devices: Right chest wall central venous catheter tip is in SVC. Patient is status post left hip arthroplasty. Chest: Lungs are clear. Heart size is normal. Mildly tortuous thoracic aorta is seen. No pleural effusions. No pneumoperitoneum. Abdomen: Bowel gas pattern is nonobstructive. Moderate amount of fecal stasis throughout the colon is seen. No gross peritoneal free air. No suspicious calcifications. Visualized solid organ contours appear normal. Bones: No suspicious bony lesions. IMPRESSION: Suggestion of constipation. No definite peritoneal free air. Dictated by: Singh Escobar M.D. on 08/28/2018 at 13:09 Approved by: Singh Escobar M.D. on 08/28/2018 at 13:14
[2018-08-28 12:25] LABS: Add Manual Diff / Slide Review NO; Basophils Absolute Auto 0 /uL (0-100); Basophils Percent Auto 0.3 % (0-2); Eosinophils Absolute Auto 0 /uL (0-450); Hematocrit 29.4 % (41-53); Hemoglobin 10.2 g/dL (13.5-17.5); Lymphocytes Absolute Auto 400 /uL (1100-4500); Lymphocytes Percent Auto 4.4 % (25-40); Mean Corpuscular HGB Conc 34.7 % (30-36); Mean Corpuscular Hemoglobin 29.8 PG (26-34); Mean Corpuscular Volume 85.9 fL (80-100); Monocytes Absolute Auto 700 /uL (0-900); Monocytes Percent Auto 7.6 % (3-14); Neutrophils Absolute Auto 7800 /uL (1500-7000); Neutrophils Percent Auto 87.7 % (50-75); Red Blood Cell Count 3.42 X10^6/uL (4.5-5.9); Red Cell Distribution Width 13.5 % (11.6-14.8); White Blood Cell Count 8.9 X10^3/uL (4.5-11.0)
[2018-08-28 12:36] LABS: Alanine Aminotransferase 15 IU/L (21-72); Albumin 4.3 g/dL (3.5-5.0); Albumin Globulin Ratio 1.5 (1.0-2.8); Alkaline Phosphatase 122 U/L (38-126); Aspartate Aminotransferase 17 IU/L (17-59); BUN Creatinine Ratio 31.4 (6-22); Bilirubin Total 0.6 mg/dL (0.2-1.3); Blood Urea Nitrogen 22 mg/dL (9-20); Calcium 9.7 mg/dL (8.4-10.2); Carbon Dioxide 27 mmol/L (22-32); Chloride 101 mmol/L (98-107); Estimated Glomerular Filt Rate > 60.0 mL/min (>60); Globulin 2.8 g/dL (1.7-4.1); Glucose 132 mg/dL (80-110); Lipase 33 U/L (23-300); Sodium 138 mmol/L (137-145); Total Protein 7.1 g/dL (6.3-8.2)
[2018-08-28 12:37] LABS: Lactate (Lactic Acid) 1.6 mmol/L (0.7-2.1)
[2018-08-28 12:38] LABS: HEMOLYSIS 60 (0-50)
--- NOTE | 2018-08-28 12:38 | ED.ABDPAIN ---
HPI - Abdominal Pain General Chief Complaint: Abdominal Pain Stated Complaint: abdominal pain Time Seen by Provider: 08/28/18 11:55 Source: patient and family Mode of arrival: ambulatory Limitations: no limitations History of Present Illness HPI narrative: 68-year-old male nonsmoker with history of cancerous lesion and upper chest and bowel obstruction requiring diverting colostomy in November presents with the chief complaint of recurrence of pain which is similar to prior bowel obstruction and perforation. Patient started developing pain over the past day or so it is gradually worsening. It is worse when he moves and improves with rest. He denies any radiation of the pain. It has associated nausea but no vomiting. He denies any change in the output of his ostomy. Patient presented last September with abdominal pain and resulting diagnosis was diverticulitis with perforation. This would be his 3rd possible bowel obstruction in the aftermath MD complaint: abdominal pain Onset (ago): hour(s) Pain Consistency: constant Location: diffuse Severity: moderate Quality: cramping Radiation: none Relieving factors: nothing Exacerbating factors: nothing Associated symptoms: nausea Related Data Home Medications Medication Instructions Recorded Confirmed prednisone 10 mg tablet 10 mg PO DAILY 07/16/18 08/28/18 diphenhydramine HCl [Benadryl] 25 mg PO BEDTIME PRN 08/28/18 08/28/18 docusate sodium 100 mg PO BID 08/28/18 08/28/18 morphine 15 mg PO BID 08/28/18 08/28/18 multivitamin 1 tab PO DAILY 08/28/18 08/28/18 naloxone [Narcan] 1 spray INTRANASAL PRN PRN 08/28/18 08/28/18 oxycodone-acetaminophen 1 - 2 tab PO Q4H PRN 08/28/18 08/28/18 Previous Rx's Medication Instructions Recorded calcium carbonate 600 mg calcium 600 mg PO BID #60 tab 08/07/18 (1,500 mg) tablet Allergies Allergy/AdvReac Type Severity Reaction Status Date / Time birch Allergy Unknown Verified 07/16/18 13:04 ragweed pollen Allergy Unknown Verified 07/16/18 13:04 Review of Systems Constitutional Denies chills, Denies fever(s), Denies lethargy and Denies weakness Eyes Denies change in vision, Denies eye discharge, Denies irritation and Denies loss of vision ENT Ears, Nose, Mouth, and Throat: Denies change in voice, Denies neck pain and Denies sore throat Cardiovascular Denies chest pain, Denies irregular heart rhythm, Denies lightheadedness, Denies palpitations, Denies dyspnea, Denies dyspnea on exertion and Denies orthopnea Respiratory Denies cough, Denies dyspnea, Denies dyspnea on exertion and Denies wheezing Gastrointestinal Gastrointestinal: Reports abdominal pain, Denies change in bowel habits, Denies diarrhea, Reports nausea and Denies vomiting Genitourinary Denies hematuria, Denies flank pain, Denies urinary incontinence and Denies urinary urgency Musculoskeletal Denies neck pain Integumentary/Breasts Denies pruritus, Denies erythema, Denies rash and Denies wounds Neurologic Denies confusion, Denies loss of vision and Denies weakness Psychiatric Denies anxiety, Denies confusion, Denies depression, Denies homicidal ideation and Denies suicidal ideation Endocrine Denies palpitations Hematologic/Lymphatic Denies easy bruising Allergic/Immunologic Denies wheezing PFSH Medical History Osteoporosis (Chronic) Thymoma (Chronic ~2016) Diverticulosis (Chronic) Elevated PSA (Chronic ~1999) Hearing loss (Chronic) Insomnia (Chronic) Kidney stones (Chronic ~1989) Mediastinal mass (Chronic) Seasonal allergies (Chronic) Thyroid nodule (Chronic) Tinnitus (Chronic ~1999) Hepatitis A (Resolved) Perforated viscus (Resolved) Small bowel obstruction due to postoperative adhesions (Resolved) Surgical History Anesthesia (Resolved) Broken arm (Resolved ~1983) Cataracts, bilateral (Resolved) H/O colectomy (Resolved ~2017) History of appendectomy (Resolved ~1979) History of colonoscopy (Resolved) History of hip replacement (Resolved ~1991) History of knee surgery (Resolved ~1959) Family History Father History of emphysema Mother Congestive heart failure Brother Pancreatic cancer Social History marital status: household members: spouse lives independently: Yes caregiver/support person: Yes () education level: other (PhD) occupational status: other (retired professor) Smoking Status: Never smoker alcohol intake: current substance use type: does not use Family History Father History of emphysema Mother Congestive heart failure Brother Pancreatic cancer Social History marital status: household members: spouse lives independently: Yes caregiver/support person: Yes () education level: other (PhD) occupational status: other (retired professor) Smoking Status: Never smoker alcohol intake: current substance use type: does not use Exam Narrative Exam Narrative: GENERAL: 68-year-old male appears older than stated age, obviously uncomfortable and rubbing his abdomen. at bedside HEAD: Atraumatic. Normocephalic. No temporal or scalp tenderness. EYES: Pupils equal round and reactive. Extraocular motions intact. No scleral icterus. No injection or drainage. ENT: Nose without bleeding, purulent drainage or septal hematoma. Throat without erythema, tonsillar hypertrophy or exudate. Uvula midline. Airway patent. NECK: Trachea midline. No JVD or lymphadenopathy. Supple, nontender, no meningeal signs. CARDIOVASCULAR: Regular rate and rhythm without murmurs, gallops, or rubs. RESPIRATORY: Clear to auscultation. Breath sounds equal bilaterally. No wheezes, rales, or rhonchi. GASTROINTESTINAL: Abdomen soft, generalized upper tenderness, nondistended. Dark partially formed stool in ostomy No hepato-splenomegaly, or palpable masses. No guarding. EXTREMITIES: No clubbing, cyanosis, or edema. No joint tenderness, effusion, or edema noted. BACK: Nontender without deformity or crepitance. No flank tenderness. NEURO: AOx3. SKIN: No rash or erythema. Initial Vital Signs Initial Vital Signs: Vital Signs Temperature 99.1 F 08/28/18 12:00 Pulse Rate 79 08/28/18 12:00 Respiratory Rate 19 08/28/18 12:00 Blood Pressure 145/87 H 08/28/18 12:00 Pulse Oximetry 99 08/28/18 12:00 Course Orders Ordered: ED Orders 08/28/18 12:11 XR acute abdomen series Stat 08/28/18 12:15 Complete Blood Count AUTO DIFF Stat Comprehensive Metabolic Panel Stat Lactate (Lactic Acid) Stat Lipase Stat 08/28/18 14:23 Consult to Discharge Planning Routine Education, smoking cessation ONGOING 08/28/18 17:55 Consult to Occupational Therapy Evaluate & Treat Hydromorphone HCl (Dilaudid) 0.5 mg IV Q4HR PRN PRN Reason: Pain, Severe (7-10) Dextrose/Sodium Chloride (Dextrose 5%-0.45% Ns) 1,000 mls @ 125 mls/hr IV CONT [facility] Last Admin: 08/28/18 16:38 Dose: 125 mls/hr Naloxone HCl (Narcan) 0.2 mg IV Q2MIN PRN PRN Reason: Opiate Reversal Ondansetron HCl (Zofran) 4 mg IV Q4HR PRN PRN Reason: Nausea And Vomiting Prednisone (Deltasone) 10 mg PO DAILY [facility] Discontinued Medications Enoxaparin Sodium (Lovenox) 80 mg SUBCUT BID [facility] Hydromorphone HCl (Dilaudid) 0.5 mg IV NOW ONE Stop: 08/28/18 12:08 Last Admin: 08/28/18 12:51 Dose: 0.5 mg Hydromorphone HCl (Dilaudid) 0.5 mg IV Q4HR PRN PRN Reason: Pain, Severe (7-10) Last Admin: 08/28/18 16:39 Dose: 0.5 mg Hydromorphone HCl (Dilaudid) 0.5 mg IV NOW ONE Stop: 08/28/18 14:47 Last Admin: 08/28/18 14:43 Dose: 0.5 mg Sodium Chloride (Normal Saline 0.9%) 1,000 mls @ 150 mls/hr IV CONT [facility] Last Infusion: 08/28/18 14:45 Dose: 0 mls/hr Admin: 08/28/18 12:52 Dose: 150 mls/hr Ondansetron HCl (Zofran) 4 mg IV NOW ONE Stop: 08/28/18 12:08 Last Admin: 08/28/18 12:51 Dose: 4 mg Vital Signs - 8 hr 08/28/18 12:00 08/28/18 13:00 08/28/18 14:00 Temperature 99.1 F Pulse Rate 79 67 73 Respiratory Rate 19 11 L 10 L Blood Pressure 145/87 H Blood Pressure [Left Arm] 131/87 130/81 Pulse Oximetry 99 93 99 08/28/18 16:05 08/28/18 16:35 08/28/18 17:05 Temperature 98.4 F 98.3 F 98.3 F Pulse Rate 70 66 68 Respiratory Rate 18 18 16 Blood Pressure 134/77 134/77 140/81 Blood Pressure [Left Arm] Pulse Oximetry 97 97 93 08/28/18 17:43 08/28/18 18:05 08/28/18 19:05 Temperature 98.8 F 98.8 F Pulse Rate 76 72 Respiratory Rate 18 18 Blood Pressure 115/72 117/74 Blood Pressure [Left Arm] Pulse Oximetry 95 98 98 MDM - Abdominal Pain Lab Data Result diagrams: 08/28/18 12:15 08/28/18 12:15 Lab Results 08/28/18 08/28/18 08/28/18 Range/Units 12:15 12:15 12:15 WBC 8.9 (4.5-11.0) X10^3/uL RBC 3.42 L (4.5-5.9) X10^6/uL Hgb 10.2 L (13.5-17.5) g/dL Hct 29.4 L (41-53) % MCV 85.9 (80-100) fL MCH 29.8 (26-34) PG MCHC 34.7 (30-36) % RDW 13.5 (11.6-14.8) % Plt Count 37 L (150-400) X10^3/uL Neut % (Auto) 87.7 H (50-75) % Lymph % (Auto) 4.4 L (25-40) % [place] % (Auto) 7.6 (3-14) % Eos % (Auto) 0.0 L (2-4) % Baso % (Auto) 0.3 (0-2) % Neut # (Auto) 7800 H (4885-9027) /uL Lymph # (Auto) 400 L (4011-8724) /uL [place] # (Auto) 700 (0-900) /uL Eos # (Auto) 0 (0-450) /uL Baso # (Auto) 0 (0-100) /uL RBC Morphology Normal morphology Sodium 138 (137-145) mmol/L Potassium 4.5 (3.4-5.1) mmol/L Chloride 101 (98-107) mmol/L Carbon Dioxide 27 (22-32) mmol/L BUN 22 H (9-20) mg/dL Creatinine 0.70 (0.66-1.25) mg/dL Estimated GFR > 60.0 (>60) mL/min BUN/Creatinine Ratio 31.4 H (6-22) Glucose 132 H (80-110) mg/dL Lactate 1.6 (0.7-2.1) mmol/L Calcium 9.7 (8.4-10.2) mg/dL Total Bilirubin 0.6 (0.2-1.3) mg/dL AST 17 (17-59) IU/L ALT 15 L (21-72) IU/L Alkaline Phosphatase 122 (38-126) U/L Total Protein 7.1 (6.3-8.2) g/dL Albumin 4.3 (3.5-5.0) g/dL Globulin 2.8 (1.7-4.1) g/dL Albumin/Globulin Ratio 1.5 (1.0-2.8) Lipase 33 (23-300) U/L Imaging Data Abdominal x-ray: Attestation: I personally reviewed and interpreted this imaging study as follows: My impression: airfluid levels, high suspicion for bowel obstruction Discharge Plan Departure Patient Disposition: Admitted As Inpatient Clinical Impression: Partial small bowel obstruction Discharge Date/Time: 08/28/18 14:45 Interventions: ED Discharge Assessment Last Done: 08/28/18 14:49 Admit Date/Time: 08/28/18 13:37 Admit Provider: Sivan Ignacio
[2018-08-28 12:39] LABS: Potassium 4.5 mmol/L (3.4-5.1)
--- NOTE | 2018-08-28 12:42 | ED_ITS ---
HPI - Abdominal Pain General Chief Complaint: Abdominal Pain Stated Complaint: abdominal pain Time Seen by Provider: 08/28/18 11:55 Source: patient and family Mode of arrival: ambulatory Limitations: no limitations History of Present Illness HPI narrative: 68-year-old male nonsmoker with history of cancerous lesion and upper chest and bowel obstruction requiring diverting colostomy in November presents with the chief complaint of recurrence of pain which is similar to prior bowel obstruction and perforation. Patient started developing pain over the past day or so it is gradually worsening. It is worse when he moves and improves with rest. He denies any radiation of the pain. It has associated nausea but no vomiting. He denies any change in the output of his ostomy. Patient presented last September with abdominal pain and resulting diagnosis was diverticulitis with perforation. This would be his 3rd possible bowel obstruction in the aftermath MD complaint: abdominal pain Onset (ago): hour(s) Pain Consistency: constant Location: diffuse Severity: moderate Quality: cramping Radiation: none Relieving factors: nothing Exacerbating factors: nothing Associated symptoms: nausea Related Data Home Medications Medication Instructions Recorded Confirmed prednisone 10 mg tablet 10 mg PO DAILY 07/16/18 08/28/18 diphenhydramine HCl [Benadryl] 25 mg PO BEDTIME PRN 08/28/18 08/28/18 docusate sodium 100 mg PO BID 08/28/18 08/28/18 morphine 15 mg PO BID 08/28/18 08/28/18 multivitamin 1 tab PO DAILY 08/28/18 08/28/18 naloxone [Narcan] 1 spray INTRANASAL PRN PRN 08/28/18 08/28/18 oxycodone-acetaminophen 1 - 2 tab PO Q4H PRN 08/28/18 08/28/18 Previous Rx's Medication Instructions Recorded calcium carbonate 600 mg calcium 600 mg PO BID #60 tab 08/07/18 (1,500 mg) tablet Allergies Allergy/AdvReac Type Severity Reaction Status Date / Time birch Allergy Unknown Verified 07/16/18 13:04 ragweed pollen Allergy Unknown Verified 07/16/18 13:04 Review of Systems Constitutional Denies chills, Denies fever(s), Denies lethargy and Denies weakness Eyes Denies change in vision, Denies eye discharge, Denies irritation and Denies loss of vision ENT Ears, Nose, Mouth, and Throat: Denies change in voice, Denies neck pain and Denies sore throat Cardiovascular Denies chest pain, Denies irregular heart rhythm, Denies lightheadedness, Denies palpitations, Denies dyspnea, Denies dyspnea on exertion and Denies orthopnea Respiratory Denies cough, Denies dyspnea, Denies dyspnea on exertion and Denies wheezing Gastrointestinal Gastrointestinal: Reports abdominal pain, Denies change in bowel habits, Denies diarrhea, Reports nausea and Denies vomiting Genitourinary Denies hematuria, Denies flank pain, Denies urinary incontinence and Denies urinary urgency Musculoskeletal Denies neck pain Integumentary/Breasts Denies pruritus, Denies erythema, Denies rash and Denies wounds Neurologic Denies confusion, Denies loss of vision and Denies weakness Psychiatric Denies anxiety, Denies confusion, Denies depression, Denies homicidal ideation and Denies suicidal ideation Endocrine Denies palpitations Hematologic/Lymphatic Denies easy bruising Allergic/Immunologic Denies wheezing PFSH Medical History Osteoporosis (Chronic) Thymoma (Chronic ~2016) Diverticulosis (Chronic) Elevated PSA (Chronic ~1999) Hearing loss (Chronic) Insomnia (Chronic) Kidney stones (Chronic ~1989) Mediastinal mass (Chronic) Seasonal allergies (Chronic) Thyroid nodule (Chronic) Tinnitus (Chronic ~1999) Hepatitis A (Resolved) Perforated viscus (Resolved) Small bowel obstruction due to postoperative adhesions (Resolved) Surgical History Anesthesia (Resolved) Broken arm (Resolved ~1983) Cataracts, bilateral (Resolved) H/O colectomy (Resolved ~2017) History of appendectomy (Resolved ~1979) History of colonoscopy (Resolved) History of hip replacement (Resolved ~1991) History of knee surgery (Resolved ~1959) Family History Father History of emphysema Mother Congestive heart failure Brother Pancreatic cancer Social History marital status: household members: spouse lives independently: Yes caregiver/support person: Yes () education level: other (PhD) occupational status: other (retired professor) Smoking Status: Never smoker alcohol intake: current substance use type: does not use Family History Father History of emphysema Mother Congestive heart failure Brother Pancreatic cancer Social History marital status: household members: spouse lives independently: Yes caregiver/support person: Yes () education level: other (PhD) occupational status: other (retired professor) Smoking Status: Never smoker alcohol intake: current substance use type: does not use Exam Narrative Exam Narrative: GENERAL: 68-year-old male appears older than stated age, obviou sly uncomfortable and rubbing his abdomen. at bedside HEAD: Atraumatic. Normocephalic. No temporal or scalp tenderness. EYES: Pupils equal round and reactive. Extraocular motions intact. No scleral icterus. No injection or drainage. ENT: Nose without bleeding, purulent drainage or septal hematoma. Throat without erythema, tonsillar hypertrophy or exudate. Uvula midline. Airway patent. NECK: Trachea midline. No JVD or lymphadenopathy. Supple, nontender, no meningeal signs. CARDIOVASCULAR: Regular rate and rhythm without murmurs, gallops, or rubs. RESPIRATORY: Clear to auscultation. Breath sounds equal bilaterally. No wheezes, rales, or rhonchi. GASTROINTESTINAL: Abdomen soft, generalized upper tenderness, nondistended. Dark partially formed stool in ostomy No hepato-splenomegaly, or palpable masses. No guarding. EXTREMITIES: No clubbing, cyanosis, or edema. No joint tenderness, effusion, or edema noted. BACK: Nontender without deformity or crepitance. No flank tenderness. NEURO: AOx3. SKIN: No rash or erythema. Initial Vital Signs Initial Vital Signs: Vital Signs Temperature 99.1 F 08/28/18 12:00 Pulse Rate 79 08/28/18 12:00 Respiratory Rate 19 08/28/18 12:00 Blood Pressure 145/87 H 08/28/18 12:00 Pulse Oximetry 99 08/28/18 12:00 Course Orders Ordered: ED Orders 08/28/18 12:11 XR acute abdomen series Stat 08/28/18 12:15 Complete Blood Count AUTO DIFF Stat Comprehensive Metabolic Panel Stat Lactate (Lactic Acid) Stat Lipase Stat 08/28/18 14:23 Consult to Discharge Planning Routine Education, smoking cessation ONGOING 08/28/18 17:55 Consult to Occupational Therapy Evaluate & Treat Hydromorphone HCl (Dilaudid) 0.5 mg IV Q4HR PRN PRN Reason: Pain, Severe (7-10) Dextrose/Sodium Chloride (Dextrose 5%-0.45% Ns) 1,000 mls @ 125 mls/hr IV CONT [facility] Last Admin: 08/28/18 16:38 Dose: 125 mls/hr Naloxone HCl (Narcan) 0.2 mg IV Q2MIN PRN PRN Reason: Opiate Reversal Ondansetron HCl (Zofran) 4 mg IV Q4HR PRN PRN Reason: Nausea And Vomiting Prednisone (Deltasone) 10 mg PO DAILY [facility] Discontinued Medications Enoxaparin Sodium (Lovenox) 80 mg SUBCUT BID [facility] Hydromorphone HCl (Dilaudid) 0.5 mg IV NOW ONE Stop: 08/28/18 12:08 Last Admin: 08/28/18 12:51 Dose: 0.5 mg Hydromorphone HCl (Dilaudid) 0.5 mg IV Q4HR PRN PRN Reason: Pain, Severe (7-10) Last Admin: 08/28/18 16:39 Dose: 0.5 mg Hydromorphone HCl (Dilaudid) 0.5 mg IV NOW ONE Stop: 08/28/18 14:47 Last Admin: 08/28/18 14:43 Dose: 0.5 mg Sodium Chloride (Normal Saline 0.9%) 1,000 mls @ 150 mls/hr IV CONT [facility] Last Infusion: 08/28/18 14:45 Dose: 0 mls/hr Admin: 08/28/18 12:52 Dose: 150 mls/hr Ondansetron HCl (Zofran) 4 mg IV NOW ONE Stop: 08/28/18 12:08 Last Admin: 08/28/18 12:51 Dose: 4 mg Vital Signs - 8 hr 08/28/18 12:00 08/28/18 13:00 08/28/18 14:00 Temperature 99.1 F Pulse Rate 79 67 73 Respiratory Rate 19 11 L 10 L Blood Pressure 145/87 H Blood Pressure [Left Arm] 131/87 130/81 Pulse Oximetry 99 93 99 08/28/18 16:05 08/28/18 16:35 08/28/18 17:05 Temperature 98.4 F 98.3 F 98.3 F Pulse Rate 70 66 68 Respiratory Rate 18 18 16 Blood Pressure 134/77 134/77 140/81 Blood Pressure [Left Arm] Pulse Oximetry 97 97 93 08/28/18 17:43 08/28/18 18:05 08/28/18 19:05 Temperature 98.8 F 98.8 F Pulse Rate 76 72 Respiratory Rate 18 18 Blood Pressure 115/72 117/74 Blood Pressure [Left Arm] Pulse Oximetry 95 98 98 MDM - Abdominal Pain Lab Data Result diagrams: 08/28/18 12:15 08/28/18 12:15 Lab Results 08/28/18 08/28/18 08/28/18 Range/Units 12:15 12:15 12:15 WBC 8.9 (4.5-11.0) X10^3/uL RBC 3.42 L (4.5-5.9) X10^6/uL Hgb 10.2 L (13.5-17.5) g/dL Hct 29.4 L (41-53) % MCV 85.9 (80-100) fL MCH 29.8 (26-34) PG MCHC 34.7 (30-36) % RDW 13.5 (11.6-14.8) % Plt Count 37 L (150-400) X10^3/uL Neut % (Auto) 87.7 H (50-75) % Lymph % (Auto) 4.4 L (25-40) % [place] % (Auto) 7.6 (3-14) % Eos % (Auto) 0.0 L (2-4) % Baso % (Auto) 0.3 (0-2) % Neut # (Auto) 7800 H (7322-4247) /uL Lymph # (Auto) 400 L (9951-8224) /uL [place] # (Auto) 700 (0-900) /uL Eos # (Auto) 0 (0-450) /uL Baso # (Auto) 0 (0-100) /uL RBC Morphology Normal morphology Sodium 138 (137-145) mmol/L Potassium 4.5 (3.4-5.1) mmol/L Chloride 101 (98-107) mmol/L Carbon Dioxide 27 (22-32) mmol/L BUN 22 H (9-20) mg/dL Creatinine 0.70 (0.66-1.25) mg/dL Estimated GFR > 60.0 (>60) mL/min BUN/Creatinine Ratio 31.4 H (6-22) Glucose 132 H (80-110) mg/dL Lactate 1.6 (0.7-2.1) mmol/L Calcium 9.7 (8.4-10.2) mg/dL Total Bilirubin 0.6 (0.2-1.3) mg/dL AST 17 (17-59) IU/L ALT 15 L (21-72) IU/L Alkaline Phosphatase 122 (38-126) U/L Total Protein 7.1 (6.3-8.2) g/dL Albumin 4.3 (3.5-5.0) g/dL Globulin 2.8 (1.7-4.1) g/dL Albumin/Globulin Ratio 1.5 (1.0-2.8) Lipase 33 (23-300) U/L Imaging Data Abdominal x-ray: Attestation: I personally reviewed and interpreted this imaging study as follows: My impression: airfluid levels, high suspicion for bowel obstruction Discharge Plan Departure Patient Disposition: Admitted As Inpatient Clinical Impression: Partial small bowel obstruction Discharge Date/Time: 08/28/18 14:45 Interventions: ED Discharge Assessment Last Done: 08/28/18 14:49 Admit Date/Time: 08/28/18 13:37 Admit Provider: Sivan Ignacio
[2018-08-28 12:44] LABS: Platelet Count 37 X10^3/uL (150-400); RBC Morphology Normal Morphology
[2018-08-28] MEDS: HYDROMORPHONE 1 MG INJ 0.5 MG IV ×2 (12:51→16:39)
[2018-08-28] MEDS: ONDANSETRON 4 MG/2 ML INJ IV (12:51)
[2018-08-28] MEDS: SODIUM CHLORIDE 0.9% 1,000 ML 150 ML IV (12:52)
[2018-08-28] MEDS: HYDROMORPHONE 0.5 MG INJ IV ×2 (14:43→20:03)
[2018-08-28] MEDS: DEXTROSE 5%-0.45% NS 1,000 ML 125 ML IV ×2 (16:38→23:30)
--- NOTE | 2018-08-28 17:25 | P.HP_ITS ---
History of Present Illness Date Patient Seen: 08/28/18 Time Patient Seen: 17:23 Chief complaint: abdominal pain Narrative: 68yo M known to practice for episode of diverticulitis requiring carlo rgent surgery and resection now with end colostomy. 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 He has been significantly thrombocytopenic for several months. He was on high dose lovenox for prophylaxis due to the tumor invasion but this was recently stopped due to even lower platelet readings. He is on a steroid taper he thinks for a compression fracture he suffered a few months ago. He is here today after 12 hours or so of abdominal pain. No nausea or vomiting but has noticed his colostomy output is quite low. He came in for evaluation as he had had a prior SBO a few months ago. Exam and KUB fairly unremarkable but history concerning so patient admitted. He is non-toxic with normal vitals and no leukocytosis or electrolyte derangement. His platelets are 37 which is fairly baseline for him now. He has no nausea or distension and would prefer to defer NGT for now unless symptoms worsen. Patient History Medical History Osteoporosis (Chronic) Thymoma (Chronic ~2016) Diverticulosis (Chronic) Elevated PSA (Chronic ~1999) Hearing loss (Chronic) Insomnia (Chronic) Kidney stones (Chronic ~1989) Mediastinal mass (Chronic) Seasonal allergies (Chronic) Thyroid nodule (Chronic) Tinnitus (Chronic ~1999) Hepatitis A (Resolved) Perforated viscus (Resolved) Small bowel obstruction due to postoperative adhesions (Resolved) Surgical History Anesthesia (Resolved) Broken arm (Resolved ~1983) Cataracts, bilateral (Resolved) H/O colectomy (Resolved ~2017) History of appendectomy (Resolved ~1979) History of colonoscopy (Resolved) History of hip replacement (Resolved ~1991) History of knee surgery (Resolved ~1959) Family History Father History of emphysema Mother Congestive heart failure Brother Pancreatic cancer Social History marital status: household members: spouse lives independently: Yes caregiver/support person: Yes () education level: other (PhD) occupational status: other (retired professor) Smoking Status: Never smoker alcohol intake: current substance use type: does not use Family & Social History Family History Father History of emphysema Mother Congestive heart failure Brother Pancreatic cancer Social History: household members spouse Prior Living Arrangements House lives independently Yes caregiver/support person Yes: Safety & Behavioral: Feels Safe in Current Yes Environment Been Physically Hurt or No Threatened By a Person Suicidal Ideation Description None Suicide Plan Description No Plan Tobacco & Substance use: Smoking Status Never smoker alcohol intake current alcohol intake frequency 0-2 drinks per day Substance Use Type does not use Meds Home Medications Medication Instructions Recorded Confirmed Type prednisone 10 mg tablet 10 mg PO DAILY 07/16/18 08/28/18 History calcium carbonate 600 mg calcium 600 mg PO BID #60 tab 08/07/18 08/28/18 Rx (1,500 mg) tablet diphenhydramine HCl [Benadryl] 25 mg PO BEDTIME PRN 08/28/18 08/28/18 History docusate sodium 100 mg PO BID 08/28/18 08/28/18 History morphine 15 mg PO BID 08/28/18 08/28/18 History multivitamin 1 tab PO DAILY 08/28/18 08/28/18 History naloxone [Narcan] 1 spray INTRANASAL PRN PRN 08/28/18 08/28/18 History oxycodone-acetaminophen 1 - 2 tab PO Q4H PRN 08/28/18 08/28/18 History Allergies Allergy/AdvReac Type Severity Reaction Status Date / Time birch Allergy Unknown Verified 07/16/18 13:04 ragweed pollen Allergy Unknown Verified 07/16/18 13:04 Review of Systems Constitutional Constitutional: Reports as per HPI Exam Vital Signs (past 8 hours): - 08/28/18 12:00 08/28/18 13:00 08/28/18 14:00 Temperature 99.1 F Pulse Rate 79 67 73 Respiratory Rate 19 11 L 10 L Blood Pressure 145/87 H Blood Pressure [Left Arm] 131/87 130/81 Pulse Oximetry 99 93 99 08/28/18 16:05 Temperature 98.4 F Pulse Rate 70 Respiratory Rate 18 Blood Pressure 134/77 Blood Pressure [Left Arm] Pulse Oximetry 97 Oxygen Delivery Method Room Air Narrative Exam Narrative: AAO, NAD, male of healthy weight EOMI, MMM, no scleral icterus unlabored RA soft, nt/nd, pink colostomy with minimal stool in bag MAEW visible skin dry and intact Objective Labs Result Diagrams: 08/28/18 12:15 08/28/18 12:15 Labs: Laboratory Results - last 24 hr 08/28/18 08/28/18 08/28/18 12:15 12:15 12:15 WBC 8.9 RBC 3.42 L Hgb 10.2 L Hct 29.4 L MCV 85.9 MCH 29.8 MCHC 34.7 RDW 13.5 Plt Count 37 L Neut % (Auto) 87.7 H Lymph % (Auto) 4.4 L [place] % (Auto) 7.6 Eos % (Auto) 0.0 L Baso % (Auto) 0.3 Neut # (Auto) 7800 H Lymph # (Auto) 400 L [place] # (Auto) 700 Eos # (Auto) 0 Baso # (Auto) 0 RBC Morphology Normal morphology Sodium 138 Potassium 4.5 Chloride 101 Carbon Dioxide 27 BUN 22 H Creatinine 0.70 Estimated GFR > 60.0 BUN/Creatinine Ratio 31.4 H Glucose 132 H Lactate 1.6 Calcium 9.7 Total Bilirubin 0.6 AST 17 ALT 15 L Alkaline Phosphatase 122 Total Protein 7.1 Albumin 4.3 Globulin 2.8 Albumin/Globulin Ratio 1.5 Lipase 33 Assessment & Plan Assessment & Plan narrative: - SBO by history, unremarkable imaging and exam --> NPO but ok for ice chips --> defer NGT for now as exam unconcerning but also for patient request; given severe thrombocytopenia would also be possibly risky --> if nausea or distension develops, will place - will ask OT to see pt as his compression fractures are bothering him quite a bit and he is fairly immobile due to pain Quality VTE Deep Vein Thrombosis/Pulmonary Embolism Present on Admission: No
[2018-08-28] MEDS: HYDROMORPHONE 2 MG INJ 1 MG IV (22:45)
[2018-08-29] VITALS (12 sets, daily range): BP systolic 114–152; BP diastolic 69–84; PULSE 75–92; RESP 14–20; TEMP 36.6–37.3; O2SAT 94–100
[2018-08-29] MEDS: HYDROMORPHONE 1 MG INJ IV ×7 (01:10→21:52)
--- NOTE | 2018-08-29 01:33 | PC.NURSE ---
Addendum entered and electronically signed by Nicholas Schmitz R.N. 08/29/18 01:49: Pt has been medicated w/ 1mg Dilaudid Q2 hrs. Original Note: Pt is pleasant, resting, is sleeping in room. Pt lung sounds clear bilaterally, denies nausea, but has abdominal pain 4/10. Pt has colostomy w/ formed brown stool drainage. Pt refused SCD's, SCD education given and patient still refused. Pt is NPO except for ice chips.
[2018-08-29] MEDS: DEXTROSE 5%-0.45% NS 1,000 ML 125 ML IV ×2 (08:15→16:00)
[2018-08-29] MEDS: ONDANSETRON 4 MG/2 ML INJ IV ×2 (08:43→16:06)
[2018-08-29] MEDS: predniSONE 10 MG TABLET PO (09:48)
--- NOTE | 2018-08-29 10:33 | PC.NURSE ---
Assess- Pt is A&Ox3, he did have a 150cc bile colored. Given zofran and helpful. Pt took po prednisone ang given 1mg of iv dilaudid for pain to back. Up with sba and walker. Pt is steady. He just voided 225cc in the bathroom. Back to bed and resting. Called over to Oncology department and we are able to use pts port line to r.upper chest. in room and attentive to patients needs.
--- NOTE | 2018-08-29 15:45 | OT.IP.TRT ---
Occupational Therapy Treatment Note M3 OT- IP Subjective and Pain Start: 08/29/18 17:07 Freq: Status: Active Protocol: Document 08/29/18 15:45 PJM (Rec: 08/29/18 17:08 PJM [id number]) OT- Subjective Occupational Therapy Visit Type Type Administrative Note Visit Start Time 15:45 Notes OT referral received. Pt fatigued from day's events and wishes to defer OT evaluation until tomorrow. No charge.
--- NOTE | 2018-08-29 16:00 | CM.DANOTE ---
Discharge Planning/Care Management CM Discharge Assessment Start: 08/29/18 09:27 Freq: Status: Active Protocol: Document 08/29/18 09:30 ITV (Rec: 08/29/18 09:55 ITV [email or web address]) Discharge Planning Assessment Advance Directives? Yes Advance Directives on File No History Provided By Patient Medical Record Prior Living Arrangements House Household Members spouse Comment Patient/Family Preference Comment Discharge Plan Transportation Arrangement Referrals Initiated Additional Comment If patient plan is home with home health Yes : Has signed face to face form been completed? Document 08/29/18 15:56 ITV (Rec: 08/29/18 16:00 ITV [email or web address]) Discharge Planning Assessment Advance Directives? Yes Advance Directives on File No History Provided By Patient Family Member Medical Record Prior Living Arrangements House Household Members spouse Referrals Initiated Home Health Additional Comment Pt confirms he is current with [facility]. initial clinical is faxed to them now. If patient plan is home with home health Yes : Has signed face to face form been completed? Whiteboard Updated in Patient Room with Yes name and ext. # of Formulation Scientist Review Status In Process Next Review Type Continued Stay Review
--- NOTE | 2018-08-29 16:07 | CM.DANOTE ---
Discharge Planning/Care Management DCP: assessment: case received, EMR reviewed and met with pt and his this morning. Introduced self and role. Pt is a 68 year old male who admitted yesterday afternoon to care of the [facility]: Dr. Ignacio. Payer: Medicare and [facility]. PCP: Dr. Dot Crystal Pt with a hx of surgery with the [facility] resulting in a colostomy and is currently under oncology care and getting chemotherapy. He is admitted with consideration of a bowel obstruction. He is currently under care at home with [facility] as well as his 's supportive care. Both confirm that he wishes this to be continued. Have spoken now with [facility] and faxed her initial clinical. Pt will need resume HH orders at d/c. At time of this discussion pt was still NPO and waiting for an update from the surgeon. Agreed to follow up tomorrow as more is known. : Has signed face to face form been completed? Document 08/29/18 15:56 ITV (Rec: 08/29/18 16:00 ITV [email or web address]) Discharge Planning Assessment Advance Directives? Yes Advance Directives on File No History Provided By Patient Family Member Medical Record Prior Living Arrangements House Household Members spouse Referrals Initiated Home Health Additional Comment Pt confirms he is current with [facility]. initial clinical is faxed to them now. If patient plan is home with home health Yes : Has signed face to face form been completed? Whiteboard Updated in Patient Room with Yes name and ext. # of Location Analyst Review Status In Process Next Review Type Continued Stay Review Document 08/29/18 16:03 ITV (Rec: 08/29/18 16:06 ITV [email or web address]) Discharge Planning Assessment Advance Directives? Yes Advance Directives on File No History Provided By Patient Family Member Medical Record Prior Living Arrangements House Household Members spouse Patient/Family Preference Home with Home Health Referrals Initiated Home Health Additional Comment Pt confirms he is current with [facility]. initial clinical is faxed to them now. If patient plan is home with home health Yes : Has signed face to face form been completed? Whiteboard Updated in Patient Room with Yes name and ext. # of Location Analyst Review Status In Process Next Review Type Continued Stay Review
--- NOTE | 2018-08-29 16:51 | P.PN_ITS ---
Subjective Date Patient Seen: 08/29/18 Time Patient Seen: 08:18 Interval history: [place] better this morning, increased pain overnight but mostly back related, some abdominal. No new output but pt says he will sometimes have little for a few days. Still no nausea or distension. Exam Vital Signs (past 8 hours): - 08/29/18 11:30 08/29/18 15:46 08/29/18 16:18 Temperature 98.7 F 98.0 F Pulse Rate 85 80 Respiratory Rate 15 20 Blood Pressure 114/73 126/78 Pulse Oximetry 97 98 97 Oxygen Delivery Method Room Air Oxygen Flow Rate 0 Narrative Exam Narrative: AAO, NAD, male of healthy weight EOMI, MMM, no scleral icterus unlabored RA soft, nt/nd; colostomy pink and healthy with same small volume formed stool from arrival MAEW visible skin dry and intact Objective Labs Result Diagrams: 08/28/18 12:15 08/28/18 12:15 Assessment & Plan Assessment & Plan narrative: - will try CLD - ambulate as able, OT ordered to assess for any back brace that may help - pain control - SCDs Quality VTE Deep Vein Thrombosis/Pulmonary Embolism Present on Admission: No
--- NOTE | 2018-08-29 18:20 | PC.NURSE ---
Patient is A&O x3, pleasant and cooperative w/ staff and able to make needs known when nec. Patient has a colostomy that he care for on his own. Patient states he is due to change his drg. Patient has emergency kit from home but realizes that he does not have all nec. supplies. We do not have the proper nec. supplies on the floor either. Delmi was on floor when nurse passed by. This nurse discussed w/ Delmi the nec. product patient needs, she states she can bring some by patient tomorrow. Delmi spoke w/ patient and spouse in room. Patient states he has a hernia forming behind his stoma and questioned if Delmi would be willing to come and speak with patient regarding different bag options or different techniques to better improve adherence of bag to stoma area. Delmi asked this nurse to put in a order for a consult for tomorrow with patient.
[2018-08-30] VITALS (7 sets, daily range): BP systolic 107–130; BP diastolic 67–79; PULSE 80–90; RESP 16–20; TEMP 36.8–37.4; O2SAT 96–98
[2018-08-30] MEDS: DEXTROSE 5%-0.45% NS 1,000 ML 125 ML IV ×2 (00:01→07:33)
--- NOTE | 2018-08-30 01:20 | PC.NURSE ---
Addendum entered by No Saenz R.N. 08/30/18 05:36: Omitted information with previous charting that patient refusing to have HOB elevated to 30 degrees. Was at 17 degrees + 2 pillows. States he slept well. Denies abdominal pain. Does have minimal 1/10 lower back pain but declines any intervention. SCD's applied at this time. Original Note: Patient is alert and oriented. Breath sounds CTA with RA sat of 95%. HRR. Denies nausea. BT present but no flatus in ostomy bag. Stoma is beefy red but protruding related to hernia. Has firm stool present in bag. Voiding per urinal and denies dysuria, frequency or urgency. Is able to turn self in bed. Denies pain at rest but has low back pain with movement; declines offer of pain medication. 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 Left UE is swollen; per patient also related to chemotherapy. Declines use of SCD's as not able to sleep with them on; discoussed purpose but still declines so reminded to ankle wave when awake. Fall risk score is high and bed alarm is activated. , Monica, rooming in.
[2018-08-30] MEDS: predniSONE 10 MG TABLET PO (08:40)
--- NOTE | 2018-08-30 10:42 | PT.IIE ---
Current Diagnoses Partial intestinal obstruction, unspecified as to cause (08/29/18) Surgical History (Last Reviewed 08/28/18 @ 17:41 by Sivan Ignacio MD) Anesthesia (Resolved) Broken arm (Resolved ~1983) Cataracts, bilateral (Resolved) H/O colectomy (Resolved ~2017) History of appendectomy (Resolved ~1979) History of colonoscopy (Resolved) History of hip replacement (Resolved ~1991) History of knee surgery (Resolved ~1959) Medical History (Last Reviewed 08/28/18 @ 17:41 by Sivan Ignacio MD) Osteoporosis (Chronic) Thymoma (Chronic ~2016) Diverticulosis (Chronic) Elevated PSA (Chronic ~1999) Hearing loss (Chronic) Insomnia (Chronic) Kidney stones (Chronic ~1989) Mediastinal mass (Chronic) Seasonal allergies (Chronic) Thyroid nodule (Chronic) Tinnitus (Chronic ~1999) Hepatitis A (Resolved) Perforated viscus (Resolved) Small bowel obstruction due to postoperative adhesions (Resolved) Physical Therapy Inpatient Evaluation/Re-Eval M1 PT/OT-IP Prior Functional Status Start: 08/29/18 14:06 Freq: NEEDED Status: Active Protocol: Document 08/30/18 10:42 AB (Rec: 08/30/18 12:00 AB [id number]) Medical Review Prior Functional Status Medical History Reviewed Yes Diet/Fluid Consistency Clear Liquids Communication Able to make needs known Mobility and Gait pt stated that he is modified independent with bed mobility, transfers and ambulation using FWW or walking sticks indoors depedning on his pain level and uses hiking pole for outdoor mobility. Social History Household Members spouse Living Arrangements House Number of Floors (Floors) One Floor Number of Stairs To Enter/Railing? 3 steps without rails Home Environment Standard Height Toilet Walk in Shower Home Equipment Front Wheel Walker Shower Seat with Backrest Hand Held Shower Grab Bars In Shower Employment Status Retired Additional Social History Comment pt stated that he has a wedge pillow ~ 15 deg and puts on more pillow on top M2 PT-IP Current Condition Start: 08/29/18 14:06 Freq: NEEDED Status: Active Protocol: Document 08/30/18 10:42 AB (Rec: 08/30/18 12:00 AB [id number]) Physical Therapy Current Condition Current Condition Evaluation Date 08/30/18 Treatment Diagnosis partial SBO; difficulty in walking Onset Date 08/29/18 Precautions Lumbar Precautions Log Roll No Twisting Limit Bending Lifting Restriction of 10 lbs Gait Belt above Incisional Area Abdominal Surgery Precautions Log Roll Lifting Restrictions Gait Belt above Incisional Area Other Precautions pt has h/o T12, L1 compression fx M3 PT-IP Subjective Start: 08/29/18 14:06 Freq: NEEDED Status: Active Protocol: Document 08/30/18 10:42 AB (Rec: 08/30/18 12:00 AB [id number]) Subjective Physical Therapy Visit Type Type Initial Evaluation Visit Start Time 10:42 Visit Stop Time 11:18 Total Visit Minutes 36 Number of PAINTER ORDNANCE Visits 0 Physical Therapy Visit Comments Patient Comments pt agreeable to do PT Therapy Pain Assessment Pain When Pain Assessed During Mobility Pain Present Pain Present Pain Reported Location Back Intensity 4 Scale Used Numeric (1 - 10) Pain Management Techniques Re-positioning Timing of Activity with Medications M4 PT-IP Mobility and Gait Start: 08/29/18 14:06 Freq: NEEDED Status: Active Protocol: Document 08/30/18 10:42 AB (Rec: 08/30/18 12:00 AB [id number]) PT-Bed Mobility Assessment Rolling Type of Rolling Log Rolling Level of Assist Standby Assistance Supine to Sit Supine to Sit Standby Assistance Head of Bed Elevated PT-Transfer Assessment Equipment Transfer Assistive Device Gait Belt Front Wheeled Walker Orthotic/Prosthetic Devices or Brace: No Transfers Transfer Destination Chair Transfer Technique pt ambulated using FWW Transfer Ability Level of Assist Standby Assistance Gait Assessment Gait Gait Assistance Required: Standby Assistance Distance (Feet) 250 Able to Maintain Weight Bearing Status Yes During Gait Assistive Devices Assistive Device Gait Belt Front Wheeled Walker Orthotic/Prosthetic Devices or Brace: No Factors Limiting Gait Function Factors Limiting Gait Function Decreased Activity Tolerance Decreased Strength Limited Range of Motion Pain Poor Balance Stair Climbing Assessment Evaluation Level of Assist On Stairs Minimal Assistance 1 Person Assistance Devices Stair Climbing Assistive Devices Straight Cane Technique/Endurance Stair Climbing Direction Ascend and Descend Stair Climbing Technique Step to Step Number of Steps Climbed 3 Query Text: Stair Climbing Set # Repetitions (reps) 1 Comments Stair Climbing Comments pt completed up/down steps using bilateral SPC requiring min A and cues. pt with x R knee buckling but with recovery requiring min A and cues. PT-Balance Assessment Sitting Balance and Reactions Static Sitting Balance Ability Good Dynamic Sitting Balance Ability Good Standing Balance and Reactions Static Standing Balance Ability Fair Dynamic Standing Balance Ability Fair Device Used FWW M5 PT-IP Objective Assessments Start: 08/29/18 14:06 Freq: NEEDED Status: Active Protocol: Document 08/30/18 10:42 AB (Rec: 08/30/18 12:00 AB [id number]) Orientation Orientation/Cognition Level of Alertness Alert Orientation Name Age Birthday Month Date Year Day of Week Place Situation Language Function Ability No Deficits Noted Safety Awareness Understands Safety Issues Memory Description No Deficits Noted Gross Range of Motion Lower Extremity ROM Assessment Within Functional Limits Strength Lower Extremity Strength Assessment Bilaterally Impaired Hip 4-/5 Knee 4-/5 Coordination Assessment Gross Coordination Gross Coordination WNL Sensation Assessment Sensation Gross Sensation WNL Muscle Tone Muscle Tone WNL Yes M6 PT-IP Treatment Start: 08/29/18 14:06 Freq: NEEDED Status: Active Protocol: Document 08/30/18 10:42 AB (Rec: 08/30/18 12:00 AB [id number]) Physical Therapy Treatment Education Education Provided Precautions Safety M7 PT-IP Assessment and Plan Start: 08/29/18 14:06 Freq: NEEDED Status: Active Protocol: Document 08/30/18 10:42 AB (Rec: 08/30/18 12:00 AB [id number]) PT Summary Assessment and Plan Potential Rehabilitation Potential Good Status of Condition at Evaluation Stable Summary Impairments Pain ROM Strength Balance Coordination Sensation Tone Cognition Bed Mobility Transfers Gait Activity Tolerance Assessment Summary pt requiring SBA for ambulation but requires min A with stair climbing. pt will have his spouse to assist him at home. doctor requested assessment for a back brace for pt due to his compression fractures. at this time, back brace is not necessary. pt able to maintain his back precautions and ambulates using SBA. pt also has a colostomy bag and putting back brace will impinge and press on the bag. Goals Bed Mobility Goal Independent Transfer Goal Independent Front Wheeled Walker Gait Goal Independent Front Wheel Walker Gait Distance 300 Other Goals up/down 3 steps using bilateral SPC SBA Days to Meet Goals 5 Frequency of Treatment Frequency Of Treatment Once a Day Treatment Plan Physical Therapy Treatment Plan Bed Mobility Training Transfer Training Gait Training Therapeutic Exercise Balance Retraining Discharge Planning Hot or Cold Pack Neuromuscular Re-ed Coordination Retraining Manual Therapy Other Recommendations and Next Treatment stair climbing Focus Recommendations To Nursing Amount of Assist Needed Standby Assistance Discharge Recommendations PT Discharge Recommendations Home with Assistance
--- NOTE | 2018-08-30 11:30 | PM.PN.1 ---
Subjective Date Patient Seen: 08/30/18 Time Patient Seen: 11:30 Interval history: Doing well today, no pain in abdomen, good output overnight in colostomy bag. Worked with PT and OT and cleared. Tolerated clears without issue and hungry. Exam Vital Signs (past 8 hours): - 08/30/18 05:15 08/30/18 07:41 08/30/18 07:45 Temperature 98.2 F 99.3 F Pulse Rate 85 90 Respiratory Rate 17 16 Blood Pressure 130/79 130/70 Pulse Oximetry 97 96 97 Oxygen Delivery Method Room Air Oxygen Flow Rate 0 Narrative Exam Narrative: AAO, NAD, male of healthy weight EOMI, MMM, no scleral icterus unlabored RA soft, nt/nd MAEW visible skin dry and intact Objective Labs Result Diagrams: 08/28/18 12:15 08/28/18 12:15 Assessment & Plan Assessment & Plan narrative: - doing great - normal colostomy output; to regular diet - appreciate PT and OT assistance for compression frx and limited mobility; cleared for home - likely home this PM - changed IV meds to home PO Quality VTE Deep Vein Thrombosis/Pulmonary Embolism Present on Admission: No
--- NOTE | 2018-08-30 11:40 | OT.IP.EVAL ---
Current Diagnoses Partial intestinal obstruction, unspecified as to cause (08/29/18) Past Medical History (Last Reviewed 08/28/18 @ 17:41 by Sivan Ignacio MD) Osteoporosis (Chronic) Thymoma (Chronic ~2016) Diverticulosis (Chronic) Elevated PSA (Chronic ~1999) Hearing loss (Chronic) Insomnia (Chronic) Kidney stones (Chronic ~1989) Mediastinal mass (Chronic) Seasonal allergies (Chronic) Thyroid nodule (Chronic) Tinnitus (Chronic ~1999) Hepatitis A (Resolved) Perforated viscus (Resolved) Small bowel obstruction due to postoperative adhesions (Resolved) Surgical History (Last Reviewed 08/28/18 @ 17:41 by Sivan Ignacio MD) Anesthesia (Resolved) Broken arm (Resolved ~1983) Cataracts, bilateral (Resolved) H/O colectomy (Resolved ~2017) History of appendectomy (Resolved ~1979) History of colonoscopy (Resolved) History of hip replacement (Resolved ~1991) History of knee surgery (Resolved ~1959) Occupational Therapy Inpatient Evaluation/Re-Eval M1 PT/OT-IP Prior Functional Status Start: 08/29/18 14:06 Freq: NEEDED Status: Active Protocol: Document 08/30/18 11:40 AUSTYN (Rec: 08/30/18 17:25 [facility] [id number]) Medical Review Prior Functional Status Medical History Reviewed Yes Diet/Fluid Consistency Regular Communication WNL Mobility and Gait Pt stated that he is modified independent with bed mobility, transfers and ambulation using FWW or walking sticks indoors depending on his pain level and uses hiking pole for outdoor mobility. Activities of Daily Living and IADL's Pt states his has been helping him with socks and shoes. Pt manages colostomy independently. He is independent with grooming and toileting and SBA for showering. does all IADLS and driving. Prior Functional Level (Other details) Pt currently receiving chemo for malignant thymoma (dx'd 2017) Social History Household Members spouse Living Arrangements House Number of Floors (Floors) One Floor Number of Stairs To Enter/Railing? 3 steps without rails Home Environment Standard Height Toilet Walk in Shower Home Equipment Front Wheel Walker Shower Seat with Backrest Hand Held Shower Grab Bars In Shower Employment Status Retired Additional Social History Comment pt stated that he has a wedge pillow ~ 15 deg and puts on more pillow on top M2 OT-IP Current Condition Start: 08/29/18 17:07 Freq: Status: Active Protocol: Document 08/30/18 11:40 PJM (Rec: 08/30/18 17:25 PJM [id number]) Occupational Therapy Current Condition Current Condition Evaluation Date 08/30/18 Treatment Diagnosis decreased self care DX: abdominal pain, R/O SBO, lumbar compr fx's Diagnosis Onset Date 08/28/18 Post Operative Precautions Other Precautions colostomy, current chemo pt M3 OT- IP Subjective and Pain Start: 08/29/18 17:07 Freq: Status: Active Protocol: Document 08/30/18 11:40 PJM (Rec: 08/30/18 17:25 PJM [id number]) OT- Subjective Occupational Therapy Visit Type Type Initial Evaluation Visit Start Time 11:14 Visit Stop Time 11:40 Total Visit Minutes 26 Occupational Therapy Visit Comments Patient Comments I am feeling much better today. Patient/Caregiver Goals to upgrade diet and go home later today OT Pain Assessment Pain When Pain Assessed After Treatment Pain Present Pain Present Denied Pain M4 OT- IP ADL's Start: 08/29/18 17:07 Freq: Status: Active Protocol: Document 08/30/18 11:40 PJM (Rec: 08/30/18 17:25 PJM [id number]) OT DOS-[id number] General Evaluation Diet Level for Self-Feeding clear liquids just advanced to general diet Self-Feeding Ability Independent OT ADL-Grooming General Evaluation Grooming Ability Independent Comments OT Grooming Comments standing at sink, provided education re: body mechanics OT ADL-Oral Care General Eval Oral Care Ability Independent Comments Oral Care Comments standing at sink, provided education re: body mechanics OT ADL-Dressing General Eval Upper Body Dressing Ability Independent Lower Body Dressing Ability Independent Areas Needing Assistance Underpants/Brief Pants/Shorts Socks Shoes Assistive Devices Dressing Assistive Devices Long Handled Shoe Horn Soap Worker Sock Aid Comments OT Dressing Comments Pt familiar with adapted lower body dressing techniques with equipt from previous hip surgery but has not been using it at home. After education re: body mechanics to decrease back pain from lumbar compression fx's, pt agreed to use equipt and agrees this will decrease caregiver burden on . OT ADL-Toileting General Evaluation Toileting Ability Independent Areas Needing Assistance Empty Catheter or Colostomy Comments OT Toileting Comments pt manages own colostomy OT ADL-Bathing Comments OT Bathing Comments provides SBA at home; they have necessary bathroom safety equipt M5 OT- IP IADL's Start: 08/29/18 17:07 Freq: Status: Active Protocol: Document 08/30/18 11:40 PJM (Rec: 08/30/18 17:25 PJ [id number]) OT-Instrumental Activities of Daily Living Deficits IADL Deficits Identified Deficits Home Safety Awareness Awareness of Need for Assistance at Home Good Awareness Ability to Problem Solve Emergency Able to Problem Solve Situations Home Safety Comments does all cooking, shopping, psychiatric social worker at home and drives pt to all appts Medication Management Medication Management No Deficits Identified Money Management Money Management No Deficits Identified Meal Preparation Meal Preparation Caregiver Provides Assist Bean Sprout Grower Bean Sprout Grower Caregiver Provides Assist Driving Driving Caregiver Provides Assist M6 OT- IP Functional Cognition Start: 08/29/18 17:07 Freq: Status: Active Protocol: Document 08/30/18 11:40 PJM (Rec: 08/30/18 17:25 PJ [id number]) Cognitive Factors Limiting Selfcare Function Cognitive Ability Level of Alertness Alert Patient Orientation Name Age Birthday Month Date Year Day of Week Place Situation Attention Span Ability Capable of Focused Attention Capable of Sustained Attention Ability to Follow Commands Able to Follow One Step Commands Able to Follow Multi-Step Commands Memory Description No Deficits Noted Safety Awareness No Deficits Noted Problem Solving Ability Needs Assist to Identify Solutions Cognitive Comments Cognitive Assessment Comments Appear WFL OT- Vision and Hearing OT- Hearing Assessment OT- Hearing Assessment WFL OT- Vision Assessment Visual Acuity WFL Glasses All The Time M7 OT- IP Mobility and Balance Start: 08/29/18 17:07 Freq: Status: Active Protocol: Document 08/30/18 11:40 PJM (Rec: 08/30/18 17:25 [facility] [id number]) OT-Transfer Assessment Sit to and From Stand Sit to and from Stand Standby Assistance Transfers Transfer Ability Standby Assistance Technique Transfer Destination Chair Transfer Technique Stand Step Pivot Devices Transfer Assistive Devices Gait Belt Front Wheeled Walker OT- Gait Assessment Comments Gait Ability Comments pt just finishing walk with P. T. when therapist arrived. see P.T. notes OT- Balance Assessment Sitting Balance and Reactions Static Sitting Balance Ability Good Dynamic Sitting Balance Ability Good Standing Balance and Reactions Static Standing Balance Ability Good M8 OT- IP Objective Assessments Start: 08/29/18 17:07 Freq: Status: Active Protocol: Document 08/30/18 11:40 PJM (Rec: 08/30/18 17:25 PJM [id number]) OT Gross Range of Motion Upper Extremity Range of Motion Assessment Within Functional Limits OT Strength Upper Extremity Strength Assessment Within Functional Limits OT- Coordination Assessment Comments Coordination Comments BUE WFL OT-Muscle Tone Assessment Muscle Tone WNL Yes OT Sensation Assessment Comments Summary Comments BUE WNL per pt M9 OT- IP Assessment and Plan Start: 08/29/18 17:07 Freq: Status: Active Protocol: Document 08/30/18 11:40 PJM (Rec: 08/30/18 17:25 PJM [id number]) OT Summary Assessment and Plan Potential Rehabilitation Potential Good Summary Progress Towards Goals Safe For Discharge Assessment Summary Low complexity OT assessment and all education completed in one visit re: body mechanics and adapted ADL's to decrease pain from recent lumbar compression fx's. Pt does not appear appropriate for back brace at this time (MD requested assessment of this) due to colostomy. Pt hopes to d/c home today with 24 hr assist from supportive, capable if able to tolerate general diet for lunch. No further OT services needed Frequency of Treatment Frequency Of Treatment Discharge Discharge Recommendations OT Discharge Recommendations Home with 24/ Assist
[2018-08-30] MEDS: DOCUSATE 100 MG CAPSULE PO (12:16)
[2018-08-30] MEDS: MORPHINE ER 15 MG TABLET PO (12:19)
--- NOTE | 2018-08-30 16:38 | P.DS_ITS ---
History of Present Illness Chief complaint: abdominal pain Narrative: 68yo M known to practice for episode of diverticulitis requiring ellis gent surgery and resection now with end colostomy. 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 He has been significantly thrombocytopenic for several months. He was on high dose lovenox for prophylaxis due to the tumor invasion but this was recently stopped due to even lower platelet readings. He is on a steroid taper he thinks for a compression fracture he suffered a few months ago. He is here today after 12 hours or so of abdominal pain. No nausea or vomiting but has noticed his colostomy output is quite low. He came in for evaluation as he had had a prior SBO a few months ago. Exam and KUB fairly unremarkable but history concerning so patient admitted. He is non-toxic with normal vitals and no leukocytosis or electrolyte derangement. His platelets are 37 which is fairly baseline for him now. He has no nausea or distension and would prefer to defer NGT for now unless symptoms worsen. Discharge Providers Date of admission: 08/29/18 10:35 Discharge Date: 08/30/18 Primary care physician: Kymberly Crystal DO Consults: 08/28/18 14:23 Consult to Discharge Planning Routine Comment: 08/28/18 17:55 Consult to Occupational Therapy Evaluate & Treat Comment: back pain due to compression fractures Physician Instructions: Evaluate and treat 08/29/18 11:06 Consult to Physical Therapy Evaluate & Treat Comment: Physician Instructions: Evaluate and Treat 08/30/18 09:00 Consult to Wound Care Routine Comment: Consult w/ Delmi for re-eval of ostomy care Consulting Provider: [facility] Discharge provider: Sivan Ignacio MD Summary Discharge Diagnosis: Constipation versus SBO Hospital Course: 68yo M admitted with abdominal pain and decreased colostomy output. No distension or nausea, concern for obstruction but never quite met threshold clinically. Monitored for pain control and slow diet advancement. Also seen by PT & OT for compression fractures he is dealing with as an outpatient. He is on outpatient narcotics and is discharged on same with a short course refill of his morphine ER (6 days) until he has an appointment with his regular physician who manages this; pt thinks he is ready to start weaning this. Status at Discharge Cognitive/behavioral status at discharge: at baseline, oriented Functional status at discharge: independent ambulation (with difficulty due to compression fractures) Overall status at discharge: patient is back to baseline Time Spent with Patient Less than 30 minutes Exam Vital Signs (past 8 hours): - 08/30/18 11:00 08/30/18 12:40 08/30/18 15:40 Temperature 98.2 F 99.0 F Pulse Rate 86 80 Respiratory Rate 17 20 Blood Pressure 107/67 124/76 Pulse Oximetry 98 98 98 Oxygen Delivery Method Room Air Oxygen Flow Rate 0 Objective Labs Result Diagrams: 08/28/18 12:15 08/28/18 12:15 Discharge Plan Discharge Plan Patient Disposition: Home Discharge Med Rec/Prescriptions Prescriptions: New morphine 15 mg Tablet Extended Release 15 mg PO BID 6 Days Qty: 12 RF: 0 Continued calcium carbonate [Calcium 600] 600 mg calcium (1,500 mg) tablet 600 mg PO BID Qty: 60 RF: 0 prednisone 10 mg tablet 10 mg PO DAILY RF: 0 oxycodone-acetaminophen 7.5-325 mg tablet 1 - 2 tab PO Q4H PRN (Reason: Pain, Moderate) RF: 0 naloxone 4 mg/actuation spray,non-aerosol 1 spray intranasal PRN PRN (Reason: Opioid Overdose) RF: 0 multivitamin Tablet 1 tab PO DAILY RF: 0 diphenhydramine HCl [Benadryl] 25 mg Capsule 25 mg PO BEDTIME PRN (Reason: Sleep) RF: 0 docusate sodium 100 mg Capsule 100 mg PO BID RF: 0 morphine 15 mg tablet extended release 15 mg PO BID 6 Days Qty: 12 RF: 0 Follow up/Referrals: Kymberly Crystal DO [Primary Care Provider] - Provider Discharge Instructions Diet: Diet as Tolerated Activity: as tolerated Discharge Data Primary Care Provider: Kymberly Crystal Attending Provider: Sivan Ignacio Admit Date/Time: 08/29/18 10:35 Quality VTE Deep Vein Thrombosis/Pulmonary Embolism Present on Admission: No
--- NOTE | 2018-08-30 17:19 | PC.NURSE ---
Patient left in stable condition w/ all his belongings in personal bags carried out by spouse at 1715 this vitor. Patient was escorted to personal vehicle via wheelchair and needed no assistance getting out and into vehicle. Patient and were very vocal of their appreciation of care provided here at .
--- NOTE | 2018-08-31 08:02 | CM.DPC ---
DCP: update: pt was ok'd for d/c last evening. [facility] will be updated this morning when they open re the d/c. DC summary and resume HH orders will [facility] to [facility]
== END 2018-08-30 17:15 | disposition home health service (06) | DRG 389 ==
LOC: ED 13:31 → AC 14:50
PROVIDERS: Admitting Provider Surgery; Emergency Provider Emergency Medicine; PCP Family Medicine; Visit Provider Surgery
DX: K56.600 Partial intestinal obstruction, unspecified as to cause (principal); C37 Malignant neoplasm of thymus; Z93.3 Colostomy status; D69.6 Thrombocytopenia, unspecified
CPT/HCPCS: 74022; 80053; 83605; 83690; 85025; 96361; 96374; 96375; 97116; 97161; 97165; 97535; 99282; 99284; G0378; J1170; J2405